=== PATIENT | female | born 1950 | race Caucasian/White ===

== ENCOUNTER → 2016-11-11 | Outpatient (CLI) | payer MEDICARE, BC ==
--- NOTE | 2016-11-12 00:56 | US ---
EXAMINATION TYPE: US kidneys/renal and bladder DATE OF EXAM: 11/11/2016 3:47 PM COMPARISON: Correlation CT 04/25/2016 CLINICAL HISTORY: 66-year-old female with Renal Cyst N28.1. TECHNIQUE: Multiple sonographic images of the kidneys and bladder were obtained. FINDINGS: Right Kidney: 11.1 x 3.9 x 5.4 cm without hydronephrosis. Left Kidney: 9.8 x 3.9 x 4.5 cm without hydronephrosis. There is a tiny 7 mm cortical cyst at the low er pole. Partial distention of the bladder limits its evaluation. IMPRESSION: 1. No hydronephrosis. 2. Tiny 7 mm left lower pole cortical cyst. This correlates well with the 6 mm lesion within the left kidney seen on CT.
== END | disposition home or self-care (01) ==
LOC: RADUSWWP 15:22
PROVIDERS: ATTEND Family Medicine
DX: N28.1 Cyst of kidney, acquired (principal)
CPT/HCPCS: 76770

== ENCOUNTER → 2016-12-18 | Outpatient (CLI) | payer MEDICARE, BC ==
--- NOTE | 2016-12-19 09:32 | MM ---
Reason for exam: screening (asymptomatic). Last mammogram was performed 1 year and 1 month ago. History: Patient is postmenopausal. Benign stereotactic core biopsy of the left breast, August 16, 2002. Taking estrogen for 21 years 8 months beginning at age 34. Physical Findings: A clinical breast exam by your physician is recommended on an annual basis and results should be correlated with mammographic findings. MG 3D Screening Mammo W/Cad Bilateral CC and MLO view(s) were taken. Prior study comparison: November 16, 2015, bilateral MG 3d screening mammo w/cad. November 09, 2014, bilateral MG screening mammo w CAD. The breast tissue is almost entirely fat. Previous mammotome biopsy in the left breast. No significant changes when compared with prior studies. ASSESSMENT: Benign, BI-RAD 2 RECOMMENDATION: Routine screening mammogram of both breasts in 1 year.
== END | disposition home or self-care (01) ==
LOC: RADMAMWWP 09:55
PROVIDERS: ATTEND Obstetrics & Gynecology
DX: Z12.31 Encounter for screening mammogram for malignant neoplasm of breast (principal)
CPT/HCPCS: 77063; G0202

== ENCOUNTER → 2018-08-20 | Outpatient (CLI) | payer MEDICARE, BC ==
--- NOTE | 2018-08-24 08:54 | MM ---
Reason for exam: screening (asymptomatic). Last mammogram was performed 1 year and 8 months ago. History: Patient is postmenopausal. Benign stereotactic core biopsy of the left breast, August 16, 2002. Taking estrogen for 21 years 8 months beginning at age 34. Physical Findings: A clinical breast exam by your physician is recommended on an annual basis and results should be correlated with mammographic findings. MG 3D Screening Mammo W/Cad Bilateral CC and MLO view(s) were taken. Prior study comparison: December 18, 2016, bilateral MG 3d screening mammo w/cad. November 16, 2015, bilateral MG 3d screening mammo w/cad. There are scattered fibroglandular densities. Previous mammotome biopsy in the left breast. No significant changes when compared with prior studies. ASSESSMENT: Benign, BI-RAD 2 RECOMMENDATION: Routine screening mammogram of both breasts in 1 year.
== END | disposition home or self-care (01) ==
LOC: RADMAMWWP 12:45
PROVIDERS: ATTEND Family Medicine
DX: Z12.31 Encounter for screening mammogram for malignant neoplasm of breast (principal)
CPT/HCPCS: 77063; 77067

== ENCOUNTER → 2018-10-28 | Outpatient (CLI) | payer MEDICARE, BC ==
--- NOTE | 2018-10-28 15:26 | CTL ---
EXAMINATION TYPE: CT Low Dose Lung DATE OF EXAM ORDERED: 10/28/2018 HISTORY: Long-term tobacco use. Lung cancer screening CT DLP: 49.[address] CTDI: 1.4 mGy Automated exposure control for dose reduction was used. SCREENING VISIT: Initial study COMPARISON: None TECHNIQUE: Low dose computed tomography scan was performed through the chest at 1 mm thick sections a nd reconstructed images in the coronal plane at [address] DIAGNOSTIC QUALITY: Satisfactory FINDINGS: LUNG NODULES: Present, detailed below: A few scattered micronodules or nodules under 4 mm in size thr oughout the right lung for reference right lower lobe 3 x 2 mm nodule axial image 185. LUNGS: COPD: Severity: Moderate to severe Fibrosis: Severity: None Lymph nodes: None Other findings: Enlarged bilateral pulmonary arteries consistent with underlying pulmonary hypertensi on. Mild/moderate calcified plaque of the aorta. BILATERAL PLEURAL SPACE: Effusion: None Calcification: None Thickening: None Pneumothorax: None HEART: Heart Size: Normal Coronary calcification: Severe three-vessel Pericardial effusion: None OTHER FINDINGS: Upper abdomen: None Bony thorax: Levoconvex scoliosis centered in the upper lumbar spine. Straightening of spine on sagit varinder images. Moderate multilevel spurring and disc space narrowing. Most prominent disc space narrowin g is at the T9-T10 level. Supraclavicular region: None Other: None IMPRESSION: Scattered small nodules. No significant nodules greater than 4 mm. Background moderate to advanced emphysematous change. FOLLOW UP CT CHEST RECOMMENDATION: Annual low-dose lung screening CT CT LUNG RAD: Lung-Rad 2 S -- Benign Appearance or Behavior Recommendation: Severe three-vessel coronary artery calcification. Correlate with additional cardiac risk factors advised.
== END | disposition home or self-care (01) ==
LOC: RADCTMAIN 14:35
PROVIDERS: ATTEND Family Medicine
DX: Z12.2 Encounter for screening for malignant neoplasm of respiratory organs (principal); J43.9 Emphysema, unspecified; R91.8 Other nonspecific abnormal finding of lung field; Z87.891 Personal history of nicotine dependence

== ENCOUNTER → 2020-01-07 | Outpatient (CLI) | payer MEDICARE, BC ==
--- NOTE | 2020-01-07 14:26 | CT ---
EXAMINATION TYPE: CT abdomen wo con DATE OF EXAM: 01/07/2020 COMPARISON: 04/25/2016 HISTORY: Follow up abdominal aneurysm CT DLP: 215 mGycm Automated exposure control for dose reduction was used. TECHNIQUE: Helical acquisition of images was performed from the lung bases through the top of iliac crest to include entire abdomen. CONTRAST: Performed without Oral Contrast and without IV contrast. FINDINGS: LUNG BASES: Suggestive coronary artery calcification with partially included. Lung bases demonstrate subsegmental change involving the right lung base likely in the basis of interlobular septal thickeni ng and paraseptal emphysematous changes. Additional diffuse changes are noted. LIVER/GB: No significant abnormality is appreciated. PANCREAS: No significant abnormality is seen. SPLEEN: No significant abnormality is seen. ADRENALS: No significant abnormality is seen. KIDNEYS: No hydronephrosis or nephrolithiasis. Small hypodense lesion left kidney is difficult to see by noncontrast technique as reported by prior exam. Inadequate assessment.. BOWEL: Bowel gas pattern nonspecific. LYMPH NODES: No significant abnormality is appreciated. OSSEOUS STRUCTURES: Is a scoliosis with multilevel severe degenerative disc disease. Multilevel face t arthropathy, lateral recess stenosis, canal stenosis, and foraminal encroachment suspected. OTHER: Aorta appears to be of normal caliber. There is no diagnostic evidence of aneurysm. There is d iffuse atherosclerotic changes. The maximal transverse dimension is 2.1 cm. Scoliotic curvature resul ts in ectasia and displacement of the aorta. An accurate measurement however demonstrates the length of the aorta to measure under 3 cm. However, there is diffuse atherosclerotic disease including the s karen branches of the aorta. Marked atherosclerotic disease at the level the aortic bifurcation. Short segmental occlusions or critical stenosis involving the origins of both common iliac arteries. Relate d to claudication or Leriche syndrome. The bladder is markedly distended but only partially included. Miles diffuse subcutaneous edema. Spencer elate for cardiac status. IMPRESSION: 1. No evidence of aortic aneurysm. Ectasia of the aorta noted. Accurate measurement of the aorta demo nstrates a maximal dimension of approximately 2.1 cm. However, severe atherosclerotic change of the a ortic bifurcation with short segmental occlusions or critical stenosis involving the bilateral common iliac artery. Correlate for claudication and/or Leriche syndrome.
== END | disposition home or self-care (01) ==
LOC: RADCTMAIN 13:49
PROVIDERS: ATTEND Internal Medicine Interventional Cardiology
DX: I77.811 Abdominal aortic ectasia (principal); I70.0 Atherosclerosis of aorta; Z91.048 Other nonmedicinal substance allergy status
CPT/HCPCS: 74150

== ENCOUNTER 2020-06-18 13:27 | Inpatient (IN) | payer MEDICARE, BC ==
[2020-06-18 14:22] LABS: Basophils % (A) 1 %; Eosinophils # (A) 0.1 k/uL (0-0.7); Eosinophils % (A) 1 %; HCT 47.6 % (34.0-46.0); HGB 15.5 gm/dL (11.4-16.0); Lymphocytes # (A) 0.7 k/uL (1.0-4.8); Lymphocytes % (A) 11 %; MCH 31.2 pg (25.0-35.0); MCHC 32.5 g/dL (31.0-37.0); MCV 95.9 fL (80.0-100.0); Mean Platelet Volume 10.6; Monocytes # (A) 0.2 k/uL (0-1.0); Monocytes % (A) 3 %; Neutrophils # (A) 5.7 k/uL (1.3-7.7); Neutrophils % (A) 84 %; Platelet Count 129 k/uL (150-450); RBC 4.96 m/uL (3.80-5.40); RDW 14.7 % (11.5-15.5); WBC 6.8 k/uL (3.8-10.6)
--- NOTE | 2020-06-18 14:26 | ED ---
General Adult HPI - General Stated complaint: Fall/Weakness Time Seen by Provider: 06/18/20 13:28 Source: patient, family, EMS, RN notes reviewed Mode of arrival: EMS Limitations: no limitations - History of Present Illness Initial comments: Patient is a pleasant 70-year-old female presenting to the emergency Department with general weakness. Patient got up around 6 is morning and tried use a bedside commode however fell down. Patient states she was too weak to stand. Weakness is bilateral legs. Patient does have chronic back problems however this is unchanged. No increase in back pain. Patient feels weak all over. No confusion. No street drugs. Patient has had increased leg edema recently. Patient has felt like she is having problems emptying her bladder. - Related Data Home Medications Medication Instructions Recorded Confirmed Atenolol/Chlorthalidone 1 tab PO DAILY 06/18/20 06/18/20 [Atenolol-Chlorthalidone 50-25] Atorvastatin Calcium [Lipitor] 40 mg PO DAILY 06/18/20 06/18/20 Biotin 10,000 mcg PO DAILY 06/18/20 06/18/20 Cetirizine HCl [Zyrtec] 10 mg PO DAILY 06/18/20 06/18/20 Cholecalciferol [Vitamin D3 (25 2,000 unit PO DAILY 06/18/20 06/18/20 Mcg = 1000 Iu)] Enalapril Maleate [Vasotec] 10 mg PO DAILY 06/18/20 06/18/20 Fenofibrate Nanocrystallized 145 mg PO DAILY 06/18/20 06/18/20 [Tricor] Furosemide [Lasix] 40 mg PO DAILY PRN 06/18/20 06/18/20 Hydrocodone/Acetaminophen [[place] 1 tab PO TID PRN 06/18/20 06/18/20 10-325] Pregabalin [Lyrica] 100 mg PO BID 06/18/20 06/18/20 Sertraline HCl [Zoloft] 100 mg PO DAILY 06/18/20 06/18/20 amLODIPine [Norvasc] 2.5 mg PO DAILY 06/18/20 06/18/20 Allergies Allergy/AdvReac Type Severity Reaction Status Date / Time almond Allergy Verified 06/18/20 14:11 Iodinated Contrast Media Allergy Verified 06/18/20 14:11 latex Allergy Itching Verified 06/18/20 14:11 peanut Allergy Verified 06/18/20 14:11 tape Allergy Itching Uncoded 06/18/20 14:11 Review of Systems ROS Statement: Those systems with pertinent positive or pertinent negative responses have been documented in the HPI. ROS Other: All systems not noted in ROS Statement are negative. Constitutional: Denies: fever Eyes: Denies: eye pain ENT: Denies: ear pain Respiratory: Reports: cough (Chronic), dyspnea (Chronic) Cardiovascular: Denies: chest pain Endocrine: Reports: fatigue Gastrointestinal: Denies: abdominal pain Genitourinary: Reports: as per HPI Musculoskeletal: Reports: as per HPI Skin: Denies: rash Neurological: Reports: as per HPI. Denies: headache Past Medical History Past Medical History: COPD History of Any Multi-Drug Resistant Organisms: None Reported Smoking Status: Current every day smoker Past Alcohol Use History: None Reported Past Drug Use History: None Reported General Exam Limitations: no limitations General appearance: alert, in no apparent distress Head exam: Present: normocephalic Eye exam: Present: normal appearance, PERRL, EOMI ENT exam: Present: normal oropharynx Neck exam: Present: normal inspection Respiratory exam: Present: wheezes Cardiovascular Exam: Present: regular rate, normal rhythm GI/Abdominal exam: Present: soft. Absent: tenderness Extremities exam: Present: pedal edema (+2 bilaterally). Absent: calf tenderness Neurological exam: Present: alert, oriented X3, CN II-XII intact Expanded Neurological exam: Present: protecting the airway Patient oriented to: Present: person, place, time Speech: Present: fluid speech Cranial nerves: EOM's Intact: Normal Sensory exam: Upper Extremity Light Touch: Normal, Lower Extremity Light Touch: Normal Motor strength exam: RUE: 5, LUE: 5, RLE: 3, LLE: 3 Eye Response: (4) open spontaneously Motor Response: (6) obeys commands Verbal Response: (5) oriented Psychiatric exam: Present: normal affect, normal mood Skin exam: Present: normal color Course Vital Signs 06/18/20 14:11 Temperature 97.4 F L Pulse Rate 79 Respiratory 18 Rate Blood Pressure 112/84 O2 Sat by Pulse 91 L Oximetry - Reevaluation(s) Reevaluation #1: 06/18/20 14:51 Patient reevaluated. Nursing staff did clamp Patterson catheter secondary to large amount of urine output. Patient does feel better. Patient states she may feel a little bit stronger. Patient is able to lift each leg off the bed however only able to hold up for a couple of seconds. Patient does states she does have chronic leg weakness, left greater than right. Patient does use a walker chronically secondary to her back problems. Patient has been told by 2 separate back surgeons that she is not a candidate secondary to her chronic lung problems that she would likely not survive the surgery. 06/18/20 14:59 Patient and family are updated on results and plan. Case was discussed with Dr. Lopez, with [facility] emergency department physician group, who will admit covering for Dr. Hurtado. She is agreeable with consults with neurology and Dr. Smith. She will decide on steroids when she evaluate patient. EKG Findings - EKG Comments: EKG Findings:: Normal sinus rhythm at 70. WV 170. QRS 96. QT 402. QTC 434. Right axis. Normal QRS. Inferior T wave inversion. Lateral T wave inversion. Medical Decision Making - Lab Data Result diagrams: 06/18/20 14:04 06/18/20 14:04 Lab Results 06/18/20 06/18/20 06/18/20 Range/Units 14:04 14:04 14:04 WBC 6.8 (3.8-10.6) k/uL RBC 4.96 (3.80-5.40) m/uL Hgb 15.5 (11.4-16.0) gm/dL Hct 47.6 H (34.0-46.0) % MCV 95.9 (80.0-100.0) fL MCH 31.2 (25.0-35.0) pg MCHC 32.5 (31.0-37.0) g/dL RDW 14.7 (11.5-15.5) % Plt Count 129 L (150-450) k/uL MPV 10.6 Neutrophils % 84 % Lymphocytes % 11 % Monocytes % 3 % Eosinophils % 1 % Basophils % 1 % Neutrophils # 5.7 (1.3-7.7) k/uL Lymphocytes # 0.7 L (1.0-4.8) k/uL Monocytes # 0.2 (0-1.0) k/uL Eosinophils # 0.1 (0-0.7) k/uL Basophils # 0.0 (0-0.2) k/uL PT (9.0-12.0) sec INR (<1.2) APTT (22.0-30.0) sec Sodium (137-145) mmol/L Potassium (3.5-5.1) mmol/L Chloride (98-107) mmol/L Carbon Dioxide (22-30) mmol/L Anion Gap mmol/L BUN (7-17) mg/dL Creatinine (0.52-1.04) mg/dL Est GFR (CKD-EPI)AfAm (>60 ml/min/1.73 sqM) Est GFR (CKD-EPI)NonAf (>60 ml/min/1.73 sqM) Glucose (74-99) mg/dL Plasma Lactic Acid Shai (0.7-2.0) mmol/L Calcium (8.4-10.2) mg/dL Phosphorus (2.5-4.5) mg/dL Magnesium (1.6-2.3) mg/dL Total Bilirubin (0.2-1.3) mg/dL AST (14-36) U/L ALT (4-34) U/L Alkaline Phosphatase (38-126) U/L Creatine Kinase (30-135) U/L Troponin I (0.000-0.034) ng/mL NT-Pro-B Natriuret Pep 3230 pg/mL Total Protein (6.3-8.2) g/dL Albumin (3.5-5.0) g/dL Free T4 (0.78-2.19) ng/dL Free T3 pg/mL (2.8-5.3) pg/ml Urine Color Urine Appearance (Clear) Urine pH (5.0-8.0) Ur Specific [place] (1.001-1.035) Urine Protein (Negative) Urine Glucose (UA) (Negative) Urine Ketones (Negative) Urine Blood (Negative) Urine Nitrite (Negative) Urine Bilirubin (Negative) Urine Urobilinogen (<2.0) mg/dL Ur Leukocyte Esterase (Negative) Coronavirus (PCR) Not Detected (Not Detectd) 06/18/20 06/18/20 06/18/20 Range/Units 14:04 14:04 14:04 WBC (3.8-10.6) k/uL RBC (3.80-5.40) m/uL Hgb (11.4-16.0) gm/dL Hct (34.0-46.0) % MCV (80.0-100.0) fL MCH (25.0-35.0) pg MCHC (31.0-37.0) g/dL RDW (11.5-15.5) % Plt Count (150-450) k/uL MPV Neutrophils % % Lymphocytes % % Monocytes % % Eosinophils % % Basophils % % Neutrophils # (1.3-7.7) k/uL Lymphocytes # (1.0-4.8) k/uL Monocytes # (0-1.0) k/uL Eosinophils # (0-0.7) k/uL Basophils # (0-0.2) k/uL PT 11.9 (9.0-12.0) sec INR 1.2 H (<1.2) APTT 22.0 (22.0-30.0) sec Sodium 129 L (137-145) mmol/L Potassium 4.5 (3.5-5.1) mmol/L Chloride 91 L (98-107) mmol/L Carbon Dioxide 29 (22-30) mmol/L Anion Gap 9 mmol/L BUN 71 H (7-17) mg/dL Creatinine 1.20 H (0.52-1.04) mg/dL Est GFR (CKD-EPI)AfAm 53 (>60 ml/min/1.73 sqM) Est GFR (CKD-EPI)NonAf 46 (>60 ml/min/1.73 sqM) Glucose 112 H (74-99) mg/dL Plasma Lactic Acid Shai (0.7-2.0) mmol/L Calcium 9.3 (8.4-10.2) mg/dL Phosphorus 4.6 H (2.5-4.5) mg/dL Magnesium 1.2 L (1.6-2.3) mg/dL Total Bilirubin 1.0 (0.2-1.3) mg/dL AST 67 H (14-36) U/L ALT 30 (4-34) U/L Alkaline Phosphatase 87 (38-126) U/L Creatine Kinase 579 H (30-135) U/L Troponin I (0.000-0.034) ng/mL NT-Pro-B Natriuret Pep pg/mL Total Protein 6.8 (6.3-8.2) g/dL Albumin 4.0 (3.5-5.0) g/dL Free T4 1.71 (0.78-2.19) ng/dL Free T3 pg/mL 5.2 (2.8-5.3) pg/ml Urine Color Yellow Urine Appearance Clear (Clear) Urine pH 5.5 (5.0-8.0) Ur Specific [place] 1.014 (1.001-1.035) Urine Protein Negative (Negative) Urine Glucose (UA) Negative (Negative) Urine Ketones Negative (Negative) Urine Blood Negative (Negative) Urine Nitrite Negative (Negative) Urine Bilirubin Negative (Negative) Urine Urobilinogen <2.0 (<2.0) mg/dL Ur Leukocyte Esterase Negative (Negative) Coronavirus (PCR) (Not Detectd) 06/18/20 06/18/20 Range/Units 14:04 14:04 WBC (3.8-10.6) k/uL RBC (3.80-5.40) m/uL Hgb (11.4-16.0) gm/dL Hct (34.0-46.0) % MCV (80.0-100.0) fL MCH (25.0-35.0) pg MCHC (31.0-37.0) g/dL RDW (11.5-15.5) % Plt Count (150-450) k/uL MPV Neutrophils % % Lymphocytes % % Monocytes % % Eosinophils % % Basophils % % Neutrophils # (1.3-7.7) k/uL Lymphocytes # (1.0-4.8) k/uL Monocytes # (0-1.0) k/uL Eosinophils # (0-0.7) k/uL Basophils # (0-0.2) k/uL PT (9.0-12.0) sec INR (<1.2) APTT (22.0-30.0) sec Sodium (137-145) mmol/L Potassium (3.5-5.1) mmol/L Chloride (98-107) mmol/L Carbon Dioxide (22-30) mmol/L Anion Gap mmol/L BUN (7-17) mg/dL Creatinine (0.52-1.04) mg/dL Est GFR (CKD-EPI)AfAm (>60 ml/min/1.73 sqM) Est GFR (CKD-EPI)NonAf (>60 ml/min/1.73 sqM) Glucose (74-99) mg/dL Plasma Lactic Acid Shai 1.9 (0.7-2.0) mmol/L Calcium (8.4-10.2) mg/dL Phosphorus (2.5-4.5) mg/dL Magnesium (1.6-2.3) mg/dL Total Bilirubin (0.2-1.3) mg/dL AST (14-36) U/L ALT (4-34) U/L Alkaline Phosphatase (38-126) U/L Creatine Kinase (30-135) U/L Troponin I <0.012 (0.000-0.034) ng/mL NT-Pro-B Natriuret Pep pg/mL Total Protein (6.3-8.2) g/dL Albumin (3.5-5.0) g/dL Free T4 (0.78-2.19) ng/dL Free T3 pg/mL (2.8-5.3) pg/ml Urine Color Urine Appearance (Clear) Urine pH (5.0-8.0) Ur Specific [place] (1.001-1.035) Urine Protein (Negative) Urine Glucose (UA) (Negative) Urine Ketones (Negative) Urine Blood (Negative) Urine Nitrite (Negative) Urine Bilirubin (Negative) Urine Urobilinogen (<2.0) mg/dL Ur Leukocyte Esterase (Negative) Coronavirus (PCR) (Not Detectd) Disposition Clinical Impression: Acute renal failure, Urinary retention, Weakness Disposition: ADMITTED IP TO THIS HOSP Is patient prescribed a controlled substance at d/c from ED?: No Referrals: Hilda Ocapmo NPC [Primary Care Provider] - 1-2 days Decision Time: 15:00
[2020-06-18 14:37] LABS: Calcium 9.3 mg/dL (8.4-10.2); Magnesium 1.2 mg/dL (1.6-2.3); Phosphorus 4.6 mg/dL (2.5-4.5); Potassium 4.5 mmol/L (3.5-5.1); Total Protein 6.8 g/dL (6.3-8.2)
[2020-06-18] MEDS ORDERED: MAGNESIUM OXIDE 400 MG TAB PO STA (14:39)
[2020-06-18] MEDS ORDERED: MAGNESIUM SULFATE-D5W PMX 1 GM in DEXTROSE/WATER 1 100ML.BAG IVPB ONE (14:39)
[2020-06-18 14:41] LABS: Appearance,Urine Clear (Clear); Bilirubin,Urine Negative (Negative); Blood,Urine Negative (Negative); Color,Urine Yellow; Glucose,Urine (UA) Negative (Negative); Ketones,Urine Negative (Negative); Leukocyte Esterase,Urine Negative (Negative); Nitrite,Urine Negative (Negative); PH, Urine 5.5 (5.0-8.0); Protein,Urine Negative (Negative); Specific Gravity,Urine 1.014 (1.001-1.035); Urobilinogen,Urine <2.0 mg/dL (<2.0)
[2020-06-18 14:43] LABS: INR 1.2 (<1.2); Prothrombin Time 11.9 sec (9.0-12.0)
[2020-06-18 14:52] LABS: T4, Free (Free Thyroxine) 1.71 ng/dL (0.78-2.19)
[2020-06-18] MEDS ORDERED: NALOXONE 0.4 MG/ML 1 ML VIAL IV PRN (15:01)
--- NOTE | 2020-06-18 15:08 | CT ---
EXAMINATION TYPE: CT brain wo con DATE OF EXAM: 06/18/2020 COMPARISON: None HISTORY: weakness, fall CT DLP: 1064.4 mGycm Automated exposure control for dose reduction was used. Ventricles have normal size. There is no mass effect nor midline shift. There is no sign of intracran ial hemorrhage. There is mild cerebral atrophy. Calvarium is intact. IMPRESSION: Mild atrophy appropriate for age. No acute abnormality.
--- NOTE | 2020-06-18 15:34 | XR ---
EXAMINATION TYPE: XR chest 2V DATE OF EXAM: 06/18/2020 COMPARISON: NONE HISTORY: Pain TECHNIQUE: 2 views FINDINGS: There is no heart failure nor confluent pneumonic infiltrate. Costophrenic angles are clear . Heart is borderline enlarged. There are chest leads. IMPRESSION: No active cardiopulmonary disease.
[2020-06-18] MEDS: SODIUM CHLORIDE 0.9% 1,000 ML IV SCH (16:09)
--- NOTE | 2020-06-18 16:49 | P.HPIM ---
History of Present Illness H&P Date: 06/18/20 Chief Complaint: Weakness This is a pleasant 61-year-old female who presents to [facility] ER with generalized weakness. Patient is accompanied by by her sister who is also a nurse. Patient awakened around 6 AM this morning to use the commode. Unfortunately, patient's legs gave out and she fell to the floor. Patient was too weak to stand on her own. Patient has a known history of left lower extremity weakness secondary to chronic degeneration of the lumbar spine. Patient states that her back pain is the same and has not changed in intensity. Patient uses a walker at home. Patient lives alone and is independent with her ADLs. Patient gets injections for her back pain by pain management. Patient admits that she does not eat a well-balanced meal every day. Patient further admits that she sleeps most of the day. Patient does not have an exercise regimen and smokes cigarettes. Patient has noticed increased lower extremity edema on and off over the past few months. Patient does see Dr. Sotomayor [employer] installer and a recent echocardiogram was completed. Per sister and the patient there is no evidence of heart failure. Patient denies chest pain. Patient admits to chronic shortness of breath secondary to COPD. Patient denies fever, chills, nausea, vomiting, diarrhea, or constipation. Patient does admit to urinary retention that has developed recently. Patterson was placed in the emergency department. Review of Systems A 14 point review systems was assessed patient was only positive for those pertinent HPI Past Medical History Past Medical History: COPD Additional Past Medical History / Comment(s): spinal stenosis, depression History of Any Multi-Drug Resistant Organisms: None Reported Past Surgical History: Hysterectomy Additional Past Surgical History / Comment(s): foot bunion Smoking Status: Current every day smoker Past Alcohol Use History: None Reported Past Drug Use History: None Reported Medications and Allergies Home Medications Medication Instructions Recorded Confirmed Type Atenolol/Chlorthalidone 1 tab PO DAILY 06/18/20 06/18/20 History [Atenolol-Chlorthalidone 50-25] Atorvastatin Calcium [Lipitor] 40 mg PO DAILY 06/18/20 06/18/20 History Biotin 10,000 mcg PO DAILY 06/18/20 06/18/20 History Cetirizine HCl [Zyrtec] 10 mg PO DAILY 06/18/20 06/18/20 History Cholecalciferol [Vitamin D3 (25 2,000 unit PO DAILY 06/18/20 06/18/20 History Mcg = 1000 Iu)] Enalapril Maleate [Vasotec] 10 mg PO DAILY 06/18/20 06/18/20 History Fenofibrate Nanocrystallized 145 mg PO DAILY 06/18/20 06/18/20 History [Tricor] Furosemide [Lasix] 40 mg PO DAILY PRN 06/18/20 06/18/20 History Hydrocodone/Acetaminophen [[place] 1 tab PO TID PRN 06/18/20 06/18/20 History 10-325] Pregabalin [Lyrica] 100 mg PO BID 06/18/20 06/18/20 History Sertraline HCl [Zoloft] 100 mg PO DAILY 06/18/20 06/18/20 History amLODIPine [Norvasc] 2.5 mg PO DAILY 06/18/20 06/18/20 History Allergies Allergy/AdvReac Type Severity Reaction Status Date / Time almond Allergy Verified 06/18/20 14:11 Iodinated Contrast Media Allergy Verified 06/18/20 14:11 latex Allergy Itching Verified 06/18/20 14:11 peanut Allergy Verified 06/18/20 14:11 tape Allergy Itching Uncoded 06/18/20 14:11 Physical Exam Osteopathic Statement: *. No significant issues noted on an osteopathic structural exam other than those noted in the History and Physical/Consult. Vitals: Vital Signs Temp Pulse Resp BP Pulse Ox 06/18/20 14:11 97.4 F L 79 18 112/84 91 L Intake and Output 06/18/20 06/18/20 06/18/20 06:59 14:59 22:59 Output Total 2300 Balance -2300 Output: Urine 2300 Other: Weight 53.977 kg General: [non toxic], [no distress], [appears older than stated age] Derm: [warm], [dry] Head: [atraumatic], [normocephalic], [symmetric] Eyes: [EOMI], [no lid lag], [anicteric sclera] Mouth: [no lip lesion], [mucus membranes moist] Cardiovascular: [S1S2 reg], [no murmur], [positive posterior tibial pulse bilateral], Lungs: [CTA bilateral], [no rhonchi, no rales] , [no accessory muscle use] Abdominal: [soft], [ nontender to palpation], [no guarding], [no appreciable organomegaly] Ext: [no gross muscle atrophy], [+2 pitting edema], [no contractures] Neuro: [ CN II-XI grossly intact], [no focal neuro deficits] Generalized muscle weakness Psych: [Alert], [oriented], [appropriate affect] Results CBC & Chem 7: 06/18/20 14:04 06/18/20 14:04 Labs: Abnormal Lab Results - Last 24 Hours (Table) 06/18/20 06/18/20 06/18/20 Range/Units 14:04 14:04 14:04 Hct 47.6 H (34.0-46.0) % Plt Count 129 L (150-450) k/uL Lymphocytes # 0.7 L (1.0-4.8) k/uL INR 1.2 H (<1.2) Sodium 129 L (137-145) mmol/L Chloride 91 L (98-107) mmol/L BUN 71 H (7-17) mg/dL Creatinine 1.20 H (0.52-1.04) mg/dL Glucose 112 H (74-99) mg/dL Phosphorus 4.6 H (2.5-4.5) mg/dL Magnesium 1.2 L (1.6-2.3) mg/dL AST 67 H (14-36) U/L Creatine Kinase 579 H (30-135) U/L TSH 0.031 L (0.465-4.680) mIU/L Thrombosis Risk Factor Assmnt - DVT/VTE Prophylaxis DVT/VTE Prophylaxis: Mechanical Prophylaxis ordered Assessment and Plan Assessment: 1. Bilateral lower extremity weakness with history of lumbar stenosis and degenerative disc disease with recent history of urinary retention Check MRI of the lumbar spine without contrast Patterson in place Consult neurology Consult orthopedic spine IV steroids initiated 2. Generalized weakness secondary to failure to thrive Slow IV hydration Ensure 3 times a day with meals PT/OT 3. Hyponatremia likely secondary to diuretics Hold diuretics Slow IV hydration Monitor sodium 4. Acute renal failure secondary to diuretics and decreased by mouth intake Hold all nephrotoxic agents slow IV hydration 5. Bilateral lower extremity edema likely secondary to third spacing verses side effect of calcium channel vanda Hold Norvasc Check pre-albumin Compression stockings ordered Check ultrasound for venous insufficiency 6. Hx of hypertension medications adjusted since nephrotoxic agents were held Hold atenolol/chlorthalidone Hold Lasix Hold JANNIE inhibitor Start metoprolol 50 mg by mouth twice a day Monitor vitals every 4 hours 7. Thrombocytopenia We will continue to monitor platelets 8. Hypomagnesemia Replaced in ER Recheck in a.m. 9. Subclinical hyperthyroid recheck as outpatient 10. History of hyperlipidemia Restart statin Start baby aspirin 11. Tobacco dependence cessation advised 12. GI/DVT prophylaxis 13. A.m. labs Patient is full code PCP is Dr. Hilda Moon Greater than 45 minutes spent with greater than 50% of time coordinating care and counselling
[2020-06-18] MEDS ORDERED: SODIUM CHLORIDE 0.9% 1,000 ML IV ONE (17:10)
--- NOTE | 2020-06-18 17:25 | P.PN ---
Progress Note - Text Progress Note Date: 06/18/20 Patient developed difficulty in breathing and became hypoxic saturating 88% on a non-rebreather. Patient was also hypotensive. 1L NS bolus provided. Duonebs ordered. STAT d-dimer ordered. Lovenox initiated until d-dimer result obtained. Patient is allergic to IV contrast. STAT CTA unable to be completed secondary to allergy and ARF. Transfer to tele floor. HOLD ALL BP medications. Check blood culture.
--- NOTE | 2020-06-18 17:51 | P.PN ---
Progress Note - Text Progress Note Date: 06/18/20 D-dimer came back a little over 19. Lovenox dose changed to 80mg sub q daily. Patient likely has a PE. US of LE ordered. VQ scan will be ordered.
[2020-06-18] MEDS: FAMOTIDINE 20 MG TAB PO SCH (17:55)
[2020-06-18] MEDS: methylPREDNISolone SOD SUCCI 125 MG/2 ML VIAL IV SCH ×2 (18:17→21:47)
[2020-06-18] MEDS: ENOXAPARIN 80 MG/0.8 ML SYRINGE SQ SCH (18:26)
--- NOTE | 2020-06-18 18:50 | US ---
LOWER EXTREMITY VENOUS INSUFFICIENCY CLINICAL HISTORY: venous insufficiency . edema bilateral legs SIDE PERFORMED: bilateral 1) Color flow is present and patency is documented in the following vessels. No DVT or SVT is noted . Common Femoral Vein Deep Femoral Vein Femoral Vein Popliteal Vein Proximal Calf Veins Greater Saph Vein 2) There is venous reflux noted at the following venous levels: right CFV, right GSV, right deep fe moral vein, right femoral vein, right popliteal vein, left CFV IMPRESSION: There is right-sided venous reflux demonstrated. No evidence of deep vein thrombosis.
[2020-06-18] MEDS ORDERED: ENOXAPARIN 40 MG/0.4 ML SYRINGE SQ SCH (21:00)
[2020-06-18] MEDS: MAGNESIUM OXIDE 400 MG TAB PO SCH (21:47)
[2020-06-18] MEDS: PREGABALIN 100 MG CAP PO SCH (21:47)
[2020-06-19] MEDS: HYDROcodone/APAP 10-325MG 1 EACH TAB PO PRN ×2 (06:01→22:30)
[2020-06-19] MEDS: methylPREDNISolone SOD SUCCI 125 MG/2 ML VIAL IV SCH ×4 (06:35→22:28)
[2020-06-19] MEDS: SODIUM CHLORIDE 0.9% 1,000 ML IV SCH (06:35)
[2020-06-19] MEDS ORDERED: INSULIN ASPART (NovoLOG) 100 UNIT/ML VIAL SQ SCH (07:30)
[2020-06-19] MEDS ORDERED: METOPROLOL TARTRATE 50 MG TAB PO SCH (08:00)
[2020-06-19 08:54] LABS: Glucose,Whole Blood 175 mg/dL (75-99)
[2020-06-19] MEDS ORDERED: ASPIRIN 81 MG PO SCH (09:00)
[2020-06-19] MEDS ORDERED: PANTOPRAZOLE 40 MG/10 ML VIAL IV SCH (09:00)
[2020-06-19] MEDS ORDERED: NON FORMULARY DRUG (Biotin [Biotin] 10,000 MCG Capsule) PO SCH (09:00)
[2020-06-19] MEDS: LORATADINE 10 MG TAB PO SCH (09:26)
[2020-06-19] MEDS: ATORVASTATIN 40 MG TAB PO SCH (09:26)
[2020-06-19] MEDS: FAMOTIDINE 20 MG TAB PO SCH (09:26)
[2020-06-19] MEDS: MAGNESIUM OXIDE 400 MG TAB PO SCH ×2 (09:26→22:28)
[2020-06-19] MEDS: SERTRALINE 100 MG TAB PO SCH (09:26)
[2020-06-19] MEDS: CHOLECALCIFEROL 1,000 UNIT TAB PO SCH (09:26)
[2020-06-19] MEDS: PREGABALIN 100 MG CAP PO SCH ×2 (09:26→22:28)
[2020-06-19] MEDS: FENOFIBRATE 160 MG TAB PO SCH (09:26)
[2020-06-19] MEDS: INSULIN ASPART (NovoLOG) 100 UNIT/ML VIAL SQ SCH ×3 (09:27→18:28)
--- NOTE | 2020-06-19 09:44 | NM ---
EXAMINATION TYPE: NM pul vent and perfuse DATE OF EXAM: 06/19/2020 COMPARISON: NONE HISTORY: Shortness of breath rule out pulmonary embolism TECHNIQUE: Utilizing inhalation of 34.5 mCi Tc 99m DTPA aerosol and intravenous injection of 4.9 mCi of Tc 99m MAA, ventilation and perfusion images are acquired post injection in multiple projections. FINDINGS: There is moderate central accumulation of radiotracer noted on the ventilation portion of the study c ompatible with COPD. There is no evidence for perfusion ventilation mismatch. IMPRESSION: Intermediate probability of pulmonary embolism.
[2020-06-19 10:17] LABS: Basophils % (A) 0 %; Eosinophils # (A) 0.1 k/uL (0-0.7); Eosinophils % (A) 2 %; HCT 43.4 % (34.0-46.0); Lymphocytes # (A) 0.6 k/uL (1.0-4.8); Lymphocytes % (A) 9 %; MCH 30.9 pg (25.0-35.0); MCHC 32.3 g/dL (31.0-37.0); MCV 95.8 fL (80.0-100.0); Mean Platelet Volume 10.3; Monocytes # (A) 0.1 k/uL (0-1.0); Monocytes % (A) 2 %; Neutrophils # (A) 5.2 k/uL (1.3-7.7); Neutrophils % (A) 86 %; Platelet Count 131 k/uL (150-450); RBC 4.53 m/uL (3.80-5.40)
[2020-06-19 10:19] LABS: Calcium 8.3 mg/dL (8.4-10.2); Magnesium 1.4 mg/dL (1.6-2.3); Phosphorus 4.5 mg/dL (2.5-4.5); Potassium 3.8 mmol/L (3.5-5.1); Total Protein 5.4 g/dL (6.3-8.2)
[2020-06-19] MEDS: CYANOCOBALAMIN 500 MCG TAB PO SCH (10:51)
--- NOTE | 2020-06-19 10:56 | P.CNNES ---
History of Present Illness Consult date: 06/19/20 Requesting physician: Elier Robertson Reason for Consult: leg weakness History of Present Illness: This is a 70-year-old woman with medical history of COPD, tobacco use and chronic lower back pain and leg weakness (left > right) that presented emergency department on 06/18/2020 because of the falls and weakness. She stated that around 6:00 in the morning on 06/18/2020 she tried to use at bedside commode but fell down since her legs gave out. She denies head trauma. Continue patient that she's been having got chronic lower back pain since the year 1999 as well as bilateral lower extremity weakness left more than the right since the 10-15 years at least according to patient. She said that chronic lower back pain is in the middle of her back radiates to the left posterior leg up to the knee. It's intermittent pain. She also has bilateral lower extremity weakness as stated earlier the left more than the right. She also feels her right lower extremity from the hip down to the knee is numb and been going on him, for weeks to months. She denies any urinary or bowel frequency or urgency stated when she drinks more liquids she'll have more urinary frequency but she limited the it it is resolved. She denies any urinary or bowel incontinence. She uses a walker at home and been going on according to her for years. Prior to that she is she's been using a cane. She lives home alone. She said that for her lower back pain that she was seeing Dr. Abreu (part of Orthopedic associated) and has been seeing Dr. Smith (Orthopedic). She was told that she is a candidate for surgery because of her chronic lung problems. She has been getting the lower back injections every 3 months and is seems the according to the patient there is steroids last MRI she got one was in March 2020. She does have falls she said for at least 1-year-old to be longer but she feels like it's the becoming more frequent she cannot tell me how often. She denies any chest pain prior to the episodes or loss of consciousness. She just said that that her legs, give out Patient home medication is Lipitor 40 mg, biotin 10,000 g daily atenolol and the lateral portal as well as vitamin D. Patient is also on the amlodipine, Osbaldo 100 mg 1 tablet twice a day, Lasix 40 mg daily as needed, [place] 1 tablet 3 times a day when necessary Workup in the hospital consisted of: CT of the head is reported as mild atrophy appropriate for age. No acute abnormality. Patient's platelet is 129 which is low. Sodium is 129 which is also concerned low. Her serum glucoses 112 In the ED the patient had increased urine output. Review of Systems Review of system: The 12 point system was reviewed and apparent positive and negative per HPI. Past Medical History Past Medical History: COPD Additional Past Medical History / Comment(s): spinal stenosis, depression History of Any Multi-Drug Resistant Organisms: None Reported Past Surgical History: Hysterectomy Additional Past Surgical History / Comment(s): foot bunion Past Anesthesia/Blood Transfusion Reactions: No Reported Reaction Past Psychological History: Depression Smoking Status: Current every day smoker Past Alcohol Use History: None Reported Past Drug Use History: None Reported - Past Family History Father Family Medical History: Memory Impairment Mother History Unknown: Yes Medications and Allergies Home Medications Medication Instructions Recorded Confirmed Type Atenolol/Chlorthalidone 1 tab PO DAILY 06/18/20 06/18/20 History [Atenolol-Chlorthalidone 50-25] Atorvastatin Calcium [Lipitor] 40 mg PO DAILY 06/18/20 06/18/20 History Biotin 10,000 mcg PO DAILY 06/18/20 06/18/20 History Cetirizine HCl [Zyrtec] 10 mg PO DAILY 06/18/20 06/18/20 History Cholecalciferol [Vitamin D3 (25 2,000 unit PO DAILY 06/18/20 06/18/20 History Mcg = 1000 Iu)] Enalapril Maleate [Vasotec] 10 mg PO DAILY 06/18/20 06/18/20 History Fenofibrate Nanocrystallized 145 mg PO DAILY 06/18/20 06/18/20 History [Tricor] Furosemide [Lasix] 40 mg PO DAILY PRN 06/18/20 06/18/20 History Hydrocodone/Acetaminophen [[place] 1 tab PO TID PRN 06/18/20 06/18/20 History 10-325] Pregabalin [Lyrica] 100 mg PO BID 06/18/20 06/18/20 History Sertraline HCl [Zoloft] 100 mg PO DAILY 06/18/20 06/18/20 History amLODIPine [Norvasc] 2.5 mg PO DAILY 06/18/20 06/18/20 History Allergies Allergy/AdvReac Type Severity Reaction Status Date / Time almond Allergy Verified 06/18/20 14:11 Iodinated Contrast Media Allergy Verified 06/18/20 14:11 latex Allergy Itching Verified 06/18/20 14:11 peanut Allergy Verified 06/18/20 14:11 tape Allergy Itching Uncoded 06/18/20 14:11 Physical Examination - Vital Signs Vital Signs: Vital Signs Temp Pulse Pulse Resp BP BP Pulse Ox 06/19/20 06:41 96 06/19/20 05:00 98.3 F 75 18 128/78 97 06/19/20 01:00 97.4 F L 60 20 106/61 99 06/18/20 21:00 97.4 F L 62 22 112/58 97 06/18/20 20:00 62 22 06/18/20 17:50 97.5 F L 67 22 116/58 95 06/18/20 16:51 70 16 85/58 96 06/18/20 16:40 69 16 80/48 88 L 06/18/20 16:32 69 17 80/48 90 L 06/18/20 16:20 72 16 89/55 89 L 06/18/20 16:10 70 16 88/59 93 L 06/18/20 16:00 67 17 85/61 90 L 06/18/20 15:50 69 74/47 82 L 06/18/20 15:40 71 80/51 79 L 06/18/20 15:30 70 88/64 06/18/20 15:00 70 93/69 06/18/20 14:30 70 103/70 06/18/20 14:11 97.4 F L 79 18 112/84 91 L Intake and Output 06/18/20 06/19/20 06/19/20 22:59 06:59 14:59 Intake Total 1000 240 Output Total 620 300 Balance 380 -300 240 Intake: Oral 1000 240 Output: Urine 620 300 Other: Voiding Method Indwelling Catheter Weight 53.977 kg GENERAL: The patient is lying in bed and is not in acute distress. CHEST: The heart rate is regular rate rhythm. No murmurs to auscultation. LUNG: Clear to auscultation bilaterally no wheezing noted throughout. Not labored breathing. ABDOMEN/GI: Bowel sounds present in all 4 quadrants. No tenderness to palpation throughout. NEUROLOGICAL: Higher mental function: The patient is awake, alert, oriented to self, place and time. Patient is following commands. No aphasia and no neglect. Cranial nerves: The pupils are round, equal and reactive to light and accommodation. Visual boyle are full to confrontation throughout. Extraocular movement is intact no nystagmus is noted. Facial sensation is normal to touch throughout. The facial strength is normal throughout. Hearing is normal bilaterally to hand rub. Tongue is midline and moved [id number] without any difficulty. No dysarthria is noted. Shoulder shrug is normal bilaterally. Motor: Gait is deferred. The strength is hip flexion 3-4/5 bilaterall, hip extension 4/5 bilaterally, knee extension 4+ bilaterally, ankle dorsiflexion/extension 4+ to 5-/5 bilaterally but I felt patient was in some pain since she kept on grimaces face with movement. Otherwsie 5 over 5 over bilateral upper extremities. Normal tone and bulk. Cerebellum: Normal finger to nose bilaterally. Sensation: Sensation is normal to touch throughout. Reflexes (right/left): 3+ throughout except ankles 1+ bilaterally. Plantars are downgoing bilaterally. Results AST of 67 and ALC of 30. TSH is a 0.031 and the free T4 is 1.71. CK level is 579 which is elevated (normal is 30-135). Ration study: PT of 11.9, INR is 1.2, and PTT of 22.0. Coronavirus is not detected. - Laboratory Findings CBC and BMP: 06/19/20 09:08 06/19/20 09:08 Abnormal Lab Findings: Abnormal Labs 06/18/20 06/18/20 06/18/20 14:04 14:04 14:04 Hct 47.6 H Plt Count 129 L Lymphocytes # 0.7 L INR 1.2 H D-Dimer Sodium 129 L Chloride 91 L BUN 71 H Creatinine 1.20 H Glucose 112 H Phosphorus 4.6 H Magnesium 1.2 L AST 67 H Creatine Kinase 579 H TSH 0.031 L 06/18/20 17:06 Hct Plt Count Lymphocytes # INR D-Dimer 19.18 H Sodium Chloride BUN Creatinine Glucose Phosphorus Magnesium AST Creatine Kinase TSH Assessment and Plan Assessment: This is a 70-year-old woman the presented to the emergency department on 06/18/2020 bilateral lower extremity weakness left more than the right which is chronic and chronic back pain that feels she is having more frequent falls as a result of her leg weakness. She was notified by 2 different orthopedic surgeon she's not a candidate for surgery according to the patient the because of her lung problems. She is getting steroid injections in her lower back every 3 months and the last injection was in March 2020. Chronic leg weakness left more than the right with chronic lower back pain. Localizes the lumbosacral region. She was told by 2 different Orthopedic surgeon that she's not a candidate for back surgery because of her chronic long the problems. Chronic lower back pain Hyponatremia (unsure if this seems subacute but not sure if chronic. Last sodium is 05/02/2020 and is 133 and nothing prior to that in our records)--likely due to medication use Lasix Bilateral lower extremity edema Hypomagnesemia Urinary retention Acute kidney injury COPD Tobacco use Plan: MRI of the lumbar is ordered by the primary team is pending. Solu-Medrol off 560 mg IV every 6 hours as ordered by the primary team. Orthopedic surgery is consulted. PT and OT are consulted. CK level is 579 which is elevated (normal is 30-135. Vitamin B12 is 370 on 05/02/2020 which is within the low normal limits. I'll start the patient on the vitamin B12 at thousand micrograms daily. Ordered folate level. I recommend MRI of the cervical spine which could be done as an outpatient rahul ecially the patient had brisk reflexes of the upper extremities. I recommended the patient follows up by not only with a neurologist as an outpatient but the consider neurosurgeon as an outpatient as well. Recommend EMG with nerve conduction study as an outpatient. Upon discharge the patient needs to follow-up with an outpatient neurologist within 1-2 weeks. The patient is having frequent falls and recommended the patient not to be discharged home. Possibly consider her moving to live with family member or being in a nursing facility to avoid any fall leading to a head trauma that would bleed into intraparenchymal bleed or any severe injury. Regarding the hyponatremia recommend that corrected at and we'll defer the management to the primary team. Regarding the hypomagnesemia, acute kidney insufficiency and the rest of the medical management will defer to the primary team. The plan was discussed with the patient and her nurse. Thank you for the consultation. Yevgeniy Silva M.D. Neuro-hospitalist Time with Patient: Greater than 30
[2020-06-19] MEDS ORDERED: SODIUM CHLORIDE 0.9% 1,000 ML IV ONE (11:31)
[2020-06-19 13:04] LABS: Glucose,Whole Blood 152 mg/dL (75-99)
--- NOTE | 2020-06-19 13:25 | P.PN ---
Subjective Progress Note Date: 06/19/20 Principal diagnosis: Debility with acute hypoxic respiratory failure Patient seen and examined at bedside. Patient is now on IV steroids and oxygen. Dimer came back above 19. VQ scan was intermediate. Secondary to patient's immobility, smoking history, acute hypoxic respiratory failure, and hypotension patient likely has a PE. All blood pressure medications were discontinued. Patient received another bolus of IV fluids this morning and fluid rate has been increased. No signs of sepsis. COV ID was negative. Patient states her breathing has improved and is feeling better. Objective - Vital Signs Vital signs: Vital Signs Temp 98.1 F 06/19/20 11:55 Pulse 87 06/19/20 11:55 Resp 18 06/19/20 11:55 BP 90/52 06/19/20 12:08 Pulse Ox 92 L 06/19/20 11:55 Intake & Output 06/18/20 06/19/20 06/19/20 18:59 06:59 18:59 Intake Total 1000 240 Output Total 2300 920 Balance -1300 -920 240 Weight 53.977 kg Intake: Oral 1000 240 Output: Urine 2300 920 Other: Voiding Method Indwelling Catheter Indwelling Catheter - Exam General: [non toxic], [no distress], [appears at stated age] Derm: [warm], [dry] Head: [atraumatic], [normocephalic], [symmetric] Eyes: [EOMI], [no lid lag], [anicteric sclera] Mouth: [no lip lesion], [mucus membranes moist] Cardiovascular: [S1S2 reg], [no murmur], [positive posterior tibial pulse bilateral], Lungs: [CTA bilateral], [no rhonchi, no rales] , [no accessory muscle use] Abdominal: [soft], [ nontender to palpation], [no guarding], [no appreciable organomegaly] Ext: [no gross muscle atrophy], [no edema], [no contractures] Neuro: [ CN II-XI grossly intact], [no focal neuro deficits] Psych: [Alert], [oriented], [appropriate affect] - Labs CBC & Chem 7: 06/19/20 09:08 06/19/20 09:08 Labs: Abnormal Lab Results - Last 24 Hours (Table) 06/18/20 06/18/20 06/18/20 Range/Units 14:04 14:04 14:04 Hct 47.6 H (34.0-46.0) % Plt Count 129 L (150-450) k/uL Lymphocytes # 0.7 L (1.0-4.8) k/uL INR 1.2 H (<1.2) D-Dimer (<0.60) mg/L FEU Sodium 129 L (137-145) mmol/L Chloride 91 L (98-107) mmol/L BUN 71 H (7-17) mg/dL Creatinine 1.20 H (0.52-1.04) mg/dL Glucose 112 H (74-99) mg/dL POC Glucose (mg/dL) (75-99) mg/dL Calcium (8.4-10.2) mg/dL Phosphorus 4.6 H (2.5-4.5) mg/dL Magnesium 1.2 L (1.6-2.3) mg/dL AST 67 H (14-36) U/L Creatine Kinase 579 H (30-135) U/L Total Protein (6.3-8.2) g/dL Albumin (3.5-5.0) g/dL TSH 0.031 L (0.465-4.680) mIU/L 06/18/20 06/19/20 06/19/20 Range/Units 17:06 08:53 09:08 Hct (34.0-46.0) % Plt Count 131 L (150-450) k/uL Lymphocytes # 0.6 L (1.0-4.8) k/uL INR (<1.2) D-Dimer 19.18 H (<0.60) mg/L FEU Sodium (137-145) mmol/L Chloride (98-107) mmol/L BUN (7-17) mg/dL Creatinine (0.52-1.04) mg/dL Glucose (74-99) mg/dL POC Glucose (mg/dL) 175 H (75-99) mg/dL Calcium (8.4-10.2) mg/dL Phosphorus (2.5-4.5) mg/dL Magnesium (1.6-2.3) mg/dL AST (14-36) U/L Creatine Kinase (30-135) U/L Total Protein (6.3-8.2) g/dL Albumin (3.5-5.0) g/dL TSH (0.465-4.680) mIU/L 06/19/20 Range/Units 09:08 Hct (34.0-46.0) % Plt Count (150-450) k/uL Lymphocytes # (1.0-4.8) k/uL INR (<1.2) D-Dimer (<0.60) mg/L FEU Sodium 133 L (137-145) mmol/L Chloride (98-107) mmol/L BUN 58 H (7-17) mg/dL Creatinine (0.52-1.04) mg/dL Glucose 156 H (74-99) mg/dL POC Glucose (mg/dL) (75-99) mg/dL Calcium 8.3 L (8.4-10.2) mg/dL Phosphorus (2.5-4.5) mg/dL Magnesium 1.4 L (1.6-2.3) mg/dL AST 52 H (14-36) U/L Creatine Kinase (30-135) U/L Total Protein 5.4 L (6.3-8.2) g/dL Albumin 3.0 L (3.5-5.0) g/dL TSH (0.465-4.680) mIU/L Assessment and Plan Assessment: 1. Acute hypoxic respiratory failure with hypotension concern for PE Positive D-dimer 19.18, patient sleeps all day and is a smoker CTA was not done yesterday because patient is ALLERGIC to IV contrast and was in acute renal failure Kidney function has improved today VQ scan was intermediate per radiology If hypotension does not improve would recommend CTA with prep Lovenox 80 mg subcu daily Continue IV steroids All blood pressure medications were held No sign of sepsis Blood cultures were ordered and are pending Pulmonary recommendations appreciated Check pro-calcitonin and a.m. cortisol level 2. Acute renal failure secondary to diuretics and decreased po intake- RESOLVED Continue IV hydration 3. Hyponatremia likely secondary to diuretics IMPROVING Hold diuretics Slow IV hydration Monitor sodium 4. Bilateral lower extremity edema likely secondary to third spacing with venous insufficiency ultrasound positive for venous insufficiency Ultrasound negative for DVT 5. Bilateral lower extremity weakness with history of lumbar stenosis and degenerative disc disease with recent history of urinary retention Check MRI of the lumbar spine without contrast Patterson in place neurology recs appreciated orthopedic spine recs appreciated PT/OT 6. Generalized weakness secondary to failure to thrive Slow IV hydration Ensure 3 times a day with meals PT/OT AM labs 6. Hx of hypertension medications adjusted since nephrotoxic agents were held Hold atenolol/chlorthalidone Hold Lasix Hold JANNIE inhibitor Start metoprolol 50 mg by mouth twice a day Monitor vitals every 4 hours 7. Thrombocytopenia We will continue to monitor platelets 8. Hypomagnesemia Replaced in ER Recheck in a.m. 9. Subclinical hyperthyroid recheck as outpatient 10. History of hyperlipidemia Restart statin Start baby aspirin 11. Tobacco dependence cessation advised 12. GI/DVT prophylaxis 13. A.m. labs Patient is full code PCP is Dr. Hilda Moon Greater than 45 minutes spent with greater than 50% of time coordinating care and counselling Time with Patient: Greater than 30
[2020-06-19 14:23] VITALS: BMI 21.0
[2020-06-19 16:49] LABS: Hemoglobin A1C 5.6 % (4.0-6.0)
--- NOTE | 2020-06-19 17:58 | P.CNOR ---
History of Present Illness - [facility] Consult date: 06/19/20 Requesting physician: Elier Robertson Consult reason: low back pain, other (lower extremity weakness) History of present illness: Patient is a pleasant 70-year-old female who was seen examined at bedside for further evaluation for her lumbar spine. She states she is known to have c hronic low back pain with some leg pain. She has followed with Dr. Abreu in pain management and has undergone injections. She ambulates with the assistance of a walker. She states the other day she started to have some weakness in her legs and fell to the ground. She was unable to get up at that time. She admits to significant and weakness in the bilateral lower extremities. She presented to the emergency department for further evaluation. She also admits to recent urinary retention. A Patterson catheter was placed in the emergency department. Nursing states patient has been having significant urine since the placement of the catheter. Patient does admit to smoking and has COPD. During her admission patient began to have difficulty with breathing and became hypoxic. She had elevated d-dimer. She was started on Lovenox. She also has acute renal failure, has an allergy to contrast and was unable have CT of the chest with contrast. She has undergone a venous Doppler study as well as pulmonary perfusion imaging. At the bedside patient does have weakness with lifting her legs off the bed independently. She does admit to some back pain with pain radiating down the legs. She is on oxygen at the bedside. Medicine states patient's acute renal failure has resolved. Hyponatremia is improving as well. She has not had any imaging of her lumbar spine at this admission. An MRI of the lumbar spine has been ordered but not performed at this time. Patient is also being treated for a sore near the sacrum. Patient has been seen by Neurology as well. Past Medical History Past Medical History: COPD Additional Past Medical History / Comment(s): spinal stenosis, depression History of Any Multi-Drug Resistant Organisms: None Reported Past Surgical History: Hysterectomy Additional Past Surgical History / Comment(s): foot bunion Past Anesthesia/Blood Transfusion Reactions: No Reported Reaction Past Psychological History: Depression Smoking Status: Current every day smoker Past Alcohol Use History: None Reported Past Drug Use History: None Reported - Past Family History Father Family Medical History: Memory Impairment Mother History Unknown: Yes Medications and Allergies Home Medications Medication Instructions Recorded Confirmed Type Atenolol/Chlorthalidone 1 tab PO DAILY 06/18/20 06/18/20 History [Atenolol-Chlorthalidone 50-25] Atorvastatin Calcium [Lipitor] 40 mg PO DAILY 06/18/20 06/18/20 History Biotin 10,000 mcg PO DAILY 06/18/20 06/18/20 History Cetirizine HCl [Zyrtec] 10 mg PO DAILY 06/18/20 06/18/20 History Cholecalciferol [Vitamin D3 (25 2,000 unit PO DAILY 06/18/20 06/18/20 History Mcg = 1000 Iu)] Enalapril Maleate [Vasotec] 10 mg PO DAILY 06/18/20 06/18/20 History Fenofibrate Nanocrystallized 145 mg PO DAILY 06/18/20 06/18/20 History [Tricor] Furosemide [Lasix] 40 mg PO DAILY PRN 06/18/20 06/18/20 History Hydrocodone/Acetaminophen [Wray 1 tab PO TID PRN 06/18/20 06/18/20 History 10-325] Pregabalin [Lyrica] 100 mg PO BID 06/18/20 06/18/20 History Sertraline HCl [Zoloft] 100 mg PO DAILY 06/18/20 06/18/20 History amLODIPine [Norvasc] 2.5 mg PO DAILY 06/18/20 06/18/20 History Allergies Allergy/AdvReac Type Severity Reaction Status Date / Time almond Allergy Verified 06/18/20 14:11 Iodinated Contrast Media Allergy Verified 06/18/20 14:11 latex Allergy Itching Verified 06/18/20 14:11 peanut Allergy Verified 06/18/20 14:11 tape Allergy Itching Uncoded 06/18/20 14:11 Physical Examination Physical exam: Patient is awake, alert, oriented 3 Adequate chest excursion with inspiration and expiration currently on O2 nasal cannula Patient has significant difficulty with active range of motion of the bilateral lower extremities with hip flexion and knee extension bilaterally Dorsiflexion, plantar flexion, extensor hallucis longus positive sustained bilateral lower extremities Neurovascularly intact bilateral lower extremities No pain with internal and external rotation of the hips bilaterally Calves are soft nontender; no obvious sign of DVT Patient is unable to roll over in bed independently Significant pain with palpation along her whole lumbar spine Palpable scoliotic curvature Results Pertinent studies: Pulmonary perfusion imaging taken on 06/19/2020: Intermediate probability for pulmonary embolism Bilateral lower extremity venous ultrasound Doppler taken on 06/18/2020: No evidence of DVT; right sided venous reflux demonstrated X-rays of the lumbosacral spine taken at [facility] on 02/23/2019: Significant scoliosis with bipolar lumbar curvature measuring approximately 43 and lower lumbar curvature measuring approximately 26 cervical significant degenerative disc disease throughout the lumbar spine; L2-3 retrolisthesis; significant anterior ossific spurring throughout the lumbar spine - Labs Labs: Abnormal Lab Results - Last 24 Hours (Table) 06/19/20 06/19/20 06/19/20 Range/Units 08:53 09:08 09:08 Plt Count 131 L (150-450) k/uL Lymphocytes # 0.6 L (1.0-4.8) k/uL Sodium 133 L (137-145) mmol/L BUN 58 H (7-17) mg/dL Glucose 156 H (74-99) mg/dL POC Glucose (mg/dL) 175 H (75-99) mg/dL Calcium 8.3 L (8.4-10.2) mg/dL Magnesium 1.4 L (1.6-2.3) mg/dL AST 52 H (14-36) U/L Total Protein 5.4 L (6.3-8.2) g/dL Albumin 3.0 L (3.5-5.0) g/dL 06/19/20 Range/Units 13:03 Plt Count (150-450) k/uL Lymphocytes # (1.0-4.8) k/uL Sodium (137-145) mmol/L BUN (7-17) mg/dL Glucose (74-99) mg/dL POC Glucose (mg/dL) 152 H (75-99) mg/dL Calcium (8.4-10.2) mg/dL Magnesium (1.6-2.3) mg/dL AST (14-36) U/L Total Protein (6.3-8.2) g/dL Albumin (3.5-5.0) g/dL H & H 06/18/20 06/19/20 Range/Units 14:04 09:08 Hgb 15.5 14.0 (11.4-16.0) gm/dL Hct 47.6 H 43.4 (34.0-46.0) % Coagulation 06/18/20 Range/Units 14:04 INR 1.2 H (<1.2) Result Diagrams: 06/19/20 09:08 06/19/20 09:08 Assessment and Plan Assessment: Assessment: Chronic low back pain Lower extremity weakness Generalized weakness Lumbar scoliosis Lumbar degenerative disc disease Lumbar osteophytic spurring L2-3 retrolisthesis Difficulty with ambulation requiring a walker in the outpatient setting Acute hypoxic respiratory failure and concern for pulmonary embolism Urinary Retention w/Patterson Catheter intact COPD Hyponatremia, improving Acute renal failure, improved Wound at the lower sacrum (1) Chronic low back pain Current Visit: Yes Status: Acute Code(s): M54.5 - LOW BACK PAIN; G89.29 - OTHER CHRONIC PAIN SNOMED Code(s): 692443529 (2) Low back pain radiating to lower extremity Current Visit: Yes Status: Acute Code(s): M54.5 - LOW BACK PAIN SNOMED Code(s): 687484022 (3) Scoliosis Current Visit: Yes Status: Acute Code(s): M41.9 - SCOLIOSIS, UNSPECIFIED SNOMED Code(s): 299818512 (4) Lumbar degenerative disc disease Current Visit: Yes Status: Acute Code(s): M51.36 - OTHER INTERVERTEBRAL DISC DEGENERATION, LUMBAR REGION SNOMED Code(s): 67862127 (5) Spondylolisthesis, lumbar region Current Visit: Yes Status: Acute Code(s): M43.16 - SPONDYLOLISTHESIS, LUMBAR REGION SNOMED Code(s): 278127528846266 (6) Acute respiratory failure Current Visit: Yes Status: Acute Code(s): J96.00 - ACUTE RESPIRATORY FAILURE, UNSP W HYPOXIA OR HYPERCAPNIA SNOMED Code(s): 89499335 (7) Status post fall Current Visit: Yes Status: Acute Code(s): Z91.81 - HISTORY OF FALLING SNOMED Code(s): 083849113 (8) Acute renal failure Current Visit: Yes Status: Acute Code(s): N17.9 - ACUTE KIDNEY FAILURE, UNSPECIFIED SNOMED Code(s): 33756547 (9) Hyponatremia Current Visit: Yes Status: Acute Code(s): E87.1 - HYPO-OSMOLALITY AND HYPONATREMIA SNOMED Code(s): 78590657 (10) Urinary retention Current Visit: Yes Status: Acute Code(s): R33.9 - RETENTION OF URINE, UNSPECIFIED SNOMED Code(s): 653427749 (11) Weakness Current Visit: Yes Status: Acute Code(s): R53.1 - WEAKNESS SNOMED Code(s): 29999835 Plan: Plan: 1. After physical examination of the patient, reviewing of imaging from 2019, and further discussion with the patient, we agree the patient should have an MRI of the lumbar spine. She will proceed forward with the imaging as ordered. We'll also plan to obtain updated x-rays of her lumbar spine for further evaluation. Following the completion of this imaging, we will review this imaging and will follow up to discuss these results and to discuss the plan of care proceeding forward. Patient feels this is a good plan of care. 2. Patient will continue to be seen examined by multiple other medical providers including medicine and neurology. Time with Patient: Greater than 30 (Including dictation, physical examination the patient, history with the patient, and reviewing of chart)
[2020-06-19 18:25] LABS: Glucose,Whole Blood 180 mg/dL (75-99)
[2020-06-19] MEDS: ENOXAPARIN 80 MG/0.8 ML SYRINGE SQ SCH (18:29)
--- NOTE | 2020-06-19 18:46 | XR ---
EXAMINATION TYPE: XR lumbar spine 2 or 3V DATE OF EXAM: 06/19/2020 COMPARISON: NONE HISTORY: Pain TECHNIQUE: 3 views FINDINGS: There is a lumbar levoscoliotic deformity. I see no significant compression deformity. Ther e is osteopenia. Abdominal aorta is atheromatous. Sacroiliac joints are intact. IMPRESSION: Scoliotic deformity. Multilevel spondylotic changes. No acute fracture seen.
--- NOTE | 2020-06-19 19:05 | MR ---
EXAMINATION TYPE: MR lumbar spine wo con DATE OF EXAM: 06/19/2020 COMPARISON: None HISTORY: Lower extremity weakness with urninary retension Multiplanar multiecho imaging of the lumbar spine was performed without contrast. There is lumbar lev orotoscoliosis deformity. I see no significant compression deformity. There is degenerative disc spac e narrowing throughout the lumbar spine. There is hypertrophic facet arthropathy with severe spinal s tenosis at L3-4. Spinal canal is almost obliterated. There is mild spinal stenosis at L4-5. At L1-2 a nd L2-3 there are small posterior disc herniations. I see no focal bone destruction. There is multile conner hypertrophic facet arthropathy. There is no sign of the lumbar paraspinal mass. The visualized sa croiliac joints appear intact. IMPRESSION: Levoscoliosis deformity. There is very severe spinal stenosis at L3-4. No acute bony abnormality. Mil d relative spinal stenosis at L4-5.
[2020-06-19] MEDS: IPRATROPIUM-ALBUTEROL 3 ML NEB INHALATION PRN (21:10)
[2020-06-20] MEDS: methylPREDNISolone SOD SUCCI 125 MG/2 ML VIAL IV SCH ×4 (06:34→22:57)
[2020-06-20] MEDS: HYDROcodone/APAP 10-325MG 1 EACH TAB PO PRN ×3 (08:07→23:59)
[2020-06-20] MEDS: ATORVASTATIN 40 MG TAB PO SCH (08:08)
[2020-06-20] MEDS: MAGNESIUM OXIDE 400 MG TAB PO SCH ×2 (08:08→20:29)
[2020-06-20] MEDS: FAMOTIDINE 20 MG TAB PO SCH (08:08)
[2020-06-20] MEDS: PREGABALIN 100 MG CAP PO SCH ×2 (08:08→20:29)
[2020-06-20] MEDS: LORATADINE 10 MG TAB PO SCH (08:08)
[2020-06-20] MEDS: FENOFIBRATE 160 MG TAB PO SCH (08:08)
[2020-06-20] MEDS: SERTRALINE 100 MG TAB PO SCH (08:09)
[2020-06-20] MEDS: CYANOCOBALAMIN 500 MCG TAB PO SCH (08:09)
[2020-06-20] MEDS: CHOLECALCIFEROL 1,000 UNIT TAB PO SCH (08:09)
[2020-06-20 08:10] LABS: Glucose,Whole Blood 183 mg/dL (75-99)
[2020-06-20] MEDS: SODIUM CHLORIDE 0.9% 1,000 ML IV SCH ×4 (08:12→17:00)
[2020-06-20] MEDS: INSULIN ASPART (NovoLOG) 100 UNIT/ML VIAL SQ SCH ×3 (08:17→19:06)
[2020-06-20 09:58] LABS: Basophils % (A) 0 %; Eosinophils % (A) 0 %; HCT 43.9 % (34.0-46.0); HGB 13.9 gm/dL (11.4-16.0); Lymphocytes # (A) 0.3 k/uL (1.0-4.8); Lymphocytes % (A) 6 %; MCH 30.9 pg (25.0-35.0); MCHC 31.6 g/dL (31.0-37.0); MCV 97.6 fL (80.0-100.0); Mean Platelet Volume 10.3; Monocytes # (A) 0.1 k/uL (0-1.0); Monocytes % (A) 2 %; Neutrophils # (A) 4.9 k/uL (1.3-7.7); Neutrophils % (A) 92 %; Platelet Count 132 k/uL (150-450); RDW 14.9 % (11.5-15.5); WBC 5.4 k/uL (3.8-10.6)
[2020-06-20 10:09] LABS: Albumin 2.9 g/dL (3.5-5.0); Calcium 8.6 mg/dL (8.4-10.2); Potassium 4.4 mmol/L (3.5-5.1); Total Bilirubin 0.7 mg/dL (0.2-1.3); Total Protein 5.2 g/dL (6.3-8.2)
[2020-06-20] MEDS: IPRATROPIUM-ALBUTEROL 3 ML NEB INHALATION PRN ×3 (11:27→20:39)
--- NOTE | 2020-06-20 12:39 | P.PN ---
Subjective Progress Note Date: 06/20/20 The patient was seen at bedside and she stated that she feels about the same today compared to yesterday. She continues to have lower extremity weakness and she continues to have urinary retention and which she has a Patterson catheter in. Again she said that she's been having the symptoms for 1-1-1/2 years now of lower back pain with weakness but progressively getting worse. She said that she lives at home alone and she has nobody to help her out. Objective - Vital Signs Vital signs: Vital Signs Temp 97.5 F L 06/20/20 08:00 Pulse 92 06/20/20 11:40 Resp 18 06/20/20 08:00 BP 104/63 06/20/20 08:00 Pulse Ox 98 06/20/20 08:00 Intake & Output 06/19/20 06/20/20 06/20/20 18:59 06:59 18:59 Intake Total 720 120 Output Total 950 1670 450 Balance -230 -1670 -330 Weight 53.977 kg 59.4 kg Intake: Oral 720 120 Output: Urine 950 1670 450 Other: Voiding Method Indwelling Catheter Indwelling Catheter Indwelling Catheter - Exam GENERAL: The patient is lying in bed and is not in acute distress. CHEST: The heart rate is regular rate rhythm. No murmurs to auscultation. NEUROLOGICAL: Higher mental function: The patient is awake, alert, oriented to self, place and time. Patient is following commands. No aphasia and no neglect. Cranial nerves: The pupils are round, equal and reactive to light and accommodation. Visual boyle are full to confrontation throughout. Extraocular movement is intact no nystagmus is noted. Facial sensation is normal to touch throughout. The facial strength is normal throughout. Hearing is normal bilaterally to hand rub. Tongue is midline and moved [id number] without any difficulty. No dysarthria is noted. Shoulder shrug is normal bilaterally. Motor: I attempted the to evaluate her gait and the I had to do a lot of assistance to get her feet on the floor but she was too unstable so the gait assessment had to be aborted as a result. The strength is hip flexion 3-4/5 bilaterall, hip extension 4/5 bilaterally, knee extension 4+ bilaterally, ankle dorsiflexion/extension 4+ to 5-/5 bilaterally but I felt patient was in some pain since she kept on grimaces face with movement. Otherwsie 5 over 5 over bilateral upper extremities. Normal tone and bulk. Cerebellum: Normal finger to nose bilaterally. Sensation: Sensation is normal to touch throughout. Reflexes (right/left): 3+ throughout except ankles 1+ bilaterally. Plantars are upgoing bilaterally. - Labs CBC & Chem 7: 06/20/20 09:21 06/20/20 09:21 Labs: Abnormal Lab Results - Last 24 Hours (Table) 06/19/20 06/19/20 06/19/20 Range/Units 09:08 09:08 13:03 Plt Count (150-450) k/uL Lymphocytes # (1.0-4.8) k/uL Sodium (137-145) mmol/L BUN (7-17) mg/dL Glucose (74-99) mg/dL POC Glucose (mg/dL) 152 H (75-99) mg/dL AST (14-36) U/L Total Protein (6.3-8.2) g/dL Albumin (3.5-5.0) g/dL Prealbumin 14.0 L (18.0-42.0) mg/dL Procalcitonin 0.12 H (0.02-0.09) ng/mL 06/19/20 06/20/20 06/20/20 Range/Units 18:23 08:09 09:21 Plt Count (150-450) k/uL Lymphocytes # (1.0-4.8) k/uL Sodium 134 L (137-145) mmol/L BUN 52 H (7-17) mg/dL Glucose 189 H (74-99) mg/dL POC Glucose (mg/dL) 180 H 183 H (75-99) mg/dL AST 37 H (14-36) U/L Total Protein 5.2 L (6.3-8.2) g/dL Albumin 2.9 L (3.5-5.0) g/dL Prealbumin (18.0-42.0) mg/dL Procalcitonin (0.02-0.09) ng/mL 06/20/20 Range/Units 09:21 Plt Count 132 L (150-450) k/uL Lymphocytes # 0.3 L (1.0-4.8) k/uL Sodium (137-145) mmol/L BUN (7-17) mg/dL Glucose (74-99) mg/dL POC Glucose (mg/dL) (75-99) mg/dL AST (14-36) U/L Total Protein (6.3-8.2) g/dL Albumin (3.5-5.0) g/dL Prealbumin (18.0-42.0) mg/dL Procalcitonin (0.02-0.09) ng/mL Microbiology - Last 24 Hours (Table) 06/18/20 14:10 Blood Culture - Preliminary Blood No Growth after 24 hours Assessment and Plan Assessment: This is a 70-year-old woman the presented to the emergency department on 06/18/2020 bilateral lower extremity weakness left more than the right which is chronic and chronic back pain that feels she is having more frequent falls as a result of her leg weakness. She was notified by 2 different orthopedic surgeon she's not a candidate for surgery according to the patient the because of her lung problems. She is getting steroid injections in her lower back every 3 months and the last injection was in March 2020. Very severe spinal stenosis at L3-L4 (Presents with Chronic leg weakness left more than the right with chronic lower back pain and urinary retention). Chronic lower back pain Frequent falls due above Acute Urinary retention due to above Hyponatremia (unsure if this seems subacute but not sure if chronic. Last sodium is 05/02/2020 and is 133 and nothing prior to that in our records)--likely due to medication use Lasix Bilateral lower extremity edema Hypomagnesemia Urinary retention Acute kidney injury COPD Tobacco use Plan: * MRI of the lumbar: Reported as levoscoliosis deformity. There is a very severe spinal stenosis at L3-L4. No acute bony abnormality. Mild relative spinal stenosis at L4-L5. * Because of the MRI of the lumbar findings as well as her urinary retention and her stating that her symptoms are worsening, I recommend a neurosurgical evaluation STAT. I notified the patient of my recommendations and she said that she'll think about it and will give me an answer by tomorrow. * Notified my recommendation to the nurse and that she stated that the orthopedic evaluated the patient today and that they felt that her most MRI seems stable compared to previous. * Per orthopedic surgery team that they stated that the her MRI lumbar as well as lumbar x-ray images show stable significant degenerative changes as compared to the previous lumbar imaging from 2018 and the lumbar x-ray from 2019 that. Team feels on the examination the patient's had been having improvement of her symptoms overall. He feel like she is able to ambulate to the restroom with assistance of a walker. No surgical intervention is recommended * She is on Solu-Medrol off 60 mg IV every 6 hours as ordered by the primary team. * PT and OT are consulted. * CK level is 579 which is elevated (normal is 30-135). * Vitamin B12 is 370 on 05/02/2020 which is within the low normal limits. I'll start the patient on the vitamin B12 at thousand micrograms daily. * Folate level: 590. * I recommend MRI of the cervical spine as the patient has hyperreflexic of upper and lower extremities, which seem less critical and possibly can be done as outpatient. * Recommend EMG with nerve conduction study as an outpatient. * Upon discharge the patient needs to follow-up with an outpatient neurologist and neurosurgeon within 1-2 weeks. * The patient is having frequent falls and recommended the patient not to be discharged home. Possibly consider her moving to live with family member or being in a nursing facility to avoid any fall leading to a head trauma that would bleed into intraparenchymal bleed or any severe injury. * Regarding the hyponatremia recommend that corrected at and we'll defer the m anagement to the primary team. * Regarding the hypomagnesemia, acute kidney insufficiency and the rest of the medical management will defer to the primary team. The plan was discussed with the patient and her nurse. Also discussed the case with the skilled nursing case manager. Yevgeniy Silva M.D. Neuro-hospitalist Time with Patient: Greater than 30
--- NOTE | 2020-06-20 13:01 | P.PN ---
Subjective Progress Note Date: 06/20/20 Pt working well with PT/OT, required 1p assist to stand and maintain balance. Lumbar MRI demonstrates severe multi-level spinal stenosis, likely contributing to urinary retention and LE muscle weakness. Objective - Vital Signs Vital signs: Vital Signs Temp 97.5 F L 06/20/20 08:00 Pulse 92 06/20/20 11:40 Resp 18 06/20/20 08:00 BP 104/63 06/20/20 08:00 Pulse Ox 98 06/20/20 08:00 Intake & Output 06/19/20 06/20/20 06/20/20 18:59 06:59 18:59 Intake Total 720 120 Output Total 950 1670 450 Balance -230 -1670 -330 Weight 53.977 kg 59.4 kg Intake: Oral 720 120 Output: Urine 950 1670 450 Other: Voiding Method Indwelling Catheter Indwelling Catheter Indwelling Catheter - Exam Gen: awake, alert HEENT: normocephalic, atraumatic, good hearing acuity, moist mucous membranes Resp: good air exchange, breathing comfortably with no accessory muscle use CVS: good distal perfusion x 4, GI: soft, NTTP, ND : no SPT, no CVAT, mota catheter is present MSK: no pitting edema, no clubbing Neuro: non-focal, moving all extremities, lower extremity weakness bilaterally Psych: cooperative, euthymic mood - Labs CBC & Chem 7: 06/20/20 09:21 06/20/20 09:21 Labs: Abnormal Lab Results - Last 24 Hours (Table) 06/19/20 06/19/20 06/19/20 Range/Units 09:08 09:08 13:03 Plt Count (150-450) k/uL Lymphocytes # (1.0-4.8) k/uL Sodium (137-145) mmol/L BUN (7-17) mg/dL Glucose (74-99) mg/dL POC Glucose (mg/dL) 152 H (75-99) mg/dL AST (14-36) U/L Total Protein (6.3-8.2) g/dL Albumin (3.5-5.0) g/dL Prealbumin 14.0 L (18.0-42.0) mg/dL Procalcitonin 0.12 H (0.02-0.09) ng/mL 06/19/20 06/20/20 06/20/20 Range/Units 18:23 08:09 09:21 Plt Count (150-450) k/uL Lymphocytes # (1.0-4.8) k/uL Sodium 134 L (137-145) mmol/L BUN 52 H (7-17) mg/dL Glucose 189 H (74-99) mg/dL POC Glucose (mg/dL) 180 H 183 H (75-99) mg/dL AST 37 H (14-36) U/L Total Protein 5.2 L (6.3-8.2) g/dL Albumin 2.9 L (3.5-5.0) g/dL Prealbumin (18.0-42.0) mg/dL Procalcitonin (0.02-0.09) ng/mL 06/20/20 Range/Units 09:21 Plt Count 132 L (150-450) k/uL Lymphocytes # 0.3 L (1.0-4.8) k/uL Sodium (137-145) mmol/L BUN (7-17) mg/dL Glucose (74-99) mg/dL POC Glucose (mg/dL) (75-99) mg/dL AST (14-36) U/L Total Protein (6.3-8.2) g/dL Albumin (3.5-5.0) g/dL Prealbumin (18.0-42.0) mg/dL Procalcitonin (0.02-0.09) ng/mL Microbiology - Last 24 Hours (Table) 06/18/20 14:10 Blood Culture - Preliminary Blood No Growth after 24 hours Assessment and Plan Assessment: 1. Acute Hypoxemic Respiratory Failure 2. Hypotension 3. Pulmonary Embolism, highly suspected 4. Acute Renal Failure, resolved 5. Hyponatremia, improving 6. Severe Spinal Stenosis 7. Generalized Weakness 8. DM, Type II 9. HTN 10. HLD 11. Chronic Pain 70 year old woman with history of DM/HTN/HLD, Mood Disorder, Chronic Pain presented with generalized and LE weakness, as well as with GARRETT secondary to urinary retention; then during hospitalization, became hypotensive, tachycardic, and had high D-Dimer. Patient is being treated for severe spinal stenosis in lumbar spine, as well as therapeutic AC for highly suspected PE. 1. Acute hypoxic respiratory failure with hypotension concern for PE Positive D-dimer 19.18, patient sleeps all day and is a smoker CTA was not done because patient is ALLERGIC to IV contrast and was in acute renal failure Kidney function has improved today VQ scan was intermediate per radiology If hypotension does not improve would recommend CTA with prep Lovenox 80 mg subcu daily, switched to 60mg BID All blood pressure medications were held Blood cultures were ordered and are NGTD Pulmonary recommendations appreciated Check pro-calcitonin = 0.12 Check a.m. cortisol level = 23 2. Acute renal failure secondary to diuretics and decreased po intake- RESOLVED Continue IV hydration 3. Hyponatremia likely secondary to diuretics IMPROVING Hold diuretics Slow IV hydration Monitor sodium 4. Bilateral lower extremity edema likely secondary to third spacing with venous insufficiency ultrasound positive for venous insufficiency Ultrasound negative for DVT 5. Bilateral lower extremity weakness with history of lumbar stenosis and degenerative disc disease with recent history of urinary retention Check MRI of the lumbar spine without contrast Mota in place neurology recs appreciated orthopedic spine recs appreciated Continue IV steroids PT/OT 6. Generalized weakness secondary to failure to thrive Slow IV hydration Ensure 3 times a day with meals PT/OT AM labs
[2020-06-20 13:24] LABS: Glucose,Whole Blood 193 mg/dL (75-99)
--- NOTE | 2020-06-20 15:04 | P.CONS ---
History of Present Illness - Chief Complaint Walking difficulty - History of Present Illness I had the opportunity to see patient for inpatient consultation with regard to walking difficulty. She was admitted to [facility] June 18 history of fall from bedside commode back into bed and right hip discomfort. Seen by Dr. Yevgeniy Silva who notes long-standing lumbar disc disease in fact seen Dr. Abreu. S joya by orthopedics as well. Brain CT demonstrates mild atrophy. Chest x-ray negative. Venous Doppler right leg negative for DVT. Perfusion scan intermediate probability PE. Lumbar x-ray with scoliosis and spondylitic change. Lumbar MRI with levoscoliosis and stenosis L3 more than L4. PT and OT prescribed but they were unable to see patient due to low blood pressure. Previous functional history as elicited from patient: 70-year-old right-handed white female who is lives in one floor home alone. Was on disability now in residential. Describes independent with own cooking, laundry, many bath or sponge bath and gait with 4 [address] PMD Mukesh Hurtado. Patient has history of smoking and does not drink. Family history both parents with heart disease. Review of Systems Review of systems: ENT: Denies sneezes or discharge. Eyes: Denies discharge or photophobia. Cardiac: Denies chest pain or palpitation. Pulmonary: Denies cough or shortness of breath. Breast: Denies discharge or lumps. Gastrointestinal: Denies nausea, emesis, constipation, diarrhea. Genitourinary: Denies discharge or frequency. Musculoskeletal: Right hip soreness and bilateral lower extremity edema. Neurologic: Denies motor or sensory change. Endocrine: Denies shakes or sweats. Oncology: Denies cancers. Dermatologic: Denies rash, itching, pruritus. ALLERGY/immunology: Denies sneezes, rashes. Past Medical History Past Medical History: COPD Additional Past Medical History / Comment(s): spinal stenosis, depression History of Any Multi-Drug Resistant Organisms: None Reported Past Surgical History: Hysterectomy Additional Past Surgical History / Comment(s): foot bunion Past Anesthesia/Blood Transfusion Reactions: No Reported Reaction Past Psychological History: Depression Smoking Status: Current every day smoker Past Alcohol Use History: None Reported Past Drug Use History: None Reported - Past Family History Father Family Medical History: Memory Impairment Mother History Unknown: Yes Medications and Allergies Home Medications Medication Instructions Recorded Confirmed Type Atenolol/Chlorthalidone 1 tab PO DAILY 06/18/20 06/18/20 History [Atenolol-Chlorthalidone 50-25] Atorvastatin Calcium [Lipitor] 40 mg PO DAILY 06/18/20 06/18/20 History Biotin 10,000 mcg PO DAILY 06/18/20 06/18/20 History Cetirizine HCl [Zyrtec] 10 mg PO DAILY 06/18/20 06/18/20 History Cholecalciferol [Vitamin D3 (25 2,000 unit PO DAILY 06/18/20 06/18/20 History Mcg = 1000 Iu)] Enalapril Maleate [Vasotec] 10 mg PO DAILY 06/18/20 06/18/20 History Fenofibrate Nanocrystallized 145 mg PO DAILY 06/18/20 06/18/20 History [Tricor] Furosemide [Lasix] 40 mg PO DAILY PRN 06/18/20 06/18/20 History Hydrocodone/Acetaminophen [Ava 1 tab PO TID PRN 06/18/20 06/18/20 History 10-325] Pregabalin [Lyrica] 100 mg PO BID 06/18/20 06/18/20 History Sertraline HCl [Zoloft] 100 mg PO DAILY 06/18/20 06/18/20 History amLODIPine [Norvasc] 2.5 mg PO DAILY 06/18/20 06/18/20 History Allergies Allergy/AdvReac Type Severity Reaction Status Date / Time almond Allergy Verified 06/18/20 14:11 Iodinated Contrast Media Allergy Verified 06/18/20 14:11 latex Allergy Itching Verified 06/18/20 14:11 peanut Allergy Verified 06/18/20 14:11 tape Allergy Itching Uncoded 06/18/20 14:11 Physical Exam Vitals: Vital Signs Temp Pulse Pulse Resp BP Pulse Ox 06/20/20 12:00 94 19 88/49 97 06/20/20 11:40 92 06/20/20 11:27 92 06/20/20 08:00 97.5 F L 94 18 104/63 98 06/20/20 04:00 97.8 F 73 18 108/68 98 06/20/20 02:00 90 18 06/20/20 00:00 98.0 F 90 18 119/64 98 06/19/20 21:25 91 06/19/20 21:10 91 96 06/19/20 20:00 97.3 F L 94 18 108/65 94 L 06/19/20 15:47 97.8 F 95 18 90/51 100 Intake and Output 06/19/20 06/20/20 06/20/20 22:59 06:59 14:59 Intake Total 245 Output Total 1900 720 450 Balance -[id number] Intake: Intake, IV Titration 125 Amount Sodium Chloride 0.9% 1, 125 000 ml @ 125 mls/hr IV . Q8H [facility] Rx#:[id number] Oral 120 Output: Urine 1900 720 450 Other: Voiding Method Indwelling Catheter Indwelling Catheter Indwelling Catheter Weight 59.4 kg Skin: Atrophic, intact. Seated. General: Thin build and comfortable appearance. Head: Normocephalic, atraumatic. Eyes: Symmetric. Pupils equal round. Ears: Symmetric. Hearing within normal limits. Mouth: Clear. Neck: Supple. Carotid without bruit. Cardiac: Regular rate and rhythm. Lungs: Clear anteriorly and posteriorly. Abdomen: Soft active nontender. Extremities: Normal tone. Neurological: Mental status: Alert, cooperative, pleasant. Cranial nerves: Symmetric facial tone and trapezius. Motor: Active movement all 4 limbs but legs appear to be at best antigravity. Sensation: Intact throughout. DTRs: Symmetric and equal throughout. Mobility: Requires physical assist for transfer from bed to bedside Meghana chair and back. Results CBC & Chem 7: 06/20/20 09:21 06/20/20 09:21 Labs: Abnormal Lab Results - Last 24 Hours (Table) 06/19/20 06/19/20 06/19/20 Range/Units 09:08 09:08 18:23 Plt Count (150-450) k/uL Lymphocytes # (1.0-4.8) k/uL Sodium (137-145) mmol/L BUN (7-17) mg/dL Glucose (74-99) mg/dL POC Glucose (mg/dL) 180 H (75-99) mg/dL AST (14-36) U/L Total Protein (6.3-8.2) g/dL Albumin (3.5-5.0) g/dL Prealbumin 14.0 L (18.0-42.0) mg/dL Procalcitonin 0.12 H (0.02-0.09) ng/mL 06/20/20 06/20/20 06/20/20 Range/Units 08:09 09:21 09:21 Plt Count 132 L (150-450) k/uL Lymphocytes # 0.3 L (1.0-4.8) k/uL Sodium 134 L (137-145) mmol/L BUN 52 H (7-17) mg/dL Glucose 189 H (74-99) mg/dL POC Glucose (mg/dL) 183 H (75-99) mg/dL AST 37 H (14-36) U/L Total Protein 5.2 L (6.3-8.2) g/dL Albumin 2.9 L (3.5-5.0) g/dL Prealbumin (18.0-42.0) mg/dL Procalcitonin (0.02-0.09) ng/mL 06/20/20 Range/Units 13:23 Plt Count (150-450) k/uL Lymphocytes # (1.0-4.8) k/uL Sodium (137-145) mmol/L BUN (7-17) mg/dL Glucose (74-99) mg/dL POC Glucose (mg/dL) 193 H (75-99) mg/dL AST (14-36) U/L Total Protein (6.3-8.2) g/dL Albumin (3.5-5.0) g/dL Prealbumin (18.0-42.0) mg/dL Procalcitonin (0.02-0.09) ng/mL Microbiology - Last 24 Hours (Table) 06/18/20 14:10 Blood Culture - Preliminary Blood No Growth after 24 hours Assessment and Plan (1) Acute renal failure Current Visit: Yes Status: Acute Code(s): N17.9 - ACUTE KIDNEY FAILURE, UNSPECIFIED SNOMED Code(s): 74698465 (2) Acute respiratory failure Current Visit: Yes Status: Acute Code(s): J96.00 - ACUTE RESPIRATORY FAILURE, UNSP W HYPOXIA OR HYPERCAPNIA SNOMED Code(s): 95737675 (3) Lumbar degenerative disc disease Current Visit: Yes Status: Acute Code(s): M51.36 - OTHER INTERVERTEBRAL DISC DEGENERATION, LUMBAR REGION SNOMED Code(s): 79258809 Plan: Impression: 1. Walking difficulty. 2. Lumbar disc disease with acute on chronic low back pain and lumbar radiculopathies. 3. Acute on chronic kidney disease. 4. Acute on chronic pulmonary disease, COPD. Comments and plan: At this time PT and OT are prescribed. We'll follow therapies with yourself. Have discussed possible inpatient rehab with patient as he seems agreeable and hopeful for this.
--- NOTE | 2020-06-20 16:57 | P.PN ---
Progress Note - Text Progress Note Date: 06/20/20 Orthopedic spine: History of present illness: Patient is a pleasant 70-year-old female who was seen examined at bedside for follow-up evaluation for her lumbar spine. Since being seen and examined yesterday she has had lumbar MRI imaging and lumbar x-ray imaging performed. She feels her pain has significantly improved. She feels her lower extremity strength has improved. She has been able to ambulate to the restroom with assistance of a walker. She was able to have a bowel movement today. Her Patterson catheter remains intact. She states she is known to have chronic low back pain with some leg pain. She has followed with Dr. Abreu in pain management and has undergone injections. She ambulates with the assistance of a walker. She has been experiencing lower extremity weakness after falling to the ground couple days ago. She does feel this is improving. Patient has been discussed with nursing who is unsure when they are going to try to discontinue her Patterson catheter. She denies any pain with urination. Patient does admit to smoking and has COPD. During her admission patient began to have difficulty with breathing and became hypoxic. She had elevated d-dimer. She was started on Lovenox. She also has acute renal failure, has an allergy to contrast and was unable have CT of the chest with contrast. She has undergone a venous Doppler study as well as pulmonary perfusion imaging. She is on oxygen at the bedside. Medicine states patient's acute renal failure has resolved. Hyponatremia is improving as well. She has not had any imaging of her lumbar spine at this admission. Patient is also being treated for a sore n ear the sacrum. Patient has been seen by Neurology as well. Physical exam: Patient is awake, alert, oriented 3 Adequate chest excursion with inspiration and expiration currently on O2 nasal cannula Patient is sitting at the bedside and is able to perform better active range of motion bilateral lower extremities Bilateral lower extremity strength is positive sustained bilaterally with hip flexion and knee extension Dorsiflexion, plantar flexion, extensor hallucis longus positive sustained bilateral lower extremities Neurovascularly intact bilateral lower extremities No pain with internal and external rotation of the hips bilaterally Calves are soft nontender; no obvious sign of DVT No significant pain with palpation along her whole lumbar spine Palpable scoliotic curvature Patterson catheter intact Pertinent studies: MRI of the lumbar spine taken on 06/19/2020: Levoscoliosis; L3-4 facet hypertrophy and herniated nucleus pulposus resulting in severe spinal canal stenosis; L4-5 mild spinal canal stenosis; no acute bony abnormality; no focal bone destruction; multilevel facet hypertrophy; imaging remains stable without significant change as compared to previous MRI taken on 04/07/2008 X-rays of the lumbosacral spine taken on 04/19/2020: Significant scoliosis; significant degenerative disc disease throughout the lumbar spine; no obvious compression fracture deformity; L2-3 retrolisthesis; significant anterior ossific spurring throughout the lumbar spine; imaging remain stable as compared to previous imaging taken on 02/23/2019 Pulmonary perfusion imaging taken on 06/19/2020: Intermediate probability for pulmonary embolism Bilateral lower extremity venous ultrasound Doppler taken on 06/18/2020: No evidence of DVT; right sided venous reflux demonstrated X-rays of the lumbosacral spine taken at [facility] on 02/23/2019: Significant scoliosis with bipolar lumbar curvature measuring approximately 43 at the lower lumbar curvature and measuring approximately 26 at the upper lumbar curvature; significant degenerative disc disease throughout the lumbar spine; L2-3 retrolisthesis; significant anterior ossific spurring throughout the lumbar spine Assessment: Chronic low back pain Lower extremity weakness Generalized weakness L3-4 severe spinal canal stenosis Lumbar scoliosis Lumbar degenerative disc disease Lumbar osteophytic spurring L2-3 retrolisthesis Difficulty with ambulation requiring a walker in the outpatient setting Acute hypoxic respiratory failure and concern for pulmonary embolism Urinary Retention w/Patterson Catheter intact COPD Hyponatremia, improving Acute renal failure, improved Wound at the lower sacrum Plan: 1. Patient will currently planned to continue with conservative treatment at th is time. Reviewing of lumbar MRI and lumbosacral x-ray imaging shows stable significant degenerative changes as compared to previous lumbar MRI imaging from 2018 and lumbosacral x-rays from 2019. Since being seen examined yesterday the patient has had significant improvement of her symptoms overall. She feels her lower extremities are stronger. She is able to ambulate to the restroom with assistance of a walker. She had a bowel movement without difficulty. She is not currently experiencing significant low back pain or lower extremity radiculopathy. We discussed we are currently planning to avoid surgical intervention and the patient states she would like to try to avoid surgical intervention as surgical intervention would be extensive. She does continue to have her Patterson catheter intact. It was discussed with nursing who is going to see when medicine will plan to discontinue her Patterson catheter to see if the patient is able to urinate on her own. We did discuss given her improvement and given the fact we are not currently playing for surgical intervention at her lumbar spine, patient would be cleared for discharge from an orthopedic spine standpoint. We discussed patient may follow-up with Dr. Abreu in pain management for further treatment and evaluation in the outpatient setting. Patient feels this is a good plan of care. 2. Patient will continue to be seen examined by multiple other medical providers including medicine and neurology.
[2020-06-20] MEDS ORDERED: diphenhydrAMINE 50 MG/ML 1 ML VIAL IVP ONE (17:00)
[2020-06-20] MEDS ORDERED: FAMOTIDINE 20 MG/2 ML VIAL IV ONE (17:00)
[2020-06-20 18:54] LABS: Glucose,Whole Blood 127 mg/dL (75-99)
--- NOTE | 2020-06-20 19:20 | CT ---
EXAMINATION TYPE: CT angio chest DATE OF EXAM: 06/20/2020 COMPARISON: None HISTORY: Shortness of breath upon exertion. CT DLP: 225.8 mGycm Automated exposure control for dose reduction was used. CONTRAST: Performed with IV Contrast, patient injected with 66ml mL of Isovue 370. There are 3-D post processed images. There is diffuse pulmonary emphysema. There are bilateral pleural effusions and larger on the right s karen. There is no mediastinal adenopathy. There are no hilar masses. Thoracic aorta is intact. There i s no aneurysm or dissection. There is bilateral basilar pulmonary infiltrate and atelectasis that is more on the right side. There is normal contrast opacification of the pulmonary arteries. There is a large left lower lobe pu lmonary artery. There are some spondylotic changes in the thoracic spine. There is no compression fra cture. Sternum is intact. There is subcutaneous edema around the abdomen. IMPRESSION: Bilateral pleural effusions with basilar pulmonary consolidation and atelectasis. Subcutaneous edema. This could relate to chronic congestive heart failure. No evidence of pulmonary embolism. Large pulmonary arteries could relate to some degree of chronic pu lmonary hypertension. Emphysema.
--- NOTE | 2020-06-20 19:46 | CONS ---
CONSULTATION PULMONARY/CRITICAL CARE CONSULTATION: DATE OF SERVICE: 06/20/2020 This is a patient who was apparently admitted back on June 18. She apparently came into the emergency room complaining of weakness. She apparently got up at 6 in the morning and tried to get out of bed to use the bedside commode and apparently fell down because she was so profoundly weak. She had weakness in her legs. She did have some lower extremity edema. She does suffer from some chronic back pain and back issues. Anyway, the patient also was apparently having some difficulty breathing a couple days prior to admission. Her sister, who is a nurse, was giving her prednisone 20 mg a day. So her major issues were shortness of breath, lower extremity edema and weakness. In addition, she complained about urinary retention and difficulty emptying her bladder. She was evaluated in the emergency room by Dr. Williams Robertson. She normally sees Hilda Ocampo, a nurse practitioner who worked with the now-retired Dr. Daniel Weaver. HOME MEDICATIONS: Home medications include atenolol/chlorthalidone combination, Lipitor, biotin, Zyrtec, vitamin D3, Vasotec, Tricor, Lasix, Chalfont, Lyrica, Zoloft and Norvasc. ALLERGIES: ALLERGIES include ALMOND, IVP DYE, LATEX, PEANUT and TAPE. MEDICAL HISTORY: Medical history is apparently positive for COPD from chronic tobacco use, depression, spinal stenosis, hypertension, hyperlipidemia and chronic back pain. SURGICAL HISTORY: Surgical history includes previous hysterectomy. She also had bunion surgery. SOCIAL HISTORY: Positive for chronic and ongoing tobacco use. No alcohol or illicit drug use. FAMILY HISTORY: Noncontributory. REVIEW OF SYSTEMS: CONSTITUTIONAL: Weakness. NEUROLOGIC: Negative. HEENT: Negative. CARDIOVASCULAR/PULMONARY: Shortness of breath, presumably secondary to COPD exacerbation. GI: Negative. : Urinary retention. RHEUMATOLOGIC: Negative. IMMUNOLOGIC: Negative. ENDOCRINOLOGIC: Negative. DERMATOLOGIC: Negative except for lower extremity edema. PHYSICAL EXAMINATION: VITAL SIGNS: Current vital signs are reviewed. Temperature 97.5, heart rate 94, respiratory rate 19, blood pressure 104/63, mean 76, 4-liter saturation 97% to 98%. GENERAL APPEARANCE: Appears in no acute distress. No respiratory distress. No audible wheezing. No use of accessory muscles. HEENT: Examination is grossly unremarkable. Nasal oxygen in place. NECK: Supple. Full range of motion. No adenopathy or thyromegaly. CARDIOVASCULAR: Examination reveals regular rhythm and rate. S1, S2 normal. LUNGS: Lungs reveal diffuse rhonchi. No crackles. ABDOMEN: Soft. EXTREMITIES: Extremities reveal some mild edema. It is 2+. SKIN: Without rash. NEUROLOGIC: Neurologic examination is brief but nonfocal. LABS/IMAGING: Reviewed. White count 5.4, hemoglobin 13.9, hematocrit 43.9, platelet count 132,000. PT 11.9, INR 1.2, PTT is 22. D-dimer 19.18. Sodium 134, potassium 4.4, chloride 101, CO2 28. Anion gap is 5. BUN and creatinine were 52 and 0.93. Magnesium was 1.4. AST 37, ALT 21. N-terminal proBNP 3230. TSH 0.031, T4 normal. Cortisol 23. Urine was negative. COVID testing was negative. Microbiology is currently negative. A ventilation-perfusion lung scan was intermediate probability for pulmonary embolism. Dopplers of the lower extremities were negative. Chest x-ray shows no active cardiopulmonary disease. MEDICATIONS: Medications are reviewed. The patient is currently on Lipitor, vitamin D3, vitamin B12, Lovenox, famotidine, Lofibra, Chalfont, NovoLog insulin, DuoNeb, loratadine, Mag-Ox, Solu-Medrol, Narcan, Lyrica, Zoloft and saline IV. ASSESSMENT: 1. Shortness of breath, likely secondary to chronic obstructive pulmonary disease exacerbation. 2. Chronic and ongoing tobacco use. 3. Lower extremity edema. 4. Rule out pulmonary embolism. 5. History of hypertension. 6. History of hyperlipidemia. 7. History of chronic back pain. PLAN: I will go ahead and add Pulmicort and formoterol, 1 mg and 20 mcg twice a day, respectively. She is already on Solu-Medrol and DuoNeb. No additional recommendations are made. Chest x-ray was normal. Once her BUN and creatinine return to normal, we will plan on doing a CT angiogram to rule out PE. Will continue to follow. NGA / TERRENCE: [id number] /
[2020-06-20] MEDS: BUDESONIDE 1 MG/2 ML NEBU INHALATION SCH (20:39)
[2020-06-20] MEDS: FORMOTEROL FUMARATE 20 MCG/2 ML NEBU INHALATION SCH (20:39)
[2020-06-21] MEDS: SODIUM CHLORIDE 0.9% 1,000 ML IV SCH ×2 (02:30→12:59)
[2020-06-21] MEDS: methylPREDNISolone SOD SUCCI 125 MG/2 ML VIAL IV SCH ×2 (06:35→13:19)
[2020-06-21 07:06] LABS: Glucose,Whole Blood 137 mg/dL (75-99)
[2020-06-21] MEDS: FAMOTIDINE 20 MG TAB PO SCH (08:40)
[2020-06-21] MEDS: CHOLECALCIFEROL 1,000 UNIT TAB PO SCH (08:40)
[2020-06-21] MEDS: PREGABALIN 100 MG CAP PO SCH (08:40)
[2020-06-21] MEDS: ATORVASTATIN 40 MG TAB PO SCH (08:40)
[2020-06-21] MEDS: CYANOCOBALAMIN 500 MCG TAB PO SCH (08:40)
[2020-06-21] MEDS: FENOFIBRATE 160 MG TAB PO SCH (08:40)
[2020-06-21] MEDS: SERTRALINE 100 MG TAB PO SCH (08:41)
[2020-06-21] MEDS: MAGNESIUM OXIDE 400 MG TAB PO SCH (08:41)
[2020-06-21] MEDS: LORATADINE 10 MG TAB PO SCH (08:41)
[2020-06-21] MEDS: INSULIN ASPART (NovoLOG) 100 UNIT/ML VIAL SQ SCH ×2 (08:43→13:19)
[2020-06-21] MEDS: FORMOTEROL FUMARATE 20 MCG/2 ML NEBU INHALATION SCH (08:52)
[2020-06-21] MEDS: BUDESONIDE 1 MG/2 ML NEBU INHALATION SCH (08:52)
[2020-06-21] MEDS: IPRATROPIUM-ALBUTEROL 3 ML NEB INHALATION PRN ×2 (08:52→14:57)
[2020-06-21] MEDS ORDERED: ENOXAPARIN 60 MG/0.6 ML SYRINGE SQ SCH (09:00)
[2020-06-21] MEDS ORDERED: ENOXAPARIN 40 MG/0.4 ML SYRINGE SQ SCH (09:00)
--- NOTE | 2020-06-21 11:27 | P.PN ---
Subjective Progress Note Date: 06/21/20 The patient was seen at bedside and she said that that she's doing better today compared to yesterday and she feels her legs are stronger. She said that she continues to use a walker in the hospital and she needs assistance. She was to be discharged home and not go to a facility. Upon asking if she has anybody at home that can take care of her she said that she lives alone but her sister that were skin the they are planning to see if she can help out as well as the some other family members. She did acknowledge that she does have the following episodes at home. She continues to have Patterson catheter in. Objective - Vital Signs Vital signs: Vital Signs Temp 98.8 F 06/21/20 07:44 Pulse 98 06/21/20 09:12 Resp 16 06/21/20 07:44 BP 126/83 06/21/20 07:44 Pulse Ox 98 06/21/20 08:52 Intake & Output 06/20/20 06/21/20 06/21/20 18:59 06:59 18:59 Intake Total 485 237 Output Total 900 925 Balance -415 -688 Weight 62.8 kg Intake: Intake, IV Titration 125 Amount Sodium Chloride 0.9% 1, 125 000 ml @ 125 mls/hr IV . Q8H [facility] Rx#:[id number] Oral 360 237 Output: Urine 900 925 Other: Voiding Method Indwelling Catheter Indwelling Catheter - Exam GENERAL: The patient is lying in bed and is not in acute distress. NEUROLOGICAL: Higher mental function: The patient is awake, alert, oriented to self, place and time. Patient is following commands. No aphasia and no neglect. Cranial nerves: The pupils are round, equal and reactive to light and accommodation. Visual boyle are full to confrontation throughout. Extraocular movement is intact no nystagmus is noted. Facial sensation is normal to touch throughout. The facial strength is normal throughout. Hearing is normal bilaterally to hand rub. Tongue is midline and moved [id number] without any difficulty. No dysarthria is noted. Shoulder shrug is normal bilaterally. Motor: Gait is deferred. The strength is hip flexion 3-4/5 bilaterall, hip extension 4/5 bilaterally, knee extension 4+ bilaterally, ankle dorsiflexion/extension 4+ to 5-/5 bilaterally but I felt patient was in some pain since she kept on grimaces face with movement. Otherwsie 5 over 5 over bilateral upper extremities. Normal tone and bulk. Cerebellum: Normal finger to nose bilaterally. Sensation: Sensation is normal to touch throughout. Reflexes (right/left): 3+ throughout except ankles 1+ bilaterally. Plantars are upgoing bilaterally. - Labs CBC & Chem 7: 06/20/20 09:21 06/20/20 09:21 Labs: Abnormal Lab Results - Last 24 Hours (Table) 06/20/20 06/20/20 06/21/20 Range/Units 13:23 18:39 07:04 POC Glucose (mg/dL) 193 H 127 H 137 H (75-99) mg/dL Microbiology - Last 24 Hours (Table) 06/18/20 14:10 Blood Culture - Preliminary Blood No Growth after 48 hours Assessment and Plan Assessment: This is a 70-year-old woman the presented to the emergency department on 06/18/2020 bilateral lower extremity weakness left more than the right which is chronic and chronic back pain that feels she is having more frequent falls as a result of her leg weakness. She was notified by 2 different orthopedic surgeon she's not a candidate for surgery according to the patient the because of her lung problems. She is getting steroid injections in her lower back every 3 months and the last injection was in March 2020. Very severe spinal stenosis at L3-L4 (Presents with Chronic leg weakness left more than the right with chronic lower back pain and urinary retention) Per MRI Lumbar I felt there was severe bone deformity with scar tissue over L3/L4. Myelopathy of lumbar region due to above. Ongoing Chronic lower back pain due to above Ongoing Frequent falls due above Acute Urinary retention due to above Cervical myelopathy and significant stenosis. Hyponatremia (unsure if this seems subacute but not sure if chronic. Last sodium is 05/02/2020 and is 133 and nothing prior to that in our records)--likely due to medication use Lasix Bilateral lower extremity edema Hypomagnesemia---improving Acute kidney injury---improving COPD Tobacco use Plan: * MRI of the lumbar: Reported as levoscoliosis deformity. There is a very severe spinal stenosis at L3-L4. No acute bony abnormality. Mild relative spinal stenosis at L4-L5. * Because of the MRI of the lumbar findings as well as her urinary retention and her stating that her symptoms are worsening, I recommend a neurosurgical evaluation STAT. Patient does not want to be transferred over. Orthopedic team feels her imaging are stable compared to prior. And the plan between Orthopedic and patient was no surgical intervention. Orthopedic feels she is clar for discharge. * She is on Solu-Medrol off 60 mg IV every 6 hours as ordered by the primary team. * PT and OT are consulted. * CK level is 579 which is elevated (normal is 30-135). * Vitamin B12 is 370 on 05/02/2020 which is within the low normal limits. I'll start the patient on the vitamin B12 at thousand micrograms daily. * Folate level: 590. * I recommend MRI of the cervical spine as the patient has hyperreflexic of upper and lower extremities, will try to get it as inpatient since patient will have a hard time getting it as outpatient: Was reported as multilevel deg enerative disc disease with multilevel central stenosis and foraminal encroachment. I personally reviewed that a cervical spine I felt a shunt had the significant spondylosis over C2 to see at 6 and I felt there was myelopathy over C2-C3 possibly C3-C4 region. * Recommend EMG with nerve conduction study as an outpatient. * Upon discharge the patient needs to follow-up with an outpatient neurologist and neurosurgeon within 1-2 weeks. * The patient is having frequent falls and recommended the patient not to be discharged home. Possibly consider her moving to live with family member or being in a nursing facility to avoid any fall leading to a head trauma that would bleed into intraparenchymal bleed or any severe injury. * I recommended to patient multiple times that she be transferred over to tertiary Center for neurosurgical evaluation but she refused multiple times. I had a lengthy discussion with the primary team regarding her condition and he spoke with her and she declined. * Will defer the rest of medical management to primary team. * As a result the patient is discharged to inpatient rehab The plan was discussed with the patient, primary team and her nurse. Yevgeniy Silva M.D. Neuro-hospitalist Time with Patient: Greater than 30
--- NOTE | 2020-06-21 11:53 | P.PN ---
Subjective Progress Note Date: 06/21/20 No new complaints. Pt is still considering whether she would be amenable to IPR. Also has C-spine MRI pending today. Objective - Vital Signs Vital signs: Vital Signs Temp 98.8 F 06/21/20 07:44 Pulse 98 06/21/20 09:12 Resp 16 06/21/20 07:44 BP 126/83 06/21/20 07:44 Pulse Ox 98 06/21/20 08:52 Intake & Output 06/20/20 06/21/20 06/21/20 18:59 06:59 18:59 Intake Total 485 237 Output Total 900 925 Balance -415 -688 Weight 62.8 kg Intake: Intake, IV Titration 125 Amount Sodium Chloride 0.9% 1, 125 000 ml @ 125 mls/hr IV . Q8H [facility] Rx#:[id number] Oral 360 237 Output: Urine 900 925 Other: Voiding Method Indwelling Catheter Indwelling Catheter - Exam Gen: awake, alert HEENT: normocephalic, atraumatic, good hearing acuity, moist mucous membranes Resp: good air exchange, breathing comfortably with no accessory muscle use CVS: good distal perfusion x 4, GI: soft, NTTP, ND : no SPT, no CVAT, mota catheter is present MSK: no pitting edema, no clubbing Neuro: non-focal, moving all extremities, lower extremity weakness bilaterally Psych: cooperative, euthymic mood - Labs CBC & Chem 7: 06/20/20 09:21 06/20/20 09:21 Labs: Abnormal Lab Results - Last 24 Hours (Table) 06/20/20 06/20/20 06/21/20 Range/Units 13:23 18:39 07:04 POC Glucose (mg/dL) 193 H 127 H 137 H (75-99) mg/dL Microbiology - Last 24 Hours (Table) 06/18/20 14:10 Blood Culture - Preliminary Blood No Growth after 48 hours Assessment and Plan Assessment: 1. Acute Hypoxemic Respiratory Failure 2. Hypotension 3. Pulmonary Embolism, highly suspected 4. Acute Renal Failure, resolved 5. Hyponatremia, improving 6. Severe Spinal Stenosis 7. Generalized Weakness 8. DM, Type II 9. HTN 10. HLD 11. Chronic Pain 70 year old woman with history of DM/HTN/HLD, Mood Disorder, Chronic Pain presented with generalized and LE weakness, as well as with GARRETT secondary to urinary retention; then during hospitalization, became hypotensive, tachycardic, and had high D-Dimer. Patient is being treated for severe spinal stenosis in lumbar spine, as well as therapeutic AC for highly suspected PE. 1. Acute hypoxic respiratory failure with hypotension concern for PE Positive D-dimer 19.18, patient sleeps all day and is a smoker CTA was not done because patient is ALLERGIC to IV contrast and was in acute renal failure Kidney function has improved today VQ scan was intermediate per radiology If hypotension does not improve would recommend CTA with prep Lovenox 80 mg subcu daily, switched to 60mg BID All blood pressure medications were held Blood cultures were ordered and are NGTD Pulmonary recommendations appreciated Check pro-calcitonin = 0.12 Check a.m. cortisol level = 23 2. Acute renal failure secondary to diuretics and decreased po intake- RESOLVED Continue IV hydration 3. Hyponatremia likely secondary to diuretics IMPROVING Hold diuretics Slow IV hydration Monitor sodium 4. Bilateral lower extremity edema likely secondary to third spacing with venous insufficiency ultrasound positive for venous insufficiency Ultrasound negative for DVT 5. Bilateral lower extremity weakness with history of lumbar stenosis and degenerative disc disease with recent history of urinary retention Check MRI of the lumbar spine without contrast Mota in place neurology recs appreciated orthopedic spine recs appreciated Continue IV steroids PT/OT 6. Generalized weakness secondary to failure to thrive Slow IV hydration Ensure 3 times a day with meals PT/OT AM labs
[2020-06-21 12:14] LABS: Glucose,Whole Blood 107 mg/dL (75-99)
--- NOTE | 2020-06-21 12:52 | MR ---
EXAMINATION TYPE: MR cervical spine wo con DATE OF EXAM: 06/21/2020 11:59 AM COMPARISON: Findings HISTORY: Spinal stenosis Multiplanar MultiSpin echo imaging of the cervical spine was performed. Comparison: none C2-C3: Moderate disc desiccation with posterior disc bulge. Effacement of the ventral thecal sac with hypertrophic changes noted resulting in mild central stenosis. Bilateral foraminal encroachment seen . C3-C4: Moderate disc desiccation. Grade 1 anterolisthesis of C3 3 on C4 measuring 3 mm. Degenerative disc bulging noted with hypertrophic changes seen resulting in [id number] central stenosis. Ear ly compressive myelopathy is difficult to exclude.Bilateral foraminal encroachment identified. C4-C5: Moderate disc desiccation with posterior disc bulge. Effacement of the ventral thecal sac with hypertrophic changes noted resulting in mild central stenosis. Bilateral foraminal encroachment seen . C5-C6: Moderate disc desiccation with posterior disc bulge. Effacement of the ventral thecal sac with hypertrophic changes noted resulting in mild central stenosis. Bilateral foraminal encroachment seen . C6-C7: Moderate disc desiccation with posterior disc bulge. No definite evidence for central stenosis . Foramina are patent. C7-T1: No evidence for degenerative disc disease. No disc bulge/herniation or protrusion. No Canal stenosis. Foramina are patent bilaterally. Cervical segments are intact. Craniovertebral junction relationships are within normal limits. IMPRESSION: 1. Multilevel degenerative disc disease with multilevel central stenosis and foraminal encroachment.
[2020-06-21] MEDS: HYDROcodone/APAP 10-325MG 1 EACH TAB PO PRN (13:18)
--- NOTE | 2020-06-21 14:10 | P.PN ---
Subjective Progress Note Date: 06/21/20 Principal diagnosis: acute hypoxic resp failure This 70-year-old white female patient that follows with [facility] for primary care services that was admitted to the hospital on 06/18/2020 when she presented to the emergency department for evaluation of weakness, shortness of breath, and patient has been falling at home because of profound weakness. In addition patient had increased lower extremity edema, cough, congestion. She denied any fever or chills. She also reported some urinary retention difficulty emptying her bladder. Patient is a current smoker, trying to cut back, down to 6 cigarettes a day however she has so for quite a few years. She is normally does not wear oxygen. For 3 days prior to presentation she was taking her sister's prednisone at 20 mg daily. Her admission chest x-ray showed no active cardiopulmonary disease. Brain CT was negative for any acute abnormality. D- dimer was significantly increased on admission at 19.18, patient was hyponatremic with a serum sodium of 129, she had evidence of acute kidney injury, with BUN of 71 and creatinine of 1.2, CK was elevated at 579, troponin was negative at less than 0.012, proBNP was elevated at 3230. Urinalysis with any evidence of infection, COVID19 PCR was negative, VQ scan showed intermediate probability for pulmonary embolism, in view of impaired renal function patient initially could not have CTA chest to rule out possibility of pulmonary embolism, patient was hydrated, her renal function has improved, she does have ALLERGY to shellfish, she was premedicated with IV steroids, Benadryl and Pepcid, and CTA chest was completed last night, and he was negative for any evidence of pulmonary embolism, bilateral pleural effusions with basilar pulmonary consolidation and atelectasis, subcutaneous edema with the possibility of chronic congestive heart failure. His background of emphysema, enlarged pulmonary arteries that could relate to some degree of chronic pulmonary hy pertension. She is also being treated for severe spinal stenosis. Orthopedic surgery service is following, cervical spine MRI was completed today, showing multilevel degenerative disc disease with multilevel central stenosis and foraminal encroachment. Patient is currently on 3 L of oxygen a pulse ox of 94%, hemodynamically she stable, she is not complaining of any fever or chills, lung sounds reveal some scattered rhonchi, but overall patient sounds less congested, she still has a weak congested cough, not bringing up much sputum, she remains on nebulized bronchodilators, continues on IV steroids at 60 mg every 6 hours Objective - Vital Signs Vital signs: Vital Signs Temp 98.8 F 06/21/20 07:44 Pulse 98 06/21/20 09:12 Resp 16 06/21/20 07:44 BP 126/83 06/21/20 07:44 Pulse Ox 98 06/21/20 08:52 Intake & Output 06/20/20 06/21/20 06/21/20 18:59 06:59 18:59 Intake Total 485 237 Output Total 900 925 Balance -415 -688 Weight 62.8 kg Intake: Intake, IV Titration 125 Amount Sodium Chloride 0.9% 1, 125 000 ml @ 125 mls/hr IV . Q8H [facility] Rx#:[id number] Oral 360 237 Output: Urine 900 925 Other: Voiding Method Indwelling Catheter Indwelling Catheter - Exam GENERAL EXAM: Alert, very pleasant, 70-year-old white female, on 3 L pulse ox of 94 comfortable in no apparent distress. HEAD: Normocephalic/atraumatic. EYES: Normal reaction of pupils, equal size. Conjunctiva pink, sclera white. NOSE: Clear with pink turbinates. THROAT: No erythema or exudates. NECK: No masses, no JVD, no thyroid enlargement, no adenopathy. CHEST: No chest wall deformity. Symmetrical expansion. LUNGS: Equal air entry with diminished breath sounds, diffuse rhonchi, and now with congestive cough CVS: Regular rate and rhythm, normal S1 and S2, no gallops, no murmurs, no rubs ABDOMEN: Soft, nontender. No hepatosplenomegaly, normal bowel sounds, no guarding or rigidity. EXTREMITIES: No clubbing, 1+ edema in lower extremities no cyanosis, 2+ pulses and upper and lower extremities. MUSCULOSKELETAL: Muscle strength and tone normal. SPINE: No scoliosis or deformity SKIN: No rashes CENTRAL NERVOUS SYSTEM: Alert and oriented -3. No focal deficits, tone is normal in all 4 extremities. PSYCHIATRIC: Alert and oriented -3. Appropriate affect. Intact judgment and insight. - Labs CBC & Chem 7: 06/20/20 09:21 06/20/20 09:21 Labs: Abnormal Lab Results - Last 24 Hours (Table) 06/20/20 06/21/20 06/21/20 Range/Units 18:39 07:04 12:13 POC Glucose (mg/dL) 127 H 137 H 107 H (75-99) mg/dL Microbiology - Last 24 Hours (Table) 06/18/20 14:10 Blood Culture - Preliminary Blood No Growth after 48 hours Assessment and Plan Plan: Assessment: #1. Acute hypoxic respiratory failure related to possibility of right lung pneumonia, possibly community-acquired, with a small parapneumonic effusion. Possibility of fluid overload and acute exacerbation of CHF is not excluded, we'll obtain an echocardiogram. Patient present with evidence of fluid overload, increased lower extremity edema, difficulty breathing, with elevated proBNP of 3230 on admission #2. Acute kidney injury improved with IV hydration #3. Weakness and falls at home with symptoms of urinary retention related to severe spinal stenosis #4. Hyponatremia present on admission likely hypovolemic, currently with IV hydration #5. Diabetes mellitus type 2 #6. Hypertension #7. Acute exacerbation of COPD #8. Lipidemia #10. Chronic pain syndrome #11. Chronic smoker #12. D-dimer of 19.18, lower extremity Dopplers negative for DVT, VQ scan showed intermediate probability for PE however CTA chest was completed on 06/20/2020 showing no evidence of pulmonary emboli Plan: Continue current medical treatment, will add Rocephin and azithromycin, CTA chest reviewed showing no evidence of pulmonary embolism, but did show right- sided small pleural effusion, atelectasis, and possibility of pneumonia. Given the low procalcitonin doubt possibility of pneumonia however cannot totally exclude it, will cover the patient with antibiotics, will obtain echocardiogram, we'll cut back the IV fluids to 50 ML per hour. Continue with steroids, continue with nebulized bronchodilators, we'll continue to follow repeat chest x-ray in the morning I performed a history & physical examination of the patient and discussed their management with my nurse practitioner, Xena Cooper. I reviewed the nurse practitioner's note and agree with the documented findings and plan of care. Lung sounds are positive for diffuse wheezes and rhonchi throughout the lung boyle. The findings and the impression was discussed with the patient. I attest to the documentation by the nurse practitioner. Time with Patient: Less than 30
[2020-06-21] MEDS ORDERED: AZITHROMYCIN 500 MG TAB PO SCH (14:15)
[2020-06-21 14:16] VITALS: BP 125/79; RESP 18; TEMP 97.8
[2020-06-21 15:11] VITALS: PULSE 93
--- NOTE | 2020-06-21 15:23 | P.DS ---
Providers Date of admission: 06/18/20 15:01 Expected date of discharge: 06/21/20 Attending physician: Lena Pacheco DO Consults: 06/18/20 15:03 Consult Physician Urgent Consulting Provider: Sanjuana Coleman Consult Reason/Comments: leg weakness Do you want consulting provider notified?: Yes Consult Physician Urgent Consulting Provider: Yisel Smith Consult Reason/Comments: Weakness, back problem Do you want consulting provider notified?: Yes 06/19/20 13:14 Consult Physician Routine Consulting Provider: Farideh Marrero Consult Reason/Comments: Acute Hypoxic respiratory failure Do you want consulting provider notified?: Yes 06/20/20 13:19 Consult Physician Routine Consulting Provider: Denton Walker Consult Reason/Comments: eval for inpatient rehab Do you want consulting provider notified?: Yes Primary care physician: [facility] Course: 1. Acute Hypoxemic Respiratory Failure 2. Hypotension 3. COPD exacerbation 4. Acute Renal Failure, resolved 5. Hyponatremia, improving 6. Severe Spinal Stenosis 7. Generalized Weakness 8. DM, Type II 9. HTN 10. HLD 11. Chronic Pain 70 year old woman with history of DM/HTN/HLD, Mood Disorder, Chronic Pain presented with generalized and LE weakness, as well as with GARRETT secondary to urinary retention; then during hospitalization, became hypotensive, tachycardic, and had high D-Dimer. Patient was being treated for severe spinal stenosis in lumbar spine and cervical, as well as therapeutic AC for highly suspected PE. However, patient later had CTA done which ruled out PE and therefore AC was de- escalated to VTE ppx dose. In terms of her new urinary retention, GARRETT, and LE weakness with upper motor neuron signs, she was seen by neurology and spine surgery. Neurology recommended consideration of tertiary care referral for concern of spinal myelopathy at cervical level given myelopathic physical exam. This was discussed with patient and her advocate (sister) in detail between [facility] and neurology service, however, patient was not amenable to surgery at this time, stating that she did not think it would help her as it did not help her father. Spine service felt patient would benefit from IPR and our PMR service evaluated patient at bedside. Patient was accepted to IPR, and preferred this as an alternative to tertiary care transfer. The risks of IPR versus tertiary care transfer were again discussed in detail with patient and her advocate, who deferred neurosurgery evaluation in favor of IPR with plans to follow up with neurosurgery as early as feasible in the clinic. They indicated that they will seek their own referral. Regarding her standing steroids for spinal myelopathy, C/L spine MRI did not demonstrate any evidence of edema, therefore, patient was discharged with 6 more days of decadron, then will stop. Incidentally, pulmonary was also consulted regarding respiratory failure, and recommended treating for CAP in the RLL as well as re-initiating diuretics. An echo was recommended but not done due to pending IPR transfer, and rather, I recommend she be referred for echo as an outpatient by her PCP, once she is more stable. We will restart her home diuretic in the interrim. She will also be discharged with 6 days of levofloxacin, for total 7 days course of abx. I spent 45 minutes preparing this discharge. Assessment: Gen: awake, alert HEENT: normocephalic, atraumatic, good hearing acuity, moist mucous membranes Resp: good air exchange, breathing comfortably with no accessory muscle use CVS: good distal perfusion x 4, GI: soft, NTTP, ND : no SPT, no CVAT, mota catheter is present MSK: no pitting edema, no clubbing Neuro: moving all extremities, lower extremity weakness bilaterally Psych: cooperative, euthymic mood Patient Condition at Discharge: Good Plan - Discharge Summary Discharge Rx Participant: No New Discharge Prescriptions: New Dexamethasone [Decadron] 4 mg PO DAILY #7 tablet Ipratropium-Albuterol Nebulize [Duoneb 0.5 mg-3 mg/3 ml Soln] 3 ml INHALATION RT-Q4H PRN ml PRN Reason: Shortness Of Breath Or Wheezing Levofloxacin [Levaquin] 750 mg PO DAILY 6 Days #6 tab INSULIN ASPART (NovoLOG) [NovoLOG (formulary)] 0 unit SQ AC-TID vial Formoterol Fumarate [Perforomist] 20 mcg INHALATION RT-BID nebu Budesonide [Pulmicort] 1 mg INHALATION RT-BID ml Cyanocobalamin [Vitamin B-12] 1,000 mcg PO DAILY tab Continue Sertraline HCl [Zoloft] 100 mg PO DAILY Cetirizine HCl [Zyrtec] 10 mg PO DAILY Cholecalciferol [Vitamin D3 (25 Mcg = 1000 Iu)] 2,000 unit PO DAILY Biotin 10,000 mcg PO DAILY Hydrocodone/Acetaminophen [[place] 10-325] 1 tab PO TID PRN PRN Reason: Pain Pregabalin [Lyrica] 100 mg PO BID Fenofibrate Nanocrystallized [Tricor] 145 mg PO DAILY Atorvastatin Calcium [Lipitor] 40 mg PO DAILY Furosemide [Lasix] 40 mg PO DAILY PRN PRN Reason: Edema Discontinued amLODIPine [Norvasc] 2.5 mg PO DAILY Enalapril Maleate [Vasotec] 10 mg PO DAILY Atenolol/Chlorthalidone [Atenolol-Chlorthalidone 50-25] 1 tab PO DAILY Discharge Medication List Atorvastatin Calcium [Lipitor] 40 mg PO DAILY 06/18/20 [History] Biotin 10,000 mcg PO DAILY 06/18/20 [History] Cetirizine HCl [Zyrtec] 10 mg PO DAILY 06/18/20 [History] Cholecalciferol [Vitamin D3 (25 Mcg = 1000 Iu)] 2,000 unit PO DAILY 06/18/20 [History] Fenofibrate Nanocrystallized [Tricor] 145 mg PO DAILY 06/18/20 [History] Furosemide [Lasix] 40 mg PO DAILY PRN 06/18/20 [History] Hydrocodone/Acetaminophen [[place] 10-325] 1 tab PO TID PRN 06/18/20 [History] Pregabalin [Lyrica] 100 mg PO BID 06/18/20 [History] Sertraline HCl [Zoloft] 100 mg PO DAILY 06/18/20 [History] Budesonide [Pulmicort] 1 mg INHALATION RT-BID ml 06/21/20 [Rx] Cyanocobalamin [Vitamin B-12] 1,000 mcg PO DAILY tab 06/21/20 [Rx] Dexamethasone [Decadron] 4 mg PO DAILY #7 tablet 06/21/20 [Rx] Formoterol Fumarate [Perforomist] 20 mcg INHALATION RT-BID nebu 06/21/20 [Rx] INSULIN ASPART (NovoLOG) [NovoLOG (formulary)] 0 unit SQ AC-TID vial 06/21/20 [Rx] Ipratropium-Albuterol Nebulize [Duoneb 0.5 mg-3 mg/3 ml Soln] 3 ml INHALATION RT-Q4H PRN ml 06/21/20 [Rx] Levofloxacin [Levaquin] 750 mg PO DAILY 6 Days #6 tab 06/21/20 [Rx] Follow up Appointment(s)/Referral(s): Hilda Ocampo NPC [Primary Care Provider] - 1-2 days Vimal Abreu MD [STAFF PHYSICIAN] - 3 Weeks () Discharge Disposition: TRANSFER TO SNF/ECF
== END 2020-06-21 16:13 | DRG 551 ==
LOC: EC 13:27 → 5NMEDONC 15:01 → 3SCARD 17:13 → 4SSUR 06-21 06:04
PROVIDERS: ADMIT Internal Medicine; ATTEND Internal Medicine
DX: M48.061 Spinal stenosis, lumbar region without neurogenic claudication (principal); J96.01 Acute respiratory failure with hypoxia; M51.06 Intervertebral disc disorders with myelopathy, lumbar region; E87.1 Hypo-osmolality and hyponatremia; J44.1 Chronic obstructive pulmonary disease with (acute) exacerbation; N17.9 Acute kidney failure, unspecified; D69.6 Thrombocytopenia, unspecified; I27.20 Pulmonary hypertension, unspecified; R62.7 Adult failure to thrive; E11.22 Type 2 diabetes mellitus with diabetic chronic kidney disease; I11.0 Hypertensive heart disease with heart failure; I50.9 Heart failure, unspecified; I95.9 Hypotension, unspecified; E05.90 Thyrotoxicosis, unspecified without thyrotoxic crisis or storm; E78.5 Hyperlipidemia, unspecified; E83.42 Hypomagnesemia; E87.70 Fluid overload, unspecified; F17.210 Nicotine dependence, cigarettes, uncomplicated; G89.4 Chronic pain syndrome; I87.2 Venous insufficiency (chronic) (peripheral); M41.9 Scoliosis, unspecified; M43.16 Spondylolisthesis, lumbar region; M48.02 Spinal stenosis, cervical region; N18.9 Chronic kidney disease, unspecified; R29.6 Repeated falls; R33.8 Other retention of urine; T50.2X5A Adverse effect of carbonic-anhydrase inhibitors, benzothiadiazides and other diuretics, initial encounter; F32.9 Major depressive disorder, single episode, unspecified; R60.0 Localized edema; R79.89 Other specified abnormal findings of blood chemistry; Z20.828 Contact with and (suspected) exposure to other viral communicable diseases
CPT/HCPCS: 36415; 70450; 71046; 71275; 72100; 72141; 72148; 78582; 80053; 81003; 82533; 82550; 82747; 83036; 83605; 83735; 83880; 84100; 84134; 84145; 84439; 84443; 84481; 84484; 85025; 85379; 85610; 85730; 87040; 87635; 93005; 93970; 94640; 94760; 96361; 96365; 99285

== ENCOUNTER 2020-09-25 08:50 | Inpatient (IN) | payer MEDICARE, BC ==
[2020-09-25] MEDS ORDERED: methylPREDNISolone SOD SUCCI 125 MG/2 ML VIAL IV STA (09:10)
[2020-09-25] MEDS ORDERED: ALBUTEROL NEBULIZED 2.5 MG/3 ML INHALATION STA (09:10)
[2020-09-25] MEDS ORDERED: IPRATROPIUM 0.5 MG/2.5 ML NEBU INHALATION STA (09:10)
--- NOTE | 2020-09-25 09:12 | ED ---
General Adult HPI - General Chief complaint: Shortness of Breath Stated complaint: COPD Time Seen by Provider: 09/25/20 08:54 Source: patient, EMS, RN notes reviewed, old records reviewed, Caregiver Mode of arrival: EMS Limitations: no limitations - History of Present Illness Initial comments: 70-year-old female history of COPD presenting with 1 week of worsening dyspnea. Patient has had increased use of supplemental oxygen, typically using 2 L has b een using 4 L. Patient was transported by EMS, they did report an initial pulse ox in the 80s, 82. Patient denies fever. She has had 1 coronavirus vaccine. No known contact with coronavirus. She denies chest pain or abdominal pain. Denies vomiting. - Related Data Home Medications Medication Instructions Recorded Confirmed Atorvastatin Calcium [Lipitor] 40 mg PO DAILY 06/18/20 06/18/20 Biotin 10,000 mcg PO DAILY 06/18/20 06/18/20 Cetirizine HCl [Zyrtec] 10 mg PO DAILY 06/18/20 06/18/20 Cholecalciferol [Vitamin D3 (25 2,000 unit PO DAILY 06/18/20 06/18/20 Mcg = 1000 Iu)] Fenofibrate Nanocrystallized 145 mg PO DAILY 06/18/20 06/18/20 [Tricor] Furosemide [Lasix] 40 mg PO DAILY PRN 06/18/20 06/18/20 Hydrocodone/Acetaminophen [[place] 1 tab PO TID PRN 06/18/20 06/18/20 10-325] Pregabalin [Lyrica] 100 mg PO BID 06/18/20 06/18/20 Sertraline HCl [Zoloft] 100 mg PO DAILY 06/18/20 06/18/20 Previous Rx's Medication Instructions Recorded Budesonide [Pulmicort] 1 mg INHALATION RT-BID ml 06/21/20 Cyanocobalamin [Vitamin B-12] 1,000 mcg PO DAILY tab 06/21/20 Dexamethasone [Decadron] 4 mg PO DAILY #7 tablet 06/21/20 Formoterol Fumarate [Perforomist] 20 mcg INHALATION RT-BID nebu 06/21/20 INSULIN ASPART (NovoLOG) [NovoLOG 0 unit SQ AC-TID vial 06/21/20 (formulary)] Ipratropium-Albuterol Nebulize 3 ml INHALATION RT-Q4H PRN ml 06/21/20 [Duoneb 0.5 mg-3 mg/3 ml Soln] Levofloxacin [Levaquin] 750 mg PO DAILY 6 Days #6 tab 06/21/20 Allergies Allergy/AdvReac Type Severity Reaction Status Date / Time almond Allergy Unknown Verified 09/25/20 09:05 Iodinated Contrast Media Allergy Unknown Verified 09/25/20 09:05 latex Allergy Itching Verified 09/25/20 09:05 peanut Allergy Unknown Verified 09/25/20 09:05 tape Allergy Itching Uncoded 09/25/20 09:05 Review of Systems ROS Statement: Those systems with pertinent positive or pertinent negative responses have been documented in the HPI. ROS Other: All systems not noted in ROS Statement are negative. Past Medical History Past Medical History: COPD Additional Past Medical History / Comment(s): spinal stenosis, depression History of Any Multi-Drug Resistant Organisms: None Reported Past Surgical History: Hysterectomy Additional Past Surgical History / Comment(s): foot bunion Past Anesthesia/Blood Transfusion Reactions: No Reported Reaction Past Psychological History: Depression Smoking Status: Former smoker Past Alcohol Use History: None Reported Past Drug Use History: None Reported - Past Family History Father Family Medical History: Memory Impairment Mother History Unknown: Yes General Exam Limitations: no limitations General appearance: alert, in distress Head exam: Present: atraumatic, normocephalic Eye exam: Present: normal appearance, PERRL ENT exam: Present: normal exam Neck exam: Present: normal inspection. Absent: tenderness, meningismus Respiratory exam: Present: respiratory distress, rhonchi, decreased breath sounds Cardiovascular Exam: Present: regular rate, normal rhythm GI/Abdominal exam: Present: soft. Absent: distended, tenderness, guarding Extremities exam: Present: normal inspection, normal capillary refill. Absent: pedal edema, calf tenderness Neurological exam: Present: alert, oriented X3, CN II-XII intact. Absent: motor sensory deficit Psychiatric exam: Present: normal affect, normal mood Skin exam: Present: warm, dry, intact. Absent: cyanosis, diaphoretic Course Vital Signs 09/25/20 09/25/20 09/25/20 08:53 10:19 10:46 Temperature 98.7 F Pulse Rate 97 89 91 Respiratory 18 Rate Blood Pressure 124/84 O2 Sat by Pulse 95 Oximetry Medical Decision Making - Medical Decision Making 70-year-old female presenting with worsening cough and dyspnea. History of COPD on home oxygen. X-ray showing interstitial edema and bilateral effusion. Laboratory testing reveals an elevated CO2 consistent with chronic CO2 retention, elevated BNP at 19,000 and a minimally elevated troponin 0.038. I suggest this is predominantly from CHF. Patient is started on albuterol, Atrovent, steroids, and Lasix. She will be admitted for a combination of COPD and CHF exacerbation. Case discussed with the admitting physician as well as consultation placed to both cardiology and pulmonology. - Lab Data Result diagrams: 09/25/20 09:21 09/25/20 09:21 Lab Results 09/25/20 09/25/20 09/25/20 Range/Units 09: 09: 09:21 WBC 5.8 (3.8-10.6) k/uL RBC 4.08 (3.80-5.40) m/uL Hgb 12.5 (11.4-16.0) gm/dL Hct 37.8 (34.0-46.0) % MCV 92.6 (80.0-100.0) fL MCH 30.5 (25.0-35.0) pg MCHC 33.0 (31.0-37.0) g/dL RDW 13.9 (11.5-15.5) % Plt Count 215 (150-450) k/uL MPV 8.6 Neutrophils % 73 % Lymphocytes % 17 % Monocytes % 3 % Eosinophils % 5 % Basophils % 1 % Neutrophils # 4.3 (1.3-7.7) k/uL Lymphocytes # 1.0 (1.0-4.8) k/uL Monocytes # 0.2 (0-1.0) k/uL Eosinophils # 0.3 (0-0.7) k/uL Basophils # 0.0 (0-0.2) k/uL Hypochromasia Slight PT 12.0 (9.0-12.0) sec INR 1.1 (<1.2) APTT 23.5 (22.0-30.0) sec Sodium 140 (137-145) mmol/L Potassium 3.8 (3.5-5.1) mmol/L Chloride 85 L (98-107) mmol/L Carbon Dioxide 50 H* (22-30) mmol/L BUN 41 H (7-17) mg/dL Creatinine 0.84 (0.52-1.04) mg/dL Est GFR (CKD-EPI)AfAm 82 (>60 ml/min/1.73 sqM) Est GFR (CKD-EPI)NonAf 71 (>60 ml/min/1.73 sqM) Glucose 116 H (74-99) mg/dL Plasma Lactic Acid Shai (0.7-2.0) mmol/L Calcium 10.1 (8.4-10.2) mg/dL Total Bilirubin 0.9 (0.2-1.3) mg/dL AST 46 H (14-36) U/L ALT 19 (4-34) U/L Alkaline Phosphatase 72 (38-126) U/L Troponin I (0.000-0.034) ng/mL NT-Pro-B Natriuret Pep pg/mL Total Protein 6.7 (6.3-8.2) g/dL Albumin 3.8 (3.5-5.0) g/dL 09/25/20 09/25/20 09/25/20 Range/Units 09:21 09:21 09:21 WBC (3.8-10.6) k/uL RBC (3.80-5.40) m/uL Hgb (11.4-16.0) gm/dL Hct (34.0-46.0) % MCV (80.0-100.0) fL MCH (25.0-35.0) pg MCHC (31.0-37.0) g/dL RDW (11.5-15.5) % Plt Count (150-450) k/uL MPV Neutrophils % % Lymphocytes % % Monocytes % % Eosinophils % % Basophils % % Neutrophils # (1.3-7.7) k/uL Lymphocytes # (1.0-4.8) k/uL Monocytes # (0-1.0) k/uL Eosinophils # (0-0.7) k/uL Basophils # (0-0.2) k/uL Hypochromasia PT (9.0-12.0) sec INR (<1.2) APTT (22.0-30.0) sec Sodium (137-145) mmol/L Potassium (3.5-5.1) mmol/L Chloride (98-107) mmol/L Carbon Dioxide (22-30) mmol/L BUN (7-17) mg/dL Creatinine (0.52-1.04) mg/dL Est GFR (CKD-EPI)AfAm (>60 ml/min/1.73 sqM) Est GFR (CKD-EPI)NonAf (>60 ml/min/1.73 sqM) Glucose (74-99) mg/dL Plasma Lactic Acid Shai 1.2 (0.7-2.0) mmol/L Calcium (8.4-10.2) mg/dL Total Bilirubin (0.2-1.3) mg/dL AST (14-36) U/L ALT (4-34) U/L Alkaline Phosphatase (38-126) U/L Troponin I 0.038 H* (0.000-0.034) ng/mL NT-Pro-B Natriuret Pep 33549 pg/mL Total Protein (6.3-8.2) g/dL Albumin (3.5-5.0) g/dL Disposition Clinical Impression: Acute exacerbation of chronic obstructive pulmonary disease, Congestive heart failure Disposition: ADMITTED IP TO THIS [facility] Condition: Stable Is patient prescribed a controlled substance at d/c from ED?: No Referrals: Hilda Ocampo NPC [Primary Care Provider] - 1-2 days Decision to Admit Reason: Admit from EC Decision Date: 09/25/20 Decision Time: 11:27
[2020-09-25 10:05] LABS: Basophils % (A) 1 %; Eosinophils # (A) 0.3 k/uL (0-0.7); Eosinophils % (A) 5 %; HCT 37.8 % (34.0-46.0); HGB 12.5 gm/dL (11.4-16.0); Hypochromasia Slight; Lymphocytes % (A) 17 %; MCH 30.5 pg (25.0-35.0); MCV 92.6 fL (80.0-100.0); Mean Platelet Volume 8.6; Monocytes # (A) 0.2 k/uL (0-1.0); Monocytes % (A) 3 %; Neutrophils # (A) 4.3 k/uL (1.3-7.7); Neutrophils % (A) 73 %; Platelet Count 215 k/uL (150-450); RBC 4.08 m/uL (3.80-5.40); RDW 13.9 % (11.5-15.5); WBC 5.8 k/uL (3.8-10.6)
[2020-09-25 10:18] LABS: Albumin 3.8 g/dL (3.5-5.0); Calcium 10.1 mg/dL (8.4-10.2); Potassium 3.8 mmol/L (3.5-5.1); Total Bilirubin 0.9 mg/dL (0.2-1.3); Total Protein 6.7 g/dL (6.3-8.2)
[2020-09-25 10:27] LABS: INR 1.1 (<1.2); Partial Thromboplastin Time 23.5 sec (22.0-30.0)
[2020-09-25] MEDS ORDERED: FUROSEMIDE 10 MG/ML 4 ML VIAL IV STA (11:06)
--- NOTE | 2020-09-25 11:09 | XR ---
EXAMINATION TYPE: XR chest 2V DATE OF EXAM: 09/25/2020 COMPARISON: 06/18/2020 HISTORY: 70 year-old female shortness of breath, difficulty breathing TECHNIQUE: AP and lateral views FINDINGS: Heart is normal in size. Atherosclerotic arch calcifications. Mild interstitial prominence and mild h yperinflation. Left suprahilar soft tissue prominence. Trace pleural effusion on the lateral view. Bi lateral hilar prominence. No codie consolidation. IMPRESSION: COPD. Given hilar prominence, increased interstitial change, and trace effusions, correlate for super imposed mild CHF and possible underlying pulmonary arterial hypertension.
[2020-09-25] MEDS ORDERED: methylPREDNISolone SOD SUCCI 125 MG/2 ML VIAL IV SCH (12:00)
--- NOTE | 2020-09-25 13:10 | P.CRDCN ---
History of Present Illness History of present illness: HISTORY OF PRESENTING ILLNESS This is a pleasant 70-year-old [place] past medical history significant for COPD, hypertension, dyslipidemia, chronic hypoxia on home oxygen, former nicotine dependence quit 05/2020 and pulmonary hypertension. She follows in the office with Dr. Sotomayor. We have been asked to see in consultation for shortness of breath. She is seen and examined sitting up on the stretcher. She was brought to the hospital by her sister for progressively worsening shortness of breath. She usually wears oxygen at home at 2L but has been turning it up to 4 lately. She describes a feeling of drowning and inability to lay flat. She denies chest pain, dizziness or palpitations. DIAGNOSTICS EKG reveals sinus mechanism with T-wave inversions inferiorly and ST depression with Twave inversions in the pre-cordial leads, consistent with previous EKG from 05/2020. Chest xray COPD with increased interstitial changes. Laboratory reviewed, CBC unremarkable, sodium 140, potassium 3.8, CO2 50, creatinine 0.82, troponin 0.038, NT proBNP 19,300. Current cardiac medications include amlodipine 2.5 mg daily, lasix 20 mg daily PRN, fenofibrate 145 mg daily, enalapril 10 mg daily, atorvastatin 40 mg daily and atenolol/chlorthalidone 50mg daily. Most recent echocardiogram obtained in the office 2018 revealed preserved LV systolic function with EF 55-60% with mild-moderate TR and MR and severe pulmonary hypertension with RVSP 60 mmHg. REVIEW OF SYSTEMS At the time of my exam: CONSTITUTIONAL: Denies fever or chills. CARDIOVASCULAR: Complains of shortness of breath. Denies chest pain, orthopnea, PND or palpitations. RESPIRATORY: Denies cough. GASTROINTESTINAL: Denies abdominal pain, diarrhea, constipation, nausea or vomiting. MUSCULOSKELETAL: Denies myalgias. NEUROLOGIC: Denies numbness, tingling, headacbe or weakness. ENDOCRINE: Denies fatigue, weight change, polydipsia or polyurina. GENITOURINARY: Denies burning, hematuria or urgency with micturation. HEMATOLOGIC: Denies history of anemia or bleeding. PHYSICAL EXAMINATION Blood pressure 109/65 heart rate 97 afebrile and maintaining oxygen saturation on nasal cannula. CONSTITUTIONAL: No apparent distress. Frail. HEENT: Head is normocephalic. Pupils are equal, round. Sclerae anicteric. Mucous membranes of the mouth are moist. No JVD. No carotid bruit. CHEST EXAMINATION: Fine bibasilar rales, severely diminished. No wheezes or rhonchi. No chest wall tenderness is noted on palpation or with deep breathing. HEART EXAMINATION: Regular rate and rhythm. S1, S2 heard. Soft systolic ejection murmur at the apex, no gallops or rub. ABDOMEN: Soft, nontender. Positive bowel sounds. EXTREMITIES: 2+ peripheral pulses, no lower extremity edema and no calf tenderness. NEUROLOGIC EXAMINATION: Patient is awake, alert and oriented x3. ASSESSMENT Acute diastolic heart failure Acute exacerbation of COPD Type II HI secondary to oxygen supply and demand mismatch Hypoxia Hypertension Dyslipidemia Pulmonary hypertension PLAN Continue IV diuresis. Document accurate intake and output along with daily weights. Obtain 2D echocardiogram and doppler study to assess cardiac structure and function. Follow renal function and electrolytes in the morning. Initiate daily aspirin 81 mg. Check d-dimer. Further recommendations to follow based on clinical course. Thank you kindly for this consultation. Nurse Practitioner note has been reviewed, I agree with a documented findings and plan of care. Patient was seen and examined. Past Medical History Past Medical History: COPD Additional Past Medical History / Comment(s): spinal stenosis, depression History of Any Multi-Drug Resistant Organisms: None Reported Past Surgical History: Hysterectomy Additional Past Surgical History / Comment(s): foot bunion Past Anesthesia/Blood Transfusion Reactions: No Reported Reaction Past Psychological History: Depression Smoking Status: Former smoker Past Alcohol Use History: None Reported Past Drug Use History: None Reported - Past Family History Father Family Medical History: Memory Impairment Mother History Unknown: Yes Medications and Allergies Home Medications Medication Instructions Recorded Confirmed Type Atorvastatin Calcium [Lipitor] 40 mg PO HS 06/18/20 09/25/20 History Biotin 10,000 mcg PO DAILY 06/18/20 09/25/20 History Cetirizine HCl [Zyrtec] 10 mg PO DAILY 06/18/20 09/25/20 History Fenofibrate Nanocrystallized 145 mg PO HS 06/18/20 09/25/20 History [Tricor] Furosemide [Lasix] 20 mg PO DAILY PRN 06/18/20 09/25/20 History Hydrocodone/Acetaminophen [[place] 1 tab PO TID 06/18/20 09/25/20 History 10-325] Pregabalin [Lyrica] 100 mg PO BID 06/18/20 09/25/20 History Sertraline HCl [Zoloft] 100 mg PO DAILY 06/18/20 09/25/20 History ALPRAZolam [Xanax] 0.5 mg PO DAILY PRN 09/25/20 09/25/20 History Albuterol Inhaler [Ventolin Hfa 2 puff INHALATION RT-QID PRN 09/25/20 09/25/20 History Inhaler] Albuterol Nebulized [Ventolin 2.5 mg INHALATION RT-QID PRN 09/25/20 09/25/20 History Nebulized] Atenolol/Chlorthalidone [Tenoretic 1 tab PO DAILY 09/25/20 09/25/20 History 50 Tablet] Cholecalciferol (Vitamin D3) 250 mcg PO DAILY 09/25/20 09/25/20 History [Vitamin D3 (5000 Iu)] Enalapril [Vasotec] 10 mg PO DAILY 09/25/20 09/25/20 History Ipratropium Nebulized [Atrovent 0.5 mg INHALATION RT-QID PRN 09/25/20 09/25/20 History Nebulized 0.2 MG/ML] amLODIPine [Norvasc] 2.5 mg PO DAILY 09/25/20 09/25/20 History Allergies Allergy/AdvReac Type Severity Reaction Status Date / Time almond Allergy Unknown Verified 09/25/20 11:28 Iodinated Contrast Media Allergy Unknown Verified 09/25/20 11:28 latex Allergy Itching Verified 09/25/20 11:28 peanut Allergy Unknown Verified 09/25/20 11:28 tape Allergy Itching Uncoded 09/25/20 11:28 Physical Exam Vitals: Vital Signs Temp Pulse Resp BP Pulse Ox 09/25/20 11:00 97 18 109/65 99 09/25/20 10:46 91 09/25/20 10:19 89 09/25/20 08:53 98.7 F 97 18 124/84 95 Intake and Output 09/24/20 09/25/20 09/25/20 22:59 06:59 14:59 Other: Weight 50.802 kg Results 09/25/20 09:21 09/25/20 09:21 Cardiac Enzymes 09/25/20 09/25/20 Range/Units 09:21 09:21 AST 46 H (14-36) U/L Troponin I 0.038 H* (0.000-0.034) ng/mL Coagulation 09/25/20 Range/Units 09:21 PT 12.0 (9.0-12.0) sec APTT 23.5 (22.0-30.0) sec CBC 09/25/20 Range/Units 09:21 WBC 5.8 (3.8-10.6) k/uL RBC 4.08 (3.80-5.40) m/uL Hgb 12.5 (11.4-16.0) gm/dL Hct 37.8 (34.0-46.0) % Plt Count 215 (150-450) k/uL Comprehensive Metabolic Panel 09/25/20 Range/Units 09:21 Sodium 140 (137-145) mmol/L Potassium 3.8 (3.5-5.1) mmol/L Chloride 85 L (98-107) mmol/L Carbon Dioxide 50 H* (22-30) mmol/L BUN 41 H (7-17) mg/dL Creatinine 0.84 (0.52-1.04) mg/dL Glucose 116 H (74-99) mg/dL Calcium 10.1 (8.4-10.2) mg/dL AST 46 H (14-36) U/L ALT 19 (4-34) U/L Alkaline Phosphatase 72 (38-126) U/L Total Protein 6.7 (6.3-8.2) g/dL Albumin 3.8 (3.5-5.0) g/dL Current Medications Generic Name Dose Route Start Last Admin Trade Name Freq PRN Reason Stop Dose Admin Acetaminophen 650 mg 09/25/20 11:24 Acetaminophen Tab 325 Mg Tab PO Q6HR PRN Mild Pain or Fever > 100.5 Albuterol/Ipratropium 3 ml 09/25/20 11:24 Ipratropium-Albuterol 3 Ml Neb INHALATION RT-Q4H PRN Shortness Of Breath Or Wheezing Albuterol/Ipratropium 3 ml 09/25/20 12:00 Ipratropium-Albuterol 3 Ml Neb INHALATION RT-QID MERLIN Methylprednisolone Sodium Succinate 60 mg 09/25/20 12:00 Methylprednisolone Sod Succi 125 Mg/2 Ml Vial IV Q6HR MERLIN Intake and Output 09/24/20 09/25/20 09/25/20 22:59 06:59 14:59 Other: Weight 50.802 kg Patient Weight 09/26/20 06:59 Weight 50.802 kg 09/25/20 09:21 09/25/20 09:21
[2020-09-25] MEDS: IPRATROPIUM-ALBUTEROL 3 ML NEB INHALATION SCH ×2 (15:04)
[2020-09-25] MEDS ORDERED: ALPRAZolam 0.5 MG TAB PO PRN (15:14)
[2020-09-25] MEDS: ASPIRIN 81 MG PO SCH (15:54)
[2020-09-25] MEDS: HYDROcodone/APAP 10-325MG 1 EACH TAB PO SCH ×2 (15:54→23:10)
--- NOTE | 2020-09-25 16:24 | P.CNPUL ---
History of Present Illness Consult date: 09/25/20 Requesting physician: Anat Hagen Reason for consult: COPD Chief complaint: Shortness of breath and weakness. History of present illness: This is a 70-year-old female with known history of COPD, chronic hypoxic respiratory failure, maintained on oxygen at home. Patient is normally on 3-4 L via nasal cannula at home. Patient presented to the ER with 1 week history of increased shortness of breath. Occasional cough, cough is productive with brownish phlegm, she had no fever, no chills. Patient also described a feeling of drowning when she lays flat. Since May, patient had been mostly bedbound, she has profound weakness, and inability to ambulate on her own, and she has chronic shortness of breath related to her underlying COPD as well as possible component of congestive heart failure. Chest x-ray showed COPD and interstitial edema. EKG showed T-wave inversion inferiorly and in the precordial leads not much changed from previous EKG in May. Patient received Lasix since admission, and she is now on 2 L nasal cannula with O2 saturation of 99%. Last echocardiogram in 2018 showed good LV function however she had mild to moderate mitral regurgitation and severe pulmonary hypertension with a right-sided pressures in the 60s. Labs on admission showed relatively normal CBC. D-dimer was 1.18. Left lites were normal. However she had elevated bicarb of 50 BUN of 41 and creatinine 0.84. BNP level was over 19,000s and troponin was 0.035. Patient tested negative for coronary virus. She did receive 1 dose of Lasix, diuresed, and felt much better after diuresis. Review of Systems CONSTITUTIONAL: Denies fever or chills. Patient has mostly generalized weakness and fatigue CARDIOVASCULAR: Complains of shortness of breath. Patient has orthopnea, no palpitations. RESPIRATORY: Chronic cough and chronic shortness of breath on exertion. GASTROINTESTINAL: Denies abdominal pain, diarrhea, constipation, nausea or vomiting. MUSCULOSKELETAL: Patient has tremors and weakness, mostly bedbound. NEUROLOGIC: Describes chronic tremors ENDOCRINE: Chronic fatigue, no symptoms of diabetes or hypothyroidism GENITOURINARY: No dysuria frequency urgency or hematuria. HEMATOLOGIC: No history of clotting bleeding or bruising. Psychiatric: No symptoms of active depression. Skin: No rashes Past Medical History Past Medical History: COPD, Hypertension Additional Past Medical History / Comment(s): spinal stenosis, depression History of Any Multi-Drug Resistant Organisms: None Reported Past Surgical History: Hysterectomy Additional Past Surgical History / Comment(s): foot bunion Past Anesthesia/Blood Transfusion Reactions: No Reported Reaction Past Psychological History: Depression Smoking Status: Former smoker Past Alcohol Use History: None Reported Past Drug Use History: None Reported - Past Family History Father Family Medical History: Memory Impairment Additional Family Medical History / Comment(s): SPINAL DISEASE Mother History Unknown: Yes Additional Family Medical History / Comment(s): CKD, RENAL FAILURE Medications and Allergies Home Medications Medication Instructions Recorded Confirmed Type Atorvastatin Calcium [Lipitor] 40 mg PO HS 06/18/20 09/25/20 History Biotin 10,000 mcg PO DAILY 06/18/20 09/25/20 History Cetirizine HCl [Zyrtec] 10 mg PO DAILY 06/18/20 09/25/20 History Fenofibrate Nanocrystallized 145 mg PO HS 06/18/20 09/25/20 History [Tricor] Furosemide [Lasix] 20 mg PO DAILY PRN 06/18/20 09/25/20 History Hydrocodone/Acetaminophen [[place] 1 tab PO TID 06/18/20 09/25/20 History 10-325] Pregabalin [Lyrica] 100 mg PO BID 06/18/20 09/25/20 History Sertraline HCl [Zoloft] 100 mg PO DAILY 06/18/20 09/25/20 History ALPRAZolam [Xanax] 0.5 mg PO DAILY PRN 09/25/20 09/25/20 History Albuterol Inhaler [Ventolin Hfa 2 puff INHALATION RT-QID PRN 09/25/20 09/25/20 History Inhaler] Albuterol Nebulized [Ventolin 2.5 mg INHALATION RT-QID PRN 09/25/20 09/25/20 History Nebulized] Atenolol/Chlorthalidone [Tenoretic 1 tab PO DAILY 09/25/20 09/25/20 History 50 Tablet] Cholecalciferol (Vitamin D3) 250 mcg PO DAILY 09/25/20 09/25/20 History [Vitamin D3 (5000 Iu)] Enalapril [Vasotec] 10 mg PO DAILY 09/25/20 09/25/20 History Ipratropium Nebulized [Atrovent 0.5 mg INHALATION RT-QID PRN 09/25/20 09/25/20 History Nebulized 0.2 MG/ML] amLODIPine [Norvasc] 2.5 mg PO DAILY 09/25/20 09/25/20 History Allergies Allergy/AdvReac Type Severity Reaction Status Date / Time almond Allergy Unknown Verified 09/25/20 11:28 Iodinated Contrast Media Allergy Unknown Verified 09/25/20 11:28 latex Allergy Itching Verified 09/25/20 11:28 peanut Allergy Unknown Verified 09/25/20 11:28 tape Allergy Itching Uncoded 09/25/20 11:28 Physical Exam Vitals: Vital Signs Temp Pulse Resp BP Pulse Ox 09/25/20 15:16 88 09/25/20 15:04 84 09/25/20 14:00 89 18 98/62 98 09/25/20 13:00 82 18 102/63 98 09/25/20 12:00 93 18 92/52 100 09/25/20 11:00 94 18 109/65 99 09/25/20 10:46 91 09/25/20 10:19 89 09/25/20 08:56 65 L 09/25/20 08:53 98.7 F 97 18 124/84 95 Intake and Output 09/25/20 09/25/20 09/25/20 06:59 14:59 22:59 Other: Weight 50.802 kg 50.802 kg GENERAL EXAM: Alert, very pleasant, 70-year-old white female, on 3 L nasal cannula O2 saturation is 95% HEAD: Normocephalic/atraumatic. EYES: Normal reaction of pupils, equal size. Conjunctiva pink, sclera white. NOSE: Clear with pink turbinates. THROAT: No erythema or exudates. NECK: No masses, no JVD, no thyroid enlargement, no adenopathy. CHEST: No chest wall deformity. Symmetrical expansion. LUNGS: Equal air entry with diminished breath sounds, minimal crackles at the bases no wheezes. CVS: Regular rate and rhythm, normal S1 and S2, no gallops, 2/6 systolic murmur thought the precordium. ABDOMEN: Soft, nontender. No hepatosplenomegaly, normal bowel sounds, no guarding or rigidity. EXTREMITIES: No clubbing, a central bipedal edema.. MUSCULOSKELETAL: Muscle strength and tone normal. SKIN: No rashes CENTRAL NERVOUS SYSTEM: Alert and oriented 3 focal deficit PSYCHIATRIC: Normal mood, affect and normal mental status examination. Results - Laboratory Findings CBC and BMP: 09/25/20 09:21 09/25/20 09:21 PT/INR, D-dimer PT 12.0 sec (9.0-12.0) 09/25/20 09:21 INR 1.1 (<1.2) 09/25/20 09:21 D-Dimer 1.18 mg/L FEU (<0.60) H 09/25/20 13:07 Abnormal lab findings: Abnormal Labs 09/25/20 09/25/20 09/25/20 09:21 09:21 12:15 D-Dimer Chloride 85 L Carbon Dioxide 50 H* BUN 41 H Glucose 116 H AST 46 H Troponin I 0.038 H* 0.035 H* 09/25/20 13:07 D-Dimer 1.18 H Chloride Carbon Dioxide BUN Glucose AST Troponin I - Diagnostic Findings Chest x-ray: image reviewed (As noted in HPI.) Assessment and Plan Assessment: Impression: Acute on chronic hypoxic respiratory failure secondary to underlying COPD and suspect some component of acute diastolic congestive heart failure. Acute exacerbation of COPD Benign essential hypertension Valvular heart disease and pulmonary hypertension Acute diastolic congestive heart failure, patient demonstrated significant improvement post-diuresis Chronic medical debility History of spinal stenosis Benign essential tremors History of depression recommendation: Recommendation: Continue present course of bronchodilators. Continue Lasix 40 mg IV push every 12 hours. Continue updrafts. Resume home meds. Echocardiogram is pending to assess LV function however her previous echocardiogram showed good LV function. But it did show evidence of pulmonary hypertension and valvular heart disease Continue Solu-Medrol however the dose today to be cut down significantly. We'll continue to follow. Time with Patient: Greater than 30
--- NOTE | 2020-09-25 17:41 | NM ---
EXAMINATION TYPE: NM pul vent and perfuse DATE OF EXAM: 09/25/2020 COMPARISON: 06/19/2020 HISTORY: TECHNIQUE: Utilizing inhalation of 68.9 mCi Tc 99m DTPA aerosol and intravenous injection of 5.1 mCi of Tc 99m MAA, ventilation and perfusion images are acquired post injection in multiple projections. FINDINGS: There are multiple matching defects in both upper lobes. These are almost segmental size. The lung ba ses show fairly uniform perfusion and ventilation. IMPRESSION: Matching bilateral upper lobe defects consistent with airway disease. There is low to intermediate pr obability of pulmonary embolism. There is improvement in the perfusion compared to old exam.
--- NOTE | 2020-09-25 18:12 | CT ---
EXAMINATION TYPE: CT chest wo con DATE OF EXAM: 09/25/2020 COMPARISON: 06/20/2020 HISTORY: SOB CT DLP: 156.2 mGycm Automated exposure control for dose reduction was used. Images obtained from the thoracic inlet to the diaphragm without contrast. There is some diffuse interstitial pulmonary infiltrate. There is also diffuse mild pulmonary emphyse ma. There is no discrete pulmonary mass. There is coronary artery calcification. Thoracic aorta is atheromatous. There is no aneurysm. The asc ending aorta measures 3 cm. There is no mediastinal adenopathy. There are no hilar masses. There is n o pleural effusion. Upper abdominal soft tissues are intact. Thoracic spine is intact. There is no compression fracture. There is thoracic dextroscoliosis. IMPRESSION: Interstitial diffuse pneumonic infiltrate is increased compared to old exam. There is clearing of the right pleural effusion compared to old exam. No suspicious pulmonary mass. Mild atelectasis at both lung bases improved compared to old exam. Emphysema.
[2020-09-25] MEDS: FENOFIBRATE 160 MG TAB PO SCH (20:21)
[2020-09-25] MEDS: PREGABALIN 100 MG CAP PO SCH (20:21)
[2020-09-25] MEDS: ATORVASTATIN 40 MG TAB PO SCH (20:21)
[2020-09-25] MEDS: HEPARIN SODIUM,PORCINE 5,000 UNIT/ML 1 ML VIAL SQ SCH (20:22)
[2020-09-25] MEDS: FUROSEMIDE 10 MG/ML 4 ML VIAL IV SCH (20:22)
[2020-09-25] MEDS: methylPREDNISolone SOD SUCCI 40 MG/ML 1 ML VIAL IV SCH (23:11)
[2020-09-26] MEDS: IPRATROPIUM-ALBUTEROL 3 ML NEB INHALATION SCH ×5 (02:13→21:11)
[2020-09-26 06:09] LABS: Glucose,Whole Blood 129 mg/dL (75-99)
[2020-09-26] MEDS: INSULIN ASPART (NovoLOG) 100 UNIT/ML VIAL SQ SCH ×4 (06:28→21:28)
[2020-09-26] MEDS: PANTOPRAZOLE 40 MG TABLET PO SCH (06:29)
[2020-09-26 08:22] LABS: Basophils % (A) 0 %; Eosinophils % (A) 1 %; HCT 34.3 % (34.0-46.0); HGB 11.2 gm/dL (11.4-16.0); Hypochromasia Slight; Lymphocytes # (A) 0.7 k/uL (1.0-4.8); Lymphocytes % (A) 15 %; MCHC 32.8 g/dL (31.0-37.0); MCV 91.7 fL (80.0-100.0); Mean Platelet Volume 8.9; Monocytes # (A) 0.2 k/uL (0-1.0); Monocytes % (A) 5 %; Neutrophils # (A) 3.4 k/uL (1.3-7.7); Neutrophils % (A) 78 %; Platelet Count 200 k/uL (150-450); RBC 3.74 m/uL (3.80-5.40); RDW 14.3 % (11.5-15.5); WBC 4.3 k/uL (3.8-10.6)
[2020-09-26] MEDS: atenoloL 50 MG TAB PO SCH (08:31)
[2020-09-26] MEDS: ASPIRIN 81 MG PO SCH (08:31)
[2020-09-26] MEDS: CHOLECALCIFEROL 25 MCG (1000 IU) TABLET PO SCH (08:31)
[2020-09-26] MEDS: FOLIC ACID 1 MG TAB PO SCH (08:32)
[2020-09-26] MEDS: CHLORTHALIDONE 25 MG TAB PO SCH (08:32)
[2020-09-26] MEDS: methylPREDNISolone SOD SUCCI 40 MG/ML 1 ML VIAL IV SCH ×3 (08:32→23:56)
[2020-09-26] MEDS: FUROSEMIDE 10 MG/ML 4 ML VIAL IV SCH ×2 (08:32→21:28)
[2020-09-26] MEDS: HEPARIN SODIUM,PORCINE 5,000 UNIT/ML 1 ML VIAL SQ SCH ×2 (08:34→21:28)
[2020-09-26] MEDS: SERTRALINE 100 MG TAB PO SCH (08:35)
[2020-09-26] MEDS: LORATADINE 10 MG TAB PO SCH (08:35)
[2020-09-26] MEDS: PREGABALIN 100 MG CAP PO SCH ×2 (08:35→21:29)
[2020-09-26] MEDS: HYDROcodone/APAP 10-325MG 1 EACH TAB PO SCH ×3 (08:42→21:29)
[2020-09-26] MEDS ORDERED: ATENOLOL PO SCH (09:00)
[2020-09-26] MEDS ORDERED: CHLORTHALIDONE PO SCH (09:00)
[2020-09-26] MEDS ORDERED: NON FORMULARY DRUG (Biotin [Biotin] 10,000 MCG Capsule) PO SCH (09:00)
[2020-09-26 09:01] LABS: Calcium 9.4 mg/dL (8.4-10.2); Potassium 4.4 mmol/L (3.5-5.1)
--- NOTE | 2020-09-26 10:42 | ECHOF ---
Referral Reason:dyspnea MEASUREMENTS -------- HEIGHT: 160.0 cm WEIGHT: 50.8 kg BP: RVIDd: 4.2 cm (< 3.3) IVSd: 0.8 cm (0.6 - 1.1) LVIDd: 3.6 cm (3.9 - 5.3) LVPWd: 0.9 cm (0.6 - 1.1) IVSs: 1.4 cm LVIDs: 2.3 cm LVPWs: 1.3 cm LA Diam: 3.9 cm (2.7 - 3.8) Ao Diam: 2.6 cm (2.0 - 3.7) AV Cusp: 1.9 cm (1.5 - 2.6) MV EXCURSION: 15.488 mm (> 18.000) MV EF SLOPE: 67 mm/s (70 - 150) EPSS: 0.5 cm MV E Chicho: 0.46 m/s MV DecT: 183 ms MV A Chicho: 0.81 m/s MV E/A Ratio: 0.57 RAP: 5.00 mmHg RVSP: 86.60 mmHg TAPSE: 15.62 mm FINDINGS -------- Undetermined rhythm. This was a technically good study. The left ventricular size is normal. Left ventricular wall thickness is normal. Overall left vent ricular systolic function is low-normal with, an EF between 50 - 55 %. The right ventricle is severely enlarged. The right ventricular septal wall is flattened in diastol e and systole which is consistent with right ventricular volume and pressure overload. The right atrial size is normal. There is mild aortic valve sclerosis. There is no evidence of aortic regurgitation. Mild mitral annular calcification present. Mild mitral regurgitation is present. Moderate to severe tricuspid regurgitation present. There is moderate to severe pulmonary hypertens ion. The right ventricular systolic pressure, as measured by Doppler, is 86.60mmHg. Trace/mild (physiologic) pulmonic regurgitation. The aortic root size is normal. There is no pericardial effusion. CONCLUSIONS -------- 1. The left ventricular size is normal. 2. Left ventricular wall thickness is normal. 3. Overall left ventricular systolic function is low-normal with, an EF between 50 - 55 %. 4. The right ventricle is severely enlarged. 5. The right ventricular septal wall is flattened in diastole and systole which is consistent with r ight ventricular volume and pressure overload. 6. The right atrial size is normal. 7. There is mild aortic valve sclerosis. 8. Mild mitral annular calcification present. 9. Mild mitral regurgitation is present. 10. Moderate to severe tricuspid regurgitation present. 11. There is moderate to severe pulmonary hypertension. 12. The right ventricular systolic pressure, as measured by Doppler, is 86.60mmHg. 13. Trace/mild (physiologic) pulmonic regurgitation. 14. The aortic root size is normal. 15. There is no pericardial effusion. ASSET AVAILABILITY LEADER: Luda Hebert RDCS
[2020-09-26] MEDS: lisinopriL 20 MG TAB PO SCH (10:52)
[2020-09-26] MEDS: amLODIPine 2.5 MG TAB PO SCH (10:52)
--- NOTE | 2020-09-26 11:52 | P.PN ---
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 She follows in the office with Dr. Sotomayor. We have been asked to see in consultation for shortness of breath. She is seen and examined sitting up on the stretcher. She was brought to the hospital by her sister for progressively worsening shortness of breath. She usually wears oxygen at home at 2L but has been turning it up to 4 lately. She describes a feeling of drowning and inability to lay flat. She denies chest pain, dizziness or palpitations. EKG reveals sinus mechanism with T-wave inversions inferiorly and ST depression with Twave inversions in the pre-cordial leads, consistent with previous EKG from 05/2020. Chest xray COPD with increased interstitial changes. Laboratory reviewed, CBC unremarkable, sodium 140, potassium 3.8, CO2 50, creatinine 0.82, troponin 0.038, NT proBNP 19,300. Current cardiac medications include amlodipine 2.5 mg daily, lasix 20 mg daily PRN, fenofibrate 145 mg daily, enalapril 10 mg daily, atorvastatin 40 mg daily and atenolol/chlorthalidone 50mg daily. Most recent echocardiogram obtained in the office 2017 revealed preserved LV systolic function with EF 55-60% with mild-moderate TR and MR and severe pulmonary hypertension with RVSP 60 mmHg. 09/26/2020 Patient examined this morning. She is sitting up in the chair. She reports some shortness of breath this morning while laying in bed but states it has resolved since getting into the chair. She denies chest pain or pressure. Patient underwent V/Q scan yesterday which revealed matching bilateral upper lobe defects consistent with airway disease. Low to intermediate probability of pulmonary embolus. Echocardiogram completed revealed ejection fraction 50-55%, mild mitral regurgitation, moderate to severe tricuspid regurgitation, moderate to severe pulmonary hypertension with RVSP of 86.6. PHYSICAL EXAM: VITAL SIGNS: Reviewed. GENERAL: Well-developed in no acute distress. NECK: Supple. No JVD or thyromegaly LUNGS: Respirations even and unlabored. Lungs diminished bilaterally HEART: Regular rate and rhythm. S1 and S2 heard. EXTREMITIES: Normal range of motion. No clubbing or cyanosis. Peripheral pulses intact. No lower extremity edema ASSESSMENT: Acute diastolic heart failure Acute exacerbation of COPD Type II MA secondary to oxygen supply and demand mismatch Acute on chronic hypoxic respiratory failure, on home O2 Hypertension Hyperlipidemia Severe pulmonary hypertension PLAN: Pulmonary following. Continue IV steroids per pulmonary Continue IV lasix Monitor kidney function Accurate I&O Daily weights Further recommendations pending patient course Nurse practitioner note has been reviewed by physician. Signing provider agrees with the documented findings, assessment, and plan of care. Objective - Vital Signs Vital signs: Vital Signs Temp 98.2 F 09/26/20 08:00 Pulse 64 09/26/20 08:00 Resp 18 09/26/20 08:00 BP 96/63 09/26/20 08:00 Pulse Ox 98 09/26/20 08:00 Intake & Output 09/25/20 09/26/20 09/26/20 18:59 06:59 18:59 Intake Total 360 240 Output Total 325 600 Balance 35 -600 240 Weight 50.802 kg 50 kg 50 kg Intake: Oral 360 240 Output: Urine 325 600 Other: Voiding Method Indwelling Catheter Indwelling Catheter - Labs CBC & Chem 7: 09/26/20 07:07 09/26/20 07:07 Labs: Abnormal Lab Results - Last 24 Hours (Table) 09/25/20 09/25/20 09/25/20 Range/Units 12:15 13:07 15:41 RBC (3.80-5.40) m/uL Hgb (11.4-16.0) gm/dL Lymphocytes # (1.0-4.8) k/uL D-Dimer 1.18 H (<0.60) mg/L FEU Sodium (137-145) mmol/L Chloride (98-107) mmol/L Carbon Dioxide (22-30) mmol/L BUN (7-17) mg/dL Glucose (74-99) mg/dL POC Glucose (mg/dL) (75-99) mg/dL Magnesium (1.6-2.3) mg/dL Troponin I 0.035 H* (0.000-0.034) ng/mL Procalcitonin 0.10 H (0.02-0.09) ng/mL 09/26/20 09/26/20 09/26/20 Range/Units 06:07 07:07 07:07 RBC 3.74 L (3.80-5.40) m/uL Hgb 11.2 L (11.4-16.0) gm/dL Lymphocytes # 0.7 L (1.0-4.8) k/uL D-Dimer (<0.60) mg/L FEU Sodium 135 L (137-145) mmol/L Chloride 83 L (98-107) mmol/L Carbon Dioxide 47 H* (22-30) mmol/L BUN 44 H (7-17) mg/dL Glucose 110 H (74-99) mg/dL POC Glucose (mg/dL) 129 H (75-99) mg/dL Magnesium 1.0 L (1.6-2.3) mg/dL Troponin I (0.000-0.034) ng/mL Procalcitonin (0.02-0.09) ng/mL
[2020-09-26] MEDS ORDERED: Magnesium Replacement Protocol 1 EACH MISC MISCELLANE PRN (12:03)
[2020-09-26 12:12] LABS: Glucose,Whole Blood 165 mg/dL (75-99)
[2020-09-26] MEDS: THIAMINE 100 MG TAB PO SCH (12:42)
[2020-09-26] MEDS: MAGNESIUM SULFATE-D5W PMX 1 GM in DEXTROSE/WATER 1 100ML.BAG IVPB SCH ×3 (12:42→14:50)
[2020-09-26] MEDS: MULTIVITAMINS, THERA 1 EACH TAB PO SCH (12:42)
[2020-09-26 17:27] LABS: Glucose,Whole Blood 154 mg/dL (75-99)
--- NOTE | 2020-09-26 17:58 | P.PN ---
Subjective Progress Note Date: 09/26/20 Principal diagnosis: Acute on chronic hypoxic respiratory failure secondary to COPD and acute diastolic congestive heart failure This is a 70-year-old female with known history of COPD, chronic hypoxic respiratory failure, maintained on oxygen at home. Patient is normally on 3-4 L via nasal cannula at home. Patient presented to the ER with 1 week history of increased shortness of breath. Occasional cough, cough is productive with brownish phlegm, she had no fever, no chills. Patient also described a feeling of drowning when she lays flat. Since May, patient had been mostly bedbound, she has profound weakness, and inability to ambulate on her own, and she has chronic shortness of breath related to her underlying COPD as well as possible component of congestive heart failure. Chest x-ray showed COPD and interstitial edema. EKG showed T-wave inversion inferiorly and in the precordial leads not much changed from previous EKG in May. Patient received Lasix since admission, and she is now on 2 L nasal cannula with O2 saturation of 99%. Last echocardiogram in 2017 showed good LV function however she had mild to moderate mitral regurgitation and severe pulmonary hypertension with a right-sided pressures in the 60s. Labs on admission showed relatively normal CBC. D-dimer was 1.18. Left lites were normal. However she had elevated bicarb of 50 BUN of 41 and creatinine 0.84. BNP level was over 19,000s and troponin was 0.035. Patient tested negative for coronar virus. She did receive 1 dose of Lasix, diuresed, and felt much better after diuresis. Patient was reevaluated today on 09/26/2020, patient is now on 4 L nasal cannula, she is feeling better, her echocardiogram showed mostly severe pulmonary hypertension. Clinically the patient is feeling better after she was given a course of diuretics and she is also on bronchodilators for underlying COPD. Remains on Lasix at 40 mg IV push every 12 hours. She is on multiple cardiac meds and she is also on bronchodilators. Patient is also on methylprednisolone which I have And she is on 40 mg IV push every 8 hours clinically again the patient is feeling better breathing a lot easier. Objective - Vital Signs Vital signs: Vital Signs Temp 98.2 F 09/26/20 08:00 Pulse 88 09/26/20 15:59 Resp 18 09/26/20 14:00 BP 109/67 09/26/20 12:00 Pulse Ox 96 09/26/20 12:00 Intake & Output 09/25/20 09/26/20 09/26/20 18:59 06:59 18:59 Intake Total 360 480 Output Total 325 600 300 Balance 35 -600 180 Weight 50.802 kg 50 kg 50 kg Intake: Oral 360 480 Output: Urine 325 600 300 Other: Voiding Method Indwelling Catheter Indwelling Catheter - Exam GENERAL EXAM: Alert, very pleasant, 70-year-old white female, on 4 L nasal vincent rita O2 saturation is 95% HEAD: Normocephalic/atraumatic. EYES: Normal reaction of pupils, equal size. Conjunctiva pink, sclera white. NOSE: Clear with pink turbinates. THROAT: No erythema or exudates. NECK: No masses, no JVD, no thyroid enlargement, no adenopathy. CHEST: No chest wall deformity. Symmetrical expansion. LUNGS: Equal air entry with diminished breath sounds, minimal crackles at the bases no wheezes. CVS: Regular rate and rhythm, normal S1 and S2, no gallops, 2/6 systolic murmur thought the precordium. ABDOMEN: Soft, nontender. No hepatosplenomegaly, normal bowel sounds, no gua rding or rigidity. EXTREMITIES: No clubbing, a central bipedal edema.. MUSCULOSKELETAL: Muscle strength and tone normal. SKIN: No rashes CENTRAL NERVOUS SYSTEM: Alert and oriented 3 focal deficit PSYCHIATRIC: Normal mood, affect and normal mental status examination. - Labs CBC & Chem 7: 09/26/20 07:07 09/26/20 07:07 Labs: Abnormal Lab Results - Last 24 Hours (Table) 09/25/20 09/26/20 09/26/20 Range/Units 15:41 06:07 07:07 RBC 3.74 L (3.80-5.40) m/uL Hgb 11.2 L (11.4-16.0) gm/dL Lymphocytes # 0.7 L (1.0-4.8) k/uL Sodium (137-145) mmol/L Chloride (98-107) mmol/L Carbon Dioxide (22-30) mmol/L BUN (7-17) mg/dL Glucose (74-99) mg/dL POC Glucose (mg/dL) 129 H (75-99) mg/dL Magnesium (1.6-2.3) mg/dL Procalcitonin 0.10 H (0.02-0.09) ng/mL 09/26/20 09/26/20 09/26/20 Range/Units 07:07 11:32 16:58 RBC (3.80-5.40) m/uL Hgb (11.4-16.0) gm/dL Lymphocytes # (1.0-4.8) k/uL Sodium 135 L (137-145) mmol/L Chloride 83 L (98-107) mmol/L Carbon Dioxide 47 H* (22-30) mmol/L BUN 44 H (7-17) mg/dL Glucose 110 H (74-99) mg/dL POC Glucose (mg/dL) 165 H 154 H (75-99) mg/dL Magnesium 1.0 L (1.6-2.3) mg/dL Procalcitonin (0.02-0.09) ng/mL Microbiology - Last 24 Hours (Table) 09/25/20 09:21 Blood Culture - Preliminary Blood No Growth after 24 hours 09/25/20 09:21 Blood Culture - Preliminary Blood No Growth after 24 hours Assessment and Plan Assessment: Impression: Acute on chronic hypoxic respiratory failure secondary to underlying COPD and suspect some component of acute diastolic congestive heart failure. Acute exacerbation of COPD Benign essential hypertension Valvular heart disease and pulmonary hypertension Acute diastolic congestive heart failure, patient demonstrated significant improvement post-diuresis Chronic medical debility History of spinal stenosis Benign essential tremors History of depression recommendation: Recommendation: Continue present course of bronchodilators. Solu-Medrol remains the same 40 mg IV push every 8 hours. We will transition that to prednisone tomorrow Continue Lasix 40 mg IV push every 12 hours. Continue updrafts. Follow-up chest x-ray in a.m. We'll continue to follow. Time with Patient: Less than 30
[2020-09-26 18:54] LABS: Appearance,Urine Turbid (Clear); Bacteria,Urine Moderate /hpf; Bilirubin,Urine Negative (Negative); Blood,Urine Small (Negative); Budding Yeast,Urine Many /hpf; Color,Urine Yellow; Glucose,Urine (UA) Negative (Negative); Hyaline Casts,Urine 19 /lpf (0-2); Ketones,Urine Negative (Negative); Leukocyte Esterase,Urine Large (Negative); Mucus,Urine Occasional /hpf; Nitrite,Urine Negative (Negative); PH, Urine 6.5 (5.0-8.0); Protein,Urine 1+ (Negative); RBC,Urine 31 /hpf (0-5); Specific Gravity,Urine 1.017 (1.001-1.035); Squamous Epithelial Cell,Urine 2 /hpf (0-4); Urobilinogen,Urine <2.0 mg/dL (<2.0); WBC,Urine >182 /hpf (0-5)
[2020-09-26 20:09] LABS: Glucose,Whole Blood 224 mg/dL (75-99)
--- NOTE | 2020-09-26 21:01 | HP ---
HISTORY AND PHYSICAL CHIEF COMPLAINT: Shortness of breath. HISTORY OF PRESENT ILLNESS: This 70-year-old woman with a past medical history of COPD, hypertension, chest pains, depression, history of hysterectomy, being followed by Dr. Ocampo in the outpatient setting, was complaining of shortness of breath which was progressing over the last several days. The patient came to [facility]. Patient was thought to have CHF, acute exacerbation, as well as some COPD, acute exacerbation, as well. The patient had acute hypoxic respiratory failure. The patient is on Lasix. The troponin was found to be indeterminate. The patient was admitted for further evaluation. Patient is extremely weak also at this time with some malnutrition as well. BMI is 19.5. There is no history of any fever, rigors or chills at this time. PAST MEDICAL HISTORY: History of COPD, hypertension, spinal stenosis, hysterectomy. HOME MEDICATIONS: Reviewed. They include Norvasc, Zoloft, Atrovent, Novinger, Tricor, vitamin D3. Doses are reviewed. ALLERGIES: ALMOND, IODINATED CONTRAST DYE, LATEX, PEANUT, TAPE. FAMILY HISTORY: History of spinal disease, memory impairment. SOCIAL HISTORY: No history of smoking. No history of alcohol. REVIEW OF SYSTEMS: ENT: No diminished hearing. No diminished vision. CARDIOVASCULAR SYSTEM: As mentioned earlier. RESPIRATORY SYSTEM: As mentioned earlier. GI: No nausea, vomiting. : No dysuria or retention. NERVOUS SYSTEM: No numbness, weakness. ALLERGY/IMMUNOLOGY: No asthma, hayfever. MUSCULOSKELETAL: As mentioned earlier. HEMATOLOGY/ONCOLOGY: No history of anemia. ENDOCRINE: No history of diabetes, hypothyroidism. CONSTITUTIONAL: As mentioned earlier. DERMATOLOGY: Negative. RHEUMATOLOGY: Negative. PSYCHIATRY: As mentioned earlier. PHYSICAL EXAMINATION: Patient alert and oriented x3. Pulse 80, blood pressure 96/60, respiration 18, temperature 97.6, pulse ox 98% on 3 L. HEENT: Conjunctivae normal. Oral mucosa moist. NECK: No jugular venous distention. No carotid bruit. No lymph node enlargement. CARDIOVASCULAR SYSTEM: S1, S2 muffled. No S3. No S4. RESPIRATORY SYSTEM: Breath sounds diminished at the bases. A few scattered rhonchi and crackles. ABDOMEN: Soft, non-tender. No mass palpable. LEGS: No edema. No swelling. NERVOUS SYSTEM: Higher functions as mentioned earlier. Moves all 4 limbs. No focal motor or sensory deficit. LYMPHATICS: No lymph node palpable in neck, axillae or groin. SKIN: No ulcer, rash, bleeding. JOINTS: No active deforming arthropathy. LABS: WBC 4.3, hemoglobin 11.2. Sodium 135. Troponin 0.10. ASSESSMENT: 1. Chronic obstructive pulmonary disease, acute exacerbation, with acute purulent tracheobronchitis and acute hypoxic hypercarbic respiratory failure. 2. Congestive heart failure, acute exacerbation, with acute on chronic diastolic dysfunction with ejection fraction 50% to 55%. 3. Gait dysfunction. 4. Moderate protein-calorie malnutrition. 5. Anemia; normocytic anemia of chronic disease. 6. Hyponatremia. 7. Chronic obstructive pulmonary disease. 8. Hypertension. 9. History of spinal stenosis. RECOMMENDATIONS AND DISCUSSION: In this 70-year-old woman who presented with multiple medical issues, we will monitor the patient closely. Will initiate intensive bronchodilator treatment and diuretics. Consult Cardiology and Pulmonology. PT/OT evaluation, possible ECF rehab. Guarded prognosis because of multiple complex medical issues. Further recommendations to follow. Discussed with the family. Discussed with the patient. MMODL / IJN: [id number] /
--- NOTE | 2020-09-26 21:09 | PN ---
PROGRESS NOTE DATE OF SERVICE: 09/26/2020 This 70-year-old woman was admitted with shortness of breath, possibly a combination of COPD and CHF, acute exacerbation. The patient is being closely monitored at this time. The patient also has significant gait dysfunction. Multiple consultants, including Dr. Pringle and Cardiology, are following the patient closely. PT/OT is also evaluating the patient. The patient also had elevated D-dimer of 1.18, but V/Q scan was intermediate probability and the CT scan of the chest showed bilateral interstitial shadows suggestive of CHF, acute exacerbation. The BNP is 19,300. COVID-19 is negative. PHYSICAL EXAMINATION: Alert and oriented x3. Pulse 80, blood pressure 96/60, respiration 18, temperature 97.6, pulse ox 98% on 3 L. HEENT: Conjunctivae normal. NECK: No jugular venous distention. CARDIOVASCULAR SYSTEM: S1, S2 muffled. RESPIRATORY SYSTEM: Breath sounds diminished at the bases. Bilateral scattered rhonchi and crackles. ABDOMEN: Soft, non-tender. No mass palpable. LEGS: No edema. No swelling. NERVOUS SYSTEM: No focal deficit. LABS: WBC 4.3, hemoglobin 11.2. Sodium 132, potassium 4.4. ASSESSMENT: 1. Shortness of breath, possibly multifactorial, with chronic obstructive pulmonary disease, acute exacerbation, with acute hypoxic hypercarbic respiratory failure with acute purulent tracheobronchitis. 2. Congestive heart failure, acute exacerbation, with acute on chronic diastolic dysfunction; ejection fraction 50% to 55%. 3. Elevated D-dimer without any evidence of pulmonary embolism. 4. Elevated serum procalcitonin. 5. Elevated random glucose. 6. Gait dysfunction. 7. Moderate protein-calorie malnutrition with body mass index of 19.5. 8. History of hypertension. 9. History of spinal stenosis. 10.History of depression. 11.History of hysterectomy. 12.Remote history of nicotine dependence. RECOMMENDATIONS AND DISCUSSION: In this 70-year-old woman who presented with multiple complex medical issues, we will monitor the patient closely, continue the current medications, continue with symptomatic treatment. Otherwise at this time I would recommend bronchodilators and also IV steroids, empiric antibiotics. Guarded prognosis because of multiple complex medical issues. I would also recommend Lasix IV twice daily and PT/OT evaluation, possible AFC home discharge as decided by the patient and the family. Further recommendations to follow. MMODL / IJN: [id number] /
[2020-09-26] MEDS: BUDESONIDE 1 MG/2 ML NEBU INHALATION SCH (21:11)
[2020-09-26] MEDS: FENOFIBRATE 160 MG TAB PO SCH (21:29)
[2020-09-26] MEDS: ATORVASTATIN 40 MG TAB PO SCH (21:29)
[2020-09-27] MEDS: ACETAMINOPHEN TAB 325 MG TAB PO PRN ×2 (03:44→20:43)
[2020-09-27 06:02] LABS: Glucose,Whole Blood 129 mg/dL (75-99)
[2020-09-27] MEDS: INSULIN ASPART (NovoLOG) 100 UNIT/ML VIAL SQ SCH ×4 (06:20→20:43)
[2020-09-27] MEDS: PANTOPRAZOLE 40 MG TABLET PO SCH (06:43)
[2020-09-27 07:47] LABS: Basophils % (A) 0 %; Eosinophils % (A) 1 %; HCT 34.8 % (34.0-46.0); HGB 11.5 gm/dL (11.4-16.0); Lymphocytes # (A) 0.6 k/uL (1.0-4.8); Lymphocytes % (A) 9 %; MCH 30.1 pg (25.0-35.0); MCHC 33.1 g/dL (31.0-37.0); Mean Platelet Volume 9.6; Monocytes # (A) 0.2 k/uL (0-1.0); Monocytes % (A) 2 %; Neutrophils # (A) 5.6 k/uL (1.3-7.7); Neutrophils % (A) 88 %; Platelet Count 207 k/uL (150-450); RBC 3.82 m/uL (3.80-5.40); RDW 14.2 % (11.5-15.5); WBC 6.4 k/uL (3.8-10.6)
[2020-09-27] MEDS: BUDESONIDE 1 MG/2 ML NEBU INHALATION SCH ×2 (08:05→19:39)
[2020-09-27] MEDS: IPRATROPIUM-ALBUTEROL 3 ML NEB INHALATION SCH ×4 (08:05→19:39)
[2020-09-27 08:09] LABS: Calcium 9.4 mg/dL (8.4-10.2); Magnesium 1.8 mg/dL (1.6-2.3); Potassium 4.5 mmol/L (3.5-5.1)
--- NOTE | 2020-09-27 08:54 | XR ---
EXAMINATION TYPE: XR chest 1V portable DATE OF EXAM: 09/27/2020 COMPARISON: 09/25/2020 INDICATION: Congestive heart failure TECHNIQUE: Single frontal view of the chest is obtained. FINDINGS: The heart size is normal. The pulmonary vasculature is normal. Very tiny infiltrate at the left costophrenic angle, likely on the basis of atelectasis. IMPRESSION: 1. Tiny subsegmental atelectasis left costophrenic angle
[2020-09-27] MEDS: lisinopriL 20 MG TAB PO SCH (09:04)
[2020-09-27] MEDS: CHLORTHALIDONE 25 MG TAB PO SCH (09:04)
[2020-09-27] MEDS: amLODIPine 2.5 MG TAB PO SCH (09:04)
[2020-09-27] MEDS: atenoloL 50 MG TAB PO SCH (09:04)
[2020-09-27] MEDS: methylPREDNISolone SOD SUCCI 40 MG/ML 1 ML VIAL IV SCH ×2 (09:05→17:52)
[2020-09-27] MEDS: HEPARIN SODIUM,PORCINE 5,000 UNIT/ML 1 ML VIAL SQ SCH ×2 (09:05→20:43)
[2020-09-27] MEDS: SERTRALINE 100 MG TAB PO SCH (09:06)
[2020-09-27] MEDS: HYDROcodone/APAP 10-325MG 1 EACH TAB PO SCH ×3 (09:06→23:24)
[2020-09-27] MEDS: PREGABALIN 100 MG CAP PO SCH ×2 (09:06→20:43)
[2020-09-27] MEDS: ASPIRIN 81 MG PO SCH (09:06)
[2020-09-27] MEDS: LORATADINE 10 MG TAB PO SCH (09:06)
[2020-09-27] MEDS: FUROSEMIDE 40 MG TAB PO SCH (09:06)
[2020-09-27] MEDS: CHOLECALCIFEROL 25 MCG (1000 IU) TABLET PO SCH (09:07)
--- NOTE | 2020-09-27 11:06 | P.PN ---
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 She follows in the office with Dr. Sotomayor. We have been asked to see in consultation for shortness of breath. She is seen and examined sitting up on the stretcher. She was brought to the hospital by her sister for progressively worsening shortness of breath. She usually wears oxygen at home at 2L but has been turning it up to 4 lately. She describes a feeling of drowning and inability to lay flat. She denies chest pain, dizziness or palpitations. EKG reveals sinus mechanism with T-wave inversions inferiorly and ST depression with Twave inversions in the pre-cordial leads, consistent with previous EKG from 05/2020. Chest xray COPD with increased interstitial changes. Laboratory reviewed, CBC unremarkable, sodium 140, potassium 3.8, CO2 50, creatinine 0.82, troponin 0.038, NT proBNP 19,300. Current cardiac medications include amlodipine 2.5 mg daily, lasix 20 mg daily PRN, fenofibrate 145 mg daily, enalapril 10 mg daily, atorvastatin 40 mg daily and atenolol/chlorthalidone 50mg daily. Most recent echocardiogram obtained in the office 2017 revealed preserved LV systolic function with EF 55-60% with mild-moderate TR and MR and severe pulmonary hypertension with RVSP 60 mmHg. 09/26/2020 Patient examined this morning. She is sitting up in the chair. She reports some shortness of breath this morning while laying in bed but states it has resolved since getting into the chair. She denies chest pain or pressure. Patient underwent V/Q scan yesterday which revealed matching bilateral upper lobe defects consistent with airway disease. Low to intermediate probability of pulmonary embolus. Echocardiogram completed revealed ejection fraction 50-55%, mild mitral regurgitation, moderate to severe tricuspid regurgitation, moderate to severe pulmonary hypertension with RVSP of 86.6. 09/27/2020 Patient examined this morning at the bedside. She denies chest pain or pressure. Continues to report shortness of breath. She remains on IV Lasix. BUN 55. Creatinine 1.07. chest x-ray this morning reveals tiny subsegmental atelectasis left costophrenic angle. Blood pressure this morning is low with a systolic in the 80s and 90s. PHYSICAL EXAM: VITAL SIGNS: Reviewed. GENERAL: Well-developed in no acute distress. NECK: Supple. No JVD or thyromegaly LUNGS: Respirations even and unlabored. Lungs diminished bilaterally HEART: Regular rate and rhythm. S1 and S2 heard. EXTREMITIES: Normal range of motion. No clubbing or cyanosis. Peripheral pulses intact. No lower extremity edema ASSESSMENT: Acute diastolic heart failure Acute exacerbation of COPD Type II KS secondary to oxygen supply and demand mismatch Acute on chronic hypoxic respiratory failure, on home O2 Hypertension Hyperlipidemia Severe pulmonary hypertension PLAN: Pulmonary following. Continue IV steroids per pulmonary Discontinue IV Lasix. . Transition to oral Lasix 40 mg daily. Monitor kidney function Accurate I&O Daily weights Monitor blood pressure Decrease lisinopril to 10mg daily due to hypotension. Hold for SBP less than 90. Discontinue Norvasc Discontinue aspirin Further recommendations pending patient course Nurse practitioner note has been reviewed by physician. Signing provider agrees with the documented findings, assessment, and plan of care. Objective - Vital Signs Vital signs: Vital Signs Temp 97.5 F L 09/27/20 08:00 Pulse 92 09/27/20 08:20 Resp 18 09/27/20 08:00 BP 79/50 09/27/20 08:00 Pulse Ox 96 09/27/20 08:00 Intake & Output 09/26/20 09/27/20 09/27/20 18:59 06:59 18:59 Intake Total 720 Output Total 900 1000 Balance -180 -1000 Weight 50 kg 51.2 kg Intake: Oral 720 Output: Urine 900 1000 Other: Voiding Method Indwelling Catheter Indwelling Catheter - Labs CBC & Chem 7: 09/27/20 06:38 09/27/20 06:38 Labs: Abnormal Lab Results - Last 24 Hours (Table) 09/26/20 09/26/20 09/26/20 Range/Units 11:32 11:37 16:58 Lymphocytes # (1.0-4.8) k/uL Sodium (137-145) mmol/L Chloride (98-107) mmol/L Carbon Dioxide (22-30) mmol/L BUN (7-17) mg/dL Creatinine (0.52-1.04) mg/dL Glucose (74-99) mg/dL POC Glucose (mg/dL) 165 H 154 H (75-99) mg/dL Urine Appearance Turbid H (Clear) Urine Protein 1+ H (Negative) Urine Blood Small H (Negative) Ur Leukocyte Esterase Large H (Negative) Urine RBC 31 H (0-5) /hpf Urine WBC >182 H (0-5) /hpf Urine WBC Clumps Many H (None) /hpf Urine Bacteria Moderate H (None) /hpf Hyaline Casts 19 H (0-2) /lpf Urine Mucus Occasional H (None) /hpf Urine Yeast (Budding) Many H (None) /hpf 09/26/20 09/27/20 09/27/20 Range/Units 20:08 06:00 06:38 Lymphocytes # 0.6 L (1.0-4.8) k/uL Sodium (137-145) mmol/L Chloride (98-107) mmol/L Carbon Dioxide (22-30) mmol/L BUN (7-17) mg/dL Creatinine (0.52-1.04) mg/dL Glucose (74-99) mg/dL POC Glucose (mg/dL) 224 H 129 H (75-99) mg/dL Urine Appearance (Clear) Urine Protein (Negative) Urine Blood (Negative) Ur Leukocyte Esterase (Negative) Urine RBC (0-5) /hpf Urine WBC (0-5) /hpf Urine WBC Clumps (None) /hpf Urine Bacteria (None) /hpf Hyaline Casts (0-2) /lpf Urine Mucus (None) /hpf Urine Yeast (Budding) (None) /hpf 09/27/20 Range/Units 06:38 Lymphocytes # (1.0-4.8) k/uL Sodium 133 L (137-145) mmol/L Chloride 78 L (98-107) mmol/L Carbon Dioxide 47 H* (22-30) mmol/L BUN 55 H (7-17) mg/dL Creatinine 1.07 H (0.52-1.04) mg/dL Glucose 126 H (74-99) mg/dL POC Glucose (mg/dL) (75-99) mg/dL Urine Appearance (Clear) Urine Protein (Negative) Urine Blood (Negative) Ur Leukocyte Esterase (Negative) Urine RBC (0-5) /hpf Urine WBC (0-5) /hpf Urine WBC Clumps (None) /hpf Urine Bacteria (None) /hpf Hyaline Casts (0-2) /lpf Urine Mucus (None) /hpf Urine Yeast (Budding) (None) /hpf Microbiology - Last 24 Hours (Table) 09/26/20 11:37 Urine Culture - Preliminary Urine,Clean Catch 09/25/20 09:21 Blood Culture - Preliminary Blood No Growth after 24 hours 09/25/20 09:21 Blood Culture - Preliminary Blood No Growth after 24 hours
[2020-09-27] MEDS ORDERED: SENNOSIDES 8.6 MG TAB PO PRN (11:10)
[2020-09-27 11:46] LABS: Glucose,Whole Blood 184 mg/dL (75-99)
[2020-09-27] MEDS: THIAMINE 100 MG TAB PO SCH (12:20)
[2020-09-27] MEDS: MULTIVITAMINS, THERA 1 EACH TAB PO SCH (12:20)
[2020-09-27] MEDS: DOCUSATE 100 MG CAP PO SCH ×2 (12:20→20:43)
[2020-09-27] MEDS: FOLIC ACID 1 MG TAB PO SCH (12:20)
[2020-09-27 16:44] LABS: Glucose,Whole Blood 150 mg/dL (75-99)
--- NOTE | 2020-09-27 18:48 | P.PN ---
Subjective Progress Note Date: 09/27/20 Principal diagnosis: Acute on chronic hypoxic respiratory failure secondary to COPD and acute diastolic congestive heart failure This is a 70-year-old female with known history of COPD, chronic hypoxic respiratory failure, maintained on oxygen at home. Patient is normally on 3-4 L via nasal cannula at home. Patient presented to the ER with 1 week history of increased shortness of breath. Occasional cough, cough is productive with brownish phlegm, she had no fever, no chills. Patient also described a feeling of drowning when she lays flat. Since May, patient had been mostly bedbound, she has profound weakness, and inability to ambulate on her own, and she has chronic shortness of breath related to her underlying COPD as well as possible component of congestive heart failure. Chest x-ray showed COPD and interstitial edema. EKG showed T-wave inversion inferiorly and in the precordial leads not much changed from previous EKG in May. Patient received Lasix since admission, and she is now on 2 L nasal cannula with O2 saturation of 99%. Last echocardiogram in 2017 showed good LV function however she had mild to moderate mitral regurgitation and severe pulmonary hypertension with a right-sided pressures in the 60s. Labs on admission showed relatively normal CBC. D-dimer was 1.18. Left lites were normal. However she had elevated bicarb of 50 BUN of 41 and creatinine 0.84. BNP level was over 19,000s and troponin was 0.035. Patient tested negative for coronar virus. She did receive 1 dose of Lasix, diuresed, and felt much better after diuresis. Patient was reevaluated today on 09/26/2020, patient is now on 4 L nasal cannula, she is feeling better, her echocardiogram showed mostly severe pulmonary hypertension. Clinically the patient is feeling better after she was given a course of diuretics and she is also on bronchodilators for underlying COPD. Remains on Lasix at 40 mg IV push every 12 hours. She is on multiple cardiac meds and she is also on bronchodilators. Patient is also on methylprednisolone which I have And she is on 40 mg IV push every 8 hours clinically again the patient is feeling better breathing a lot easier. Patient was reevaluated today on 09/27/2020, she is now on 3 L nasal cannula, feeling much better, breathing a lot easier, and her O2 saturation is 98% on 3 L. Follow-up chest x-ray this morning showed evidence of improvement in her interstitial edema, and clinically the patient is feeling better and breathing easier. EBCT today is relatively normal her electrolytes are normal however her bicarb is 47 BUN is 55 creatinine of 1.07, patient seems to have a picture of mild contraction alkalosis. Lasix is now at 40 mg by mouth daily. Remains on bronchodilators for her underlying COPD and she is on methylprednisolone 40 mg IV push every 8 hours, and I will change this to oral prednisone 30 mg daily Objective - Vital Signs Vital signs: Vital Signs Temp 98.4 F 09/27/20 16:00 Pulse 98 09/27/20 16:00 Resp 18 09/27/20 16:00 BP 103/68 09/27/20 16:00 Pulse Ox 95 09/27/20 16:00 Intake & Output 09/26/20 09/27/20 09/27/20 18:59 06:59 18:59 Intake Total 720 240 Output Total 900 1000 Balance -180 -1000 240 Weight 50 kg 51.2 kg Intake: Oral 720 240 Output: Urine 900 1000 Other: Voiding Method Indwelling Catheter Indwelling Catheter Indwelling Catheter - Exam GENERAL EXAM: Alert, very pleasant, 70-year-old white female, on 3 L nasal cannula, O2 saturation is 98%. HEAD: Normocephalic/atraumatic. EYES: Normal reaction of pupils, equal size. Conjunctiva pink, sclera white. NOSE: Clear with pink turbinates. THROAT: No erythema or exudates. NECK: No masses, no JVD, no thyroid enlargement, no adenopathy. CHEST: No chest wall deformity. Symmetrical expansion. LUNGS: Clear and diminished breath sounds at the bases. CVS: Regular rate and rhythm, normal S1 and S2, no gallops, 2/6 systolic murmur thought the precordium. ABDOMEN: Soft, nontender. No hepatosplenomegaly, normal bowel sounds, no guarding or rigidity. EXTREMITIES: No clubbing, a central bipedal edema.. MUSCULOSKELETAL: Muscle strength and tone normal. SKIN: No rashes CENTRAL NERVOUS SYSTEM: Alert and oriented 3 focal deficit PSYCHIATRIC: Normal mood, affect and normal mental status examination. - Labs CBC & Chem 7: 09/27/20 06:38 09/27/20 06:38 Labs: Abnormal Lab Results - Last 24 Hours (Table) 09/26/20 09/26/20 09/27/20 Range/Units 11:37 20:08 06:00 Lymphocytes # (1.0-4.8) k/uL Sodium (137-145) mmol/L Chloride (98-107) mmol/L Carbon Dioxide (22-30) mmol/L BUN (7-17) mg/dL Creatinine (0.52-1.04) mg/dL Glucose (74-99) mg/dL POC Glucose (mg/dL) 224 H 129 H (75-99) mg/dL Urine Appearance Turbid H (Clear) Urine Protein 1+ H (Negative) Urine Blood Small H (Negative) Ur Leukocyte Esterase Large H (Negative) Urine RBC 31 H (0-5) /hpf Urine WBC >182 H (0-5) /hpf Urine WBC Clumps Many H (None) /hpf Urine Bacteria Moderate H (None) /hpf Hyaline Casts 19 H (0-2) /lpf Urine Mucus Occasional H (None) /hpf Urine Yeast (Budding) Many H (None) /hpf 09/27/20 09/27/20 09/27/20 Range/Units 06:38 06:38 11:40 Lymphocytes # 0.6 L (1.0-4.8) k/uL Sodium 133 L (137-145) mmol/L Chloride 78 L (98-107) mmol/L Carbon Dioxide 47 H* (22-30) mmol/L BUN 55 H (7-17) mg/dL Creatinine 1.07 H (0.52-1.04) mg/dL Glucose 126 H (74-99) mg/dL POC Glucose (mg/dL) 184 H (75-99) mg/dL Urine Appearance (Clear) Urine Protein (Negative) Urine Blood (Negative) Ur Leukocyte Esterase (Negative) Urine RBC (0-5) /hpf Urine WBC (0-5) /hpf Urine WBC Clumps (None) /hpf Urine Bacteria (None) /hpf Hyaline Casts (0-2) /lpf Urine Mucus (None) /hpf Urine Yeast (Budding) (None) /hpf 09/27/20 Range/Units 16:39 Lymphocytes # (1.0-4.8) k/uL Sodium (137-145) mmol/L Chloride (98-107) mmol/L Carbon Dioxide (22-30) mmol/L BUN (7-17) mg/dL Creatinine (0.52-1.04) mg/dL Glucose (74-99) mg/dL POC Glucose (mg/dL) 150 H (75-99) mg/dL Urine Appearance (Clear) Urine Protein (Negative) Urine Blood (Negative) Ur Leukocyte Esterase (Negative) Urine RBC (0-5) /hpf Urine WBC (0-5) /hpf Urine WBC Clumps (None) /hpf Urine Bacteria (None) /hpf Hyaline Casts (0-2) /lpf Urine Mucus (None) /hpf Urine Yeast (Budding) (None) /hpf Microbiology - Last 24 Hours (Table) 09/25/20 09:21 Blood Culture - Preliminary Blood No Growth after 48 hours 09/25/20 09:21 Blood Culture - Preliminary Blood No Growth after 48 hours 09/26/20 11:37 Urine Culture - Preliminary Urine,Clean Catch Assessment and Plan Assessment: Impression: Acute on chronic hypoxic respiratory failure secondary to underlying COPD and suspect some component of acute diastolic congestive heart failure. Acute exacerbation of COPD Benign essential hypertension Valvular heart disease and pulmonary hypertension Acute diastolic congestive heart failure, patient demonstrated significant improvement post-diuresis Chronic medical debility History of spinal stenosis Benign essential tremors History of depression recommendation: Recommendation: Continue present course of bronchodilators. Patient was changed from Solu- Medrol to prednisone 30 mg daily Continue Lasix at 40 mg by mouth daily, switched from IV push twice a day. Continue updrafts. Consider discharge planning once cleared by cardiology. We'll continue to follow. Time with Patient: Less than 30
[2020-09-27 20:25] LABS: Glucose,Whole Blood 139 mg/dL (75-99)
--- NOTE | 2020-09-27 20:42 | PN ---
PROGRESS NOTE DATE OF SERVICE: 09/27/2020 This 70-year-old woman was admitted with shortness of breath, possibly multifactorial, COPD acute exacerbation, CHF acute exacerbation being closely monitored at this time. The patient also mildly hypotensive also. No chest pain. No palpitations. No fever. PHYSICAL EXAMINATION: Alert and oriented times three. Pulse 98. Blood pressure 103/60, respiration 18, temperature 98.4, pulse ox 94% on 3 L. HEENT is conjunctivae normal. NECK: Normal. CARDIOVASCULAR: S1, S2 muffled. RESPIRATIONS: Breath sounds diminished in the bases. A few scattered rhonchi. ABDOMEN: Soft, nontender. LEGS are no edema. No swelling. NERVOUS SYSTEM: No focal deficits. LABS: CBC within normal limits. Creatinine is 1.07. Accu-Cheks noted. ASSESSMENT: 1. Shortness of breath possibly multifactorial with chronic obstructive pulmonary disease acute exacerbation with acute hypoxic respiratory failure with acute purulent tracheobronchitis. 2. Congestive heart failure acute exacerbation with acute on chronic diastolic dysfunction, ejection fraction 50-55 percent. 3. Elevated D-dimer without any evidence of pulmonary embolism. 4. Elevated serum procalcitonin. 5. Elevated random glucose. 6. Gait dysfunction. 7. Moderate protein calorie malnutrition with body mass index 19.5. 8. History of hypertension. 9. History of spinal stenosis. 10.History of depression. 11.History of hysterectomy. 12.Remote history of nicotine dependence. RECOMMENDATIONS AND DISCUSSION: I recommend to continue current medications. Continue to monitor. Symptomatic treatment. Otherwise at this time, continue with empiric antibiotics. We will cut down the dose of antihypertensive medications and continue to monitor. Guarded prognosis. Further recommendations to follow. MMODL / IJN: [id number] /
[2020-09-27] MEDS: FENOFIBRATE 160 MG TAB PO SCH (20:43)
[2020-09-27] MEDS: ATORVASTATIN 40 MG TAB PO SCH (20:43)
[2020-09-27] MEDS ORDERED: DOCUSATE 100 MG CAP PO SCH (21:00)
[2020-09-28] MEDS: INSULIN ASPART (NovoLOG) 100 UNIT/ML VIAL SQ SCH ×4 (06:07→21:17)
[2020-09-28 06:23] LABS: Glucose,Whole Blood 91 mg/dL (75-99)
[2020-09-28] MEDS: PANTOPRAZOLE 40 MG TABLET PO SCH (06:36)
[2020-09-28] MEDS: BUDESONIDE 1 MG/2 ML NEBU INHALATION SCH ×2 (07:47→20:01)
[2020-09-28] MEDS: IPRATROPIUM-ALBUTEROL 3 ML NEB INHALATION SCH ×4 (07:47→20:02)
[2020-09-28] MEDS: CHLORTHALIDONE 25 MG TAB PO SCH (08:46)
[2020-09-28] MEDS: atenoloL 50 MG TAB PO SCH (08:46)
[2020-09-28] MEDS: CHOLECALCIFEROL 25 MCG (1000 IU) TABLET PO SCH (08:47)
[2020-09-28] MEDS: DOCUSATE 100 MG CAP PO SCH ×2 (08:48→21:17)
[2020-09-28] MEDS: FUROSEMIDE 40 MG TAB PO SCH (08:48)
[2020-09-28] MEDS: HYDROcodone/APAP 10-325MG 1 EACH TAB PO SCH ×3 (08:49→23:48)
[2020-09-28] MEDS: lisinopriL 10 MG TAB PO SCH (08:52)
[2020-09-28] MEDS: predniSONE 10 MG TAB PO SCH (08:52)
[2020-09-28] MEDS: LORATADINE 10 MG TAB PO SCH (08:52)
[2020-09-28] MEDS: PREGABALIN 100 MG CAP PO SCH ×2 (08:52→21:16)
[2020-09-28] MEDS: SERTRALINE 100 MG TAB PO SCH (08:53)
[2020-09-28] MEDS: HEPARIN SODIUM,PORCINE/PF 5,000 UNIT/0.5 ML SYRINGE SQ SCH ×2 (09:04→21:38)
[2020-09-28 10:35] LABS: Basophils % (A) 0 %; Eosinophils # (A) 0.1 k/uL (0-0.7); Eosinophils % (A) 1 %; HCT 38.1 % (34.0-46.0); HGB 12.5 gm/dL (11.4-16.0); Hypochromasia Slight; Lymphocytes # (A) 1.6 k/uL (1.0-4.8); Lymphocytes % (A) 18 %; MCH 30.2 pg (25.0-35.0); MCHC 32.9 g/dL (31.0-37.0); MCV 91.8 fL (80.0-100.0); Mean Platelet Volume 9.2; Monocytes # (A) 0.5 k/uL (0-1.0); Monocytes % (A) 6 %; Neutrophils # (A) 6.7 k/uL (1.3-7.7); Neutrophils % (A) 75 %; Platelet Count 236 k/uL (150-450); RBC 4.15 m/uL (3.80-5.40); RDW 14.4 % (11.5-15.5)
[2020-09-28 10:41] LABS: Calcium 9.1 mg/dL (8.4-10.2); Potassium 4.4 mmol/L (3.5-5.1)
[2020-09-28 11:44] LABS: Glucose,Whole Blood 123 mg/dL (75-99)
[2020-09-28] MEDS: MULTIVITAMINS, THERA 1 EACH TAB PO SCH (11:56)
[2020-09-28] MEDS: THIAMINE 100 MG TAB PO SCH (11:56)
[2020-09-28] MEDS: FOLIC ACID 1 MG TAB PO SCH (11:56)
--- NOTE | 2020-09-28 13:48 | P.PN ---
Subjective Progress Note Date: 09/28/20 HISTORY OF PRESENT ILLNESS: This is a pleasant 70-year-old [place] past medical history significant for COPD, hypertension, dyslipidemia, chronic hypoxia on home oxygen, former carmen konstantin dependence quit 05/2020 and pulmonary hypertension. She follows in the office with Dr. Sotomayor. We have been asked to see in consultation for shortness of breath. She is seen and examined sitting up on the stretcher. She was brought to the hospital by her sister for progressively worsening shortness of breath. She usually wears oxygen at home at 2L but has been turning it up to 4 lately. She describes a feeling of drowning and inability to lay flat. She denies chest pain, dizziness or palpitations. EKG reveals sinus mechanism with T-wave inversions inferiorly and ST depression with Twave inversions in the pre-cordial leads, consistent with previous EKG from 05/2020. Chest xray COPD with increased interstitial changes. Laboratory reviewed, CBC unremarkable, sodium 140, potassium 3.8, CO2 50, creatinine 0.82, troponin 0.038, NT proBNP 19,300. Current cardiac medications include amlodipine 2.5 mg daily, lasix 20 mg daily PRN, fenofibrate 145 mg daily, enalapril 10 mg daily, atorvastatin 40 mg daily and atenolol/chlorthalidone 50mg daily. Most recent echocardiogram obtained in the office 2017 revealed preserved LV systolic function with EF 55-60% with mild-moderate TR and MR and severe pulmonary hypertension with RVSP 60 mmHg. 09/26/2020 Patient examined this morning. She is sitting up in the chair. She reports some shortness of breath this morning while laying in bed but states it has resolved since getting into the chair. She denies chest pain or pressure. Patient underwent V/Q scan yesterday which revealed matching bilateral upper lobe defects consistent with airway disease. Low to intermediate probability of pulmonary embolus. Echocardiogram completed revealed ejection fraction 50-55%, mild mitral regurgitation, moderate to severe tricuspid regurgitation, moderate to severe pulmonary hypertension with RVSP of 86.6. 09/27/2020 Patient examined this morning at the bedside. She denies chest pain or pressure. Continues to report shortness of breath. She remains on IV Lasix. BUN 55. Creatinine 1.07. chest x-ray this morning reveals tiny subsegmental atelectasis left costophrenic angle. Blood pressure this morning is low with a systolic in the 80s and 90s. 09/28/2020 Patient examined this morning at the bedside. She denies chest pain or pres sure. She continues to have intermittent shortness of breath. She has been transitioned to oral Lasix. Pulmonary also transitioned patient to oral steroids. BUN 59. Creatinine 0.94. patient's lisinopril was decreased yesterday secondary to hypotension. Blood pressure today 105/70. PHYSICAL EXAM: VITAL SIGNS: Reviewed. GENERAL: Well-developed in no acute distress. NECK: Supple. No JVD or thyromegaly LUNGS: Respirations even and unlabored. Lungs diminished bilaterally HEART: Regular rate and rhythm. S1 and S2 heard. EXTREMITIES: Normal range of motion. No clubbing or cyanosis. Peripheral pulses intact. No lower extremity edema ASSESSMENT: Acute diastolic heart failure Acute exacerbation of COPD Type II NH secondary to oxygen supply and demand mismatch Acute on chronic hypoxic respiratory failure, on home O2 Hypertension Hyperlipidemia Severe pulmonary hypertension PLAN: Pulmonary following. Continue steroids per pulmonary Continue oral lasix Monitor kidney function Accurate I&O Daily weights Monitor blood pressure Continue decreased dose of lisinopril. Continue to hold Norvasc. Further recommendations pending patient course Nurse practitioner note has been reviewed by physician. Signing provider agrees with the documented findings, assessment, and plan of care. Objective - Vital Signs Vital signs: Vital Signs Temp 98.0 F 09/28/20 12:00 Pulse 82 09/28/20 12:00 Resp 18 09/28/20 12:00 BP 105/70 09/28/20 12:00 Pulse Ox 94 L 09/28/20 12:00 Intake & Output 09/27/20 09/28/20 09/28/20 18:59 06:59 18:59 Intake Total 720 360 240 Output Total 5906 111 8097 Balance -280 -440 -1110 Weight 52.5 kg Intake: Oral 720 360 240 Output: Urine 1221 972 3578 Other: Voiding Method Indwelling Catheter Indwelling Catheter Indwelling Catheter - Labs CBC & Chem 7: 09/28/20 09:37 09/28/20 09:37 Labs: Abnormal Lab Results - Last 24 Hours (Table) 09/27/20 09/27/20 09/28/20 Range/Units 16:39 20:22 09:37 Sodium 133 L (137-145) mmol/L Chloride 78 L (98-107) mmol/L Carbon Dioxide 46 H* (22-30) mmol/L BUN 59 H (7-17) mg/dL Glucose 107 H (74-99) mg/dL POC Glucose (mg/dL) 150 H 139 H (75-99) mg/dL 09/28/20 Range/Units 11:29 Sodium (137-145) mmol/L Chloride (98-107) mmol/L Carbon Dioxide (22-30) mmol/L BUN (7-17) mg/dL Glucose (74-99) mg/dL POC Glucose (mg/dL) 123 H (75-99) mg/dL Microbiology - Last 24 Hours (Table) 09/25/20 09:21 Blood Culture - Preliminary Blood No Growth after 72 hours 09/25/20 09:21 Blood Culture - Preliminary Blood No Growth after 72 hours 09/26/20 11:37 Urine Culture - Preliminary Urine,Clean Catch Gram Neg Bacilli
--- NOTE | 2020-09-28 16:08 | P.PN ---
Subjective Progress Note Date: 09/28/20 Principal diagnosis: Acute on chronic hypoxic respiratory failure secondary to COPD and acute diastolic congestive heart failure This is a 70-year-old female with known history of COPD, chronic hypoxic respiratory failure, maintained on oxygen at home. Patient is normally on 3-4 L via nasal cannula at home. Patient presented to the ER with 1 week history of increased shortness of breath. Occasional cough, cough is productive with brownish phlegm, she had no fever, no chills. Patient also described a feeling of drowning when she lays flat. Since May, patient had been mostly bedbound, she has profound weakness, and inability to ambulate on her own, and she has chronic shortness of breath related to her underlying COPD as well as possible component of congestive heart failure. Chest x-ray showed COPD and interstitial edema. EKG showed T-wave inversion inferiorly and in the precordial leads not much changed from previous EKG in May. Patient received Lasix since admission, and she is now on 2 L nasal cannula with O2 saturation of 99%. Last echocardiogram in 2017 showed good LV function however she had mild to moderate mitral regurgitation and severe pulmonary hypertension with a right-sided pressures in the 60s. Labs on admission showed relatively normal CBC. D-dimer was 1.18. Left lites were normal. However she had elevated bicarb of 50 BUN of 41 and creatinine 0.84. BNP level was over 19,000s and troponin was 0.035. Patient tested negative for coronar virus. She did receive 1 dose of Lasix, diuresed, and felt much better after diuresis. Patient was reevaluated today on 09/26/2020, patient is now on 4 L nasal cannula, she is feeling better, her echocardiogram showed mostly severe pulmonary hypertension. Clinically the patient is feeling better after she was given a course of diuretics and she is also on bronchodilators for underlying COPD. Remains on Lasix at 40 mg IV push every 12 hours. She is on multiple cardiac meds and she is also on bronchodilators. Patient is also on methylprednisolone which I have And she is on 40 mg IV push every 8 hours clinically again the patient is feeling better breathing a lot easier. Patient was reevaluated today on 09/27/2020, she is now on 3 L nasal cannula, feeling much better, breathing a lot easier, and her O2 saturation is 98% on 3 L. Follow-up chest x-ray this morning showed evidence of improvement in her interstitial edema, and clinically the patient is feeling better and breathing easier. EBCT today is relatively normal her electrolytes are normal however her bicarb is 47 BUN is 55 creatinine of 1.07, patient seems to have a picture of mild contraction alkalosis. Lasix is now at 40 mg by mouth daily. Remains on bronchodilators for her underlying COPD and she is on methylprednisolone 40 mg IV push every 8 hours, and I will change this to oral prednisone 30 mg daily. Patient was reevaluated today on 09/28/2020, doing better, remains on 3 L nasal cannula O2 sats is 94%. Labs were reviewed she had a relatively normal CBC and normal electrolytes except for bicarb of 46. BUN is 59 and creatinine 0.94. Remains on diuretics. Is on bronchodilators and on prednisone Objective - Vital Signs Vital signs: Vital Signs Temp 98.0 F 09/28/20 12:00 Pulse 82 09/28/20 12:00 Resp 18 09/28/20 12:00 BP 105/70 09/28/20 12:00 Pulse Ox 94 L 09/28/20 12:00 Intake & Output 09/27/20 09/28/20 09/28/20 18:59 06:59 18:59 Intake Total 720 360 480 Output Total 3824 909 5194 Balance -280 -440 -870 Weight 52.5 kg Intake: Oral 720 360 480 Output: Urine 8022 404 8661 Other: Voiding Method Indwelling Catheter Indwelling Catheter Indwelling Catheter - Exam GENERAL EXAM: Alert, very pleasant, 70-year-old white female, on 3 L nasal cannula, O2 saturation is 94% HEAD: Normocephalic/atraumatic. EYES: Normal reaction of pupils, equal size. Conjunctiva pink, sclera white. NOSE: Clear with pink turbinates. THROAT: No erythema or exudates. NECK: No masses, no JVD, no thyroid enlargement, no adenopathy. CHEST: No chest wall deformity. Symmetrical expansion. LUNGS: Clear and diminished breath sounds at the bases. CVS: Regular rate and rhythm, normal S1 and S2, no gallops, 2/6 systolic murmur thought the precordium. ABDOMEN: Soft, nontender. No hepatosplenomegaly, normal bowel sounds, no guarding or rigidity. EXTREMITIES: No clubbing, a central bipedal edema.. MUSCULOSKELETAL: Muscle strength and tone normal. SKIN: No rashes CENTRAL NERVOUS SYSTEM: Alert and oriented 3 focal deficit PSYCHIATRIC: Normal mood, affect and normal mental status examination. - Labs CBC & Chem 7: 09/28/20 09:37 09/28/20 09:37 Labs: Abnormal Lab Results - Last 24 Hours (Table) 09/27/20 09/27/20 09/28/20 Range/Units 16:39 20:22 09:37 Sodium 133 L (137-145) mmol/L Chloride 78 L (98-107) mmol/L Carbon Dioxide 46 H* (22-30) mmol/L BUN 59 H (7-17) mg/dL Glucose 107 H (74-99) mg/dL POC Glucose (mg/dL) 150 H 139 H (75-99) mg/dL 09/28/20 Range/Units 11:29 Sodium (137-145) mmol/L Chloride (98-107) mmol/L Carbon Dioxide (22-30) mmol/L BUN (7-17) mg/dL Glucose (74-99) mg/dL POC Glucose (mg/dL) 123 H (75-99) mg/dL Microbiology - Last 24 Hours (Table) 09/25/20 09:21 Blood Culture - Preliminary Blood No Growth after 72 hours 09/25/20 09:21 Blood Culture - Preliminary Blood No Growth after 72 hours 09/26/20 11:37 Urine Culture - Preliminary Urine,Clean Catch Gram Neg Bacilli Assessment and Plan Assessment: Impression: Acute on chronic hypoxic respiratory failure secondary to underlying COPD and suspect some component of acute diastolic congestive heart failure. Acute exacerbation of COPD Benign essential hypertension Valvular heart disease and pulmonary hypertension Acute diastolic congestive heart failure, patient demonstrated significant improvement post-diuresis Chronic medical debility History of spinal stenosis Benign essential tremors History of depression recommendation: Recommendation: Continue present course of bronchodilators. Continue prednisone Continue Lasix at 40 mg by mouth daily, Continue updrafts. Consider discharge planning once cleared by cardiology. We will follow the patient on when necessary basis. We'll continue to follow. Time with Patient: Less than 30
[2020-09-28 17:15] LABS: Glucose,Whole Blood 127 mg/dL (75-99)
--- NOTE | 2020-09-28 19:59 | PN ---
PROGRESS NOTE DATE OF SERVICE: 09/28/2020 This 61-year-old woman is admitted with shortness of breath, which is multifactorial is being closely monitored. The patient still has shortness of breath. The patient also had gait dysfunction. PT/OT is also evaluating for possible ECF rehab potential. No chest pain. No palpitation. PHYSICAL EXAMINATION: Alert and oriented. Pulse 94, blood pressure 95/60, respiration 20, temp 98 degrees, pulse ox 94% on 3 L. HEENT: Conjunctivae normal. NECK: No JVD. CARDIOVASCULAR: S1, S2 muffled. Eyes Respiration: Breath sounds diminished in the bases. A few scattered rhonchi and crackles. ABDOMEN: Soft, nontender. LEGS are no edema. No swelling. LABS: CBC within normal limits. Sodium 133. ASSESSMENT: 1. Shortness of breath possibly multifactorial with chronic obstructive pulmonary disease, acute exacerbation, acute hypoxic respiratory failure with acute purulent tracheobronchitis. 2. Congestive heart failure, acute exacerbation with acute on chronic diastolic dysfunction, ejection fraction 50-55 percent. 3. Acute urinary tract infection. 4. Elevated D-dimer without any evidence of pulmonary embolism. 5. Elevated serum procalcitonin. 6. Elevated random glucose. 7. Gait dysfunction. 8. Moderate protein calorie malnutrition with body mass index 19.5. 9. History of hypertension. 10.History of spinal stenosis. 11.History of depression. 12.History of cholecystectomy. 13.Remote history of nicotine dependence. RECOMMENDATIONS AND DISCUSSION: This 70-year-old woman who presented with multiple complex medical issues, we will monitor the patient closely, continue the current medications. Continue steroids. Continue the bronchodilators. PT/OT evaluation. Otherwise urine culture showed gram- negative bacilli. Final report is pending at this time. Otherwise we will continue to monitor. Closely follow with multiple consultants. Follow closely with Case Management and social security benefits interviewer regarding PT/OT and further recommendations to follow. Discussed with the patient. Discussed with family. MMWALESKAL / MARIELN: [id number] /
[2020-09-28 20:45] LABS: Glucose,Whole Blood 153 mg/dL (75-99)
[2020-09-28] MEDS: FENOFIBRATE 160 MG TAB PO SCH (21:15)
[2020-09-28] MEDS: ATORVASTATIN 40 MG TAB PO SCH (21:16)
[2020-09-28] MEDS: ACETAMINOPHEN TAB 325 MG TAB PO PRN (21:26)
[2020-09-29] MEDS: IPRATROPIUM-ALBUTEROL 3 ML NEB INHALATION PRN ×2 (00:20→04:34)
[2020-09-29] MEDS: ACETAMINOPHEN TAB 325 MG TAB PO PRN ×2 (06:07→20:49)
[2020-09-29] MEDS: INSULIN ASPART (NovoLOG) 100 UNIT/ML VIAL SQ SCH ×4 (06:09→20:47)
[2020-09-29 06:10] LABS: Glucose,Whole Blood 93 mg/dL (75-99)
[2020-09-29] MEDS: PANTOPRAZOLE 40 MG TABLET PO SCH (06:34)
[2020-09-29] MEDS: BUDESONIDE 1 MG/2 ML NEBU INHALATION SCH ×2 (09:29→20:16)
[2020-09-29] MEDS: IPRATROPIUM-ALBUTEROL 3 ML NEB INHALATION SCH ×4 (09:29→20:16)
[2020-09-29] MEDS: FUROSEMIDE 40 MG TAB PO SCH (09:34)
[2020-09-29] MEDS: CHOLECALCIFEROL 25 MCG (1000 IU) TABLET PO SCH (09:34)
[2020-09-29] MEDS: HEPARIN SODIUM,PORCINE/PF 5,000 UNIT/0.5 ML SYRINGE SQ SCH ×2 (09:35→20:51)
[2020-09-29] MEDS: DOCUSATE 100 MG CAP PO SCH ×2 (09:35→20:51)
[2020-09-29] MEDS: SERTRALINE 100 MG TAB PO SCH (09:35)
[2020-09-29] MEDS: predniSONE 10 MG TAB PO SCH (09:35)
[2020-09-29] MEDS: lisinopriL 10 MG TAB PO SCH (09:36)
[2020-09-29] MEDS: PREGABALIN 100 MG CAP PO SCH ×2 (09:36→20:51)
[2020-09-29] MEDS: HYDROcodone/APAP 10-325MG 1 EACH TAB PO SCH ×2 (09:36→17:01)
[2020-09-29] MEDS: atenoloL 50 MG TAB PO SCH (09:38)
[2020-09-29] MEDS: CHLORTHALIDONE 25 MG TAB PO SCH (09:38)
[2020-09-29] MEDS: LORATADINE 10 MG TAB PO SCH (09:41)
[2020-09-29 11:45] LABS: Glucose,Whole Blood 128 mg/dL (75-99)
[2020-09-29] MEDS: THIAMINE 100 MG TAB PO SCH (12:32)
[2020-09-29] MEDS: FOLIC ACID 1 MG TAB PO SCH (12:32)
[2020-09-29] MEDS: MULTIVITAMINS, THERA 1 EACH TAB PO SCH (12:32)
--- NOTE | 2020-09-29 12:45 | P.PN ---
Subjective Progress Note Date: 09/29/20 HISTORY OF PRESENT ILLNESS: This is a pleasant 70-year-old [place] past medical history significant for COPD, hypertension, dyslipidemia, chronic hypoxia on home oxygen, former carmen konstantin dependence quit 05/2020 and pulmonary hypertension. She follows in the office with Dr. Sotomayor. We have been asked to see in consultation for shortness of breath. She is seen and examined sitting up on the stretcher. She was brought to the hospital by her sister for progressively worsening shortness of breath. She usually wears oxygen at home at 2L but has been turning it up to 4 lately. She describes a feeling of drowning and inability to lay flat. She denies chest pain, dizziness or palpitations. EKG reveals sinus mechanism with T-wave inversions inferiorly and ST depression with Twave inversions in the pre-cordial leads, consistent with previous EKG from 05/2020. Chest xray COPD with increased interstitial changes. Laboratory reviewed, CBC unremarkable, sodium 140, potassium 3.8, CO2 50, creatinine 0.82, troponin 0.038, NT proBNP 19,300. Current cardiac medications include amlodipine 2.5 mg daily, lasix 20 mg daily PRN, fenofibrate 145 mg daily, enalapril 10 mg daily, atorvastatin 40 mg daily and atenolol/chlorthalidone 50mg daily. Most recent echocardiogram obtained in the office 2017 revealed preserved LV systolic function with EF 55-60% with mild-moderate TR and MR and severe pulmonary hypertension with RVSP 60 mmHg. 09/26/2020 Patient examined this morning. She is sitting up in the chair. She reports some shortness of breath this morning while laying in bed but states it has resolved since getting into the chair. She denies chest pain or pressure. Patient underwent V/Q scan yesterday which revealed matching bilateral upper lobe defects consistent with airway disease. Low to intermediate probability of pulmonary embolus. Echocardiogram completed revealed ejection fraction 50-55%, mild mitral regurgitation, moderate to severe tricuspid regurgitation, moderate to severe pulmonary hypertension with RVSP of 86.6. 09/27/2020 Patient examined this morning at the bedside. She denies chest pain or pressure. Continues to report shortness of breath. She remains on IV Lasix. BUN 55. Creatinine 1.07. chest x-ray this morning reveals tiny subsegmental atelectasis left costophrenic angle. Blood pressure this morning is low with a systolic in the 80s and 90s. 09/28/2020 Patient examined this morning at the bedside. She denies chest pain or pres sure. She continues to have intermittent shortness of breath. She has been transitioned to oral Lasix. Pulmonary also transitioned patient to oral steroids. BUN 59. Creatinine 0.94. patient's lisinopril was decreased yesterday secondary to hypotension. Blood pressure today 105/70. 09/29/2020 Patient examined this morning at the bedside. She denies chest pain or pressure. She currently denies shortness of breath. She remains on oral Lasix. Blood pressure 96/61. Heart rate in the 80s. She is afebrile. PHYSICAL EXAM: VITAL SIGNS: Reviewed. GENERAL: Well-developed in no acute distress. NECK: Supple. No JVD or thyromegaly LUNGS: Respirations even and unlabored. Lungs diminished bilaterally with mild expiratory wheezing. HEART: Regular rate and rhythm. S1 and S2 heard. EXTREMITIES: Normal range of motion. No clubbing or cyanosis. Peripheral pulses intact. No lower extremity edema ASSESSMENT: Acute diastolic heart failure Acute exacerbation of COPD Type II VT secondary to oxygen supply and demand mismatch Acute on chronic hypoxic respiratory failure, on home O2 Hypertension Hyperlipidemia Severe pulmonary hypertension PLAN: Pulmonary following. Continue steroids per pulmonary Continue oral lasix Monitor kidney function Accurate I&O Daily weights Monitor blood pressure Continue decreased dose of lisinopril. Continue to hold Norvasc. Patient is stable from a cardiac standpoint. We will sign off. She is to follow up outpatient with Dr. Sotomayor Nurse practitioner note has been reviewed by physician. Signing provider agrees with the documented findings, assessment, and plan of care. Objective - Vital Signs Vital signs: Vital Signs Temp 98.4 F 09/29/20 07:40 Pulse 92 09/29/20 12:25 Resp 20 09/29/20 07:40 BP 96/61 09/29/20 07:40 Pulse Ox 93 L 09/29/20 07:40 Intake & Output 09/28/20 09/29/20 09/29/20 18:59 06:59 18:59 Intake Total 605 361 Output Total 3350 1525 Balance -2745 -1525 361 Weight 52.9 kg Intake: Oral 605 361 Output: Urine 3350 1525 Other: Voiding Method Indwelling Catheter Indwelling Catheter Indwelling Catheter - Labs CBC & Chem 7: 09/28/20 09:37 09/28/20 09:37 Labs: Abnormal Lab Results - Last 24 Hours (Table) 09/28/20 09/28/20 09/29/20 Range/Units 17:05 20:43 11:34 POC Glucose (mg/dL) 127 H 153 H 128 H (75-99) mg/dL Microbiology - Last 24 Hours (Table) 09/25/20 09:21 Blood Culture - Preliminary Blood No Growth after 96 hours 09/25/20 09:21 Blood Culture - Preliminary Blood No Growth after 96 hours 09/26/20 11:37 Urine Culture - Final Urine,Clean Catch Pseudomonas aeruginosa
--- NOTE | 2020-09-29 15:20 | PN ---
PROGRESS NOTE DATE OF SERVICE: 09/29/2020 This 70-year-old woman who was admitted with shortness of breath which was multifactorial had CHF also. The patient is still short of breath. PT/OT is evaluating the patient and family is working towards obtaining possible rehab at this time. No chest pain. No palpitations. No fever. PHYSICAL EXAMINATION: Alert and oriented x3. Pulse 78, blood pressure 105/65, respiration 22, temperature 98.2, pulse ox 94% on 3 L. HEENT: Conjunctivae normal. NECK: No jugular venous distention. CARDIOVASCULAR SYSTEM: S1, S2 muffled. RESPIRATORY SYSTEM: Breath sounds diminished at the bases. A few scattered rhonchi and crackles. ABDOMEN: Soft, non-tender. NERVOUS SYSTEM: No focal deficit. LABS: Sodium 133. CO2 is 46. ASSESSMENT: 1. Shortness of breath, possibly multifactorial, with COPD, acute exacerbation, with acute hypoxic respiratory failure with acute purulent tracheobronchitis. 2. Congestive heart failure, acute exacerbation, with acute on chronic diastolic dysfunction, ejection fraction 50% to 55%. 3. Acute urinary tract infection. 4. Elevated D-dimer without any evidence of pulmonary embolism. 5. Elevated serum procalcitonin. 6. Elevated random glucose. 7. Gait dysfunction. 8. Moderate protein-calorie malnutrition with body mass index of 19.5. 9. History of hypertension. 10.History of spinal stenosis. 11.History of depression. 12.History of cholecystectomy. 13.Remote history of nicotine dependence. 14.Urinary tract infection with Pseudomonas aeruginosa. RECOMMENDATIONS AND DISCUSSION: I recommend to continue current medications, continue with the monitoring, symptomatic treatment. Continue with the bronchodilators. Continue steroids. Continue with empiric antibiotics. The urine culture showed Pseudomonas aeruginosa. I will change the antibiotics to Levaquin. MMODL / IJN: [id number] /
[2020-09-29 17:00] LABS: Glucose,Whole Blood 210 mg/dL (75-99)
[2020-09-29] MEDS: LEVOFLOXACIN 500MG-D5W PMX 500 MG in DEXTROSE/WATER 1 100ML.BAG IVPB SCH (17:00)
--- NOTE | 2020-09-29 17:02 | P.PN ---
Subjective Progress Note Date: 09/29/20 Principal diagnosis: Acute on chronic hypoxic respiratory failure secondary to COPD and acute diastolic congestive heart failure This is a 70-year-old female with known history of COPD, chronic hypoxic respiratory failure, maintained on oxygen at home. Patient is normally on 3-4 L via nasal cannula at home. Patient presented to the ER with 1 week history of increased shortness of breath. Occasional cough, cough is productive with brownish phlegm, she had no fever, no chills. Patient also described a feeling of drowning when she lays flat. Since May, patient had been mostly bedbound, she has profound weakness, and inability to ambulate on her own, and she has chronic shortness of breath related to her underlying COPD as well as possible component of congestive heart failure. Chest x-ray showed COPD and interstitial edema. EKG showed T-wave inversion inferiorly and in the precordial leads not much changed from previous EKG in May. Patient received Lasix since admission, and she is now on 2 L nasal cannula with O2 saturation of 99%. Last echocardiogram in 2017 showed good LV function however she had mild to moderate mitral regurgitation and severe pulmonary hypertension with a right-sided pressures in the 60s. Labs on admission showed relatively normal CBC. D-dimer was 1.18. Left lites were normal. However she had elevated bicarb of 50 BUN of 41 and creatinine 0.84. BNP level was over 19,000s and troponin was 0.035. Patient tested negative for coronar virus. She did receive 1 dose of Lasix, diuresed, and felt much better after diuresis. Patient was reevaluated today on 09/26/2020, patient is now on 4 L nasal cannula, she is feeling better, her echocardiogram showed mostly severe pulmonary hypertension. Clinically the patient is feeling better after she was given a course of diuretics and she is also on bronchodilators for underlying COPD. Remains on Lasix at 40 mg IV push every 12 hours. She is on multiple cardiac meds and she is also on bronchodilators. Patient is also on methylprednisolone which I have And she is on 40 mg IV push every 8 hours clinically again the patient is feeling better breathing a lot easier. Patient was reevaluated today on 09/27/2020, she is now on 3 L nasal cannula, feeling much better, breathing a lot easier, and her O2 saturation is 98% on 3 L. Follow-up chest x-ray this morning showed evidence of improvement in her interstitial edema, and clinically the patient is feeling better and breathing easier. EBCT today is relatively normal her electrolytes are normal however her bicarb is 47 BUN is 55 creatinine of 1.07, patient seems to have a picture of mild contraction alkalosis. Lasix is now at 40 mg by mouth daily. Remains on bronchodilators for her underlying COPD and she is on methylprednisolone 40 mg IV push every 8 hours, and I will change this to oral prednisone 30 mg daily. Patient was reevaluated today on 09/28/2020, doing better, remains on 3 L nasal cannula O2 sats is 94%. Labs were reviewed she had a relatively normal CBC and normal electrolytes except for bicarb of 46. BUN is 59 and creatinine 0.94. Remains on diuretics. Is on bronchodilators and on prednisone Reevaluated today on 09/29/2020, patient is doing great, not in any distress, her pulmonary status is significantly improved. Remains on bronchodilators, diuretics, and on prednisone. Patient was told by the admitting physician that she would be discharged possibly to a rehab facility on Friday. From my perspective, patient was cleared for discharge, and I will see the patient on when necessary basis. Objective - Vital Signs Vital signs: Vital Signs Temp 98.3 F 09/29/20 13:05 Pulse 86 09/29/20 16:34 Resp 22 09/29/20 13:05 BP 105/65 09/29/20 13:05 Pulse Ox 95 09/29/20 13:05 Intake & Output 09/28/20 09/29/20 09/29/20 18:59 06:59 18:59 Intake Total 605 481 Output Total 3350 1525 650 Balance -2745 -1525 -169 Weight 52.9 kg Intake: Oral 605 481 Output: Urine 3350 1525 650 Other: Voiding Method Indwelling Catheter Indwelling Catheter Indwelling Catheter - Exam GENERAL EXAM: Alert, very pleasant, 70-year-old white female, on 3 L nasal cannula, O2 saturation is 95% HEENT: PERRLA, EOMI, anicteric, no neck masses, no JVD, no stridor. CHEST: No chest wall deformity. Symmetrical expansion. LUNGS: Clear and diminished breath sounds at the bases. CVS: Regular rate and rhythm, normal S1 and S2, no gallops, 2/6 systolic murmur thought the precordium. ABDOMEN: Soft, nontender. No hepatosplenomegaly, normal bowel sounds, no guarding or rigidity. EXTREMITIES: No clubbing, a central bipedal edema.. MUSCULOSKELETAL: Muscle strength and tone normal. SKIN: No rashes CENTRAL NERVOUS SYSTEM: Alert and oriented 3 focal deficit PSYCHIATRIC: Normal mood, affect and normal mental status examination. - Labs CBC & Chem 7: 09/28/20 09:37 09/28/20 09:37 Labs: Abnormal Lab Results - Last 24 Hours (Table) 09/28/20 09/28/20 09/29/20 Range/Units 17:05 20:43 11:34 POC Glucose (mg/dL) 127 H 153 H 128 H (75-99) mg/dL Microbiology - Last 24 Hours (Table) 09/25/20 09:21 Blood Culture - Preliminary Blood No Growth after 96 hours 09/25/20 09:21 Blood Culture - Preliminary Blood No Growth after 96 hours 09/26/20 11:37 Urine Culture - Final Urine,Clean Catch Pseudomonas aeruginosa Assessment and Plan Assessment: Impression: Acute on chronic hypoxic respiratory failure secondary to underlying COPD and suspect some component of acute diastolic congestive heart failure. Acute exacerbation of COPD Benign essential hypertension Valvular heart disease and pulmonary hypertension Acute diastolic congestive heart failure, patient demonstrated significant improvement post-diuresis Chronic medical debility History of spinal stenosis Benign essential tremors History of depression recommendation: Recommendation: Continue present course of bronchodilators. Continue prednisone, taper the 30 mg daily over the next 3 weeks Continue Lasix at 40 mg by mouth daily, Continue updrafts. Cleared for discharge from my perspective We'll sign off for now Time with Patient: Less than 30
[2020-09-29 19:57] LABS: Glucose,Whole Blood 106 mg/dL (75-99)
[2020-09-29] MEDS: ATORVASTATIN 40 MG TAB PO SCH (20:51)
[2020-09-29] MEDS: FENOFIBRATE 160 MG TAB PO SCH (20:51)
[2020-09-29] MEDS ORDERED: SIMETHICONE 80 MG CHEWABLE PO PRN (22:20)
[2020-09-30] MEDS: HYDROcodone/APAP 10-325MG 1 EACH TAB PO SCH ×4 (00:28→22:42)
[2020-09-30] MEDS ORDERED: MORPHINE SULFATE 2 MG/ML SYRINGE IVP PRN (00:40)
[2020-09-30] MEDS: ONDANSETRON 4 MG/2 ML VIAL IVP PRN ×2 (00:47→09:58)
--- NOTE | 2020-09-30 01:09 | XR ---
ADDENDUM - Added by Giancarlo Martin MD on 09/30/2020 1:15 AM (-07:00) This is a correction to the original report above. The report should read as follows: EXAM: XR Abdomen, 1 View CLINICAL HISTORY: Nausea. Abdominal pain. TECHNIQUE: Frontal supine view of the abdomen/pelvis. COMPARISON: 01/07/2020. FINDINGS: Gastrointestinal tract: Large quantity of stool is noted throughout the colon. Nonspecific bowel gas pattern. Bones/joints: Advanced degenerative disc disease of the lumbar spine and levoscoliosis. Other findings: No free air is detected. IMPRESSION: 1. Large quantity of stool throughout the colon. 2. Nonspecific bowel gas pattern. 3. No free air. EXAM: XR Abdomen, 1 View CLINICAL HISTORY: Nausea. Abdominal pain. TECHNIQUE: Frontal supine view of the abdomen/pelvis. COMPARISON: 01/07/2020. FINDINGS: Gastrointestinal tract: Large quantity of stool is noted throughout the colon. Nonspecific bowel gas pattern. Bones/joints: Advanced degenerative disc disease of the lumbar spine and levoscoliosis. Other findings: We are is detected.
[2020-09-30] MEDS: IPRATROPIUM-ALBUTEROL 3 ML NEB INHALATION PRN (03:27)
[2020-09-30] MEDS: PANTOPRAZOLE 40 MG TABLET PO SCH (06:11)
[2020-09-30 06:12] LABS: Glucose,Whole Blood 88 mg/dL (75-99)
[2020-09-30] MEDS: INSULIN ASPART (NovoLOG) 100 UNIT/ML VIAL SQ SCH ×4 (06:14→19:44)
[2020-09-30] MEDS ORDERED: LACTULOSE 20 GM/30 ML CUP PO PRN (07:00)
[2020-09-30] MEDS: BUDESONIDE 1 MG/2 ML NEBU INHALATION SCH ×2 (07:48→19:37)
[2020-09-30] MEDS: IPRATROPIUM-ALBUTEROL 3 ML NEB INHALATION SCH ×4 (07:48→19:37)
[2020-09-30] MEDS: HEPARIN SODIUM,PORCINE/PF 5,000 UNIT/0.5 ML SYRINGE SQ SCH ×2 (09:58→19:43)
[2020-09-30] MEDS: atenoloL 50 MG TAB PO SCH (09:59)
[2020-09-30] MEDS: PREGABALIN 100 MG CAP PO SCH ×2 (09:59→19:43)
[2020-09-30] MEDS: FUROSEMIDE 40 MG TAB PO SCH (09:59)
[2020-09-30] MEDS: DOCUSATE 100 MG CAP PO SCH ×2 (10:00→19:43)
[2020-09-30 10:17] LABS: Basophils % (A) 0 %; Eosinophils # (A) 0.2 k/uL (0-0.7); Eosinophils % (A) 2 %; HCT 38.6 % (34.0-46.0); HGB 12.4 gm/dL (11.4-16.0); Lymphocytes # (A) 1.2 k/uL (1.0-4.8); Lymphocytes % (A) 12 %; MCH 29.3 pg (25.0-35.0); MCV 91.6 fL (80.0-100.0); Mean Platelet Volume 8.7; Monocytes # (A) 0.6 k/uL (0-1.0); Monocytes % (A) 6 %; Neutrophils % (A) 79 %; Platelet Count 207 k/uL (150-450); RBC 4.21 m/uL (3.80-5.40); RDW 14.4 % (11.5-15.5); WBC 10.2 k/uL (3.8-10.6)
[2020-09-30 10:26] LABS: Potassium 3.9 mmol/L (3.5-5.1)
[2020-09-30 11:26] LABS: Glucose,Whole Blood 120 mg/dL (75-99)
[2020-09-30] MEDS: predniSONE 10 MG TAB PO SCH (12:12)
[2020-09-30] MEDS: CHLORTHALIDONE 25 MG TAB PO SCH (12:12)
[2020-09-30] MEDS: SERTRALINE 100 MG TAB PO SCH (12:12)
[2020-09-30] MEDS: LORATADINE 10 MG TAB PO SCH (12:12)
[2020-09-30] MEDS: CHOLECALCIFEROL 25 MCG (1000 IU) TABLET PO SCH (12:12)
[2020-09-30] MEDS: lisinopriL 10 MG TAB PO SCH (12:12)
--- NOTE | 2020-09-30 14:32 | PN ---
PROGRESS NOTE DATE OF SERVICE: 09/30/2020 This 70-year-old woman was admitted with shortness of breath, had COPD acute exacerbation. The patient has some nausea at this time. Patient is also hypercarbic. Patient monitored closely. Rehab is also being considered. No chest pain. No palpitations. No fever. PHYSICAL EXAMINATION: Alert and oriented. Pulse is 100, blood pressure 115/60, respiration 20, temperature 98.2, pulse ox 98% on 3 L. HEENT: Conjunctivae normal. Oral mucosa moist. NECK: No jugular venous distention. No lymph node enlargement. CARDIOVASCULAR: S1, S2, muffled. No S3, no S4, RESPIRATORY: Diminished breath sounds at the bases. A few scattered rhonchi and crackles. ABDOMEN: Soft, nontender. LEGS: No edema, no swelling. NERVOUS SYSTEM: No focal deficits. LABS: Sodium 134, CO2 is 53. ASSESSMENT: 1. Shortness of breath, possibly multifactorial, chronic obstructive pulmonary disease exacerbation with acute hypoxic respiratory failure with acute ventricular bronchitis. 2. Congestive heart failure acute exacerbation, acute on chronic diastolic dysfunction, ejection fraction 50-55%. 3. Acute urinary tract infection. 4. Elevated D-dimer without any evidence of pulmonary embolism. 5. Nausea, possible acute gastritis. 6. Elevated serum procalcitonin. 7. Elevated random glucose. 8. Gait dysfunction. 9. Moderate protein calorie malnutrition with body mass index 19.5. 10.History of hypertension. 11.History of spinal stenosis. 12.History of depression. 13.History of cholecystectomy. 14.Remote history of nicotine dependence. 15.Urinary tract infection with Pseudomonas aeruginosa. RECOMMENDATIONS AND DISCUSSION: I recommend to continue current medications, symptomatic treatment. Otherwise, continue the antibiotics. Other than that, I would also recommend Protonix. Otherwise, continue with PT/OT. Guarded prognosis because of multiple complex medical conditions: Add Ensure to the current regimen. MMODL / IJN: [id number] /
[2020-09-30] MEDS: FOLIC ACID 1 MG TAB PO SCH (15:47)
[2020-09-30] MEDS: THIAMINE 100 MG TAB PO SCH (15:47)
[2020-09-30] MEDS: MULTIVITAMINS, THERA 1 EACH TAB PO SCH (15:47)
[2020-09-30] MEDS: LEVOFLOXACIN 500MG-D5W PMX 500 MG in DEXTROSE/WATER 1 100ML.BAG IVPB SCH (15:49)
[2020-09-30 16:44] LABS: Glucose,Whole Blood 215 mg/dL (75-99)
[2020-09-30 19:33] LABS: Glucose,Whole Blood 193 mg/dL (75-99)
[2020-09-30] MEDS: ATORVASTATIN 40 MG TAB PO SCH (19:43)
[2020-09-30] MEDS: PANTOPRAZOLE 40 MG/10 ML VIAL IVP SCH (19:43)
[2020-09-30] MEDS: FENOFIBRATE 160 MG TAB PO SCH (19:43)
[2020-10-01] MEDS: INSULIN ASPART (NovoLOG) 100 UNIT/ML VIAL SQ SCH ×4 (06:14→20:13)
[2020-10-01 06:17] LABS: Glucose,Whole Blood 112 mg/dL (75-99)
[2020-10-01] MEDS: BUDESONIDE 1 MG/2 ML NEBU INHALATION SCH ×2 (07:56→19:29)
[2020-10-01] MEDS: IPRATROPIUM-ALBUTEROL 3 ML NEB INHALATION SCH ×4 (07:56→19:29)
[2020-10-01] MEDS ORDERED: lisinopriL 5 MG TAB PO SCH (09:00)
[2020-10-01] MEDS ORDERED: SODIUM CHLORIDE 0.9% 500 ML 500 ML IV ONE (10:04)
[2020-10-01] MEDS: HYDROcodone/APAP 10-325MG 1 EACH TAB PO SCH ×3 (10:05→22:42)
[2020-10-01] MEDS: DOCUSATE 100 MG CAP PO SCH ×2 (10:05→20:18)
[2020-10-01] MEDS: SERTRALINE 100 MG TAB PO SCH (10:06)
[2020-10-01] MEDS: LORATADINE 10 MG TAB PO SCH (10:06)
[2020-10-01] MEDS: predniSONE 10 MG TAB PO SCH (10:06)
[2020-10-01] MEDS: CHOLECALCIFEROL 25 MCG (1000 IU) TABLET PO SCH ×2 (10:06→10:10)
[2020-10-01] MEDS: PREGABALIN 100 MG CAP PO SCH ×2 (10:06→20:18)
[2020-10-01] MEDS: FUROSEMIDE 40 MG TAB PO SCH (10:07)
[2020-10-01] MEDS: HEPARIN SODIUM,PORCINE/PF 5,000 UNIT/0.5 ML SYRINGE SQ SCH ×2 (10:07→20:18)
[2020-10-01] MEDS: PANTOPRAZOLE 40 MG/10 ML VIAL IVP SCH ×2 (10:07→20:18)
[2020-10-01 11:28] LABS: Glucose,Whole Blood 122 mg/dL (75-99)
[2020-10-01] MEDS: FOLIC ACID 1 MG TAB PO SCH (13:26)
[2020-10-01] MEDS: THIAMINE 100 MG TAB PO SCH (13:26)
[2020-10-01] MEDS: MULTIVITAMINS, THERA 1 EACH TAB PO SCH (13:26)
--- NOTE | 2020-10-01 15:44 | PN ---
PROGRESS NOTE DATE OF SERVICE: 10/01/2020 This 70-year-old woman who was admitted with shortness of breath, possibly multifactorial, also had significant hypotension, possibly hypovolemic at this time. has been stopped and patient is on bolus fluid at this time. The most recent chest x-ray reviewed personally showed significant improvement. The KUB x-ray showed a large amount of stool, nonspecific bowel gas pattern. PAST MEDICAL HISTORY: Reviewed. REVIEW OF SYSTEMS: CARDIOVASCULAR SYSTEM: No angina. RESPIRATION: As mentioned earlier. GI as mentioned earlier. as mentioned earlier. NERVOUS SYSTEM: No numbness or weakness. CURRENT MEDICATIONS: Reviewed and include: Tylenol, [place], DuoNeb, Xanax, Lipitor, Pulmicort. The rest of the medication doses are reviewed. PHYSICAL EXAMINATION: Alert and oriented times three. Pulse 90, blood pressure 89/50, respirations 16, temperature normal, pulse ox 98% on 3 L. HEENT: Conjunctivae normal. NECK: No JVD. CARDIOVASCULAR: S1, S2 muffled. RESPIRATORY: Breath sounds diminished in the bases. A few scattered rhonchi. ABDOMEN: Soft, nontender. NERVOUS SYSTEM: No focal deficits. LABS: At this time shows, glucose 122. CBC within normal limits. Sodium 134, potassium 3.9. Other labs not available. ASSESSMENT: 1. Shortness of breath possibly multifactorial, chronic obstructive pulmonary disease acute exacerbation as well as acute hypoxic respiratory failure with acute purulent tracheobronchitis. 2. Congestive heart failure acute exacerbation with acute on chronic diastolic dysfunction, ejection fraction 50-55 percent. 3. Hypotension, possibly hypovolemic. 4. Acute urinary tract infection. 5. No evidence of any cardiogenic shock. 6. Elevated D-dimer without any evidence of pulmonary embolism. 7. Nausea, possible acute gastritis. 8. Elevated serum procalcitonin. 9. Elevated random glucose. 10.Gait dysfunction. 11.Moderate protein calorie malnutrition with body mass index of 19.5. 12.Hypertension. 13.History of spinal stenosis. 14.History of depression. 15.History of cholecystectomy. 16.Remote history of nicotine dependence. 17.Urinary tract infection with Pseudomonas aeruginosa. RECOMMENDATIONS AND DISCUSSION: Recommend to continue current medications, monitoring, symptomatic treatment. Otherwise, at this time, I recommend repeat labs today and IV fluids. Hold the antihypertensive medications, Lasix and continue with antibiotics. Guarded prognosis because of multiple complex medical issues. Further recommendations to follow. I would repeat a set of cultures also. MMODL / IJN: [id number] / HAN
[2020-10-01] MEDS: LEVOFLOXACIN 500MG-D5W PMX 500 MG in DEXTROSE/WATER 1 100ML.BAG IVPB SCH (16:05)
[2020-10-01 16:19] LABS: Glucose,Whole Blood 183 mg/dL (75-99)
[2020-10-01 17:15] LABS: Appearance,Urine Clear (Clear); Bacteria,Urine Occasional /hpf; Bilirubin,Urine Negative (Negative); Blood,Urine Negative (Negative); Color,Urine Yellow; Glucose,Urine (UA) Negative (Negative); Ketones,Urine Negative (Negative); Leukocyte Esterase,Urine Moderate (Negative); Mucus,Urine Rare /hpf; Nitrite,Urine Negative (Negative); Protein,Urine Negative (Negative); RBC,Urine 1 /hpf (0-5); Specific Gravity,Urine 1.018 (1.001-1.035); Squamous Epithelial Cell,Urine <1 /hpf (0-4); Urobilinogen,Urine <2.0 mg/dL (<2.0); WBC,Urine 26 /hpf (0-5)
[2020-10-01 19:59] LABS: Glucose,Whole Blood 106 mg/dL (75-99)
[2020-10-01] MEDS: ATORVASTATIN 40 MG TAB PO SCH (20:18)
[2020-10-01] MEDS: FENOFIBRATE 160 MG TAB PO SCH (20:18)
[2020-10-02] MEDS: INSULIN ASPART (NovoLOG) 100 UNIT/ML VIAL SQ SCH ×4 (06:22→20:40)
[2020-10-02 06:24] LABS: Glucose,Whole Blood 102 mg/dL (75-99)
[2020-10-02] MEDS: HEPARIN SODIUM,PORCINE/PF 5,000 UNIT/0.5 ML SYRINGE SQ SCH ×2 (08:34→20:37)
[2020-10-02] MEDS: PANTOPRAZOLE 40 MG/10 ML VIAL IVP SCH ×2 (08:34→20:36)
[2020-10-02] MEDS: CHOLECALCIFEROL 25 MCG (1000 IU) TABLET PO SCH (08:34)
[2020-10-02] MEDS: FOLIC ACID 1 MG TAB PO SCH (08:35)
[2020-10-02] MEDS: SERTRALINE 100 MG TAB PO SCH (08:35)
[2020-10-02] MEDS: DOCUSATE 100 MG CAP PO SCH ×2 (08:35→20:37)
[2020-10-02] MEDS: HYDROcodone/APAP 10-325MG 1 EACH TAB PO SCH ×3 (08:35→20:37)
[2020-10-02] MEDS: MULTIVITAMINS, THERA 1 EACH TAB PO SCH (08:36)
[2020-10-02] MEDS: PREGABALIN 100 MG CAP PO SCH ×2 (08:36→20:37)
[2020-10-02] MEDS: THIAMINE 100 MG TAB PO SCH (08:36)
[2020-10-02] MEDS: LORATADINE 10 MG TAB PO SCH (08:36)
[2020-10-02] MEDS: predniSONE 10 MG TAB PO SCH (08:36)
[2020-10-02] MEDS: BUDESONIDE 1 MG/2 ML NEBU INHALATION SCH ×2 (09:27→19:47)
[2020-10-02] MEDS: IPRATROPIUM-ALBUTEROL 3 ML NEB INHALATION SCH ×4 (09:27→19:47)
[2020-10-02] MEDS ORDERED: IOPAMIDOL CONTRAST (ORAL USE) VIAL PO PRN (11:10)
[2020-10-02 11:40] LABS: Glucose,Whole Blood 284 mg/dL (75-99)
[2020-10-02] MEDS: BARIUM SULFATE 450 ML ORAL.SUSP BOTTLE PO PRN ×2 (12:25→15:33)
--- NOTE | 2020-10-02 14:46 | P.PN ---
Subjective Progress Note Date: 10/02/20 This is a 70-year-old female who was recently admitted with shortness of breath, possibly multifactorial also found to have significant hypotension is possibly due to hypovolemia and is being closely monitored. Patient is maintained on breathing inhalational treatments and will continue at this time. CT of the abdomen ordered and currently pending at this time. Original urine culture finalized showing Pseudomonas aeruginosa and patient was maintained on Levaquin with repeat urinalysis pending at this time. Will continue with Levaquin patient is also on prednisone oral and will continue. Patient continues to be dyspneic and maintained on 3 L. PT/OT evaluating the patient recommending subacute rehab as patient continues to be weak requiring assistance. Social work is following and working on placement at [facility]. Family present at the bedside and agreeable to the treatment plan. Review of systems: Constitutional: No reports of fatigue, fever, or chills Cardiovascular: No reports of chest pain or palpitations Respiratory: Reports continued shortness of breath and cough GI: No reports of nausea, vomiting, or diarrhea : No reports of dysuria or retention Neurovascular: Reports generalized weakness All medications have been reviewed Active Medications Acetaminophen (Acetaminophen Tab 325 Mg Tab) 650 mg PO Q6HR PRN PRN Reason: Mild Pain or Fever > 100.5 Last Admin: 09/29/20 20:49 Dose: 650 mg Documented by: Hydrocodone Bitart/Acetaminophen (Hydrocodone/Apap 10-325mg 1 Each Tab) 1 each PO TID [facility] Last Admin: 10/02/20 08:35 Dose: 1 each Documented by: Albuterol/Ipratropium (Ipratropium-Albuterol 3 Ml Neb) 3 ml INHALATION RT-Q4H PRN PRN Reason: Shortness Of Breath Or Wheezing Last Admin: 09/30/20 03:27 Dose: 3 ml Documented by: Albuterol/Ipratropium (Ipratropium-Albuterol 3 Ml Neb) 3 ml INHALATION RT-QID [facility] Last Admin: 10/02/20 13:25 Dose: 3 ml Documented by: Alprazolam (Alprazolam 0.5 Mg Tab) 0.5 mg PO DAILY PRN PRN Reason: Anxiety Last Admin: 09/27/20 12:20 Dose: 0.5 mg Documented by: Atorvastatin Calcium (Atorvastatin 40 Mg Tab) 40 mg PO HS [facility] Last Admin: 10/01/20 20:18 Dose: 40 mg Documented by: Barium Sulfate (Barium Sulfate 450 Ml Oral.Susp Bottle) 450 ml PO Q3HR PRN PRN Reason: CT Scan Stop: 10/03/20 12:01 Last Admin: 10/02/20 12:25 Dose: 450 ml Documented by: Budesonide (Budesonide 1 Mg/2 Ml Nebu) 1 mg INHALATION RT-BID [facility] Last Admin: 10/02/20 09:27 Dose: 1 mg Documented by: Cholecalciferol (Cholecalciferol 25 Mcg (1000 Iu) Tablet) 250 mcg PO DAILY [facility] Last Admin: 10/02/20 08:34 Dose: 250 mcg Documented by: Docusate Sodium (Docusate 100 Mg Cap) 100 mg PO BID [facility] Last Admin: 10/02/20 08:35 Dose: 100 mg Documented by: Fenofibrate (Fenofibrate 160 Mg Tab) 160 mg PO [facility] Last Admin: 10/01/20 20:18 Dose: 160 mg Documented by: Folic Acid (Folic Acid 1 Mg Tab) 1 mg PO DAILY@1200 [facility] Last Admin: 10/02/20 08:35 Dose: 1 mg Documented by: Heparin Sodium (Porcine) (Heparin Sodium,Porcine/Pf 5,000 Unit/0.5 Ml Syringe) 5,000 unit SQ Q12HR [facility] Last Admin: 10/02/20 08:34 Dose: 5,000 unit Documented by: Insulin Aspart (Insulin Aspart (Novolog) 100 Unit/Ml Vial) 0 unit SQ ACHS [facility]; Protocol Last Admin: 10/02/20 12:37 Dose: 8 unit Documented by: Lactulose (Lactulose 20 Gm/30 Ml Cup) 30 gm PO DAILY PRN PRN Reason: Constipation Levofloxacin (Levofloxacin 250 Mg Tab) 250 mg PO Q24H [facility] Loratadine (Loratadine 10 Mg Tab) 10 mg PO DAILY [facility] Last Admin: 10/02/20 08:36 Dose: 10 mg Documented by: Miscellaneous Information (Magnesium Replacement Protocol 1 Each Misc) 1 each MISCELLANE DAILY PRN; Protocol PRN Reason: Per Protocol Multivitamins (Multivitamins, Thera 1 Each Tab) 1 each PO DAILY@1200 [facility] Last Admin: 10/02/20 08:36 Dose: 1 each Documented by: Ondansetron HCl (Ondansetron 4 Mg/2 Ml Vial) 4 mg IVP Q6HR PRN PRN Reason: Nausea And Vomiting Last Admin: 09/30/20 09:58 Dose: 4 mg Documented by: Pantoprazole Sodium (Pantoprazole 40 Mg/10 Ml Vial) 40 mg IVP BID [facility] Last Admin: 10/02/20 08:34 Dose: 40 mg Documented by: Prednisone (Prednisone 10 Mg Tab) 30 mg PO DAILY [facility] Last Admin: 10/02/20 08:36 Dose: 30 mg Documented by: Pregabalin (Pregabalin 100 Mg Cap) 100 mg PO BID [facility] Last Admin: 10/02/20 08:36 Dose: 100 mg Documented by: Senna (Sennosides 8.6 Mg Tab) 8.6 mg PO DAILY PRN PRN Reason: Constipation Last Admin: 09/29/20 09:36 Dose: 8.6 mg Documented by: Sertraline HCl (Sertraline 100 Mg Tab) 100 mg PO DAILY [facility] Last Admin: 10/02/20 08:35 Dose: 100 mg Documented by: Simethicone (Simethicone 80 Mg Chewable) 80 mg PO QID PRN PRN Reason: GI Upset Last Admin: 09/29/20 23:19 Dose: 80 mg Documented by: Thiamine HCl (Thiamine 100 Mg Tab) 100 mg PO DAILY@1200 [facility] Last Admin: 10/02/20 08:36 Dose: 100 mg Documented by: Objective - Vital Signs Vital signs: Vital Signs Temp 97.9 F 10/02/20 08:00 Pulse 82 10/02/20 13:32 Resp 16 10/02/20 08:00 BP 103/54 10/02/20 08:00 Pulse Ox 99 10/02/20 08:00 Intake & Output 10/01/20 10/02/20 10/02/20 18:59 06:59 18:59 Intake Total 975 780 Output Total 450 500 725 Balance 525 -500 55 Weight 52.2 kg Intake: Intake, IV Titration 600 Amount Levofloxacin 500Mg-D5w 100 Pmx 500 mg In Dextrose/ Water 1 100ml.bag @ 100 mls/hr IVPB Q24H [facility] Rx#: [id number] Sodium Chloride 0.9% 500 500 ml 500 ml @ 250 mls/hr IV .Q2H ONE Rx#:[id number] Oral 375 780 Output: Urine 450 500 725 Other: Voiding Method Indwelling Catheter Indwelling Catheter Indwelling Catheter # Voids 1 - Exam Gen: This is a 70-year-old female awake, alert and oriented 3, thin built. Temp is 97.9F, pulse is 98, respirations are 16, blood pressure is 103/54, oxygen saturation is 99% on 3 L via nasal cannula. HEENT: Head is atraumatic, normocephalic. Pupils equal, round. Sclerae is anicteric. NECK: Supple. No JVD. No lymphadenopathy. No thyromegaly. LUNGS: Breath sounds diminished bilaterally in the bases with a few scattered rhonchi noted area No intercostal retractions. HEART: S1, S2 are muffled ABDOMEN: Soft. Bowel sounds are present. No masses. No tenderness. EXTREMITIES: No pedal edema. No calf tenderness. NEUROLOGICAL: Patient is awake, alert and oriented x3. No focal deficits. Diffusely weak - Labs CBC & Chem 7: 09/30/20 09:38 09/30/20 09:38 Labs: Abnormal Lab Results - Last 24 Hours (Table) 10/01/20 10/01/20 10/01/20 Range/Units 16:17 16:40 19:58 POC Glucose (mg/dL) 183 H 106 H (75-99) mg/dL Ur Leukocyte Esterase Moderate H (Negative) Urine WBC 26 H (0-5) /hpf Urine WBC Clumps Occasional H (None) /hpf Urine Bacteria Occasional H (None) /hpf Urine Mucus Rare H (None) /hpf 10/02/20 10/02/20 Range/Units 06:22 11:38 POC Glucose (mg/dL) 102 H 284 H (75-99) mg/dL Ur Leukocyte Esterase (Negative) Urine WBC (0-5) /hpf Urine WBC Clumps (None) /hpf Urine Bacteria (None) /hpf Urine Mucus (None) /hpf Microbiology - Last 24 Hours (Table) 10/01/20 16:40 Urine Culture - Preliminary Urine,Voided 09/25/20 09:21 Blood Culture - Final Blood No Growth after 144 hours 09/25/20 09:21 Blood Culture - Final Blood No Growth after 144 hours Assessment and Plan Assessment: Shortness of breath possibly multifactorial, chronic obstructive pulmonary disease, acute exacerbation as well as acute hypoxic respiratory failure with acute purulent tracheobronchitis Congestive heart failure acute exacerbation with acute on chronic diastolic dysfunction, ejection fraction 50-55% Hypotension, possibly hypovolemic Acute urinary tract infection No evidence of any cardiogenic shock Elevated d-dimer without any evidence of pulmonary embolism Nausea, possible acute gastritis Elevated serum calcitonin Elevated random glucose Gait dysfunction Moderate protein calorie malnutrition with a BMI of 19.5 Hypertension history of spinal stenosis History of depression history of cholecystectomy Remote history of nicotine dependence Urinary tract infection with Pseudomonas aeruginosa Recommendations and discussion: Recommend to continue with current medications, management, and symptomatic treatment. Patient is scheduled to undergo CT abdomen and is currently pending. A is maintained on antibiotics and will continue at this time. Repeat u rinalysis preliminary has been received although pending at this time. PT/OT evaluating and following the patient. Case management and social work also following and working on accepting facility if possible [place] which family is agreeable to. Due to multiple complex medical issues, prognosis is guarded. Further recommendations to follow. Possible discharge in 24-48 hours.
[2020-10-02 14:56] VITALS: BMI 20.3
[2020-10-02] MEDS ORDERED: LEVOFLOXACIN 250 MG TAB PO SCH (16:00)
[2020-10-02 17:02] LABS: Glucose,Whole Blood 113 mg/dL (75-99)
--- NOTE | 2020-10-02 18:42 | CT ---
EXAMINATION TYPE: CT abdomen pelvis wo con DATE OF EXAM: 10/02/2020 COMPARISON: 01/07/2020 HISTORY: Generalized pain and weightloss CT DLP: 424.8 mGycm Automated exposure control for dose reduction was used. TECHNIQUE: Helical acquisition of images was performed from the lung bases through the pelvis. FINDINGS: LUNG BASES: Moderate to marked emphysema without acute abnormality. LIVER/GB: No significant abnormality is appreciated. PANCREAS: No significant abnormality is seen. SPLEEN: No significant abnormality is seen. ADRENALS: Mild thickening of the left gland. Otherwise no acute abnormality. KIDNEYS: No significant abnormality is seen. FREE AIR: No free air is visualized RETROPERITONEAL ADENOPATHY: None visualized REPRODUCTIVE ORGANS: No significant abnormality is seen URINARY BLADDER: Decompressed by Patterson catheter, limiting evaluation. PELVIC ADENOPATHY: None visualized. OSSEOUS STRUCTURES: No acute abnormality is seen. Moderate to severe lumbar spondylosis with moderat e levoconvex scoliosis centered at L2-L3. BOWEL: Large stool burden throughout the colon. No bowel obstruction, free air or fluid. Anasarca is seen. OTHER: Advanced atherosclerotic disease. IMPRESSION: NO ACUTE ABNORMALITY OF THE ABDOMEN/PELVIS. LARGE STOOL BURDEN. ANASARCA, CORRELATE FOR THIRD SPACING. LUMBAR SPONDYLOSIS WITH SCOLIOSIS.
[2020-10-02 20:07] LABS: Glucose,Whole Blood 167 mg/dL (75-99)
[2020-10-02] MEDS: ATORVASTATIN 40 MG TAB PO SCH (20:37)
[2020-10-02] MEDS: FENOFIBRATE 160 MG TAB PO SCH (20:37)
[2020-10-03 06:24] LABS: Glucose,Whole Blood 82 mg/dL (75-99)
[2020-10-03] MEDS: INSULIN ASPART (NovoLOG) 100 UNIT/ML VIAL SQ SCH ×2 (06:26→12:41)
--- NOTE | 2020-10-03 07:02 | CONS ---
CONSULTATION DATE OF SERVICE: 10/02/2020 REASON FOR CONSULTATION: Urinary tract infection. 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 The patient's current Patterson catheter, at the time of presentation to the hospital, was not changed for about 1 month. The patient presented to the ER at [facility] on September 25 for evaluation of increasing shortness of breath. The patient's symptoms have been getting worse for the last 2 days before presentation to hospital. Patient was noted to be hypoxic with O2 sats of 82% on room air. The patient denies having any fever. The patient denies any chest pain. She did have minimal cough but no sputum production. No vomiting. No abdominal pain. No diarrhea. Denies any suprapubic or flank pain. This patient did not have any fever during this hospital stay and did not have any elevated white count. The patient did have a positive UA on admission of September 26, which did show large leukocyte esterase with many WBC and some yeast. These cultures are finalized with Pseudomonas aeruginosa on the . The patient was treated with Rocephin followed by Levaquin. The patient's Patterson catheter was subsequently changed and repeat UA was obtained on the , which was not significantly positive and culture negative so far. Infectious Disease was consulted for further management of antibiotic and her UTI. REVIEW OF SYSTEMS: Positive points have been mentioned in HPI. Rest of systems are negative. PAST MEDICAL HISTORY: COPD, spinal stenosis, depression. PAST SURGICAL HISTORY: Hysterectomy. SOCIAL HISTORY: Remote history of smoking. No drinking or drug use. FAMILY HISTORY: Father with a history of memory impairment. ALLERGIES TO: IODINATED CONTRAST DYE AND LATEX. MEDICATIONS: The patient is currently on Tylenol, [place], DuoNeb, Xanax, Lipitor, Pulmicort, vitamin D3, Colace, , folic acid, NovoLog, lactulose, Levaquin, Claritin, Zofran, Protonix, prednisone, Lyrica, Zoloft. PHYSICAL EXAMINATION: VITAL SIGNS: Blood pressure 100/50 with a pulse of 90, temperature 97.5, she is 94% on 3 L nasal cannula. GENERAL DESCRIPTION: Patient is an elderly female lying in bed in no distress. No tachypnea or accessory muscles of respiration use. HEENT: Examination shows no pallor or scleral icterus. Oral mucous membrane is dry. NECK: Trachea central, no thyromegaly. LUNGS: Unlabored breathing, decreased intensity of breath sounds, no wheeze. HEART: S1-S2, regular rate and rhythm. ABDOMEN: Soft, no tenderness. No guarding or rigidity. EXTREMITIES: No edema of the feet. SKIN: No rash or mass palpable. NEUROLOGICAL: Patient is awake, alert, oriented times three. Mood and affect normal. LABS: Hemoglobin is 12.4, white count 10.2, BUN of 15, creatinine 0.98. Repeat urine not significantly positive. Lopez PCR has been negative. Initial urine with Pseudomonas. Repeat is negative so far. A CT of abdomen and pelvis completed this evening with no acute abnormality. Abdomen and pelvis with large stool burden. DIAGNOSTIC IMPRESSION: Patient with a positive urine culture with Pseudomonas more likely representing a Patterson colonization, as the patient does not have significant symptoms. No fever or elevated white count. Repeat UA is negative after changing her Patterson catheter. PLAN: 1. No need for systemic chemotherapy. 2. The patient has been advised about her Patterson catheter care and it should be changed every 2 weeks to prevent any risk of recurrent urinary tract infection .. 3. We will follow on clinical condition and further adjust medication if needed. Thank you for this consultation. Will follow this patient along with you. ROSENDOL / MARIELN: [id number] /
[2020-10-03] MEDS: BUDESONIDE 1 MG/2 ML NEBU INHALATION SCH (07:47)
[2020-10-03] MEDS: IPRATROPIUM-ALBUTEROL 3 ML NEB INHALATION SCH ×2 (07:47→11:22)
[2020-10-03 07:57] VITALS: RESP 14
[2020-10-03] MEDS: DOCUSATE 100 MG CAP PO SCH (09:00)
[2020-10-03] MEDS: HYDROcodone/APAP 10-325MG 1 EACH TAB PO SCH (09:01)
[2020-10-03] MEDS: LORATADINE 10 MG TAB PO SCH (09:02)
[2020-10-03] MEDS: PREGABALIN 100 MG CAP PO SCH (09:04)
[2020-10-03] MEDS: SERTRALINE 100 MG TAB PO SCH (09:05)
[2020-10-03] MEDS: PANTOPRAZOLE 40 MG/10 ML VIAL IVP SCH (09:15)
[2020-10-03] MEDS: HEPARIN SODIUM,PORCINE/PF 5,000 UNIT/0.5 ML SYRINGE SQ SCH (09:15)
[2020-10-03] MEDS: CHOLECALCIFEROL 25 MCG (1000 IU) TABLET PO SCH (09:17)
[2020-10-03] MEDS: predniSONE 10 MG TAB PO SCH (09:17)
[2020-10-03 11:49] LABS: Glucose,Whole Blood 106 mg/dL (75-99)
[2020-10-03 12:31] VITALS: BP 108/58; PULSE 107; TEMP 98.5
[2020-10-03] MEDS: THIAMINE 100 MG TAB PO SCH (12:45)
[2020-10-03] MEDS: MULTIVITAMINS, THERA 1 EACH TAB PO SCH (12:45)
[2020-10-03] MEDS: FOLIC ACID 1 MG TAB PO SCH (12:45)
--- NOTE | 2020-10-03 13:44 | P.DS ---
Providers Date of admission: 09/25/20 11:24 Expected date of discharge: 10/03/20 Attending physician: Anat Hagen Consults: 09/25/20 11:24 Consult Physician Routine Consulting Provider: Jimy Pringle Consult Reason/Comments: COPD Do you want consulting provider notified?: Yes 10/02/20 11:10 Consult Physician Routine Consulting Provider: Lyane Watson Consult Reason/Comments: uti Do you want consulting provider notified?: Yes Primary care physician: VISH [place] Hospital Course: Diagnosis Shortness of breath possibly multifactorial, chronic obstructive pulmonary disease, acute exacerbation as well as acute hypoxic respiratory failure with acute purulent tracheobronchitis Congestive heart failure acute exacerbation with acute on chronic diastolic dysfunction, ejection fraction 50-55% Hypotension, possibly hypovolemic Acute urinary tract infection No evidence of any cardiogenic shock Elevated d-dimer without any evidence of pulmonary embolism Nausea, possible acute gastritis Elevated serum calcitonin Elevated random glucose Gait dysfunction Moderate protein calorie malnutrition with a BMI of 19.5 Hypertension history of spinal stenosis History of depression history of cholecystectomy Remote history of nicotine dependence Urinary tract infection with Pseudomonas aeruginosa Discharge disposition Patient is being discharged in a stable condition with guarded prognosis to [facility] for continued PT/OT therapy. Patient will follow-up with Dr. Mccrary and Dr. Gle[facility]. Patient will be following up with nurse practitioner Red in the outpatient setting upon discharge from [facility]. Total time taken is greater than 35 minutes. Hospital course This is a 70-year-old female who was recently admitted with shortness of breath, possibly multifactorial also found to have significant hypotension possibly due to hypovolemia and was being closely monitored. Multiple medical consultations following. She continued to be weak and was evaluated by physical therapy recommending subacute rehab for strength and mobility. Family are agreeable to [facility] and will be discharged today. Patient was treated with IV antibiotic therapy for urinary tract infection with repeat urinalysis negative and was evaluated by infectious disease. Recommending strict indwelling Patterson catheter care and changing of the Patterson every 2 weeks to minimize risk for urinary tract infection as she is known for recurrent UTIs. A also to continue with DuoNeb breathing inhalational treatments and bowel regimen as her most recent CAT scan of the abdomen shows stool burden. She will also continue on prednisone taper upon discharge. Recommend repeat labs in 2-3 days to monitor CBC and kidney functions along with electrolytes closely. Currently no reports of chest pain, worsening shortness of breath, or palpitations. Patient is afebrile. No reports of nausea or vomiting and patient is tolerating diet. Patient will be going to [facility] today. Guarded prognosis. On exam vital signs are stable. Cardio S1, S2 are muffled. Respiratory system shows diminished breath sounds at the bases with no wheezing or rhonchi noted. Abdomen is soft and nontender. Nervous system shows diffuse weakness. Please refer to medication reconciliation sheet for a list of medications. Patient Condition at Discharge: Stable Plan - Discharge Summary Discharge Rx Participant: No New Discharge Prescriptions: New Lactulose [Cephulac] 30 gm PO DAILY PRN ml PRN Reason: Constipation Ipratropium-Albuterol Nebulize [Duoneb 0.5 mg-3 mg/3 ml Soln] 3 ml INHALATION RT-QID ml Simethicone Chew [Mylicon Chew] 80 mg PO QID PRN chew PRN Reason: Gi Upset INSULIN ASPART (NovoLOG) [NovoLOG (formulary)] 0 unit SQ ACHS vial predniSONE 10 mg PO DIRECTED #30 tab Sennosides [Senokot] 8.6 mg PO DAILY PRN tab PRN Reason: Constipation Acetaminophen Tab [Tylenol] 650 mg PO Q6HR PRN tab PRN Reason: Mild Pain Or Fever > 100.5 Furosemide [Lasix] 40 mg PO DAILY 30 Days #30 tablet Metoprolol Tartrate [Lopressor] 12.5 mg PO DAILY #30 tab Docusate [Colace] 100 mg PO BID cap Ipratropium-Albuterol Nebulize [Duoneb 0.5 mg-3 mg/3 ml Soln] 3 ml INHALATION RT-Q4H PRN ml PRN Reason: Shortness Of Breath Or Wheezing Folic Acid 1 mg PO DAILY@1200 tab Multivitamins, Thera [Multivitamin (formulary)] 1 each PO DAILY@1200 tab HYDROcodone/APAP 10-325MG [Pelican 10-325] 1 each PO TID #10 tab Budesonide [Pulmicort] 1 mg INHALATION RT-BID ml Thiamine [Vitamin B-1] 100 mg PO DAILY@1200 tab Continue Sertraline HCl [Zoloft] 100 mg PO DAILY Cetirizine HCl [Zyrtec] 10 mg PO DAILY Biotin 10,000 mcg PO DAILY Fenofibrate Nanocrystallized [Tricor] 145 mg PO HS Atorvastatin Calcium [Lipitor] 40 mg PO HS Ipratropium Nebulized [Atrovent Nebulized 0.2 MG/ML] 0.5 mg INHALATION RT-QID PRN PRN Reason: Shortness Of Breath Cholecalciferol (Vitamin D3) [Vitamin D3 (5000 Iu)] 250 mcg PO DAILY Pregabalin [Lyrica] 100 mg PO BID #6 cap Albuterol Inhaler [Ventolin Hfa Inhaler] 2 puff INHALATION RT-QID PRN PRN Reason: Shortness Of Breath Albuterol Nebulized [Ventolin Nebulized] 2.5 mg INHALATION RT-QID PRN PRN Reason: Shortness Of Breath ALPRAZolam [Xanax] 0.5 mg PO DAILY PRN #4 tab PRN Reason: Anxiety Discontinued Hydrocodone/Acetaminophen [Pelican 10-325] 1 tab PO TID Furosemide [Lasix] 20 mg PO DAILY PRN PRN Reason: Edema Enalapril [Vasotec] 10 mg PO DAILY Atenolol/Chlorthalidone [Tenoretic 50 Tablet] 1 tab PO DAILY amLODIPine [Norvasc] 2.5 mg PO DAILY Discharge Medication List Atorvastatin Calcium [Lipitor] 40 mg PO HS 06/18/20 [History] Biotin 10,000 mcg PO DAILY 06/18/20 [History] Cetirizine HCl [Zyrtec] 10 mg PO DAILY 06/18/20 [History] Fenofibrate Nanocrystallized [Tricor] 145 mg PO HS 06/18/20 [History] Sertraline HCl [Zoloft] 100 mg PO DAILY 06/18/20 [History] Albuterol Inhaler [Ventolin Hfa Inhaler] 2 puff INHALATION RT-QID PRN 09/25/20 [History] Albuterol Nebulized [Ventolin Nebulized] 2.5 mg INHALATION RT-QID PRN 09/25/20 [History] Cholecalciferol (Vitamin D3) [Vitamin D3 (5000 Iu)] 250 mcg PO DAILY 09/25/20 [History] Ipratropium Nebulized [Atrovent Nebulized 0.2 MG/ML] 0.5 mg INHALATION RT-QID PRN 09/25/20 [History] ALPRAZolam [Xanax] 0.5 mg PO DAILY PRN #4 tab 10/03/20 [Rx] Acetaminophen Tab [Tylenol] 650 mg PO Q6HR PRN tab 10/03/20 [Rx] Budesonide [Pulmicort] 1 mg INHALATION RT-BID ml 10/03/20 [Rx] Docusate [Colace] 100 mg PO BID cap 10/03/20 [Rx] Folic Acid 1 mg PO DAILY@1200 tab 10/03/20 [Rx] Furosemide [Lasix] 40 mg PO DAILY 30 Days #30 tablet 10/03/20 [Rx] HYDROcodone/APAP 10-325MG [Pelican 10-325] 1 each PO TID #10 tab 10/03/20 [Rx] INSULIN ASPART (NovoLOG) [NovoLOG (formulary)] 0 unit SQ ACHS vial 10/03/20 [Rx] Ipratropium-Albuterol Nebulize [Duoneb 0.5 mg-3 mg/3 ml Soln] 3 ml INHALATION RT-Q4H PRN ml 10/03/20 [Rx] Ipratropium-Albuterol Nebulize [Duoneb 0.5 mg-3 mg/3 ml Soln] 3 ml INHALATION RT-QID ml 10/03/20 [Rx] Lactulose [Cephulac] 30 gm PO DAILY PRN ml 10/03/20 [Rx] Metoprolol Tartrate [Lopressor] 12.5 mg PO DAILY #30 tab 10/03/20 [Rx] Multivitamins, Thera [Multivitamin (formulary)] 1 each PO DAILY@1200 tab 10/03/20 [Rx] Pregabalin [Lyrica] 100 mg PO BID #6 cap 10/03/20 [Rx] Sennosides [Senokot] 8.6 mg PO DAILY PRN tab 10/03/20 [Rx] Simethicone Chew [Mylicon Chew] 80 mg PO QID PRN chew 10/03/20 [Rx] Thiamine [Vitamin B-1] 100 mg PO DAILY@1200 tab 10/03/20 [Rx] predniSONE 10 mg PO DIRECTED #30 tab 10/03/20 [Rx] Follow up Appointment(s)/Referral(s): Earl Sotomayor MD [STAFF PHYSICIAN] - 2 Weeks Hilda Ocampo, VISH [Primary Care Provider] - 1-2 days Ambulatory/Diagnostic Orders: Complete Blood Count w/diff [LAB.AMB] Time Frame: 3 Days, Location: None Selected Activity/Diet/Wound Care/Special Instructions: [facility] is going [facility] as tolerated Follow-up with primary care provider upon discharge Dr. Ocampo continue with prednisone taper Continue with bowel regimen continue with breathing treatments Continue to monitor blood sugar before meals and at bedtime and treat accordingly with sliding scale Continue heart healthy diet with 1500 mL per day fluid restriction NovoLog sliding scale 0-150 equals 0 units 151-200 equals 2 units 201-250 equals 4 units 251-300 equals 6 units 301-350 equals 8 units 351-400 equals 10 units Please notify provider if blood sugar is 400 or above Repeat CMP and CBC in 2-3 days Hold blood pressure medications for systolic less than 100 Continue with indwelling Patterson catheter and it should be changed every 2 weeks to prevent risks of recurrent UTIs She has received antibiotic therapy Continue with Lasix daily Discharge Disposition: TRANSFER TO SNF/ECF
== END 2020-10-03 14:56 | DRG 280 ==
LOC: EC 08:50 → 3SCARD 11:24
PROVIDERS: ADMIT Hospitalist; ATTEND Hospitalist
DX: I11.0 Hypertensive heart disease with heart failure (principal); J96.21 Acute and chronic respiratory failure with hypoxia; I21.A1 Myocardial infarction type 2; J96.22 Acute and chronic respiratory failure with hypercapnia; J44.1 Chronic obstructive pulmonary disease with (acute) exacerbation; E44.0 Moderate protein-calorie malnutrition; E87.1 Hypo-osmolality and hyponatremia; N39.0 Urinary tract infection, site not specified; E87.4 Mixed disorder of acid-base balance; Z68.1 Body mass index [BMI] 19.9 or less, adult; J44.0 Chronic obstructive pulmonary disease with (acute) lower respiratory infection; Z20.822 Contact with and (suspected) exposure to COVID-19; J20.9 Acute bronchitis, unspecified; I50.33 Acute on chronic diastolic (congestive) heart failure; Z79.4 Long term (current) use of insulin; Z87.891 Personal history of nicotine dependence; Z99.81 Dependence on supplemental oxygen; I27.20 Pulmonary hypertension, unspecified; E78.5 Hyperlipidemia, unspecified; Z90.710 Acquired absence of both cervix and uterus; R26.9 Unspecified abnormalities of gait and mobility; D63.8 Anemia in other chronic diseases classified elsewhere; G25.0 Essential tremor; I34.0 Nonrheumatic mitral (valve) insufficiency; I95.9 Hypotension, unspecified; Z90.49 Acquired absence of other specified parts of digestive tract; B96.5 Pseudomonas (aeruginosa) (mallei) (pseudomallei) as the cause of diseases classified elsewhere; F32.9 Major depressive disorder, single episode, unspecified
CPT/HCPCS: 36415; 71045; 71046; 71250; 74018; 74176; 78582; 80048; 80053; 81001; 82533; 83605; 83735; 83880; 84145; 84484; 85025; 85379; 85610; 85730; 87040; 87077; 87086; 87186; 87635; 93005; 93306; 94640; 94760; 96374; 99285

== ENCOUNTER 2020-10-19 15:05 | Inpatient (IN) | payer MEDICARE, BC ==
[2020-10-19] MEDS ORDERED: DEXAMETHASONE SOD PHOSPHATE 10 MG/ML 1 ML VIAL IV STA (15:14)
[2020-10-19] MEDS ORDERED: IPRATROPIUM-ALBUTEROL 3 ML NEB INHALATION STA (15:14)
--- NOTE | 2020-10-19 15:18 | ED ---
General Adult HPI - General Stated complaint: BAHMAN Source: patient, EMS Mode of arrival: EMS Limitations: physical limitation - History of Present Illness Initial comments: Dictation was produced using [employer] dictation software. please excuse any grammatical, word or spelling errors. This patient was cared for during a federal and state declared state of emergency secondary to Covid 19 Chief Complaint: 70-year-old feel past medical history of COPD, home oxygen presents to the emergency department for acute onset of dyspnea. History of Present Illness: 70-year-old female she presents to the emergency department for acute dyspnea. Symptoms began approximately 3 hours prior to arr ival. 5 days ago patient began having symptoms of dyspnea. She wears 2-3 L of oxygen nasal cannula at home. She began having cough and shortness of breath. She was seen by primary care physician diagnosed her with pneumonia. She was placed on Levaquin. She is completed 3 days of Levaquin. She is scheduled dose at night. She got her second series of coronavirus vaccine today. She states that vaccine was administered her at approximately 11 AM. She began having symptoms at approximately 12:30 PM. Prior to the vaccination she felt relatively okay.. Patient is a current resident at [facility]. She was sent here for tachycardia and concerns of respiratory failure. EMS reports that she was tachycardic. EMS also reports that patient appeared anxious. Patient currently has back pain in the midthoracic area that she reports is baseline for her. She is not a pain complaints. The ROS documented in this emergency department record has been reviewed and confirmed by me. Those systems with pertinent positive or negative responses have been documented in the HPI. All other systems are other negative and/or noncontributory. PHYSICAL EXAM: General Impression: Alert and oriented x3, dyspneic HEENT: Normocephalic atraumatic, extra-ocular movements intact, pupils equal and reactive to light bilaterally, mucous membranes moist. Cardiovascular: Tachycardic Chest: There word sentences, dyspneic breathing through pursed lips, auscultation of lungs reveals diminished lung sounds to the right compared to the left Abdomen: abdomen soft, non-tender, non-distended, no organomegaly Musculoskeletal: Pulses present and equal in all extremities, no peripheral edema Motor: no focal deficits noted Neurological: CN II-XII grossly intact, no focal motor or sensory deficits noted Skin: Intact with no visualized rashes Psych: Mildly anxious ED course: 70-year-old feel presents emergency department for concerns of respiratory failure. Vital signs upon arrival shows heart rate of 120, rest of vital signs within acceptable limits. She is satting well on her usual home oxygen. Laboratory evaluation obtained. CBC is unremarkable. Metabolic panel shows b icarb of 41 which is around her baseline. She says BUN of 40 with a creatinine of 0.79 concerning for dehydration. Haja is negative. Brain natruretic peptide is 2230. Carotid viruses not detected. Chest x-ray shows infiltrate in the right lower lung boyle. Patient currently being treated for pneumonia with Levaquin. While in the emergency department patient had some hypotensive readings. Concern of dehydration. Patient given bolus of fluids with improvement of blood pressure and tachycardia. Patient's hypotension is likely secondary to dehydration given elevated BUN to creatinine ratio. Given patient's degree of symptoms we'll have patient admitted to observation. Case discussed Dr. Archuleta was went except patient's care. Patient reevaluated at bedside at 6:20 PM in stable medical condition. EKG interpretation: Ventricular rate 117, sinus tachycardia, MI interval 150, QRS 80, QTc 465. No MI prolongation, no QTC prolongation, no ST or T-wave changes noted. EKG compared to 09/25/2020 showing no changes. Overall, this EKG is unremarkable - Related Data Home Medications Medication Instructions Recorded Confirmed Atorvastatin Calcium [Lipitor] 40 mg PO HS 06/18/20 10/19/20 Biotin 10,000 mcg PO DAILY@0800 06/18/20 10/19/20 Cetirizine HCl [Zyrtec] 10 mg PO DAILY@0806/18/20 10/19/20 Fenofibrate Nanocrystallized 145 mg PO HS 06/18/20 10/19/20 [Tricor] Sertraline HCl [Zoloft] 100 mg PO DAILY@0800 06/18/20 10/19/20 Albuterol Inhaler [Ventolin Hfa 2 puff INHALATION RT-QID PRN 09/25/20 10/19/20 Inhaler] Albuterol Nebulized [Ventolin 2.5 mg INHALATION RT-QID PRN 09/25/20 10/19/20 Nebulized] Cholecalciferol (Vitamin D3) 250 mcg PO DAILY@0800 09/25/20 10/19/20 [Vitamin D3 (5000 Iu)] Ipratropium Nebulized [Atrovent 0.5 mg INHALATION RT-QID PRN 09/25/20 10/19/20 Nebulized 0.2 MG/ML] Acetaminophen Tab [Tylenol] 650 mg PO Q6H PRN 10/19/20 10/19/20 Budesonide [Pulmicort] 1 mg INHALATION RT-BID@0800,1700 10/19/20 10/19/20 Docusate [Colace] 100 mg PO BID@0800,1700 10/19/20 10/19/20 Folic Acid 1 mg PO DAILY@1100 10/19/20 10/19/20 Furosemide [Lasix] 40 mg PO DAILY@0800 10/19/20 10/19/20 HYDROcodone/APAP 10-325MG [[place] 1 tab PO Q8H 10/19/20 10/19/20 10-325] INSULIN ASPART (NovoLOG) [NovoLOG See Protocol SQ ACHS 10/19/20 10/19/20 (formulary)] Lactose-Reduced Food [Ensure Plus] 120 ml PO BID@0600,1100 10/19/20 10/19/20 Lactulose [Cephulac] 20 gm PO BID@0800,1700 10/19/20 10/19/20 Levofloxacin [Levaquin] 500 mg PO HS 10/19/20 10/19/20 Magnesium Hydroxide [Milk of 7,200 mg PO Q48H PRN 10/19/20 10/19/20 Magnesia Concentrate] Metoprolol Tartrate [Lopressor] 12.5 mg PO DAILY@0800 10/19/20 10/19/20 Multivitamins, Thera [Multivitamin 1 tab PO DAILY@1100 10/19/20 10/19/20 (formulary)] Na Phos,M-B/Na Phos,Di-Ba [Fleet 133 ml RECTAL DAILY PRN 10/19/20 10/19/20 Adult] Pregabalin [Lyrica] 100 mg PO BID@0800,2100 10/19/20 10/19/20 Simethicone Chew [Mylicon Chew] 80 mg PO QID PRN 10/19/20 10/19/20 Thiamine [Vitamin B-1] 100 mg PO DAILY@1100 10/19/20 10/19/20 bisacodyL [Bisacodyl] 10 mg RECTAL DAILY PRN 10/19/20 10/19/20 Previous Rx's Medication Instructions Recorded Ipratropium-Albuterol Nebulize 3 ml INHALATION RT-Q4H PRN ml 10/03/20 [Duoneb 0.5 mg-3 mg/3 ml Soln] Ipratropium-Albuterol Nebulize 3 ml INHALATION RT-QID ml 10/03/20 [Duoneb 0.5 mg-3 mg/3 ml Soln] Sennosides [Senokot] 8.6 mg PO DAILY PRN tab 10/03/20 Allergies Allergy/AdvReac Type Severity Reaction Status Date / Time adhesive tape Allergy Itching Verified 10/19/20 15:40 almond Allergy Unknown Verified 10/19/20 15:40 Iodinated Contrast Media Allergy Unknown Verified 10/19/20 15:40 latex Allergy Itching Verified 10/19/20 15:40 Review of Systems ROS Statement: Those systems with pertinent positive or pertinent negative responses have been documented in the HPI. ROS Other: All systems not noted in ROS Statement are negative. Past Medical History Past Medical History: COPD, Hypertension, Pneumonia Additional Past Medical History / Comment(s): spinal stenosis, depression History of Any Multi-Drug Resistant Organisms: None Reported Past Surgical History: Hysterectomy Additional Past Surgical History / Comment(s): foot bunion Past Anesthesia/Blood Transfusion Reactions: No Reported Reaction Past Psychological History: Depression Smoking Status: Former smoker Past Alcohol Use History: None Reported Past Drug Use History: None Reported - Past Family History Father Family Medical History: Memory Impairment Additional Family Medical History / Comment(s): SPINAL DISEASE Mother History Unknown: Yes Additional Family Medical History / Comment(s): CKD, RENAL FAILURE General Exam Limitations: physical limitation Course Vital Signs 10/19/20 10/19/20 10/19/20 15:09 15:10 15:48 Temperature 98 F Pulse Rate 120 H 112 H Respiratory 24 24 Rate Blood Pressure 126/74 O2 Sat by Pulse 95 Oximetry 10/19/20 10/19/20 10/19/20 15:59 16:30 17:27 Temperature Pulse Rate 111 H 109 H 105 H Respiratory 24 24 Rate Blood Pressure 90/64 104/66 O2 Sat by Pulse 94 L 92 L Oximetry 10/19/20 18:17 Temperature Pulse Rate 108 H Respiratory 24 Rate Blood Pressure 114/75 O2 Sat by Pulse 94 L Oximetry Medical Decision Making - Lab Data Result diagrams: 10/19/20 15:26 10/19/20 15:26 Lab Results 10/19/20 10/19/20 10/19/20 Range/Units 15:26 15:26 15:26 WBC 7.5 (3.8-10.6) k/uL RBC 4.24 (3.80-5.40) m/uL Hgb 12.6 (11.4-16.0) gm/dL Hct 38.6 (34.0-46.0) % MCV 90.9 (80.0-100.0) fL MCH 29.7 (25.0-35.0) pg MCHC 32.6 (31.0-37.0) g/dL RDW 14.8 (11.5-15.5) % Plt Count 145 L (150-450) k/uL MPV 8.7 Neutrophils % 77 % Lymphocytes % 8 % Monocytes % 5 % Eosinophils % 8 % Basophils % 1 % Neutrophils # 5.8 (1.3-7.7) k/uL Lymphocytes # 0.6 L (1.0-4.8) k/uL Monocytes # 0.4 (0-1.0) k/uL Eosinophils # 0.6 (0-0.7) k/uL Basophils # 0.1 (0-0.2) k/uL Sodium 135 L (137-145) mmol/L Potassium 4.4 (3.5-5.1) mmol/L Chloride 87 L (98-107) mmol/L Carbon Dioxide 41 H* (22-30) mmol/L Anion Gap 7 mmol/L BUN 40 H (7-17) mg/dL Creatinine 0.79 (0.52-1.04) mg/dL Est GFR (CKD-EPI)AfAm 89 (>60 ml/min/1.73 sqM) Est GFR (CKD-EPI)NonAf 77 (>60 ml/min/1.73 sqM) Glucose 138 H (74-99) mg/dL Calcium 10.1 (8.4-10.2) mg/dL Troponin I <0.012 (0.000-0.034) ng/mL NT-Pro-B Natriuret Pep pg/mL Coronavirus (PCR) (Not Detectd) 10/19/20 10/19/20 Range/Units 15:26 15:26 WBC (3.8-10.6) k/uL RBC (3.80-5.40) m/uL Hgb (11.4-16.0) gm/dL Hct (34.0-46.0) % MCV (80.0-100.0) fL MCH (25.0-35.0) pg MCHC (31.0-37.0) g/dL RDW (11.5-15.5) % Plt Count (150-450) k/uL MPV Neutrophils % % Lymphocytes % % Monocytes % % Eosinophils % % Basophils % % Neutrophils # (1.3-7.7) k/uL Lymphocytes # (1.0-4.8) k/uL Monocytes # (0-1.0) k/uL Eosinophils # (0-0.7) k/uL Basophils # (0-0.2) k/uL Sodium (137-145) mmol/L Potassium (3.5-5.1) mmol/L Chloride (98-107) mmol/L Carbon Dioxide (22-30) mmol/L Anion Gap mmol/L BUN (7-17) mg/dL Creatinine (0.52-1.04) mg/dL Est GFR (CKD-EPI)AfAm (>60 ml/min/1.73 sqM) Est GFR (CKD-EPI)NonAf (>60 ml/min/1.73 sqM) Glucose (74-99) mg/dL Calcium (8.4-10.2) mg/dL Troponin I (0.000-0.034) ng/mL NT-Pro-B Natriuret Pep 2230 pg/mL Coronavirus (PCR) Not Detected (Not Detectd) Disposition Clinical Impression: Dehydration, COPD exacerbation Disposition: ADMITTED IP TO THIS HOSP Condition: Fair Referrals: Adan Mejía MD [Primary Care Provider] - 1-2 days Decision Time: 18:26
--- NOTE | 2020-10-19 15:51 | XR ---
EXAMINATION TYPE: XR chest 1V portable DATE OF EXAM: 10/19/2020 COMPARISON: Chest CT September 25, 2020. Chest x-ray September 27, 2020 HISTORY: BAHMAN , history of COPD TECHNIQUE: Single frontal view of the chest is obtained. FINDINGS: There is background chronic emphysematous and pulmonary fibrotic change without suspicious new focal air space opacity, pleural effusion, or pneumothorax seen. Some increased interstitial ma rkings in the lower lungs noted from most recent x-ray. The cardiac silhouette size remains within no rmal limits with atherosclerotic change aortic knob. Underlying scoliosis redemonstrated. IMPRESSION: Possible new bilateral lower lung reticular edema and/or infiltrates on background chron ic emphysematous and pulmonary fibrotic changes, correlate clinically.
[2020-10-19 16:16] LABS: Basophils # (A) 0.1 k/uL (0-0.2); Basophils % (A) 1 %; Eosinophils # (A) 0.6 k/uL (0-0.7); Eosinophils % (A) 8 %; HCT 38.6 % (34.0-46.0); HGB 12.6 gm/dL (11.4-16.0); Lymphocytes # (A) 0.6 k/uL (1.0-4.8); Lymphocytes % (A) 8 %; MCH 29.7 pg (25.0-35.0); MCHC 32.6 g/dL (31.0-37.0); MCV 90.9 fL (80.0-100.0); Mean Platelet Volume 8.7; Monocytes # (A) 0.4 k/uL (0-1.0); Monocytes % (A) 5 %; Neutrophils # (A) 5.8 k/uL (1.3-7.7); Neutrophils % (A) 77 %; Platelet Count 145 k/uL (150-450); RBC 4.24 m/uL (3.80-5.40); RDW 14.8 % (11.5-15.5); WBC 7.5 k/uL (3.8-10.6)
[2020-10-19 16:25] LABS: Calcium 10.1 mg/dL (8.4-10.2); Potassium 4.4 mmol/L (3.5-5.1)
[2020-10-19] MEDS ORDERED: SODIUM CHLORIDE 0.9% 1,000 ML IV STA ×2 (16:56→17:49)
[2020-10-19] MEDS ORDERED: ACETAMINOPHEN TAB 325 MG TAB PO STA (17:23)
[2020-10-19] MEDS: IPRATROPIUM-ALBUTEROL 3 ML NEB INHALATION SCH (20:31)
[2020-10-19] MEDS: LEVOFLOXACIN 500 MG TAB PO SCH (22:42)
[2020-10-20] MEDS: predniSONE 20 MG TAB PO SCH (07:27)
[2020-10-20] MEDS: IPRATROPIUM-ALBUTEROL 3 ML NEB INHALATION SCH ×4 (08:02→19:38)
[2020-10-20] MEDS ORDERED: IPRATROPIUM-ALBUTEROL 3 ML NEB INHALATION PRN (08:12)
[2020-10-20] MEDS ORDERED: SIMETHICONE 80 MG CHEWABLE PO PRN (08:13)
[2020-10-20] MEDS ORDERED: SENNOSIDES 8.6 MG TAB PO PRN (08:13)
[2020-10-20] MEDS ORDERED: ACETAMINOPHEN TAB 325 MG TAB PO PRN (08:13)
[2020-10-20] MEDS: HYDROcodone/APAP 10-325MG 1 EACH TAB PO SCH ×3 (08:49→23:36)
[2020-10-20] MEDS ORDERED: PANTOPRAZOLE 40 MG/10 ML VIAL IVP SCH (09:00)
[2020-10-20] MEDS ORDERED: NON FORMULARY DRUG (Lactose-Reduced Food [Ensure Plus] 237 ML Liquid) PO SCH (11:00)
[2020-10-20 11:30] LABS: Glucose,Whole Blood 106 mg/dL (75-99)
[2020-10-20] MEDS: INSULIN ASPART (NovoLOG) 100 UNIT/ML VIAL SQ SCH ×3 (11:31→20:43)
[2020-10-20] MEDS: FOLIC ACID 1 MG TAB PO SCH (11:34)
[2020-10-20] MEDS: THIAMINE 100 MG TAB PO SCH (11:34)
[2020-10-20] MEDS: DOCUSATE 100 MG CAP PO SCH (16:26)
[2020-10-20] MEDS: LACTULOSE 20 GM/30 ML CUP PO SCH (16:26)
[2020-10-20 17:10] LABS: Glucose,Whole Blood 131 mg/dL (75-99)
[2020-10-20] MEDS: BUDESONIDE 1 MG/2 ML NEBU INHALATION SCH (19:38)
[2020-10-20] MEDS ORDERED: MAGNESIUM HYDROXIDE 2,400 MG/10 ML CUP PO PRN (20:26)
[2020-10-20] MEDS ORDERED: NA PHOS,M-B/NA PHOS,DI-BA 133 ML ENEMA RECTAL PRN (20:26)
[2020-10-20] MEDS ORDERED: VANCOMYCIN 750 MG in SODIUM CHLORIDE 0.9% 250 ML IVPB ONE (20:29)
[2020-10-20] MEDS ORDERED: VANCOMYCIN IV PER PHARMACY 1 EACH MISC MISCELLANE PRN (20:29)
[2020-10-20 20:41] LABS: Glucose,Whole Blood 125 mg/dL (75-99)
[2020-10-20 21:31] LABS: ALT 23 U/L (4-34); AST 48 U/L (14-36); African American GFR (CKD) >90 (>60 ml/min/1.73 sqM); Albumin 3.5 g/dL (3.5-5.0); Alkaline Phosphatase 96 U/L (38-126); Anion Gap 7 mmol/L; Blood Urea Nitrogen 27 mg/dL (7-17); C Reactive Protein 7.3 mg/dL (<1.0); Calcium 9.4 mg/dL (8.4-10.2); Carbon Dioxide 36 mmol/L (22-30); Chloride 94 mmol/L (98-107); Glucose 127 mg/dL (74-99); Non-African American GFR(CKD) >90 (>60 ml/min/1.73 sqM); Potassium 3.9 mmol/L (3.5-5.1); Sodium 137 mmol/L (137-145); Total Bilirubin 0.5 mg/dL (0.2-1.3); Total Protein 6.3 g/dL (6.3-8.2)
[2020-10-20] MEDS: PIPERACILLIN-TAZOBACTAM 3.375 GM in SODIUM CHLORIDE 0.9% 100 ML IVPB SCH (22:04)
[2020-10-20] MEDS: FUROSEMIDE 10 MG/ML 4 ML VIAL IV SCH (22:09)
[2020-10-20] MEDS: PREGABALIN 100 MG CAP PO SCH (22:13)
[2020-10-20] MEDS: HEPARIN SODIUM,PORCINE/PF 5,000 UNIT/0.5 ML SYRINGE SQ SCH (22:13)
[2020-10-20] MEDS: LEVOFLOXACIN 500 MG TAB PO SCH (22:13)
[2020-10-20] MEDS: ATORVASTATIN 40 MG TAB PO SCH (22:13)
[2020-10-20] MEDS: FENOFIBRATE 160 MG TAB PO SCH (22:16)
--- NOTE | 2020-10-20 22:56 | HP ---
HISTORY AND PHYSICAL DATE OF SERVICE: 10/20/2020 CHIEF COMPLAINT: Shortness of breath. HISTORY OF PRESENT ILLNESS: This 70-year-old woman with a past medical history of multiple medical problems was recently admitted to [facility]. Patient was discharged to [facility]. The patient had shortness which was multifactorial, including COPD and CHF, acute exacerbation. Patient improved significantly, but in [facility] apparently the patient reports that her intake was restricted to 1500 mL and the patient had shortness of breath about 5 days ago. The patient apparently 2-3 L oxygen by nasal cannula. The patient also had some cough. The patient apparently had pneumonia. Patient was given Levaquin and the patient had 3 days of Levaquin. The patient also had a second dose of valdes vaccination. The patient received vaccine about 11 a.m. and then at 12:30 the patient had recurrence of symptoms. The patient was taken to [facility] for further evaluation and treatment. There is no history any rigors or chills at this time. The most recent chest x-ray, which was reviewed personally by me, showed possible infiltrate in the right lower lobe suggestive of pneumonia. Patient was admitted for further evaluation and treatment. There is no history of any fever, rigor or chills. No history of headache, loss of consciousness, seizures at this time. The patient also had UTI with pseudomonas during the previous admission. PAST MEDICAL HISTORY: History of COPD, hypertension, pneumonia, history of spinal stenosis, depression. HOME MEDICATIONS: Bisacodyl, vitamin B1, Zoloft, Senokot, Lyrica, Fleets enema, multivitamins, Lopressor, Milk of Magnesia, Levaquin, Cephulac, DuoNeb, [place]rington, TriCor, vitamin D3, Zyrtec, Pulmicort, Lipitor, Ventolin and Tylenol. ALLERGIES: ADHESIVE TAPES, ALMONDS and IODINATED CONTRAST, LATEX. FAMILY HISTORY: History of memory impairment and spinal disease. SOCIAL HISTORY: No history of smoking. No history of alcohol. REVIEW OF SYSTEMS: ENT: Diminished hearing. Diminished vision. CARDIOVASCULAR SYSTEM: As mentioned earlier. RESPIRATORY SYSTEM: As mentioned earlier. GI: No nausea, vomiting. : No dysuria or retention. NERVOUS SYSTEM: Mild diffuse weakness. ALLERGY/IMMUNOLOGY: No asthma, hayfever. MUSCULOSKELETAL: As mentioned earlier. HEMATOLOGY/ONCOLOGY: No history of anemia. ENDOCRINE: No history of diabetes, hypothyroidism. CONSTITUTIONAL: As mentioned earlier. DERMATOLOGY: Negative. RHEUMATOLOGY: Negative. PSYCHIATRY: As mentioned earlier. PHYSICAL EXAMINATION: Patient alert and oriented x3. Pulse is 109, blood pressure 122/58, respiration 16, temperature 97.3, pulse ox 91% on 3 L. HEENT: Conjunctivae normal. Oral mucosa moist. NECK: No jugular venous distention. No carotid bruit. No lymph node enlargement. CARDIOVASCULAR SYSTEM: S1, S2 muffled. No S3. No S4. RESPIRATORY SYSTEM: Breath sounds diminished at the bases. A few scattered rhonchi and crackles. ABDOMEN: Soft, non-tender. No mass palpable. LEGS: No edema. No swelling. NERVOUS SYSTEM: Higher functions as mentioned earlier. Moves all 4 limbs. No focal motor or sensory deficit. LYMPHATICS: No lymph node palpable in neck, axillae or groin. SKIN: No ulcer, rash, bleeding. JOINTS: No active deforming arthropathy. LABS: At this time platelets are 145, sodium 135. CO2 is 41. ASSESSMENT: 1. Shortness of breath for evaluation. Possible COPD, acute exacerbation, with right lower lobe pneumonia Gram-negative or healthcare-associated pneumonia. 2. Recently completed second dose of COVID-19 shot. 3. History of congestive heart failure with chronic diastolic dysfunction, ejection fraction 50% to 55%. 4. Hyponatremia. 5. Elevated random glucose. 6. Hypertension. 7. History of pneumonia. 8. History of spinal stenosis. 9. History of depression. 10.Remote history of nicotine dependence. 11.Mild protein-calorie malnutrition. BMI of 19.5. RECOMMENDATIONS AND DISCUSSION: In this 70-year-old woman who presented with multiple complex medical issues, we will monitor the patient closely, continue the current medications, continue symptomatic treatment. Will initiate broad-spectrum IV antibiotics. I would also recommend consultation with Pulmonary. Resume the home medications. Continue with steroids. Prognosis guarded because of multiple complex medical issues. Further recommendations to follow. We will continue the PT/OT. Once the patient is improved, we will send the patient back to [facility]. MMWALESKAL / MARIELN: [id number] / MTDOctavio
[2020-10-20] MEDS: ALPRAZolam 0.25 MG TAB PO PRN (23:36)
[2020-10-21 00:35] LABS: Appearance,Urine Clear (Clear); Bilirubin,Urine Negative (Negative); Blood,Urine Negative (Negative); Color,Urine Colorless; Glucose,Urine (UA) Negative (Negative); Ketones,Urine Negative (Negative); Leukocyte Esterase,Urine Negative (Negative); Nitrite,Urine Negative (Negative); PH, Urine 7.5 (5.0-8.0); Protein,Urine Negative (Negative); Specific Gravity,Urine 1.005 (1.001-1.035); Urobilinogen,Urine <2.0 mg/dL (<2.0)
[2020-10-21] MEDS: PIPERACILLIN-TAZOBACTAM 3.375 GM in SODIUM CHLORIDE 0.9% 100 ML IVPB SCH ×2 (05:05→15:43)
[2020-10-21 07:25] LABS: Glucose,Whole Blood 85 mg/dL (75-99)
[2020-10-21] MEDS: INSULIN ASPART (NovoLOG) 100 UNIT/ML VIAL SQ SCH ×4 (07:29→22:12)
[2020-10-21] MEDS: BUDESONIDE 1 MG/2 ML NEBU INHALATION SCH ×2 (07:47→21:26)
[2020-10-21] MEDS: IPRATROPIUM-ALBUTEROL 3 ML NEB INHALATION SCH ×4 (07:48→21:26)
[2020-10-21] MEDS: PANTOPRAZOLE 40 MG TABLET PO SCH (08:56)
[2020-10-21] MEDS: CHOLECALCIFEROL 25 MCG (1000 IU) TABLET PO SCH (08:56)
[2020-10-21] MEDS: HYDROcodone/APAP 10-325MG 1 EACH TAB PO SCH ×2 (08:57→15:45)
[2020-10-21] MEDS: METOPROLOL TARTRATE 12.5 MG TAB PO SCH (08:57)
[2020-10-21] MEDS: DOCUSATE 100 MG CAP PO SCH ×2 (08:57→17:47)
[2020-10-21] MEDS: predniSONE 20 MG TAB PO SCH (08:57)
[2020-10-21] MEDS: PREGABALIN 100 MG CAP PO SCH ×2 (08:57→22:13)
[2020-10-21] MEDS: HEPARIN SODIUM,PORCINE/PF 5,000 UNIT/0.5 ML SYRINGE SQ SCH ×2 (08:58→22:43)
[2020-10-21] MEDS: LACTULOSE 20 GM/30 ML CUP PO SCH ×2 (08:58→17:47)
[2020-10-21] MEDS: FUROSEMIDE 10 MG/ML 4 ML VIAL IV SCH (08:58)
[2020-10-21] MEDS: SERTRALINE 100 MG TAB PO SCH (08:58)
[2020-10-21 10:10] LABS: Basophils % (A) 0 %; Eosinophils # (A) 0.3 k/uL (0-0.7); Eosinophils % (A) 3 %; HCT 38.4 % (34.0-46.0); HGB 12.1 gm/dL (11.4-16.0); Hypochromasia Slight; Lymphocytes # (A) 0.9 k/uL (1.0-4.8); Lymphocytes % (A) 11 %; MCHC 31.6 g/dL (31.0-37.0); MCV 91.9 fL (80.0-100.0); Mean Platelet Volume 9.3; Monocytes # (A) 0.4 k/uL (0-1.0); Monocytes % (A) 5 %; Neutrophils # (A) 6.5 k/uL (1.3-7.7); Neutrophils % (A) 80 %; Platelet Count 149 k/uL (150-450); RBC 4.18 m/uL (3.80-5.40); RDW 15.1 % (11.5-15.5); WBC 8.1 k/uL (3.8-10.6)
[2020-10-21] MEDS: ALPRAZolam 0.25 MG TAB PO PRN (10:13)
[2020-10-21] MEDS: MULTIVITAMINS, THERA 1 EACH TAB PO SCH (11:10)
[2020-10-21] MEDS: THIAMINE 100 MG TAB PO SCH (11:10)
[2020-10-21] MEDS: FOLIC ACID 1 MG TAB PO SCH (11:10)
[2020-10-21] MEDS ORDERED: methylPREDNISolone SOD SUCCI 125 MG/2 ML VIAL IV ONE (11:39)
[2020-10-21] MEDS: FAMOTIDINE 20 MG/2 ML VIAL IV ONE ×2 (13:05→13:57)
[2020-10-21] MEDS: diphenhydrAMINE 50 MG/ML 1 ML VIAL IVP ONE ×2 (13:05→13:57)
[2020-10-21] MEDS: VANCOMYCIN 1,000 MG in SODIUM CHLORIDE 0.9% 250 ML IVPB SCH (13:06)
[2020-10-21] MEDS ORDERED: VANCOMYCIN 1,000 MG in SODIUM CHLORIDE 0.9% 250 ML IVPB SCH (15:00)
[2020-10-21 16:13] LABS: Glucose,Whole Blood 275 mg/dL (75-99)
--- NOTE | 2020-10-21 16:50 | PN ---
PROGRESS NOTE DATE OF SERVICE: 10/21/2020 INTERVAL HISTORY: This 70-year-old woman who was admitted shortness of breath as well as COPD acute exacerbation, right lower pneumonia is being closely monitored. COVID-19 is negative. Hospital acquired pneumonia is suspected. Multiple consultants are following the patient closely. Today the patient's nausea is slightly improved. The D-dimer is elevated 1.37. ALLERGIES: CONTRAST. PAST MEDICAL HISTORY: Reviewed. REVIEW OF SYSTEMS: CARDIOVASCULAR: No angina. RESPIRATORY: As mentioned earlier. GI: As mentioned earlier. : No dysuria. NERVOUS SYSTEM: No numbness or weakness. CURRENT MEDICATIONS: Reviewed and include Tylenol, Dixon, DuoNeb, Xanax, Lipitor, Pulmicort, Colace, Pepcid, Lofibra, folic acid, Lasix. Doses reviewed. PHYSICAL EXAMINATION: GENERAL: Patient is alert and oriented times three. VITAL SIGNS: Pulse 106, blood pressure 140/61, respirations 24, temperature 98.2, pulse ox 94% on 3 liters. HEENT: Conjunctivae normal. Oral mucosa moist. NECK: No jugular venous distention. No carotid bruits. No lymph node enlargement. RESPIRATORY: Breath sounds diminished at the bases. Bilateral scattered rhonchi and crackles. HEART: S1 and S2, muffled. ABDOMEN: Soft, no tenderness. EXTREMITIES: No edema, no swelling. NERVOUS: No focal deficits. LAB: D-dimer is 1.6. Other labs are noted. ASSESSMENT: 1. Shortness of breath, possible chronic obstructive pulmonary disease exacerbation with right lower lobe pneumonia, possibly gram-negative, healthcare associated pneumonia. 2. Recently completed a 2nd dose of COVID-19 shot. 3. History of congestive heart failure with chronic diastolic dysfunction, ejection fraction 50-55%. 4. Hyponatremia. 5. Elevated random glucose. 6. Hypertension. 7. History of pneumonia. 8. History of spinal stenosis. 9. Elevated D-dimer. 10.History of depression. 11.History of nicotine dependence. 12.Mild protein calorie malnutrition, BMI of 19.5. RECOMMENDATIONS AND DISCUSSION: Recommend to continue current management and continue symptomatic treatment. Otherwise, continue the antibiotics and bronchodilators. Follow closely with Pulmonary. Otherwise I would also recommend follow the cultures which are negative so far. Continue the rest of the medications and I would also recommend a CT angio of the chest. The patient has allergy to medications. I would recommend desensitization per protocol. Guarded prognosis. Further recommendations to follow. MMODL / IJN: [id number] /
[2020-10-21] MEDS ORDERED: diphenhydrAMINE 50 MG/ML 1 ML VIAL IVP ONE (18:30)
[2020-10-21] MEDS ORDERED: FAMOTIDINE 20 MG/2 ML VIAL IV ONE (18:30)
--- NOTE | 2020-10-21 19:05 | CT ---
EXAMINATION TYPE: CT angio chest DATE OF EXAM: 10/21/2020 COMPARISON: 06/20/2020 HISTORY: SOB, COPD, elevated d-dimer CT DLP: 223.9 mGycm Automated exposure control for dose reduction was used. CONTRAST: Performed with IV Contrast, patient injected with 64cc mL of Isovue 370. There are 3-D post processed images. There is diffuse pulmonary emphysema with some coarse interstitial density suggestive of pulmonary fi brosis. There is some coalescent density right and left posterior lung bases. Heart size is normal. T here is no pericardial effusion. Thoracic aorta is intact. There is no aneurysm or dissection. There is 2 x 1 cm mediastinal lymph nod e. There are no hilar masses. There is normal contrast opacification of the pulmonary arteries. There are no filling defects. The bony thorax is intact. There is no significant compression fracture. IMPRESSION: No evidence of pulmonary embolism. Bilateral lower lobe pulmonary infiltrates and atelectasis. There is clearing of the pleural effusion s compared to old exam. Right lower lobe infiltrate improved compared to old exam. Pulmonary emphysema and pulmonary fibrosis.
[2020-10-21] MEDS ORDERED: SODIUM CHLORIDE 0.9% 1,000 ML IV SCH (20:00)
[2020-10-21 21:11] LABS: Glucose,Whole Blood 104 mg/dL (75-99)
[2020-10-21] MEDS: ATORVASTATIN 40 MG TAB PO SCH (22:43)
--- NOTE | 2020-10-21 23:14 | XR ---
EXAMINATION TYPE: XR chest 1V portable DATE OF EXAM: 10/21/2020 COMPARISON: 10/19/2020 HISTORY: Short of breath TECHNIQUE: FINDINGS: Heart size is fairly normal. There is no obvious heart failure. There is coarse interstitia l infiltrate in the mid and lower lung boyle. There is no pleural effusion. There are no hilar vincenzo s. IMPRESSION: Interstitial lower lobe pulmonary infiltrates appear slightly worse than recent exam. Nor mal heart.
[2020-10-22] MEDS: FENOFIBRATE 160 MG TAB PO SCH ×2 (00:44→21:11)
[2020-10-22] MEDS: PIPERACILLIN-TAZOBACTAM 3.375 GM in SODIUM CHLORIDE 0.9% 100 ML IVPB SCH ×3 (00:44→15:26)
[2020-10-22] MEDS: LEVOFLOXACIN 500 MG TAB PO SCH ×2 (00:44→21:11)
[2020-10-22] MEDS: VANCOMYCIN 1,000 MG in SODIUM CHLORIDE 0.9% 250 ML IVPB SCH ×2 (00:45→12:46)
[2020-10-22] MEDS: HYDROcodone/APAP 10-325MG 1 EACH TAB PO SCH (04:02)
[2020-10-22] MEDS: HYDROcodone/APAP 10-325MG 1 EACH TAB PO PRN ×3 (04:58→21:11)
[2020-10-22 06:56] LABS: African American GFR (CKD) >90 (>60 ml/min/1.73 sqM); Non-African American GFR(CKD) 89 (>60 ml/min/1.73 sqM)
[2020-10-22] MEDS: INSULIN ASPART (NovoLOG) 100 UNIT/ML VIAL SQ SCH ×4 (07:32→21:11)
[2020-10-22 07:33] LABS: Glucose,Whole Blood 86 mg/dL (75-99)
[2020-10-22] MEDS: IPRATROPIUM-ALBUTEROL 3 ML NEB INHALATION SCH ×4 (07:47→20:08)
[2020-10-22] MEDS: BUDESONIDE 1 MG/2 ML NEBU INHALATION SCH ×2 (07:47→20:08)
[2020-10-22] MEDS: PANTOPRAZOLE 40 MG TABLET PO SCH (08:33)
[2020-10-22] MEDS: LACTULOSE 20 GM/30 ML CUP PO SCH ×2 (08:33→17:33)
[2020-10-22] MEDS: predniSONE 20 MG TAB PO SCH (08:33)
[2020-10-22] MEDS: DOCUSATE 100 MG CAP PO SCH ×2 (08:33→17:33)
[2020-10-22] MEDS: FUROSEMIDE 10 MG/ML 4 ML VIAL IV SCH (08:34)
[2020-10-22] MEDS: SERTRALINE 100 MG TAB PO SCH (09:52)
[2020-10-22] MEDS: CHOLECALCIFEROL 25 MCG (1000 IU) TABLET PO SCH (09:52)
[2020-10-22] MEDS: HEPARIN SODIUM,PORCINE/PF 5,000 UNIT/0.5 ML SYRINGE SQ SCH ×2 (09:53→21:11)
[2020-10-22] MEDS: PREGABALIN 100 MG CAP PO SCH ×2 (09:53→21:11)
[2020-10-22] MEDS: MULTIVITAMINS, THERA 1 EACH TAB PO SCH (11:17)
[2020-10-22] MEDS: ALPRAZolam 0.25 MG TAB PO PRN (11:17)
[2020-10-22] MEDS: THIAMINE 100 MG TAB PO SCH (11:17)
[2020-10-22] MEDS: FOLIC ACID 1 MG TAB PO SCH (11:17)
[2020-10-22 11:44] LABS: Glucose,Whole Blood 108 mg/dL (75-99)
--- NOTE | 2020-10-22 12:04 | P.CNPUL ---
History of Present Illness Consult date: 10/22/20 Requesting physician: Anat Hagen Reason for consult: dyspnea, COPD Chief complaint: Shortness of breath History of present illness: This a very pleasant 70-year-old female patient with a known history of chronic hypoxic respiratory failure maintained on home oxygen secondary to chronic obstructive pulmonary disease. Usually on 3-4 L via nasal cannula at home. She also has a history of hypertension, spinal stenosis, depression. Previous smoker. He is maintained on DuoNeb inhalations, Pulmicort inhalations in the outpatient setting. She presented to the emergency room yesterday with the rather sudden onset of shortness of breath. While she was taking a breathing treatment. She had been out earlier for her second dose of Moderna COVID-19 vaccination. No fever, chills or night sweats. No productive cough. No chest tightness or wheezing. CT angiogram ruled out pulmonary embolism. There is noted bilateral lower lobe pulmonary infiltrate/atelectasis. Pulmonary emphysema, pulmonary fibrosis. She is seen today in consultation on the regular medical floor. She is currently sitting up in bed. Awake and alert in no acute distress. Breathing a bit easier today compared to yesterday. O2 saturation 97% on 3 L. Afebrile. Blood culture reveals no growth. Sputum culture pending. Urine culture reveals no growth. White count 8.1 from 12.1. Platelets 149. Height 0.9. Sodium 137. Potassium 3.9. Creatinine 0.63. Lopez virus not detected. Pro-calcitonin 0.16. She is currently on Zosyn and Levaquin. IV diuretics. Bronchodilators. Review of Systems REVIEW OF SYSTEMS: CONSTITUTIONAL: Denies any recent significant weight loss or weight gain. EYES: Denies change in vision. EARS, NOSE, MOUTH, THROAT: Denies headaches, denies sore throat. CARDIOVASCULAR: Denies chest pain, palpitations or syncopal episodes. RESPIRATORY: Positive for shortness of breath, cough, congestion no hemoptysis. GASTROINTESTINAL: Denies change in appetite, denies abdominal pain GENITOURINARY: Denies hematuria, denies infections. MUSKULOSKELETAL: Denies pain, denies swelling. INTEGUMENTARY: Denies rash, denies eczema. NEUROLOGICAL: Denies recent memory loss, no recent seizure activity. PSYCHIATRIC: Denies anxiety, denies depression. HEMATOLOGIC/LYMPHATIC: Denies anemia, denies enlarged lymph nodes. Past Medical History Past Medical History: COPD, Hypertension, Pneumonia Additional Past Medical History / Comment(s): spinal stenosis, depression History of Any Multi-Drug Resistant Organisms: None Reported Past Surgical History: Hysterectomy Additional Past Surgical History / Comment(s): foot bunion Past Anesthesia/Blood Transfusion Reactions: No Reported Reaction Past Psychological History: Depression Smoking Status: Former smoker Past Alcohol Use History: None Reported Past Drug Use History: None Reported - Past Family History Father Family Medical History: Memory Impairment Additional Family Medical History / Comment(s): SPINAL DISEASE Mother History Unknown: Yes Additional Family Medical History / Comment(s): CKD, RENAL FAILURE Medications and Allergies Home Medications Medication Instructions Recorded Confirmed Type Atorvastatin Calcium [Lipitor] 40 mg PO HS 06/18/20 10/19/20 History Biotin 10,000 mcg PO DAILY@0800 06/18/20 10/19/20 History Cetirizine HCl [Zyrtec] 10 mg PO DAILY@0800 06/18/20 10/19/20 History Fenofibrate Nanocrystallized 145 mg PO HS 06/18/20 10/19/20 History [Tricor] Sertraline HCl [Zoloft] 100 mg PO DAILY@0800 06/18/20 10/19/20 History Albuterol Inhaler [Ventolin Hfa 2 puff INHALATION RT-QID PRN 09/25/20 10/19/20 History Inhaler] Albuterol Nebulized [Ventolin 2.5 mg INHALATION RT-QID PRN 09/25/20 10/19/20 History Nebulized] Cholecalciferol (Vitamin D3) 250 mcg PO DAILY@0800 09/25/20 10/19/20 History [Vitamin D3 (5000 Iu)] Ipratropium Nebulized [Atrovent 0.5 mg INHALATION RT-QID PRN 09/25/20 10/19/20 History Nebulized 0.2 MG/ML] Ipratropium-Albuterol Nebulize 3 ml INHALATION RT-Q4H PRN ml 10/03/20 10/19/20 Rx [Duoneb 0.5 mg-3 mg/3 ml Soln] Ipratropium-Albuterol Nebulize 3 ml INHALATION RT-QID ml 10/03/20 10/19/20 Rx [Duoneb 0.5 mg-3 mg/3 ml Soln] Sennosides [Senokot] 8.6 mg PO DAILY PRN tab 10/03/20 10/19/20 Rx Acetaminophen Tab [Tylenol] 650 mg PO Q6H PRN 10/19/20 10/19/20 History Budesonide [Pulmicort] 1 mg INHALATION RT-BID@0800,1700 10/19/20 10/19/20 History Docusate [Colace] 100 mg PO BID@0800,1700 10/19/20 10/19/20 History Folic Acid 1 mg PO DAILY@1100 10/19/20 10/19/20 History Furosemide [Lasix] 40 mg PO DAILY@0800 10/19/20 10/19/20 History HYDROcodone/APAP 10-325MG [[place] 1 tab PO Q8H 10/19/20 10/19/20 History 10-325] INSULIN ASPART (NovoLOG) [NovoLOG See Protocol SQ ACHS 10/19/20 10/19/20 History (formulary)] Lactose-Reduced Food [Ensure Plus] 120 ml PO BID@0600,1100 10/19/20 10/19/20 History Lactulose [Cephulac] 20 gm PO BID@0800,1700 10/19/20 10/19/20 History Levofloxacin [Levaquin] 500 mg PO HS 10/19/20 10/19/20 History Magnesium Hydroxide [Milk of 7,200 mg PO Q48H PRN 10/19/20 10/19/20 History Magnesia Concentrate] Metoprolol Tartrate [Lopressor] 12.5 mg PO DAILY@0800 10/19/20 10/19/20 History Multivitamins, Thera [Multivitamin 1 tab PO DAILY@1100 10/19/20 10/19/20 History (formulary)] Na Phos,M-B/Na Phos,Di-Ba [Fleet 133 ml RECTAL DAILY PRN 10/19/20 10/19/20 History Adult] Pregabalin [Lyrica] 100 mg PO BID@0800,2100 10/19/20 10/19/20 History Simethicone Chew [Mylicon Chew] 80 mg PO QID PRN 10/19/20 10/19/20 History Thiamine [Vitamin B-1] 100 mg PO DAILY@1100 10/19/20 10/19/20 History bisacodyL [Bisacodyl] 10 mg RECTAL DAILY PRN 10/19/20 10/19/20 History Allergies Allergy/AdvReac Type Severity Reaction Status Date / Time adhesive tape Allergy Itching Verified 10/19/20 15:40 almond Allergy Unknown Verified 10/19/20 15:40 Iodinated Contrast Media Allergy Unknown Verified 10/19/20 15:40 latex Allergy Itching Verified 10/19/20 15:40 Physical Exam Vitals: Vital Signs Temp Pulse Pulse Resp BP Pulse Ox 10/22/20 11:33 90 18 10/22/20 09:51 105 H 105/70 10/22/20 08:30 117 H 103/68 97 10/22/20 04:15 98.3 F 83 16 134/83 96 10/22/20 02:05 86 15 103/56 97 10/21/20 21:45 82 98/64 97 10/21/20 21:40 92 10/21/20 21:27 90 10/21/20 20:45 78 90/59 94 L 10/21/20 20:15 84 93/61 96 10/21/20 19:45 92 98/55 94 L 10/21/20 19:40 86 19 87/45 97 10/21/20 19:30 93 92/60 95 10/21/20 19:15 88 90/57 97 10/21/20 19:05 19 10/21/20 19:00 97.7 F 95 16 96/60 93 L 10/21/20 17:12 94 10/21/20 16:59 90 10/21/20 14:46 106 H 18 10/21/20 14:22 97.5 F L 104 H 14 106/69 96 Intake and Output 10/21/20 10/22/20 10/22/20 22:59 06:59 14:59 Intake Total 1100 950 Output Total 650 Balance 450 950 Intake: IV 500 0.9 ns 500 Intake, IV Titration 600 750 Amount Piperacillin-Tazobactam 3 100 100 .375 gm In Sodium Chloride 0.9% 100 ml @ 25 mls/hr IVPB Q8HR [facility] Rx# :[id number] Sodium Chloride 0.9% 1, 250 400 000 ml @ 50 mls/hr IV . Q20H [facility] Rx#:[id number] Vancomycin 1,000 mg In 250 250 Sodium Chloride 0.9% 250 ml @ 125 mls/hr IVPB Q12H [facility] Rx#:[id number] Oral 200 Output: Urine 650 Other: Voiding Method Indwelling Catheter Indwelling Catheter GENERAL EXAM: Alert, pleasant 70-year-old female patient, on 3 L nasal cannula,, comfortable in no apparent distress. HEAD: Normocephalic. EYES: Normal reaction of pupils, equal size. NOSE: Clear with pink turbinates. THROAT: No erythema or exudates. NECK: No masses, no JVD. CHEST: No chest wall deformity. LUNGS: Equal air entry with crackles in posterior bases. CVS: S1 and S2 normal with no audible murmur, regular rhythm. ABDOMEN: No hepatosplenomegaly, normal bowel sounds, no guarding or rigidity. SPINE: No scoliosis or deformity SKIN: No rashes CENTRAL NERVOUS SYSTEM: No focal deficits, tone is normal in all 4 extremities. EXTREMITIES: There is no peripheral edema. No clubbing, no cyanosis. Peripheral pulses are intact. Results - Laboratory Findings CBC and BMP: 10/21/20 09:14 10/22/20 06:14 PT/INR, D-dimer D-Dimer 1.37 mg/L FEU (<0.60) H 10/20/20 20:36 Abnormal lab findings: Abnormal Labs 10/19/20 10/19/20 10/20/20 15:26 15:26 11:28 Plt Count 145 L Lymphocytes # 0.6 L ESR D-Dimer Sodium 135 L Chloride 87 L Carbon Dioxide 41 H* BUN 40 H Glucose 138 H POC Glucose (mg/dL) 106 H AST C-Reactive Protein Procalcitonin 10/20/20 10/20/20 10/20/20 17:04 20:36 20:36 Plt Count Lymphocytes # ESR 29 H D-Dimer Sodium Chloride 94 L Carbon Dioxide 36 H BUN 27 H Glucose 127 H POC Glucose (mg/dL) 131 H AST 48 H C-Reactive Protein 7.3 H Procalcitonin 10/20/20 10/20/20 10/21/20 20:36 20:39 09:14 Plt Count 149 L Lymphocytes # 0.9 L ESR D-Dimer 1.37 H Sodium Chloride Carbon Dioxide BUN Glucose POC Glucose (mg/dL) 125 H AST C-Reactive Protein Procalcitonin 10/21/20 10/21/20 10/21/20 09:14 16:11 21:10 Plt Count Lymphocytes # ESR D-Dimer Sodium Chloride Carbon Dioxide BUN Glucose POC Glucose (mg/dL) 275 H 104 H AST C-Reactive Protein Procalcitonin 0.16 H 10/22/20 11:39 Plt Count Lymphocytes # ESR D-Dimer Sodium Chloride Carbon Dioxide BUN Glucose POC Glucose (mg/dL) 108 H AST C-Reactive Protein Procalcitonin - Diagnostic Findings Chest x-ray: image reviewed CT scan - chest: image reviewed Assessment and Plan Assessment: 1 Acute on chronic hypoxemic respiratory failure secondary to an acute exacerb ation of chronic obstructive pulmonary disease, cannot rule out early pneumonia, COVID-19 negative 2 Chronic hypoxemic respiratory failure, on home O2, 3-4 L/m per nasal cannula 3 Chronic obstructive pulmonary disease 4 History of chronic tobacco dependence 5 Hypertension 6 History of depression 7 Hyperlipidemia Plan: The patient was seen and evaluated by Dr. Pringle Chest x-ray, CAT scans and labs reviewed Continue bronchodilators, prednisone, diuretics, antibiotics Titrate the FiO2 as tolerated Heparin for DVT prophylaxis We will continue to follow and make further recommendations based on her clinical status I, the cosigning physician, performed a history & physical examination of the patient. Lungs sounds crackles in the bilateral posterior bases Maintaining good O2 saturations in the 90s on 3 L/m per nasal cannula. I discussed the assessment and plan of care with my nurse practitioner, Belem Gayle. I attest to the above consultation as dictated by her. Time with Patient: Greater than 30
[2020-10-22] MEDS: METOPROLOL TARTRATE 12.5 MG TAB PO SCH (12:47)
--- NOTE | 2020-10-22 13:17 | P.CRDCN ---
History of Present Illness History of present illness: HISTORY OF PRESENTING ILLNESS Patient is a pleasant 70-year-old female with history of home O2 dependent COPD hypertension, hyperlipidemia, former tobacco abuse, pulmonary hypertension with diastolic heart failure, predominantly right-sided who presents secondary to increased shortness breath. Patient was recently seen 1 month ago for shortness breath and at that time was having more right-sided heart failure symptoms with increased lower extremity edema. Her proBNP was markedly elevated at 19,300 with troponins mildly elevated at 0.038. She had a repeat echo performed which showed ejection fraction 50-55%, right ventricle severely enlarged, RV septal wall flattening in diastole and systole, moderate to severe tricuspid regurgitation, pulmonary hypertension with RVSP of 86. She was diuresed with improvement in her lower extremity swelling and discharge home. Apparently she had been feeling fairly well at rehab however then acutely became short of breath and came back to the hospital. She has been treated for COPD exacerbation however went for CT chest with contrast and received a prep with Benadryl and then became mildly hypotensive with systolics in the 80s over 50s. Therefore cardiology was consulted for hypotension. She has been receiving Lasix 40 mg IV daily however was also placed on IV fluids at 50 mL an hour after her hypotensive episode. Her blood pressures have improved to the 110s to 120s systolics and denies any lightheadedness. Her proBNP is markedly better to 2230 currently. She states overall her shortness breath is mildly improving. REVIEW OF SYSTEMS At the time of my exam: CONSTITUTIONAL: Denies fever or chills. CARDIOVASCULAR: Denies chest pain,+shortness of breath, denies orthopnea, PND or palpitations. RESPIRATORY: Denies cough. GASTROINTESTINAL: Denies abdominal pain, diarrhea, constipation, nausea or vomiting. MUSCULOSKELETAL: Denies myalgias. NEUROLOGIC: Denies numbness, tingling or weakness. ENDOCRINE: Denies fatigue, weight change, polydipsia or polyurina. GENITOURINARY: Denies burning, hematuria or urgency with micturation. HEMATOLOGIC: Denies history of anemia or bleeding. PHYSICAL EXAMINATION Vital signs reviewed. CONSTITUTIONAL: No apparent distress, frail on o2 HEENT: Head is normocephalic. Pupils are equal, round. Sclerae anicteric. Mucous membranes of the mouth are moist. No JVD. No carotid bruit. CHEST EXAMINATION: Decreased air movement bilaterally, mild expiratory wheeze. HEART EXAMINATION: Regular rate and rhythm. S1, S2 heard. No murmurs, gallops or rub. ABDOMEN: Soft, nontender. Positive bowel sounds. EXTREMITIES: 2+ peripheral pulses, no lower extremity edema and no calf tenderness. NEUROLOGIC EXAMINATION: Patient is awake, alert and oriented x3. ASSESSMENT 1. Chronic diastolic heart failure 2. Pulmonary hypertension with RVSP 87 likely group 3+ or minus other 3. Essential hypertension 4. Sinus tachycardia reactive to hypoxia 5. Acute exacerbation of COPD 6. Hypotensive episode, appeared relatively asymptomatic with blood pressure 80s over 50s. This occurred in reaction to prep for IV contrast with Benadryl and suspect mainly some vagal episode with some mild dehydration. 7. Right ventricular dilation related to pulmonary hypertension 8. Moderate to severe tricuspid regurgitation PLAN Majority of patient's complaints appear related to her pulmonary status. She does have diastolic heart failure with previous admission with much more elevated BNP at 19,000, currently improved to 1999's. She does not have any JVD and no lower extremity edema. The majority of her heart failure appears right- sided from her pulmonary hypertension and RV failure. Therefore a she appears euvolemic we will decrease the Lasix from IV to by mouth. Additionally she has been receiving IV fluids for her hypotensive episode however appears improved in that regard and we will stop IV fluids. Continue supportive care. Continue to titrate Lasix as needed. Past Medical History Past Medical History: COPD, Hypertension, Pneumonia Additional Past Medical History / Comment(s): spinal stenosis, depression History of Any Multi-Drug Resistant Organisms: None Reported Past Surgical History: Hysterectomy Additional Past Surgical History / Comment(s): foot bunion Past Anesthesia/Blood Transfusion Reactions: No Reported Reaction Past Psychological History: Depression Smoking Status: Former smoker Past Alcohol Use History: None Reported Past Drug Use History: None Reported - Past Family History Father Family Medical History: Memory Impairment Additional Family Medical History / Comment(s): SPINAL DISEASE Mother History Unknown: Yes Additional Family Medical History / Comment(s): CKD, RENAL FAILURE Medications and Allergies Home Medications Medication Instructions Recorded Confirmed Type Atorvastatin Calcium [Lipitor] 40 mg PO HS 06/18/20 10/19/20 History Biotin 10,000 mcg PO DAILY@0800 06/18/20 10/19/20 History Cetirizine HCl [Zyrtec] 10 mg PO DAILY@0800 06/18/20 10/19/20 History Fenofibrate Nanocrystallized 145 mg PO HS 06/18/20 10/19/20 History [Tricor] Sertraline HCl [Zoloft] 100 mg PO DAILY@0800 06/18/20 10/19/20 History Albuterol Inhaler [Ventolin Hfa 2 puff INHALATION RT-QID PRN 09/25/20 10/19/20 History Inhaler] Albuterol Nebulized [Ventolin 2.5 mg INHALATION RT-QID PRN 09/25/20 10/19/20 History Nebulized] Cholecalciferol (Vitamin D3) 250 mcg PO DAILY@0800 09/25/20 10/19/20 History [Vitamin D3 (5000 Iu)] Ipratropium Nebulized [Atrovent 0.5 mg INHALATION RT-QID PRN 09/25/20 10/19/20 History Nebulized 0.2 MG/ML] Ipratropium-Albuterol Nebulize 3 ml INHALATION RT-Q4H PRN ml 10/03/20 10/19/20 Rx [Duoneb 0.5 mg-3 mg/3 ml Soln] Ipratropium-Albuterol Nebulize 3 ml INHALATION RT-QID ml 10/03/20 10/19/20 Rx [Duoneb 0.5 mg-3 mg/3 ml Soln] Sennosides [Senokot] 8.6 mg PO DAILY PRN tab 10/03/20 10/19/20 Rx Acetaminophen Tab [Tylenol] 650 mg PO Q6H PRN 10/19/20 10/19/20 History Budesonide [Pulmicort] 1 mg INHALATION RT-BID@0800,1700 10/19/20 10/19/20 History Docusate [Colace] 100 mg PO BID@0800,1700 10/19/20 10/19/20 History Folic Acid 1 mg PO DAILY@1100 10/19/20 10/19/20 History Furosemide [Lasix] 40 mg PO DAILY@0800 10/19/20 10/19/20 History HYDROcodone/APAP 10-325MG [[place] 1 tab PO Q8H 10/19/20 10/19/20 History 10-325] INSULIN ASPART (NovoLOG) [NovoLOG See Protocol SQ ACHS 10/19/20 10/19/20 History (formulary)] Lactose-Reduced Food [Ensure Plus] 120 ml PO BID@0600,1100 10/19/20 10/19/20 History Lactulose [Cephulac] 20 gm PO BID@0800,1700 10/19/20 10/19/20 History Levofloxacin [Levaquin] 500 mg PO HS 10/19/20 10/19/20 History Magnesium Hydroxide [Milk of 7,200 mg PO Q48H PRN 10/19/20 10/19/20 History Magnesia Concentrate] Metoprolol Tartrate [Lopressor] 12.5 mg PO DAILY@0800 10/19/20 10/19/20 History Multivitamins, Thera [Multivitamin 1 tab PO DAILY@1100 10/19/20 10/19/20 History (formulary)] Na Phos,M-B/Na Phos,Di-Ba [Fleet 133 ml RECTAL DAILY PRN 10/19/20 10/19/20 History Adult] Pregabalin [Lyrica] 100 mg PO BID@0800,2100 10/19/20 10/19/20 History Simethicone Chew [Mylicon Chew] 80 mg PO QID PRN 10/19/20 10/19/20 History Thiamine [Vitamin B-1] 100 mg PO DAILY@1100 10/19/20 10/19/20 History bisacodyL [Bisacodyl] 10 mg RECTAL DAILY PRN 10/19/20 10/19/20 History Allergies Allergy/AdvReac Type Severity Reaction Status Date / Time adhesive tape Allergy Itching Verified 10/19/20 15:40 almond Allergy Unknown Verified 10/19/20 15:40 Iodinated Contrast Media Allergy Unknown Verified 10/19/20 15:40 latex Allergy Itching Verified 10/19/20 15:40 Physical Exam Vitals: Vital Signs Temp Pulse Pulse Resp BP Pulse Ox 10/22/20 11:49 97.7 F 110 H 20 123/75 97 10/22/20 11:33 90 18 10/22/20 09:51 105 H 105/70 10/22/20 08:30 117 H 103/68 97 10/22/20 04:15 98.3 F 83 16 134/83 96 10/22/20 02:05 86 15 103/56 97 10/21/20 21:45 82 98/64 97 10/21/20 21:40 92 10/21/20 21:27 90 10/21/20 20:45 78 90/59 94 L 10/21/20 20:15 84 93/61 96 10/21/20 19:45 92 98/55 94 L 10/21/20 19:40 86 19 87/45 97 10/21/20 19:30 93 92/60 95 10/21/20 19:15 88 90/57 97 10/21/20 19:05 19 10/21/20 19:00 97.7 F 95 16 96/60 93 L 10/21/20 17:12 94 10/21/20 16:59 90 10/21/20 14:46 106 H 18 10/21/20 14:22 97.5 F L 104 H 14 106/69 96 Intake and Output 10/21/20 10/22/20 10/22/20 22:59 06:59 14:59 Intake Total 1100 950 Output Total 650 Balance 450 950 Intake: IV 500 0.9 ns 500 Intake, IV Titration 600 750 Amount Piperacillin-Tazobactam 3 100 100 .375 gm In Sodium Chloride 0.9% 100 ml @ 25 mls/hr IVPB Q8HR [facility] Rx# :[id number] Sodium Chloride 0.9% 1, 250 400 000 ml @ 50 mls/hr IV . Q20H [facility] Rx#:[id number] Vancomycin 1,000 mg In 250 250 Sodium Chloride 0.9% 250 ml @ 125 mls/hr IVPB Q12H [facility] Rx#:[id number] Oral 200 Output: Urine 650 Other: Voiding Method Indwelling Catheter Indwelling Catheter Results 10/21/20 09:14 10/22/20 06:14 Comprehensive Metabolic Panel 10/22/20 Range/Units 06:14 Creatinine 0.70 (0.52-1.04) mg/dL Current Medications Generic Name Dose Route Start Last Admin Trade Name Freq PRN Reason Stop Dose Admin Acetaminophen 650 mg 10/20/20 08:13 Acetaminophen Tab 325 Mg Tab PO Q6H PRN Fever and/ or Pain Hydrocodone Bitart/Acetaminophen 1 each 10/22/20 04:37 10/22/20 04:58 Hydrocodone/Apap 10-325mg 1 Each Tab PO 1 each Q8HR PRN Administration Pain Albuterol/Ipratropium 3 ml 10/19/20 20:00 10/22/20 11:33 Ipratropium-Albuterol 3 Ml Neb INHALATION 3 ml RT-QID [facility] Administration Albuterol/Ipratropium 3 ml 10/20/20 08:12 Ipratropium-Albuterol 3 Ml Neb INHALATION RT-Q2H PRN Shortness Of Breath Or Wheezing Alprazolam 0.25 mg 10/20/20 20:29 10/22/20 11:17 Alprazolam 0.25 Mg Tab PO 0.25 mg TID PRN Administration Anxiety Atorvastatin Calcium 40 mg 10/20/20 21:00 10/21/20 22:43 Atorvastatin 40 Mg Tab PO 40 mg HS [facility] Administration Budesonide 1 mg 10/20/20 17:00 10/22/20 07:47 Budesonide 1 Mg/2 Ml Nebu INHALATION Not Given RT-BID@0800,1700 [facility] Cholecalciferol 250 mcg 10/21/20 08:00 10/22/20 09:52 Cholecalciferol 25 Mcg (1000 Iu) Tablet PO 250 mcg DAILY@0800 [facility] Administration Docusate Sodium 100 mg 10/20/20 17:00 10/22/20 08:33 Docusate 100 Mg Cap PO 100 mg BID@0800,1700 [facility] Administration Fenofibrate 160 mg 10/20/20 21:00 10/22/20 00:44 Fenofibrate 160 Mg Tab PO 160 mg HS [facility] Administration Folic Acid 1 mg 10/20/20 11:00 10/22/20 11:17 Folic Acid 1 Mg Tab PO 1 mg DAILY@1100 [facility] Administration Furosemide 40 mg 10/23/20 09:00 Furosemide 40 Mg Tab PO DAILY [facility] Heparin Sodium (Porcine) 5,000 unit 10/20/20 21:00 10/22/20 09:53 Heparin Sodium,Porcine/Pf 5,000 Unit/0.5 Ml Syringe SQ 5,000 unit Q12HR [facility] Administration Vancomycin HCl 1,000 mg/ 250 mls @ 125 mls/hr 10/21/20 12:00 10/22/20 12:46 Sodium Chloride IVPB 125 mls/hr Q12H [facility] Administration Piperacillin Sod/Tazobactam 100 mls @ 25 mls/hr 10/21/20 16:00 10/22/20 08:34 Sod 3.375 gm/ Sodium Chloride IVPB 25 mls/hr Q8HR [facility] Administration Insulin Aspart 0 unit 10/20/20 12:30 10/22/20 11:49 Insulin Aspart (Novolog) 100 Unit/Ml Vial SQ Not Given ACHS [facility] Protocol Lactulose 20 gm 10/20/20 17:00 10/22/20 08:33 Lactulose 20 Gm/30 Ml Cup PO 20 gm BID@0800,1700 [facility] Administration Levofloxacin 500 mg 10/19/20 21:00 10/22/20 00:44 Levofloxacin 500 Mg Tab PO 500 mg HS [facility] Administration Magnesium Hydroxide 7,200 mg 10/20/20 20:26 Magnesium Hydroxide 2,400 Mg/10 Ml Cup PO Q48H PRN Constipation Metoprolol Tartrate 12.5 mg 10/21/20 08:00 10/22/20 12:47 Metoprolol Tartrate 12.5 Mg Tab PO Not Given DAILY@0800 [facility] Miscellaneous Information 0 each 10/22/20 23:00 Vancomycin Trough Due 1 Each Misc MISCELLANE 10/22/20 23:01 DIRECTED ONE Multivitamins 1 each 10/21/20 11:00 10/22/20 11:17 Multivitamins, Thera 1 Each Tab PO 1 each DAILY@1100 [facility] Administration Pantoprazole Sodium 40 mg 10/21/20 07:30 10/22/20 08:33 Pantoprazole 40 Mg Tablet PO 40 mg [id number] [facility] Administration Prednisone 40 mg 10/20/20 09:00 10/22/20 08:33 Prednisone 20 Mg Tab PO 40 mg DAILY [facility] Administration Pregabalin 100 mg 10/20/20 21:00 10/22/20 09:53 Pregabalin 100 Mg Cap PO 100 mg BID@0800,2100 [facility] Administration Senna 8.6 mg 10/20/20 08:13 Sennosides 8.6 Mg Tab PO DAILY PRN Constipation Sertraline HCl 100 mg 10/21/20 08:00 10/22/20 09:52 Sertraline 100 Mg Tab PO 100 mg DAILY@0800 [facility] Administration Simethicone 80 mg 10/20/20 08:13 Simethicone 80 Mg Chewable PO QID PRN Indigestion Sodium Biphosphate/Sodium Phosphate 133 ml 04/23/21 20:26 Na Phos,M-B/Na Phos,Di-Ba 133 Ml Enema RECTAL DAILY PRN Constipation Thiamine HCl 100 mg 10/20/20 11:00 10/22/20 11:17 Thiamine 100 Mg Tab PO 100 mg DAILY@1100 [facility] Administration Intake and Output 10/21/20 10/22/20 10/22/20 22:59 06:59 14:59 Intake Total 1100 950 Output Total 650 Balance 450 950 Intake: IV 500 0.9 ns 500 Intake, IV Titration 600 750 Amount Piperacillin-Tazobactam 3 100 100 .375 gm In Sodium Chloride 0.9% 100 ml @ 25 mls/hr IVPB Q8HR [facility] Rx# :[id number] Sodium Chloride 0.9% 1, 250 400 000 ml @ 50 mls/hr IV . Q20H [facility] Rx#:[id number] Vancomycin 1,000 mg In 250 250 Sodium Chloride 0.9% 250 ml @ 125 mls/hr IVPB Q12H [facility] Rx#:[id number] Oral 200 Output: Urine 650 Other: Voiding Method Indwelling Catheter Indwelling Catheter 10/21/20 09:14 10/22/20 06:14
[2020-10-22 16:59] LABS: Glucose,Whole Blood 185 mg/dL (75-99)
--- NOTE | 2020-10-22 17:29 | PN ---
PROGRESS NOTE DATE OF SERVICE: 10/22/2020 INTERVAL HISTORY: This is a 70-year-old woman who was admitted with shortness of breath, chronic obstructive pulmonary disease exacerbation also had some CHF also. The patient is being closely monitored. Patient is slightly more alert at this time. Chest x-ray noted. Cardiology and Pulmonology following the patient closely. PHYSICAL EXAMINATION: GENERAL: Patient is alert and oriented times three. VITAL SIGNS: Pulse 112, blood pressure 127/54, respirations 28, temperature 97.7, pulse ox 97% on 3 liters. HEENT: Conjunctivae normal. NECK: No jugular venous distention. No carotid bruits. RESPIRATORY: Breath sounds diminished at the bases. A few scattered rhonchi and crackles. HEART: S1 and S2, muffled. ABDOMEN: Soft, no tenderness. EXTREMITIES: No edema, no swelling. NERVOUS: No focal deficits. LABS: WBC 8.2, hemoglobin 12.1. ASSESSMENT: 1. Shortness of breath, possible chronic obstructive pulmonary disease acute exacerbation as well as right lower pneumonia possibly gram-negative with healthcare associated pneumonia. 2. History of recently completed 2nd dose of COVID-19 shot. 3. History of congestive heart failure with chronic diastolic dysfunction ejection fraction 50-55%. 4. Hyponatremia. 5. Elevated random glucose. 6. Hypertension. 7. History of pneumonia. 8. History of spinal stenosis. 9. Elevated D-dimer. 10.History of depression. 11.History of nicotine dependence. 12.Mild protein calorie malnutrition BMI of 19.5. RECOMMENDATIONS AND DISCUSSION: I recommend to continue current management and continue symptomatic treatment. Continue the antibiotics and bronchodilators. Continue steroids. Closely follow with Cardiology and Pulmonology. Guarded prognosis because of multiple complex medical issues. Further recommendations to follow. The patient is on oral diuretics at this time. The patient is on oral steroids as well. MMODL / IJN: [id number] /
[2020-10-22] MEDS: methylPREDNISolone SOD SUCCI 125 MG/2 ML VIAL IV SCH (17:34)
[2020-10-22 21:07] LABS: Glucose,Whole Blood 213 mg/dL (75-99)
[2020-10-22] MEDS: ATORVASTATIN 40 MG TAB PO SCH (21:11)
[2020-10-22] MEDS ORDERED: VANCOMYCIN TROUGH DUE 1 EACH MISC MISCELLANE ONE (23:00)
[2020-10-23] MEDS: methylPREDNISolone SOD SUCCI 125 MG/2 ML VIAL IV SCH ×3 (00:17→12:20)
[2020-10-23] MEDS: ALPRAZolam 0.25 MG TAB PO PRN ×2 (00:17→21:38)
[2020-10-23] MEDS: VANCOMYCIN 1,000 MG in SODIUM CHLORIDE 0.9% 250 ML IVPB SCH ×2 (00:18→12:21)
[2020-10-23] MEDS: PIPERACILLIN-TAZOBACTAM 3.375 GM in SODIUM CHLORIDE 0.9% 100 ML IVPB SCH ×2 (00:18→08:10)
[2020-10-23] MEDS: HYDROcodone/APAP 10-325MG 1 EACH TAB PO PRN ×2 (06:18→15:25)
[2020-10-23 07:16] LABS: Basophils % (A) 0 %; Eosinophils % (A) 1 %; HCT 33.2 % (34.0-46.0); HGB 10.6 gm/dL (11.4-16.0); Hypochromasia Slight; Lymphocytes # (A) 0.5 k/uL (1.0-4.8); Lymphocytes % (A) 10 %; MCH 29.1 pg (25.0-35.0); MCHC 31.9 g/dL (31.0-37.0); MCV 91.1 fL (80.0-100.0); Mean Platelet Volume 9.2; Monocytes # (A) 0.1 k/uL (0-1.0); Monocytes % (A) 2 %; Neutrophils # (A) 4.3 k/uL (1.3-7.7); Neutrophils % (A) 86 %; Platelet Count 134 k/uL (150-450); RBC 3.65 m/uL (3.80-5.40); RDW 15.1 % (11.5-15.5); WBC 4.9 k/uL (3.8-10.6)
[2020-10-23] MEDS: BUDESONIDE 1 MG/2 ML NEBU INHALATION SCH ×2 (07:25→19:55)
[2020-10-23] MEDS: IPRATROPIUM-ALBUTEROL 3 ML NEB INHALATION SCH ×4 (07:25→19:55)
[2020-10-23 07:31] LABS: African American GFR (CKD) >90 (>60 ml/min/1.73 sqM); Anion Gap 4 mmol/L; Blood Urea Nitrogen 33 mg/dL (7-17); Calcium 9.4 mg/dL (8.4-10.2); Chloride 93 mmol/L (98-107); Glucose 120 mg/dL (74-99); Non-African American GFR(CKD) >90 (>60 ml/min/1.73 sqM); Potassium 4.2 mmol/L (3.5-5.1); Sodium 137 mmol/L (137-145)
[2020-10-23 07:46] LABS: Glucose,Whole Blood 114 mg/dL (75-99)
[2020-10-23] MEDS: INSULIN ASPART (NovoLOG) 100 UNIT/ML VIAL SQ SCH ×4 (07:48→21:33)
[2020-10-23 07:53] LABS: Carbon Dioxide 40 mmol/L (22-30)
[2020-10-23] MEDS: METOPROLOL TARTRATE 12.5 MG TAB PO SCH (08:09)
[2020-10-23] MEDS: PANTOPRAZOLE 40 MG TABLET PO SCH (08:09)
[2020-10-23] MEDS: DOCUSATE 100 MG CAP PO SCH ×2 (08:09→16:15)
[2020-10-23] MEDS: LACTULOSE 20 GM/30 ML CUP PO SCH ×2 (08:09→16:15)
[2020-10-23] MEDS: CHOLECALCIFEROL 25 MCG (1000 IU) TABLET PO SCH (08:09)
[2020-10-23] MEDS: SERTRALINE 100 MG TAB PO SCH (08:10)
[2020-10-23] MEDS: HEPARIN SODIUM,PORCINE/PF 5,000 UNIT/0.5 ML SYRINGE SQ SCH ×2 (08:10→21:33)
[2020-10-23] MEDS: FUROSEMIDE 40 MG TAB PO SCH (08:10)
[2020-10-23] MEDS: PREGABALIN 100 MG CAP PO SCH ×2 (08:10→21:33)
[2020-10-23 11:23] LABS: Glucose,Whole Blood 201 mg/dL (75-99)
[2020-10-23] MEDS: FOLIC ACID 1 MG TAB PO SCH (12:20)
[2020-10-23] MEDS: MULTIVITAMINS, THERA 1 EACH TAB PO SCH (12:20)
[2020-10-23] MEDS: THIAMINE 100 MG TAB PO SCH (12:20)
--- NOTE | 2020-10-23 13:00 | P.PN ---
Subjective Patient is a pleasant 70-year-old female with history of home O2 dependent COPD hypertension, hyperlipidemia, former tobacco abuse, pulmonary hypertension with diastolic heart failure, predominantly right-sided who presents secondary to increased shortness breath. We were consulted for hypotension. She was feeling fairly well at rehab however then acutely became short of breath and came back to the hospital. She has been treated for COPD exacerbation however went for CT chest with contrast and received a prep with Benadryl and then became mildly hypotensive with systolics in the 80s/50s. Therefore cardiology was consulted for hypotension. She has been receiving Lasix 40 mg IV daily however was also placed on IV fluids at 50 mL an hour after her hypotensive episode. Her blood pressures have improved to the 110s to 120s systolics. Her proBNP is markedly better to 2230 currently. She states overall her shortness breath is mildly improving. Patient was recently seen 1 month ago for shortness breath and at that time was having more right-sided heart failure symptoms with increased lower extremity edema. Her proBNP was markedly elevated at 19,300 with troponins mildly elevated at 0.038. She had a repeat echo on 09/25/20 performed which showed ejection fraction 50-55%, right ventricle severely enlarged, RV septal wall flattening in diastole and systole, moderate to severe tricuspid regurgitation, pulmonary hypertension with RVSP of 86. She was diuresed with improvement in her lower extremity swelling and discharge home. Current home medications include metoprolol tartrate 12.5 mg daily, furosemide 40 mg daily, atorvastatin 40 mg nightly. 10/23/20: Patient seen and examined at bedside. She has no complaints. States her nebulizer breathing treatments have helped her breathing. She currently denies chest pain, shortness of breath. Vital signs are stable. Currently being maintained on atorvastatin 40 mg nightly, Lasix 40 mg daily, metoprolol tartrate 12.5 mg daily. Laboratory data reviewed BNP 2000s, sodium 137, potassium 4.2, serum creatinine 0.59, WBC 4.9, hemoglobin 10.6, platelets 134 PHYSICAL EXAMINATION BP 130/79 HR 96, afebrile, Oxygen saturations 94% on 3L nasal cannula CONSTITUTIONAL: No apparent distress, frail HEENT: Head is normocephalic. No JVD. No carotid bruit. CHEST EXAMINATION: Decreased air movement bilaterally, Diminished bilateral bases HEART EXAMINATION: Regular rate and rhythm. S1, S2 heard. No murmurs, gallops or rub. ABDOMEN: Soft, nontender. Positive bowel sounds. EXTREMITIES: 2+ peripheral pulses, no lower extremity edema and no calf tenderness. NEUROLOGIC EXAMINATION: Patient is awake, alert and oriented x3. ASSESSMENT Acute exacerbation of COPD Hypotensive episode, appeared relatively asymptomatic with blood pressure 80s over 50s. This occurred in reaction to prep for IV contrast with Benadryl and suspect mainly some vagal episode with some mild dehydration. Patient's BP currently stable Chronic diastolic heart failure Pulmonary hypertension with RVSP 87 Essential hypertension Sinus tachycardia reactive to hypoxia Right ventricular dilation related to pulmonary hypertension Moderate to severe tricuspid regurgitation PLAN Majority of patient's complaints appear related to her COPD, shortness of breath is improving with nebulizers. She appears euvolemic on exam. No further medication changes or cardiac workup at this time We will sign off at this time. Please reach out for any further questions or concerns. Thank you kindly for this consultation. Objective - Vital Signs Vital signs: Vital Signs Temp 97.8 F 10/23/20 05:00 Pulse 96 10/23/20 10:46 Resp 20 10/23/20 05:00 BP 130/79 10/23/20 08:06 Pulse Ox 94 L 10/23/20 08:06 Intake & Output 10/22/20 10/23/20 10/23/20 18:59 06:59 18:59 Intake Total 250 2540 Output Total 2000 800 Balance -1750 1740 Weight 57 kg Intake: IV 40 0.9 ns 40 Intake, IV Titration 250 Amount Vancomycin 1,000 mg In 250 Sodium Chloride 0.9% 250 ml @ 125 mls/hr IVPB Q12H [facility] Rx#:[id number] Oral 2500 Output: Urine 2000 800 Other: Voiding Method Indwelling Catheter Indwelling Catheter # Bowel Movements 1 - Labs CBC & Chem 7: 10/23/20 06:42 10/23/20 06:42 Labs: Abnormal Lab Results - Last 24 Hours (Table) 10/22/20 10/22/20 10/22/20 Range/Units 11:39 16:56 20:54 RBC (3.80-5.40) m/uL Hgb (11.4-16.0) gm/dL Hct (34.0-46.0) % Plt Count (150-450) k/uL Lymphocytes # (1.0-4.8) k/uL Chloride (98-107) mmol/L Carbon Dioxide (22-30) mmol/L BUN (7-17) mg/dL Glucose (74-99) mg/dL POC Glucose (mg/dL) 108 H 185 H 213 H (75-99) mg/dL 10/23/20 10/23/20 10/23/20 Range/Units 06:42 06:42 07:43 RBC 3.65 L (3.80-5.40) m/uL Hgb 10.6 L (11.4-16.0) gm/dL Hct 33.2 L (34.0-46.0) % Plt Count 134 L (150-450) k/uL Lymphocytes # 0.5 L (1.0-4.8) k/uL Chloride 93 L (98-107) mmol/L Carbon Dioxide 40 H (22-30) mmol/L BUN 33 H (7-17) mg/dL Glucose 120 H (74-99) mg/dL POC Glucose (mg/dL) 114 H (75-99) mg/dL Microbiology - Last 24 Hours (Table) 10/21/20 11:13 Gram Stain - Final Sputum Sputum Culture - Final 10/20/20 20:36 Blood Culture - Preliminary Blood No Growth after 48 hours 10/20/20 00:05 Urine Culture - Final Urine,Catheterized
--- NOTE | 2020-10-23 15:37 | P.PN ---
Subjective Progress Note Date: 10/23/20 Principal diagnosis: Shortness of breath This a very pleasant 70-year-old female patient with a known history of chronic hypoxic respiratory failure maintained on home oxygen secondary to chronic obstructive pulmonary disease. Usually on 3-4 L via nasal cannula at home. She also has a history of hypertension, spinal stenosis, depression. Previous smoker. He is maintained on DuoNeb inhalations, Pulmicort inhalations in the outpatient setting. She presented to the emergency room yesterday with the rather sudden onset of shortness of breath. While she was taking a breathing treatment. She had been out earlier for her second dose of Moderna COVID-19 vaccination. No fever, chills or night sweats. No productive cough. No chest tightness or wheezing. CT angiogram ruled out pulmonary embolism. There is noted bilateral lower lobe pulmonary infiltrate/atelectasis. Pulmonary emphysema, pulmonary fibrosis. She is seen today in consultation on the regular medical floor. She is currently sitting up in bed. Awake and alert in no acute distress. Breathing a bit easier today compared to yesterday. O2 saturation 97% on 3 L. Afebrile. Blood culture reveals no growth. Sputum culture pending. Urine culture reveals no growth. White count 8.1 from 12.1. Plat elets 149. Height 0.9. Sodium 137. Potassium 3.9. Creatinine 0.63. Lopez virus not detected. Pro-calcitonin 0.16. She is currently on Zosyn and Levaquin. IV diuretics. Bronchodilators. On 10/23/2020 patient seen in follow-up on the surgical floor, she is resting quite comfortably in bed, she is currently on 3 L of oxygen her pulse ox is 94%, she is afebrile, hemodynamically she stable, she is feeling better, breathing easier, her chest x-ray from the day before yesterday showed interstitial lower lobe pulmonary infiltrates. No cough, no chest congestion, no hemoptysis, no chest discomfort. Patient remains on Zosyn, Levaquin and vancomycin for possibility of pneumonia, she is oral Lasix once daily. Patient is on IV steroids with Solu-Medrol 60 mg every 6 hours, she tested negative for COVID 19. She is being treated for acute exacerbation of COPD, and possibility of pneumonia, her labs today show normal white count of 4.9, hemoglobin is 10.6, serum sodium is 137, potassium is 4.2, chloride was 93, CO2 was 40, B1 is 33, and creatinine was 0.59. Her pro-calcitonin level was -0.16 make possibly bacterial pneumonia less likely. Blood and sputum cultures and urine culture were all negative Objective - Vital Signs Vital signs: Vital Signs Temp 97.5 F L 10/23/20 12:11 Pulse 96 10/23/20 15:09 Resp 19 10/23/20 12:11 BP 128/76 10/23/20 12:11 Pulse Ox 94 L 10/23/20 12:11 Intake & Output 10/22/20 10/23/20 10/23/20 18:59 06:59 18:59 Intake Total 250 2540 Output Total 2000 800 1200 Balance -1750 1740 -1200 Weight 57 kg Intake: IV 40 0.9 ns 40 Intake, IV Titration 250 Amount Vancomycin 1,000 mg In 250 Sodium Chloride 0.9% 250 ml @ 125 mls/hr IVPB Q12H [facility] Rx#:[id number] Oral 2500 Output: Urine 2000 800 1200 Other: Voiding Method Indwelling Catheter Indwelling Catheter Indwelling Catheter # Bowel Movements 2 - Exam GENERAL EXAM: Alert, very pleasant, 70-year-old white female, on 3 L of oxygen the pulse ox of 94%, comfortable in no apparent distress. HEAD: Normocephalic/atraumatic. EYES: Normal reaction of pupils, equal size. Conjunctiva pink, sclera white. NOSE: Clear with pink turbinates. THROAT: No erythema or exudates. NECK: No masses, no JVD, no thyroid enlargement, no adenopathy. CHEST: No chest wall deformity. Symmetrical expansion. LUNGS: Equal air entry with a few wheezes, and rhonchi CVS: Regular rate and rhythm, normal S1 and S2, no gallops, no murmurs, no rubs ABDOMEN: Soft, nontender. No hepatosplenomegaly, normal bowel sounds, no guarding or rigidity. EXTREMITIES: No clubbing, no edema, no cyanosis, 2+ pulses and upper and lower extremities. MUSCULOSKELETAL: Muscle strength and tone normal. SPINE: No scoliosis or deformity SKIN: No rashes CENTRAL NERVOUS SYSTEM: Alert and oriented -3. No focal deficits, tone is normal in all 4 extremities. PSYCHIATRIC: Alert and oriented -3. Appropriate affect. Intact judgment and insight. - Labs CBC & Chem 7: 10/23/20 06:42 10/23/20 06:42 Labs: Abnormal Lab Results - Last 24 Hours (Table) 10/22/20 10/22/20 10/23/20 Range/Units 16:56 20:54 06:42 RBC (3.80-5.40) m/uL Hgb (11.4-16.0) gm/dL Hct (34.0-46.0) % Plt Count (150-450) k/uL Lymphocytes # (1.0-4.8) k/uL Chloride 93 L (98-107) mmol/L Carbon Dioxide 40 H (22-30) mmol/L BUN 33 H (7-17) mg/dL Glucose 120 H (74-99) mg/dL POC Glucose (mg/dL) 185 H 213 H (75-99) mg/dL 10/23/20 10/23/20 10/23/20 Range/Units 06:42 07:43 11:11 RBC 3.65 L (3.80-5.40) m/uL Hgb 10.6 L (11.4-16.0) gm/dL Hct 33.2 L (34.0-46.0) % Plt Count 134 L (150-450) k/uL Lymphocytes # 0.5 L (1.0-4.8) k/uL Chloride (98-107) mmol/L Carbon Dioxide (22-30) mmol/L BUN (7-17) mg/dL Glucose (74-99) mg/dL POC Glucose (mg/dL) 114 H 201 H (75-99) mg/dL Microbiology - Last 24 Hours (Table) 10/21/20 11:13 Gram Stain - Final Sputum Sputum Culture - Final 10/20/20 20:36 Blood Culture - Preliminary Blood No Growth after 48 hours 10/20/20 00:05 Urine Culture - Final Urine,Catheterized Assessment and Plan Plan: Assessment: 1 Acute on chronic hypoxemic respiratory failure secondary to an acute exacerbation of chronic obstructive pulmonary disease, COVID-19 was negative, pro-calcitonin level was negative at 0.16, CTA chest showed area of bilateral lower lobe infiltrates, evidence of pulmonary embolism 2 Chronic hypoxemic respiratory failure, on home O2, 3-4 L/m per nasal cannula 3 Chronic obstructive pulmonary disease 4 History of chronic tobacco dependence 5 Hypertension 6 History of depression 7 Hyperlipidemia Plan: Patient is breathing easier, doing better Fever or chills, vitals are stable Discontinue IV antibiotics, pro-calcitonin level was negative We'll start the patient on oral Augmentin Decrease Solu-Medrol to 40 mg every 8 hours We'll continue oral Lasix Continue inhalers Continue to follow I performed a history & physical examination of the patient and discussed their management with my nurse practitioner, Xena Cooper. I reviewed the nurse practitioner's note and agree with the documented findings and plan of care. Lung sounds are positive for diminished breath sounds, with a few rhonchi The findings and the impression was discussed with the patient. I attest to the doc umentation by the nurse practitioner. Time with Patient: Less than 30
[2020-10-23] MEDS: methylPREDNISolone SOD SUCCI 40 MG/ML 1 ML VIAL IV SCH ×2 (16:35→23:52)
[2020-10-23 17:19] LABS: Glucose,Whole Blood 258 mg/dL (75-99)
--- NOTE | 2020-10-23 17:28 | PN ---
PROGRESS NOTE DATE OF SERVICE: 10/23/2020 This 70-year-old woman who was admitted with shortness of breath and possible COPD, acute exacerbation, also has a history of CHF. No chest pain. No palpitations. No fever. Patient on IV steroids, which are being tapered. PHYSICAL EXAMINATION: Alert and oriented x3. Pulse 99, blood pressure 128/76, respiration 19, temperature 97.4, pulse ox 94% on 3 L. HEENT: Conjunctivae normal. NECK: No jugular venous distention. CARDIOVASCULAR SYSTEM: S1, S2 muffled. RESPIRATORY SYSTEM: Breath sounds diminished at the bases. A few scattered rhonchi. Expiratory wheezing. ABDOMEN: Soft, non-tender. NERVOUS SYSTEM: No focal deficit. LABS: WBC 6.2, hemoglobin 10.6. Other labs are noted. ASSESSMENT: 1. Shortness of breath, possible chronic obstructive pulmonary disease, acute exacerbation, as well as right lower pneumonia, Gram-negative, with possible healthcare-associated pneumonia. 2. History of recently completed second dose of COVID-19 shot. 3. History of congestive heart failure with chronic diastolic dysfunction, ejection fraction 50% to 55%. 4. Hyponatremia. 5. Elevated random glucose. 6. Hypertension. 7. History of pneumonia. 8. History of spinal stenosis. 9. Elevated D-dimer. 10.History of depression. 11.History of nicotine dependence. 12.Mild protein-calorie malnutrition. BMI of 19.5. RECOMMENDATIONS AND DISCUSSION: I recommend to continue current medications, continue with the monitoring, symptomatic treatment. Continue with tapering dose of steroids. Continue the antibiotics. Closely follow with Pulmonary and Cardiology. Guarded prognosis. Further recommendations to follow. MMODL / IJN: [id number] /
[2020-10-23 20:15] LABS: Glucose,Whole Blood 212 mg/dL (75-99)
[2020-10-23] MEDS: ATORVASTATIN 40 MG TAB PO SCH (21:33)
[2020-10-23] MEDS: AMOXIC-POT CLAV 875-125MG 1 EACH TAB PO SCH (21:33)
[2020-10-23] MEDS: FENOFIBRATE 160 MG TAB PO SCH (21:34)
[2020-10-24] MEDS: HYDROcodone/APAP 10-325MG 1 EACH TAB PO PRN ×3 (06:01→23:35)
[2020-10-24] MEDS: IPRATROPIUM-ALBUTEROL 3 ML NEB INHALATION SCH ×4 (07:21→20:58)
[2020-10-24] MEDS: BUDESONIDE 1 MG/2 ML NEBU INHALATION SCH ×2 (07:21→20:58)
[2020-10-24 07:30] LABS: African American GFR (CKD) >90 (>60 ml/min/1.73 sqM); Non-African American GFR(CKD) 87 (>60 ml/min/1.73 sqM)
[2020-10-24 08:19] LABS: Glucose,Whole Blood 112 mg/dL (75-99)
[2020-10-24] MEDS: INSULIN ASPART (NovoLOG) 100 UNIT/ML VIAL SQ SCH ×4 (08:50→21:56)
[2020-10-24] MEDS: PANTOPRAZOLE 40 MG TABLET PO SCH (09:55)
[2020-10-24] MEDS: CHOLECALCIFEROL 25 MCG (1000 IU) TABLET PO SCH (09:55)
[2020-10-24] MEDS: FUROSEMIDE 40 MG TAB PO SCH (09:55)
[2020-10-24] MEDS: MULTIVITAMINS, THERA 1 EACH TAB PO SCH (09:55)
[2020-10-24] MEDS: METOPROLOL TARTRATE 12.5 MG TAB PO SCH (09:55)
[2020-10-24] MEDS: THIAMINE 100 MG TAB PO SCH (09:55)
[2020-10-24] MEDS: LACTULOSE 20 GM/30 ML CUP PO SCH ×2 (09:56→15:54)
[2020-10-24] MEDS: FOLIC ACID 1 MG TAB PO SCH (09:56)
[2020-10-24] MEDS: methylPREDNISolone SOD SUCCI 40 MG/ML 1 ML VIAL IV SCH ×3 (09:56→23:35)
[2020-10-24] MEDS: DOCUSATE 100 MG CAP PO SCH ×2 (09:56→15:59)
[2020-10-24] MEDS: PREGABALIN 100 MG CAP PO SCH ×2 (09:56→21:54)
[2020-10-24] MEDS: SERTRALINE 100 MG TAB PO SCH (09:56)
[2020-10-24] MEDS: AMOXIC-POT CLAV 875-125MG 1 EACH TAB PO SCH ×2 (09:57→21:55)
[2020-10-24] MEDS: HEPARIN SODIUM,PORCINE/PF 5,000 UNIT/0.5 ML SYRINGE SQ SCH ×2 (10:00→21:56)
--- NOTE | 2020-10-24 11:38 | P.PN ---
Subjective Progress Note Date: 10/24/20 Principal diagnosis: Shortness of breath. This a very pleasant 70-year-old female patient with a known history of chronic hypoxic respiratory failure maintained on home oxygen secondary to chronic obstructive pulmonary disease. Usually on 3-4 L via nasal cannula at home. She also has a history of hypertension, spinal stenosis, depression. Previous smoker. He is maintained on DuoNeb inhalations, Pulmicort inhalations in the outpatient setting. She presented to the emergency room yesterday with the rather sudden onset of shortness of breath. While she was taking a breathing treatment. She had been out earlier for her second dose of Moderna COVID-19 vaccination. No fever, chills or night sweats. No productive cough. No chest tightness or wheezing. CT angiogram ruled out pulmonary embolism. There is noted bilateral lower lobe pulmonary infiltrate/atelectasis. Pulmonary emphysema, pulmonary fibrosis. She is seen today in consultation on the regular medical floor. She is currently sitting up in bed. Awake and alert in no acute distress. Breathing a bit easier today compared to yesterday. O2 saturation 97% on 3 L. Afebrile. Blood culture reveals no growth. Sputum culture pending. Urine culture reveals no growth. White count 8.1 from 12.1. Derek telets 149. Height 0.9. Sodium 137. Potassium 3.9. Creatinine 0.63. Lopez virus not detected. Pro-calcitonin 0.16. She is currently on Zosyn and Levaquin. IV diuretics. Bronchodilators. On 10/23/2020 patient seen in follow-up on the surgical floor, she is resting quite comfortably in bed, she is currently on 3 L of oxygen her pulse ox is 94%, she is afebrile, hemodynamically she stable, she is feeling better, breathing easier, her chest x-ray from the day before yesterday showed interstitial lower lobe pulmonary infiltrates. No cough, no chest congestion, no hemoptysis, no chest discomfort. Patient remains on Zosyn, Levaquin and vancomycin for possibility of pneumonia, she is oral Lasix once daily. Patient is on IV steroids with Solu-Medrol 60 mg every 6 hours, she tested negative for COVID 19. She is being treated for acute exacerbation of COPD, and possibility of pneumon ia, her labs today show normal white count of 4.9, hemoglobin is 10.6, serum sodium is 137, potassium is 4.2, chloride was 93, CO2 was 40, B1 is 33, and creatinine was 0.59. Her pro-calcitonin level was -0.16 make possibly bacterial pneumonia less likely. Blood and sputum cultures and urine culture were all negative Progress note dated 10/24/2020. The patient seemed be doing relatively well. She is on a couple liters of O2. She states that her breathing is improved. She appears not to have any distress. Currently she is on 3 L. Saturations are in the mid 90s. The rest of her vital signs are stable. No new labs today. The patient does have a history of hypertension, spinal stenosis, and depression. She quit smoking recently, but before that, smoked for over 50 + years. Objective - Vital Signs Vital signs: Vital Signs Temp 97.9 F 10/24/20 05:00 Pulse 88 10/24/20 11:14 Resp 20 10/24/20 05:00 BP 161/90 10/24/20 05:00 Pulse Ox 98 10/24/20 05:00 Intake & Output 10/23/20 10/24/20 10/24/20 18:59 06:59 18:59 Intake Total 1800 Output Total 1200 2500 Balance -1200 -700 Weight 56 kg Intake: Oral 1800 Output: Urine 1200 2500 Other: Voiding Method Indwelling Catheter Indwelling Catheter Indwelling Catheter # Bowel Movements 2 - Exam No acute distress, oriented 3. Currently on 3 L nasal cannula. Saturation is 98%. HEENT examination is grossly unremarkable. Mucous membranes are moist. No oral lesions. Neck supple. Full range of motion. No adenopathy thyromegaly or neck vein distention. Cardiovascular examination reveals regular rhythm rate. S1-S2 normal. No S3 or S4. No discernible murmur noted. Heart rate 88 bpm. Heart sounds are distant. Lungs reveal diminished breath sounds bilaterally. Expiratory wheezes and rhonchi are noted. There is slight prolongation on forced maneuver. No crackles. Breath sounds are equal bilaterally. Abdomen soft bowel sounds are heard. No masses or tenderness. Extremities are intact. No cyanosis clubbing or edema. Skin is without rash or lesion. Neurologic examination is brief but nonfocal. - Labs CBC & Chem 7: 10/23/20 06:42 10/24/20 06:31 Labs: Abnormal Lab Results - Last 24 Hours (Table) 10/23/20 10/23/20 10/24/20 Range/Units 17:11 20:14 07:10 POC Glucose (mg/dL) 258 H 212 H 112 H (75-99) mg/dL Microbiology - Last 24 Hours (Table) 10/20/20 20:36 Blood Culture - Preliminary Blood No Growth after 72 hours 10/21/20 11:13 Gram Stain - Final Sputum Sputum Culture - Final Assessment and Plan Assessment: Acute on chronic hypoxemic respiratory failure, secondary to COPD exacerbation. History of chronic hypoxemic respiratory failure, on home O2, and 3-4 L/m. Suspect severe COPD. History of chronic tobacco dependence. His give hypertension. History of depression. History of hyperlipidemia. Plan: Plan dated 10/24/2020. From the pulmonary standpoint, the patient is on Augmentin 875 mg twice a day, Pulmicort 1 mg, and formoterol, 20 g, twice a day, and albuterol sulfate and ipratropium bromide updrafts, 4 times a day and when necessary. In addition, she remains on Solu-Medrol 40 mg every 8 hours. Additional recommendations and suggestions are forthcoming. Prognosis is guarded. She will need to get into the office or a complete pulmonary function test. We will continue to follow make recommendations were appropriate. Time with Patient: Less than 30
[2020-10-24 11:52] LABS: Glucose,Whole Blood 108 mg/dL (75-99)
--- NOTE | 2020-10-24 16:08 | P.PN ---
Subjective Progress Note Date: 10/24/20 This is a 70-year-old female who was recently admitted with shortness of breath and possible COPD acute exacerbation also history of congestive heart failure. Multiple medical consultations including pulmonary and cardiology following. Patient is maintained on breathing inhalational treatments along with IV steroids and will continue at this time. IV Lasix has been transitioned oral and will continue. No reports of chest pains or palpitations noted. Patient is afebrile. Patient tolerating diet with no reports of nausea or vomiting. Review of systems: Constitutional: Reports fatigue, no reports of fever, or chills Cardiovascular: No reports of chest pain or palpitations Respiratory: reports of shortness of breath and cough phlegm production GI: No reports of nausea, vomiting, or diarrhea : No reports of dysuria or retention Neurovascular: No reports of weakness or numbness All medications have been reviewed Active Medications Acetaminophen (Acetaminophen Tab 325 Mg Tab) 650 mg PO Q6H PRN PRN Reason: Fever and/ or Pain Hydrocodone Bitart/Acetaminophen (Hydrocodone/Apap 10-325mg 1 Each Tab) 1 each PO Q8HR PRN PRN Reason: Pain Last Admin: 10/24/20 15:53 Dose: 1 each Documented by: Albuterol/Ipratropium (Ipratropium-Albuterol 3 Ml Neb) 3 ml INHALATION RT-QID [facility] Last Admin: 10/24/20 15:40 Dose: 3 ml Documented by: Albuterol/Ipratropium (Ipratropium-Albuterol 3 Ml Neb) 3 ml INHALATION RT-Q2H PRN PRN Reason: Shortness Of Breath Or Wheezing Alprazolam (Alprazolam 0.25 Mg Tab) 0.25 mg PO TID PRN PRN Reason: Anxiety Last Admin: 10/23/20 21:38 Dose: 0.25 mg Documented by: Amoxicillin/Clavulanate Potassium (Amoxic-Pot Clav 875-125mg 1 Each Tab) 1 each PO Q12HR [facility] Last Admin: 10/24/20 09:57 Dose: 1 each Documented by: Atorvastatin Calcium (Atorvastatin 40 Mg Tab) 40 mg PO HS [facility] Last Admin: 10/23/20 21:33 Dose: 40 mg Documented by: Budesonide (Budesonide 1 Mg/2 Ml Nebu) 1 mg INHALATION RT-BID@0800,1700 [facility] Last Admin: 10/24/20 07:21 Dose: 1 mg Documented by: Cholecalciferol (Cholecalciferol 25 Mcg (1000 Iu) Tablet) 250 mcg PO DAILY@0800 [facility] Last Admin: 10/24/20 09:55 Dose: 250 mcg Documented by: Docusate Sodium (Docusate 100 Mg Cap) 100 mg PO BID@0800,1700 [facility] Last Admin: 10/24/20 15:59 Dose: 100 mg Documented by: Fenofibrate (Fenofibrate 160 Mg Tab) 160 mg PO HS [facility] Last Admin: 10/23/20 21:34 Dose: 160 mg Documented by: Folic Acid (Folic Acid 1 Mg Tab) 1 mg PO DAILY@1100 [facility] Last Admin: 10/24/20 09:56 Dose: 1 mg Documented by: Formoterol Fumarate (Formoterol Fumarate 20 Mcg/2 Ml Nebu) 20 mcg INHALATION RT-BID [facility] Furosemide (Furosemide 40 Mg Tab) 40 mg PO DAILY [facility] Last Admin: 10/24/20 09:55 Dose: 40 mg Documented by: Heparin Sodium (Porcine) (Heparin Sodium,Porcine/Pf 5,000 Unit/0.5 Ml Syringe) 5,000 unit SQ Q12HR [facility] Last Admin: 10/24/20 10:00 Dose: 5,000 unit Documented by: Insulin Aspart (Insulin Aspart (Novolog) 100 Unit/Ml Vial) 0 unit SQ [facility]; Protocol Last Admin: 10/24/20 11:55 Dose: Not Given Documented by: Lactulose (Lactulose 20 Gm/30 Ml Cup) 20 gm PO BID@0800,1700 [facility] Last Admin: 10/24/20 15:54 Dose: Not Given Documented by: Magnesium Hydroxide (Magnesium Hydroxide 2,400 Mg/10 Ml Cup) 7,200 mg PO Q48H PRN PRN Reason: Constipation Methylprednisolone Sodium Succinate (Methylprednisolone Sod Succi 40 Mg/Ml 1 Ml Vial) 40 mg IV Q8HR [facility] Last Admin: 10/24/20 15:53 Dose: 40 mg Documented by: Metoprolol Tartrate (Metoprolol Tartrate 12.5 Mg Tab) 12.5 mg PO DAILY@0800 [facility] Last Admin: 10/24/20 09:55 Dose: 12.5 mg Documented by: Multivitamins (Multivitamins, Thera 1 Each Tab) 1 each PO DAILY@1100 [facility] Last Admin: 10/24/20 09:55 Dose: 1 each Documented by: Pantoprazole Sodium (Pantoprazole 40 Mg Tablet) 40 mg PO AC-BRKFST [facility] Last Admin: 10/24/20 09:55 Dose: 40 mg Documented by: Pregabalin (Pregabalin 100 Mg Cap) 100 mg PO BID@0800,2100 [facility] Last Admin: 10/24/20 09:56 Dose: 100 mg Documented by: Senna (Sennosides 8.6 Mg Tab) 8.6 mg PO DAILY PRN PRN Reason: Constipation Sertraline HCl (Sertraline 100 Mg Tab) 100 mg PO DAILY@0800 [facility] Last Admin: 10/24/20 09:56 Dose: 100 mg Documented by: Simethicone (Simethicone 80 Mg Chewable) 80 mg PO QID PRN PRN Reason: Indigestion Sodium Biphosphate/Sodium Phosphate (Na Phos,M-B/Na Phos,Di-Ba 133 Ml Enema) 133 ml RECTAL DAILY PRN PRN Reason: Constipation Thiamine HCl (Thiamine 100 Mg Tab) 100 mg PO DAILY@1100 [facility] Last Admin: 10/24/20 09:55 Dose: 100 mg Documented by: Objective - Vital Signs Vital signs: Vital Signs Temp 97.7 F 10/24/20 12:01 Pulse 92 10/24/20 15:54 Resp 16 10/24/20 12:01 BP 117/72 10/24/20 12:01 Pulse Ox 97 10/24/20 12:01 Intake & Output 10/23/20 10/24/20 10/24/20 18:59 06:59 18:59 Intake Total 1800 Output Total 1200 2500 Balance -1200 -700 Weight 56 kg Intake: Oral 1800 Output: Urine 1200 2500 Other: Voiding Method Indwelling Catheter Indwelling Catheter Indwelling Catheter # Bowel Movements 2 - Exam Gen: This is a 70-year-old female awake, alert and oriented 3, well-developed, well-nourished. Temp is 97.7F, pulse is 89, respirations are 16, blood pressure is 117/72, oxygen saturation is 97% on 3 L via nasal cannula. HEENT: Head is atraumatic, normocephalic. Pupils equal, round. Sclerae is anicteric. NECK: Supple. No JVD. No lymphadenopathy. No thyromegaly. LUNGS: Breath sounds diminished at the bases with a few scattered rhonchi noted with some mild expiratory wheezing as well. No intercostal retractions. HEART: S1, S2 are muffled ABDOMEN: Soft. Bowel sounds are present. No masses. No tenderness. EXTREMITIES: No pedal edema. No calf tenderness. NEUROLOGICAL: Patient is awake, alert and oriented x3. Diffusely weak - Labs CBC & Chem 7: 10/23/20 06:42 10/24/20 06:31 Labs: Abnormal Lab Results - Last 24 Hours (Table) 10/23/20 10/23/20 10/24/20 Range/Units 17:11 20:14 07:10 POC Glucose (mg/dL) 258 H 212 H 112 H (75-99) mg/dL 10/24/20 Range/Units 11:50 POC Glucose (mg/dL) 108 H (75-99) mg/dL Microbiology - Last 24 Hours (Table) 10/20/20 20:36 Blood Culture - Preliminary Blood No Growth after 72 hours Assessment and Plan Assessment: Shortness of breath, possible chronic obstructive pulmonary disease, acute exacerbation as well as right lower pneumonia, gram-negative, with possible healthcare associated pneumonia History of recently completed second dose of COVID-19 immunization History of congestive heart failure with chronic diastolic dysfunction, ejection fraction 50-55% Hyponatremia Elevated random glucose Hypertension History of pneumonia history of spinal stenosis Elevated d-dimer history of depression History of nicotine dependence Mild protein calorie malnutrition with a BMI of 19.5 Recommendations and discussion: Recommend to continue with current medications and management. Patient is maintained on breathing inhalational treatments along with oral antibiotics and steroids and will continue. Pulmonary and cardiology following. Case management and social work following as patient will be going to [facility] once stabilized and discharged. Continue with current medication regimen and will continue to monitor closely. Possible discharge in 24 hours.
[2020-10-24 17:39] LABS: Glucose,Whole Blood 145 mg/dL (75-99)
[2020-10-24 19:51] LABS: Glucose,Whole Blood 279 mg/dL (75-99)
[2020-10-24] MEDS: FORMOTEROL FUMARATE 20 MCG/2 ML NEBU INHALATION SCH (20:58)
[2020-10-24] MEDS: ATORVASTATIN 40 MG TAB PO SCH (21:54)
[2020-10-24] MEDS: FENOFIBRATE 160 MG TAB PO SCH (21:55)
[2020-10-25] MEDS: ALPRAZolam 0.25 MG TAB PO PRN (00:55)
[2020-10-25 07:02] LABS: Glucose,Whole Blood 122 mg/dL (75-99)
[2020-10-25] MEDS: INSULIN ASPART (NovoLOG) 100 UNIT/ML VIAL SQ SCH ×2 (07:12→13:34)
[2020-10-25] MEDS: IPRATROPIUM-ALBUTEROL 3 ML NEB INHALATION SCH ×2 (08:02→11:42)
[2020-10-25] MEDS: BUDESONIDE 1 MG/2 ML NEBU INHALATION SCH (08:02)
[2020-10-25] MEDS: FORMOTEROL FUMARATE 20 MCG/2 ML NEBU INHALATION SCH (08:02)
[2020-10-25] MEDS: HYDROcodone/APAP 10-325MG 1 EACH TAB PO PRN (10:02)
[2020-10-25] MEDS: HEPARIN SODIUM,PORCINE/PF 5,000 UNIT/0.5 ML SYRINGE SQ SCH (10:03)
[2020-10-25] MEDS: PANTOPRAZOLE 40 MG TABLET PO SCH (10:03)
[2020-10-25] MEDS: FOLIC ACID 1 MG TAB PO SCH (10:03)
[2020-10-25] MEDS: PREGABALIN 100 MG CAP PO SCH (10:03)
[2020-10-25] MEDS: CHOLECALCIFEROL 25 MCG (1000 IU) TABLET PO SCH (10:03)
[2020-10-25] MEDS: METOPROLOL TARTRATE 12.5 MG TAB PO SCH (10:03)
[2020-10-25] MEDS: DOCUSATE 100 MG CAP PO SCH (10:04)
[2020-10-25] MEDS: FUROSEMIDE 40 MG TAB PO SCH (10:04)
[2020-10-25] MEDS: SERTRALINE 100 MG TAB PO SCH (10:04)
[2020-10-25] MEDS: THIAMINE 100 MG TAB PO SCH (10:04)
[2020-10-25] MEDS: AMOXIC-POT CLAV 875-125MG 1 EACH TAB PO SCH (10:04)
[2020-10-25] MEDS: LACTULOSE 20 GM/30 ML CUP PO SCH (10:04)
[2020-10-25] MEDS: methylPREDNISolone SOD SUCCI 40 MG/ML 1 ML VIAL IV SCH (10:04)
[2020-10-25] MEDS: MULTIVITAMINS, THERA 1 EACH TAB PO SCH (10:05)
[2020-10-25 11:39] LABS: Glucose,Whole Blood 189 mg/dL (75-99)
--- NOTE | 2020-10-25 11:56 | P.PN ---
Subjective Progress Note Date: 10/25/20 This a very pleasant 70-year-old female patient with a known history of chronic hypoxic respiratory failure maintained on home oxygen secondary to chronic obstructive pulmonary disease. Usually on 3-4 L via nasal cannula at home. She also has a history of hypertension, spinal stenosis, depression. Previous smoker. He is maintained on DuoNeb inhalations, Pulmicort inhalations in the outpatient setting. She presented to the emergency room yesterday with the rather sudden onset of shortness of breath. While she was taking a breathing treatment. She had been out earlier for her second dose of Moderna COVID-19 vaccination. No fever, chills or night sweats. No productive cough. No chest tightness or wheezing. CT angiogram ruled out pulmonary embolism. There is noted bilateral lower lobe pulmonary infiltrate/atelectasis. Pulmonary emphysema, pulmonary fibrosis. She is seen today in consultation on the regular medical floor. She is currently sitting up in bed. Awake and alert in no acute distress. Breathing a bit easier today compared to yesterday. O2 saturation 97% on 3 L. Afebrile. Blood culture reveals no growth. Sputum culture pending. Urine culture reveals no growth. White count 8.1 from 12.1. Platelets 149. Height 0.9. Sodium 137. Potassium 3.9. Creatinine 0.63. Lopez virus not detected. Pro-calcitonin 0.16. She is currently on Zosyn and Levaquin. IV diuretics. Bronchodilators. On 10/23/2020 patient seen in follow-up on the surgical floor, she is resting quite comfortably in bed, she is currently on 3 L of oxygen her pulse ox is 94%, she is afebrile, hemodynamically she stable, she is feeling better, breathing easier, her chest x-ray from the day before yesterday showed interstitial lower lobe pulmonary infiltrates. No cough, no chest congestion, no hemoptysis, no chest discomfort. Patient remains on Zosyn, Levaquin and vancomycin for poss ibility of pneumonia, she is oral Lasix once daily. Patient is on IV steroids with Solu-Medrol 60 mg every 6 hours, she tested negative for COVID 19. She is being treated for acute exacerbation of COPD, and possibility of pneumonia, her labs today show normal white count of 4.9, hemoglobin is 10.6, serum sodium is 137, potassium is 4.2, chloride was 93, CO2 was 40, B1 is 33, and creatinine was 0.59. Her pro-calcitonin level was -0.16 make possibly bacterial pneumonia less likely. Blood and sputum cultures and urine culture were all negative Progress note dated 10/24/2020. The patient seemed be doing relatively well. She is on a couple liters of O2. She states that her breathing is improved. She appears not to have any distress. Currently she is on 3 L. Saturations are in the mid 90s. The rest of her vital signs are stable. No new labs today. The patient does have a history of hypertension, spinal stenosis, and depression. She quit smoking recently, but before that, smoked for over 50 + years. The patient is seen today 10/25/2020 in follow-up in the regular medical floor. She is currently sitting up in a chair at the bedside. Awake and alert in no acute distress. No worsening shortness of breath, cough or congestion. Maintaining O2 saturations up to 97% on 3 L/m per nasal cannula. Blood culture reveals no growth. Urine culture reveals no growth. Sputum culture reveals no growth. Blood glucose 189. She is continued on DuoNeb inhalations, Pulmicort inhalations, IV Solu-Medrol, antibiotics in the form of Augmentin. Objective - Vital Signs Vital signs: Vital Signs Temp 97.5 F L 10/25/20 05:00 Pulse 88 10/25/20 11:43 Resp 18 10/25/20 11:43 BP 136/79 10/25/20 05:00 Pulse Ox 97 10/25/20 08:02 Intake & Output 10/24/20 10/25/20 10/25/20 18:59 06:59 18:59 Intake Total 590 Output Total 700 1200 Balance -700 -610 Weight 121.5 kg Intake: Oral 590 Output: Urine 700 1200 Other: Voiding Method Indwelling Catheter Indwelling Catheter Indwelling Catheter # Bowel Movements 1 - Exam GENERAL EXAM: Alert, pleasant 70-year-old female patient, up in a chair at the bedside, on 3 L nasal cannula,, comfortable in no apparent distress. HEAD: Normocephalic. EYES: Normal reaction of pupils, equal size. NOSE: Clear with pink turbinates. THROAT: No erythema or exudates. NECK: No masses, no JVD. CHEST: No chest wall deformity. LUNGS: Equal air entry with crackles in posterior bases. CVS: S1 and S2 normal with no audible murmur, regular rhythm. ABDOMEN: No hepatosplenomegaly, normal bowel sounds, no guarding or rigidity. SPINE: No scoliosis or deformity SKIN: No rashes CENTRAL NERVOUS SYSTEM: No focal deficits, tone is normal in all 4 extremities. EXTREMITIES: There is no peripheral edema. No clubbing, no cyanosis. Peripheral pulses are intact. - Labs CBC & Chem 7: 10/23/20 06:42 10/24/20 06:31 Labs: Abnormal Lab Results - Last 24 Hours (Table) 10/24/20 10/24/20 10/24/20 Range/Units 11:50 17:36 19:43 POC Glucose (mg/dL) 108 H 145 H 279 H (75-99) mg/dL 10/25/20 10/25/20 Range/Units 06:57 11:25 POC Glucose (mg/dL) 122 H 189 H (75-99) mg/dL Microbiology - Last 24 Hours (Table) 10/20/20 20:36 Blood Culture - Preliminary Blood No Growth after 96 hours Assessment and Plan Assessment: 1 Acute on chronic hypoxemic respiratory failure secondary to an acute exacerbation of chronic obstructive pulmonary disease, cannot rule out early pneumonia, COVID-19 negative 2 Chronic hypoxemic respiratory failure, on home O2, 3-4 L/m per nasal cannula 3 Chronic obstructive pulmonary disease 4 History of chronic tobacco dependence 5 Hypertension 6 History of depression 7 Hyperlipidemia Plan: The patient was seen and evaluated by Dr. Silva She is cleared for discharge from the pulmonary standpoint Continue bronchodilators, prednisone taper starting at 40 mg daily for 4 days Complete a course of antibiotics Follow-up in the office in 1-2 weeks' time I, the cosigning physician, performed a history & physical examination of the patient. Lungs sounds crackles in the bilateral posterior bases. Maintaining good O2 saturations in the 90s on 3 L/m per nasal cannula. I discussed the assessment and plan of care with my nurse practitioner, Belem Gayle. I attest to the above note as dictated by her.
[2020-10-25 12:15] VITALS: BP 118/76; PULSE 107; RESP 17; TEMP 98.2
[2020-10-25 12:19] VITALS: BMI 21.3
--- NOTE | 2020-10-25 12:26 | P.DS ---
Providers Date of admission: 10/21/20 11:43 Expected date of discharge: 10/25/20 Attending physician: Anat Hagen Consults: 10/20/20 13:22 Consult Physician Routine Consulting Provider: Esa Silva Consult Reason/Comments: COPD Do you want consulting provider notified?: Yes 10/22/20 07:28 Consult Physician Routine Consulting Provider: Paolo Boles Consult Reason/Comments: Low BP Do you want consulting provider notified?: Already Contacted Primary care physician: Paramjit Gleason Hospital Course: Final diagnosis Shortness of breath, possible chronic obstructive pulmonary disease, acute exacerbation as well as right lower pneumonia, gram-negative, with possible healthcare associated pneumonia History of recently completed second dose of COVID-19 immunization History of congestive heart failure with chronic diastolic dysfunction, ejection fraction 50-55% Hyponatremia Elevated random glucose Hypertension History of pneumonia history of spinal stenosis Elevated d-dimer history of depression History of nicotine dependence Mild protein calorie malnutrition with a BMI of 19.5 Discharge disposition Patient is being discharged in a stable condition with guarded prognosis to [facility]. Patient to follow with Dr. Gleason at the [facility]. Patient will follow-up with Dr. Mejía upon discharge. Patient will continue with a short course of oral antibiotics in the form of Augmentin for the next 5 days along with prednisone taper in the outpatient setting. Total time taken is greater than 35 minutes. Hospital course This is a 70-year-old female who was recently admitted with shortness of breath and possible COPD acute exacerbation also history of congestive heart failure. Multiple medical consultations including pulmonary and cardiology following. Patient is maintained on breathing inhalational treatments along with IV steroids and will continue at this time. IV Lasix has been transitioned oral and will continue. No reports of chest pains or palpitations noted. Patient is afebrile. Patient tolerating diet with no reports of nausea or vomiting. 10/25/2020 Patient is seen and evaluated in follow-up this morning with no acute overnight issues. Currently maintained on 3 L of oxygen at her baseline and to continue with breathing inhalational treatments along with oral steroid taper and will also continue with oral Augmentin twice daily for the next 5 days and then may discontinue. Sputum and blood cultures have remained negative. Repeat COVID-19 testing has been negative. Patient will also need to follow-up with Dr. Silva's office in the outpatient setting in 2 weeks. Patient will be going to [facility] for continued PT/OT therapy for strengthening mobility. Currently no reports of chest pain, worsening shortness of breath, or palpitations. Patient is afebrile. No reports of nausea or vomiting and patient is tolerating diet. Patient will be discharged to [facility] today. Guarded prognosis. On exam vital signs are stable. Cardio S1, S2 are muffled. Respiratory shows diminished breath sounds at the bases with a few scattered rhonchi noted. Some mild expiratory wheezing noted. Abdomen is soft and nontender. Nervous system shows mild diffuse weakness. Please refer to medication reconciliation sheet for a list of medications. Patient Condition at Discharge: Fair Plan - Discharge Summary Discharge Rx Participant: No New Discharge Prescriptions: New Amoxic-Pot Clav 875-125Mg [Augmentin 875-125] 1 each PO Q12HR 5 Days #10 tab Pantoprazole [Protonix] 40 mg PO AC-BRKFST tablet. ALPRAZolam [Xanax] 0.25 mg PO TID PRN #6 tab PRN Reason: Anxiety predniSONE 10 mg PO DIRECTED #30 tab Budesonide-Formot 160-4.5 Mcg [Symbicort 160-4.5 Mcg Inhaler] 2 puff INHALATION BID 30 Days #1 inhaler Continue Sertraline HCl [Zoloft] 100 mg PO DAILY@0800 Cetirizine HCl [Zyrtec] 10 mg PO DAILY@0800 Biotin 10,000 mcg PO DAILY@0800 Fenofibrate Nanocrystallized [Tricor] 145 mg PO HS Atorvastatin Calcium [Lipitor] 40 mg PO HS Cholecalciferol (Vitamin D3) [Vitamin D3 (5000 Iu)] 250 mcg PO DAILY@0800 Ipratropium-Albuterol Nebulize [Duoneb 0.5 mg-3 mg/3 ml Soln] 3 ml INHALATION RT-QID ml Sennosides [Senokot] 8.6 mg PO DAILY PRN tab PRN Reason: Constipation Na Phos,M-B/Na Phos,Di-Ba [Fleet Adult] 133 ml RECTAL DAILY PRN PRN Reason: Constipation INSULIN ASPART (NovoLOG) [NovoLOG (formulary)] See Protocol SQ ACHS Furosemide [Lasix] 40 mg PO DAILY@0800 Magnesium Hydroxide [Milk of Magnesia Concentrate] 7,200 mg PO Q48H PRN PRN Reason: Constipation Simethicone Chew [Mylicon Chew] 80 mg PO QID PRN PRN Reason: Indigestion Albuterol Inhaler [Ventolin Hfa Inhaler] 2 puff INHALATION RT-QID PRN PRN Reason: Shortness Of Breath Ipratropium-Albuterol Nebulize [Duoneb 0.5 mg-3 mg/3 ml Soln] 3 ml INHALATION RT-Q4H PRN ml PRN Reason: Shortness Of Breath Or Wheezing bisacodyL [Bisacodyl] 10 mg RECTAL DAILY PRN PRN Reason: Constipation Acetaminophen Tab [Tylenol] 650 mg PO Q6H PRN PRN Reason: Fever And/ Or Pain Budesonide [Pulmicort] 1 mg INHALATION RT-BID@0800,1700 Lactulose [Cephulac] 20 gm PO BID@0800,1700 Lactose-Reduced Food [Ensure Plus] 120 ml PO BID@0600,1100 Docusate [Colace] 100 mg PO BID@0800,1700 Thiamine [Vitamin B-1] 100 mg PO DAILY@1100 Multivitamins, Thera [Multivitamin (formulary)] 1 tab PO DAILY@1100 Metoprolol Tartrate [Lopressor] 12.5 mg PO DAILY@0800 Folic Acid 1 mg PO DAILY@1100 Changed Pregabalin [Lyrica] 100 mg PO BID@0800,2100 #6 cap HYDROcodone/APAP 10-325MG [[place] 10-325] 1 tab PO Q8H #6 tab Discontinued Ipratropium Nebulized [Atrovent Nebulized 0.2 MG/ML] 0.5 mg INHALATION RT-QID PRN PRN Reason: Shortness Of Breath Albuterol Nebulized [Ventolin Nebulized] 2.5 mg INHALATION RT-QID PRN PRN Reason: Shortness Of Breath Levofloxacin [Levaquin] 500 mg PO HS Discharge Medication List Atorvastatin Calcium [Lipitor] 40 mg PO HS 06/18/20 [History] Biotin 10,000 mcg PO DAILY@0800 06/18/20 [History] Cetirizine HCl [Zyrtec] 10 mg PO DAILY@0800 06/18/20 [History] Fenofibrate Nanocrystallized [Tricor] 145 mg PO HS 06/18/20 [History] Sertraline HCl [Zoloft] 100 mg PO DAILY@0800 06/18/20 [History] Albuterol Inhaler [Ventolin Hfa Inhaler] 2 puff INHALATION RT-QID PRN 09/25/20 [History] Cholecalciferol (Vitamin D3) [Vitamin D3 (5000 Iu)] 250 mcg PO DAILY@0800 09/25/20 [History] Ipratropium-Albuterol Nebulize [Duoneb 0.5 mg-3 mg/3 ml Soln] 3 ml INHALATION RT-Q4H PRN ml 10/03/20 [Rx] Ipratropium-Albuterol Nebulize [Duoneb 0.5 mg-3 mg/3 ml Soln] 3 ml INHALATION RT-QID ml 10/03/20 [Rx] Sennosides [Senokot] 8.6 mg PO DAILY PRN tab 10/03/20 [Rx] Acetaminophen Tab [Tylenol] 650 mg PO Q6H PRN 10/19/20 [History] Budesonide [Pulmicort] 1 mg INHALATION RT-BID@0800,1700 10/19/20 [History] Docusate [Colace] 100 mg PO BID@0800,1700 10/19/20 [History] Folic Acid 1 mg PO DAILY@1100 10/19/20 [History] Furosemide [Lasix] 40 mg PO DAILY@0800 10/19/20 [History] INSULIN ASPART (NovoLOG) [NovoLOG (formulary)] See Protocol SQ ACHS 10/19/20 [History] Lactose-Reduced Food [Ensure Plus] 120 ml PO BID@0600,1100 10/19/20 [History] Lactulose [Cephulac] 20 gm PO BID@0800,1700 10/19/20 [History] Magnesium Hydroxide [Milk of Magnesia Concentrate] 7,200 mg PO Q48H PRN 10/19/20 [History] Metoprolol Tartrate [Lopressor] 12.5 mg PO DAILY@0800 10/19/20 [History] Multivitamins, Thera [Multivitamin (formulary)] 1 tab PO DAILY@1100 10/19/20 [History] Na Phos,M-B/Na Phos,Di-Ba [Fleet Adult] 133 ml RECTAL DAILY PRN 10/19/20 [History] Simethicone Chew [Mylicon Chew] 80 mg PO QID PRN 10/19/20 [History] Thiamine [Vitamin B-1] 100 mg PO DAILY@1100 10/19/20 [History] bisacodyL [Bisacodyl] 10 mg RECTAL DAILY PRN 10/19/20 [History] ALPRAZolam [Xanax] 0.25 mg PO TID PRN #6 tab 10/25/20 [Rx] Amoxic-Pot Clav 875-125Mg [Augmentin 875-125] 1 each PO Q12HR 5 Days #10 tab 10/25/20 [Rx] Budesonide-Formot 160-4.5 Mcg [Symbicort 160-4.5 Mcg Inhaler] 2 puff INHALATION BID 30 Days #1 inhaler 10/25/20 [Rx] HYDROcodone/APAP 10-325MG [[place] 10-325] 1 tab PO Q8H #6 tab 10/25/20 [Rx] Pantoprazole [Protonix] 40 mg PO AC-BRKFST tablet. 10/25/20 [Rx] Pregabalin [Lyrica] 100 mg PO BID@0800,2100 #6 cap 10/25/20 [Rx] predniSONE 10 mg PO DIRECTED #30 tab 10/25/20 [Rx] Follow up Appointment(s)/Referral(s): Jimy Pringle MD [STAFF PHYSICIAN] - 11/24/20 9:45 am Adan Mejía MD [STAFF PHYSICIAN] - 1-2 days Activity/Diet/Wound Care/Special Instructions: Patient is going to [facility] Activity as tolerated Continue with prednisone taper Continue with antibiotics for 5 days and then may discontinue Continue heart healthy diet Continue to monitor blood sugars before meals and at bedtime and treat accordingly sliding scale NovoLog sliding scale 0-150 equals 0 units 151-200 equals 2 units 201-250 equals 4 units 251-300 equals 6 units 301-350 equals 8 units 351-400 equals 10 units Please notify provider if blood sugar is 400 or above Follow-up with pulmonary in the outpatient setting Follow-up with primary care provider upon discharge Discharge Disposition: TRANSFER TO SNF/F
[2020-10-26] MEDS ORDERED: predniSONE 20 MG TAB PO SCH (09:00)
== END 2020-10-25 15:30 | DRG 177 ==
LOC: EC 15:05 → 1SOBS 18:22 → OBSVTOIN 10-21 11:43 → 5NMEDONC 10-21 11:44
PROVIDERS: ADMIT Hospitalist; ATTEND Hospitalist
DX: J15.6 Pneumonia due to other Gram-negative bacteria (principal); J96.21 Acute and chronic respiratory failure with hypoxia; I50.32 Chronic diastolic (congestive) heart failure; J98.11 Atelectasis; E87.1 Hypo-osmolality and hyponatremia; E44.1 Mild protein-calorie malnutrition; Z68.1 Body mass index [BMI] 19.9 or less, adult; I27.29 Other secondary pulmonary hypertension; I11.0 Hypertensive heart disease with heart failure; J84.10 Pulmonary fibrosis, unspecified; I95.9 Hypotension, unspecified; J43.9 Emphysema, unspecified; Z79.4 Long term (current) use of insulin; Z20.822 Contact with and (suspected) exposure to COVID-19; Y95 Nosocomial condition; E86.0 Dehydration; E78.5 Hyperlipidemia, unspecified; I07.1 Rheumatic tricuspid insufficiency; F32.9 Major depressive disorder, single episode, unspecified; M54.6 Pain in thoracic spine; M48.00 Spinal stenosis, site unspecified; R73.9 Hyperglycemia, unspecified; H91.90 Unspecified hearing loss, unspecified ear; H54.7 Unspecified visual loss; Z99.81 Dependence on supplemental oxygen; Z79.51 Long term (current) use of inhaled steroids; Z79.891 Long term (current) use of opiate analgesic; Z79.899 Other long term (current) drug therapy; Z87.891 Personal history of nicotine dependence; Z90.710 Acquired absence of both cervix and uterus; Z87.42 Personal history of other diseases of the female genital tract; Z87.39 Personal history of other diseases of the musculoskeletal system and connective tissue; Z87.440 Personal history of urinary (tract) infections; Z87.01 Personal history of pneumonia (recurrent); Z98.890 Other specified postprocedural states; Z71.3 Dietary counseling and surveillance; Z91.041 Radiographic dye allergy status; Z91.040 Latex allergy status; Z91.018 Allergy to other foods; Z91.048 Other nonmedicinal substance allergy status; Z82.69 Family history of other diseases of the musculoskeletal system and connective tissue; Z84.1 Family history of disorders of kidney and ureter
CPT/HCPCS: 36415; 71045; 71275; 80048; 80053; 80202; 81003; 82565; 83880; 84145; 84484; 85025; 85379; 85652; 86140; 87040; 87070; 87086; 87205; 87635; 93005; 94640; 94760; 96361; 96374; 99285

== ENCOUNTER 2020-11-23 11:29 | Inpatient (IN) | payer MEDICARE, BC ==
[2020-11-23] MEDS ORDERED: IPRATROPIUM-ALBUTEROL 3 ML NEB INHALATION STA (12:11)
--- NOTE | 2020-11-23 12:11 | ED ---
General Adult HPI - General Chief complaint: Arrhythmia/Palpitations Stated complaint: tachycardia Time Seen by Provider: 11/23/20 11:43 Source: patient, EMS, RN notes reviewed Mode of arrival: EMS Limitations: no limitations - History of Present Illness Initial comments: Patient is a pleasant 70-year-old female presenting to the emergency Department with reported tachycardia. Patient reportedly was doing rehab and her heart rate went up to 1:30. Patient states she felt fine during this episode. Patient also feels fine at this time. Patient has been somewhat fatigued recently. Patient was in the hospital and discharged to rehab center secondary to pneumonia. No leg pain or leg swelling. No fever. - Related Data Home Medications Medication Instructions Recorded Confirmed Atorvastatin Calcium [Lipitor] 40 mg PO HS 06/18/20 11/23/20 Biotin 10,000 mcg PO DAILY@0800 06/18/20 11/23/20 Cetirizine HCl [Zyrtec] 10 mg PO DAILY@0800 06/18/20 11/23/20 Fenofibrate Nanocrystallized 145 mg PO HS 06/18/20 11/23/20 [Tricor] Sertraline HCl [Zoloft] 100 mg PO DAILY@0800 06/18/20 11/23/20 Albuterol Inhaler [Ventolin Hfa 2 puff INHALATION RT-QID PRN 09/25/20 11/23/20 Inhaler] Cholecalciferol (Vitamin D3) 250 mcg PO DAILY@0800 09/25/20 11/23/20 [Vitamin D3 (5000 Iu)] Acetaminophen Tab [Tylenol] 650 mg PO Q6H PRN 10/19/20 11/23/20 Budesonide [Pulmicort] 1 mg INHALATION RT-BID@0800,1700 10/19/20 11/23/20 Docusate [Colace] 100 mg PO BID@0800,1700 10/19/20 11/23/20 Folic Acid 1 mg PO DAILY@1100 10/19/20 11/23/20 Furosemide [Lasix] 40 mg PO DAILY@0800 10/19/20 11/23/20 Lactose-Reduced Food [Ensure Plus] 120 ml PO BID@1000,1500 10/19/20 11/23/20 Magnesium Hydroxide [Milk of 7,200 mg PO Q48H PRN 10/19/20 11/23/20 Magnesia Concentrate] Metoprolol Tartrate [Lopressor] 12.5 mg PO DAILY@0800 10/19/20 11/23/20 Multivitamins, Thera [Multivitamin 1 tab PO DAILY@1100 10/19/20 11/23/20 (formulary)] Na Phos,M-B/Na Phos,Di-Ba [Fleet 133 ml RECTAL DAILY PRN 10/19/20 11/23/20 Adult] Simethicone Chew [Mylicon Chew] 80 mg PO QID PRN 10/19/20 11/23/20 Thiamine [Vitamin B-1] 100 mg PO DAILY@1100 10/19/20 11/23/20 bisacodyL [Bisacodyl] 10 mg RECTAL DAILY PRN 10/19/20 11/23/20 Budesonide-Formot 160-4.5 Mcg 2 puff INHALATION RT-BID@1000,1400 11/23/20 [Symbicort 160-4.5 Mcg Inhaler] Cefuroxime Axetil [Ceftin] 500 mg PO BID@0800,1700 11/23/20 11/23/20 HYDROcodone/APAP 10-325MG [[place] 1 tab PO TID@0600,1400,2200 11/23/20 11/23/20 10-325] Hydrophilic Cream [Triad Cream] 1 applic TOPICAL BID 11/23/20 11/23/20 Pantoprazole [Protonix] 40 mg PO DAILY@0600 11/23/20 11/23/20 Sennosides/Docusate Sodium 1 tab PO DAILY PRN 11/23/20 11/23/20 [Senna-S 8.6-50 mg Tablet] Previous Rx's Medication Instructions Recorded Ipratropium-Albuterol Nebulize 3 ml INHALATION RT-Q4H PRN ml 10/03/20 [Duoneb 0.5 mg-3 mg/3 ml Soln] Ipratropium-Albuterol Nebulize 3 ml INHALATION RT-QID ml 10/03/20 [Duoneb 0.5 mg-3 mg/3 ml Soln] ALPRAZolam [Xanax] 0.25 mg PO TID PRN #6 tab 10/25/20 Pregabalin [Lyrica] 100 mg PO BID@0800,2100 #6 cap 10/25/20 Allergies Allergy/AdvReac Type Severity Reaction Status Date / Time adhesive tape Allergy Itching Verified 11/23/20 12:08 almond Allergy Unknown Verified 11/23/20 12:08 Iodinated Contrast Media Allergy Unknown Verified 11/23/20 12:08 latex Allergy Itching Verified 11/23/20 12:08 Review of Systems ROS Statement: Those systems with pertinent positive or pertinent negative responses have been documented in the HPI. ROS Other: All systems not noted in ROS Statement are negative. Constitutional: Denies: fever Eyes: Denies: eye pain ENT: Denies: ear pain Respiratory: Denies: cough, dyspnea Cardiovascular: Denies: chest pain Endocrine: Reports: fatigue Gastrointestinal: Denies: abdominal pain Genitourinary: Denies: urgency Musculoskeletal: Denies: back pain Skin: Denies: rash Neurological: Denies: weakness Past Medical History Past Medical History: COPD, Hypertension, Pneumonia Additional Past Medical History / Comment(s): spinal stenosis, depression History of Any Multi-Drug Resistant Organisms: None Reported Past Surgical History: Hysterectomy Additional Past Surgical History / Comment(s): foot bunion Past Anesthesia/Blood Transfusion Reactions: No Reported Reaction Past Psychological History: Depression Smoking Status: Former smoker Past Alcohol Use History: None Reported Past Drug Use History: None Reported - Past Family History Father Family Medical History: Memory Impairment Additional Family Medical History / Comment(s): SPINAL DISEASE Mother History Unknown: Yes Additional Family Medical History / Comment(s): CKD, RENAL FAILURE General Exam Limitations: no limitations General appearance: alert, in no apparent distress Head exam: Present: normocephalic Eye exam: Present: normal appearance Neck exam: Present: normal inspection Respiratory exam: Present: decreased breath sounds Cardiovascular Exam: Present: regular rate, normal rhythm GI/Abdominal exam: Present: soft. Absent: tenderness Extremities exam: Present: normal inspection. Absent: pedal edema, calf tenderness Neurological exam: Present: alert Psychiatric exam: Present: normal affect, normal mood Skin exam: Present: normal color Course Vital Signs 11/23/20 11/23/20 11/23/20 11:31 12:38 12:49 Temperature 98.3 F Pulse Rate 100 84 88 Respiratory 16 Rate Blood Pressure 127/84 O2 Sat by Pulse 100 Oximetry 11/23/20 13:17 Temperature Pulse Rate 91 Respiratory 18 Rate Blood Pressure 106/78 O2 Sat by Pulse 95 Oximetry EKG Findings - EKG Comments: EKG Findings:: Normal sinus rhythm with a room of 86. CO 152. QRS 96. QT 36. QTc 461. Right axis. Normal QRS. No acute ST change. Inferior T wave inversion. Medical Decision Making - Medical Decision Making Patient reevaluated. Patient and family updated. Case discussed with Dr. Clements, covering for Dr. Gleason, who will admit. VQ scan will be ordered. Magnesium placed. IV antibiotics started for UTI. - Lab Data Result diagrams: 11/23/20 12:27 11/23/20 12: Lab Results 11/23/20 11/23/20 11/23/20 Range/Units 12: 12: 12:27 WBC 7.6 (3.8-10.6) k/uL RBC 3.84 (3.80-5.40) m/uL Hgb 11.0 L (11.4-16.0) gm/dL Hct 34.7 (34.0-46.0) % MCV 90.4 (80.0-100.0) fL MCH 28.7 (25.0-35.0) pg MCHC 31.7 (31.0-37.0) g/dL RDW 16.5 H (11.5-15.5) % Plt Count 193 (150-450) k/uL MPV 8.7 Neutrophils % 76 % Lymphocytes % 13 % Monocytes % 6 % Eosinophils % 3 % Basophils % 0 % Neutrophils # 5.8 (1.3-7.7) k/uL Lymphocytes # 1.0 (1.0-4.8) k/uL Monocytes # 0.5 (0-1.0) k/uL Eosinophils # 0.2 (0-0.7) k/uL Basophils # 0.0 (0-0.2) k/uL Anisocytosis Slight PT 10.1 (9.0-12.0) sec INR 0.9 (<1.2) APTT 26.0 (22.0-30.0) sec D-Dimer 1.42 H (<0.60) mg/L FEU Sodium 135 L (137-145) mmol/L Potassium 4.1 (3.5-5.1) mmol/L Chloride 87 L (98-107) mmol/L Carbon Dioxide 41 H* (22-30) mmol/L Anion Gap 7 mmol/L BUN 25 H (7-17) mg/dL Creatinine 0.47 L (0.52-1.04) mg/dL Est GFR (CKD-EPI)AfAm >90 (>60 ml/min/1.73 sqM) Est GFR (CKD-EPI)NonAf >90 (>60 ml/min/1.73 sqM) Glucose 97 (74-99) mg/dL Calcium 9.8 (8.4-10.2) mg/dL Magnesium 1.2 L (1.6-2.3) mg/dL Total Bilirubin 0.4 (0.2-1.3) mg/dL AST 42 H (14-36) U/L ALT 19 (4-34) U/L Alkaline Phosphatase 106 (38-126) U/L Troponin I (0.000-0.034) ng/mL Total Protein 6.4 (6.3-8.2) g/dL Albumin 3.8 (3.5-5.0) g/dL TSH 0.112 L (0.465-4.680) mIU/L Free T4 1.01 (0.78-2.19) ng/dL Free T3 pg/mL 4.0 (2.8-5.3) pg/ml Urine Color Urine Appearance (Clear) Urine pH (5.0-8.0) Ur Specific [place] (1.001-1.035) Urine Protein (Negative) Urine Glucose (UA) (Negative) Urine Ketones (Negative) Urine Blood (Negative) Urine Nitrite (Negative) Urine Bilirubin (Negative) Urine Urobilinogen (<2.0) mg/dL Ur Leukocyte Esterase (Negative) Urine RBC (0-5) /hpf Urine WBC (0-5) /hpf Ur Squamous Epith Cells (0-4) /hpf Amorphous Sediment (None) /hpf Urine Bacteria (None) /hpf Hyaline Casts (0-2) /lpf Urine Mucus (None) /hpf 11/23/20 11/23/20 Range/Units 12:27 12:34 WBC (3.8-10.6) k/uL RBC (3.80-5.40) m/uL Hgb (11.4-16.0) gm/dL Hct (34.0-46.0) % MCV (80.0-100.0) fL MCH (25.0-35.0) pg MCHC (31.0-37.0) g/dL RDW (11.5-15.5) % Plt Count (150-450) k/uL MPV Neutrophils % % Lymphocytes % % Monocytes % % Eosinophils % % Basophils % % Neutrophils # (1.3-7.7) k/uL Lymphocytes # (1.0-4.8) k/uL Monocytes # (0-1.0) k/uL Eosinophils # (0-0.7) k/uL Basophils # (0-0.2) k/uL Anisocytosis PT (9.0-12.0) sec INR (<1.2) APTT (22.0-30.0) sec D-Dimer (<0.60) mg/L FEU Sodium (137-145) mmol/L Potassium (3.5-5.1) mmol/L Chloride (98-107) mmol/L Carbon Dioxide (22-30) mmol/L Anion Gap mmol/L BUN (7-17) mg/dL Creatinine (0.52-1.04) mg/dL Est GFR (CKD-EPI)AfAm (>60 ml/min/1.73 sqM) Est GFR (CKD-EPI)NonAf (>60 ml/min/1.73 sqM) Glucose (74-99) mg/dL Calcium (8.4-10.2) mg/dL Magnesium (1.6-2.3) mg/dL Total Bilirubin (0.2-1.3) mg/dL AST (14-36) U/L ALT (4-34) U/L Alkaline Phosphatase (38-126) U/L Troponin I <0.012 (0.000-0.034) ng/mL Total Protein (6.3-8.2) g/dL Albumin (3.5-5.0) g/dL TSH (0.465-4.680) mIU/L Free T4 (0.78-2.19) ng/dL Free T3 pg/mL (2.8-5.3) pg/ml Urine Color Light Yellow Urine Appearance Clear (Clear) Urine pH 6.0 (5.0-8.0) Ur Specific [place] 1.011 (1.001-1.035) Urine Protein Negative (Negative) Urine Glucose (UA) Negative (Negative) Urine Ketones Negative (Negative) Urine Blood Negative (Negative) Urine Nitrite Negative (Negative) Urine Bilirubin Negative (Negative) Urine Urobilinogen <2.0 (<2.0) mg/dL Ur Leukocyte Esterase Large H (Negative) Urine RBC 5 (0-5) /hpf Urine WBC 28 H (0-5) /hpf Ur Squamous Epith Cells <1 (0-4) /hpf Amorphous Sediment Rare H (None) /hpf Urine Bacteria Rare H (None) /hpf Hyaline Casts 6 H (0-2) /lpf Urine Mucus Rare H (None) /hpf - Radiology Data Radiology results: image reviewed (Chest x-ray shows chronic interstitial changes.) Disposition Clinical Impression: Tachycardia, Urinary tract infection, Hypomagnesemia, COPD (chronic obstructive pulmonary disease) Disposition: ADMITTED IP TO THIS HOSP Is patient prescribed a controlled substance at d/c from ED?: No Referrals: Paramjit Gleason MD [Primary Care Provider] - 1-2 days Decision Time: 14:28
[2020-11-23 12:41] LABS: Anisocytosis Slight; Basophils % (A) 0 %; Eosinophils # (A) 0.2 k/uL (0-0.7); Eosinophils % (A) 3 %; HCT 34.7 % (34.0-46.0); Lymphocytes % (A) 13 %; MCH 28.7 pg (25.0-35.0); MCHC 31.7 g/dL (31.0-37.0); MCV 90.4 fL (80.0-100.0); Mean Platelet Volume 8.7; Monocytes # (A) 0.5 k/uL (0-1.0); Monocytes % (A) 6 %; Neutrophils # (A) 5.8 k/uL (1.3-7.7); Neutrophils % (A) 76 %; Platelet Count 193 k/uL (150-450); RBC 3.84 m/uL (3.80-5.40); RDW 16.5 % (11.5-15.5); WBC 7.6 k/uL (3.8-10.6)
[2020-11-23 13:16] LABS: ALT 19 U/L (4-34); AST 42 U/L (14-36); African American GFR (CKD) >90 (>60 ml/min/1.73 sqM); Albumin 3.8 g/dL (3.5-5.0); Alkaline Phosphatase 106 U/L (38-126); Blood Urea Nitrogen 25 mg/dL (7-17); Calcium 9.8 mg/dL (8.4-10.2); Chloride 87 mmol/L (98-107); Glucose 97 mg/dL (74-99); INR 0.9 (<1.2); Magnesium 1.2 mg/dL (1.6-2.3); Non-African American GFR(CKD) >90 (>60 ml/min/1.73 sqM); Potassium 4.1 mmol/L (3.5-5.1); Prothrombin Time 10.1 sec (9.0-12.0); Sodium 135 mmol/L (137-145); Total Bilirubin 0.4 mg/dL (0.2-1.3); Total Protein 6.4 g/dL (6.3-8.2)
--- NOTE | 2020-11-23 13:17 | XR ---
EXAMINATION TYPE: XR chest 2V DATE OF EXAM: 11/23/2020 COMPARISON: 10/21/2020 HISTORY: Dysrhythmia. 70-year-old female with weakness TECHNIQUE: Frontal and lateral views of the chest are obtained. FINDINGS: Heart size is borderline enlarged. Atherosclerotic aorta. Coarse interstitial markings are chronic. No focal consolidation, pneumothorax or pleural effusion. Hyperaeration of lungs and flatte manoj of the diaphragms suggestive of COPD osteopenia and degenerative changes of the thoracic spine. IMPRESSION: 1. Borderline cardiomegaly. 2. Coarse interstitial markings are chronic.
[2020-11-23 13:20] LABS: D-Dimer 1.42 mg/L FEU (<0.60)
[2020-11-23 13:30] LABS: T4, Free (Free Thyroxine) 1.01 ng/dL (0.78-2.19)
[2020-11-23 13:31] LABS: Amorphous Sediment,Urine Rare /hpf; Appearance,Urine Clear (Clear); Bacteria,Urine Rare /hpf; Bilirubin,Urine Negative (Negative); Blood,Urine Negative (Negative); Color,Urine Light Yellow; Glucose,Urine (UA) Negative (Negative); Hyaline Casts,Urine 6 /lpf (0-2); Ketones,Urine Negative (Negative); Leukocyte Esterase,Urine Large (Negative); Mucus,Urine Rare /hpf; Nitrite,Urine Negative (Negative); Protein,Urine Negative (Negative); RBC,Urine 5 /hpf (0-5); Specific Gravity,Urine 1.011 (1.001-1.035); Squamous Epithelial Cell,Urine <1 /hpf (0-4); Urobilinogen,Urine <2.0 mg/dL (<2.0); WBC,Urine 28 /hpf (0-5)
[2020-11-23 13:42] LABS: Anion Gap 7 mmol/L
[2020-11-23 13:56] LABS: Carbon Dioxide 41 mmol/L (22-30)
[2020-11-23] MEDS ORDERED: MAGNESIUM OXIDE 400 MG TAB PO STA (14:12)
[2020-11-23] MEDS ORDERED: MAGNESIUM SULFATE-D5W PMX 1 GM in DEXTROSE/WATER 1 100ML.BAG IVPB ONE (14:12)
[2020-11-23] MEDS ORDERED: HYDROcodone/APAP 5-325MG 1 EACH TAB PO STA (14:17)
[2020-11-23] MEDS ORDERED: NALOXONE 0.4 MG/ML 1 ML VIAL IV PRN (14:28)
[2020-11-23] MEDS ORDERED: IPRATROPIUM-ALBUTEROL 3 ML NEB INHALATION PRN ×2 (14:34→20:47)
--- NOTE | 2020-11-23 16:20 | NM ---
EXAMINATION TYPE: NM pul vent and perfuse DATE OF EXAM: 11/23/2020 COMPARISON: CTA chest October 21, 2020. Chest x-ray earlier today. Prior V/Q study September 25, 2020 HISTORY: Dyspnea. TECHNIQUE: Utilizing inhalation of 66.8 mCi Tc 99m DTPA aerosol and intravenous injection of 4.6 mCi of Tc 99m MAA, ventilation and perfusion images are acquired post injection in multiple projections. FINDINGS: Improved radiotracer distribution with less central clumping on ventilation images. Stable small matc ainsley defects in the upper lungs. There is no evidence of mismatched defects. IMPRESSION: Low scintigraphic evidence for acute pulmonary embolism on this study.
[2020-11-23 17:01] LABS: Glucose,Whole Blood 146 mg/dL (75-99)
[2020-11-23] MEDS: IPRATROPIUM-ALBUTEROL 3 ML NEB INHALATION SCH ×2 (17:03→21:19)
[2020-11-23] MEDS: methylPREDNISolone SOD SUCCI 125 MG/2 ML VIAL IV SCH (17:04)
[2020-11-23] MEDS: INSULIN ASPART (NovoLOG) 100 UNIT/ML VIAL SQ SCH ×2 (17:49→22:10)
[2020-11-23] MEDS ORDERED: Magnesium Replacement Protocol 1 EACH MISC MISCELLANE PRN (20:46)
[2020-11-23] MEDS ORDERED: Potassium Replacement Protocol 1 EACH MISC MISCELLANE PRN (20:46)
[2020-11-23] MEDS ORDERED: SIMETHICONE 80 MG CHEWABLE PO PRN (20:47)
[2020-11-23] MEDS ORDERED: ALBUTEROL HFA INHALER INHALATION PRN (20:47)
[2020-11-23] MEDS ORDERED: SENNOSIDES-DOCUSATE SODIUM 1 EACH TAB PO PRN (20:47)
[2020-11-23] MEDS ORDERED: NA PHOS,M-B/NA PHOS,DI-BA 133 ML ENEMA RECTAL PRN (20:47)
[2020-11-23] MEDS ORDERED: bisacodyL 10 MG SUPP RECTAL PRN (20:47)
[2020-11-23] MEDS ORDERED: MAGNESIUM HYDROXIDE 2,400 MG/10 ML CUP PO PRN (20:47)
[2020-11-23 21:49] LABS: Glucose,Whole Blood 151 mg/dL (75-99)
--- NOTE | 2020-11-23 21:57 | HP ---
HISTORY AND PHYSICAL DATE OF SERVICE: 11/23/2020 CHIEF COMPLAINTS: Weakness, tachycardia, hypoglycemia. HISTORY OF PRESENT ILLNESS: This 70-year-old woman with a past medical history of multiple medical problems was recently admitted with COPD, acute exacerbation, as well as right lower pneumonia. The patient also had a recently completed second dose of COVID-19 infection. The patient was found to have diabetes mellitus recently. The patient improved recently and the patient was discharged to [facility] under the care of Dr. Gleason. In the longterm yesterday her sugar apparently fell down to 20 because the patient was not eating well. This was corrected, but today the patient was complaining of tachycardia as well as weakness, and the patient was taken to [facility] and was admitted for further evaluation and treatment. Patient's ejection fraction was found to be 50% to 55% on a recent 2D echo. At the time of admission, CO2 was found to be 41 and magnesium was found to be 1.2. Sugars were 97. A V/Q scan was done which showed low probability of pulmonary embolism. An EKG showed normal sinus rhythm and rightward axis. There is no history of any fever, rigors or chills at this time. PAST MEDICAL HISTORY: History of CHF with chronic diastolic dysfunction, EF 50% to 55%, COPD, fibromyalgia, hypertension, hyperlipidemia, history of pneumonia. HOME MEDICATIONS: Triad, Mylicon, Xanax, bisacodyl, Senna, Milk of Magnesia, DuoNeb, Ventolin, Tylenol, [place], Symbicort, Lyrica, Ensure, Colace, vitamin B1, vitamin D3. Doses are reviewed. PHYSICAL EXAMINATION: Patient is alert, oriented x3. Pulse is 91, blood pressure 120/71, respiration 18, temperature 97.2, pulse ox 97% on 3 L. HEENT: Conjunctivae normal. NECK: No jugular venous distention. CARDIOVASCULAR SYSTEM: S1, S2 muffled. RESPIRATORY SYSTEM: Breath sounds diminished at the bases. A few scattered rhonchi and crackles. ABDOMEN: Soft, non-tender. No mass palpable. LEGS: No edema. No swelling. NERVOUS SYSTEM: Higher functions as mentioned earlier. Moves all 4 limbs. No focal motor or sensory deficit. LYMPHATICS: No lymph node palpable in neck, axillae or groin. SKIN: No ulcer, rash, bleeding. JOINTS: No active deforming arthropathy. LABS: CBC within normal limits. D-dimer is 1.42. Sodium 135 and creatinine is 0.47. Magnesium 1.2. ASSESSMENT: 1. Weakness and hypoglycemia. 2. Hypomagnesemia. 3. Elevated D-dimer without any evidence of pulmonary embolism. 4. Chronic obstructive pulmonary disease. 5. Hypercarbia. 6. History of congestive heart failure with chronic diastolic dysfunction, ejection fraction 50% to 55%. 7. History of fibromyalgia. 8. Hyperlipidemia. 9. Hypertension. 10.History of pneumonia. 11.Mild protein-calorie malnutrition. 12.Gait dysfunction and falls. 13.Anxiety, depression. RECOMMENDATION AND DISCUSSION: Will recommend to continue current medications, continue symptomatic treatment. Otherwise at this time I would monitor blood sugars closely and supplement magnesium. Repeat labs. Continue the bronchodilators. The prognosis is guarded because of multiple complex medical issues. Further recommendations to follow. V/Q scan was negative, as mentioned earlier. Chest x-ray was reviewed personally by me and showed borderline cardiomegaly and coarse interstitial changes which are probably chronic. Prognosis guarded. Further recommendations to follow. A copy of this dictation is being forwarded to Dr. Gleason, who is following the patient in the ECF. MMODL / IJN: [id number] /
[2020-11-23] MEDS: PREGABALIN 100 MG CAP PO SCH (22:09)
[2020-11-23] MEDS: HYDROPHILIC CREAM 180 GM TUBE TOPICAL SCH (22:09)
[2020-11-23] MEDS: FENOFIBRATE 160 MG TAB PO SCH (22:09)
[2020-11-23] MEDS: HYDROcodone/APAP 10-325MG 1 EACH TAB PO SCH (22:10)
[2020-11-23] MEDS: ATORVASTATIN 40 MG TAB PO SCH (22:11)
[2020-11-24] MEDS: methylPREDNISolone SOD SUCCI 125 MG/2 ML VIAL IV SCH ×5 (00:02→23:30)
[2020-11-24] MEDS: ALPRAZolam 0.25 MG TAB PO PRN ×2 (02:11→23:35)
[2020-11-24] MEDS: HYDROcodone/APAP 10-325MG 1 EACH TAB PO SCH ×3 (05:37→22:08)
[2020-11-24] MEDS: PANTOPRAZOLE 40 MG TABLET PO SCH (05:37)
[2020-11-24 06:56] LABS: Glucose,Whole Blood 138 mg/dL (75-99)
[2020-11-24] MEDS: FOLIC ACID 1 MG TAB PO SCH (07:43)
[2020-11-24] MEDS: THIAMINE 100 MG TAB PO SCH (07:43)
[2020-11-24] MEDS: PREGABALIN 100 MG CAP PO SCH ×2 (07:43→22:16)
[2020-11-24] MEDS: DOCUSATE 100 MG CAP PO SCH ×2 (07:43→16:32)
[2020-11-24] MEDS: LORATADINE 10 MG TAB PO SCH (07:43)
[2020-11-24] MEDS: METOPROLOL TARTRATE 12.5 MG TAB PO SCH (07:44)
[2020-11-24] MEDS: INSULIN ASPART (NovoLOG) 100 UNIT/ML VIAL SQ SCH ×4 (07:44→22:17)
[2020-11-24] MEDS: CHOLECALCIFEROL 25 MCG (1000 IU) TABLET PO SCH (07:44)
[2020-11-24] MEDS: SERTRALINE 100 MG TAB PO SCH (07:44)
[2020-11-24] MEDS: FUROSEMIDE 40 MG TAB PO SCH (07:44)
[2020-11-24] MEDS: MULTIVITAMINS, THERA 1 EACH TAB PO SCH (07:44)
[2020-11-24] MEDS: IPRATROPIUM-ALBUTEROL 3 ML NEB INHALATION SCH ×4 (07:59→19:17)
[2020-11-24] MEDS ORDERED: BUDESONIDE 1 MG/2 ML NEBU INHALATION SCH (08:00)
[2020-11-24] MEDS: HYDROPHILIC CREAM 180 GM TUBE TOPICAL SCH ×2 (08:00→23:41)
[2020-11-24] MEDS ORDERED: NON FORMULARY DRUG (Biotin [Biotin] 10,000 MCG Capsule) PO SCH (08:00)
[2020-11-24] MEDS: SYMBICORT 160-4.5 MCG INHALER INHALATION SCH ×2 (08:34→11:48)
[2020-11-24 09:58] LABS: Basophils # (A) 0 X 10*3/uL (0.00-0.10); Basophils % (A) 0 %; Eosinophils # (A) 0 X 10*3/uL (0.04-0.35); Eosinophils % (A) 0 %; HCT 33.6 % (37.2-46.3); HGB 10.3 g/dL (12.0-15.0); Lymphocytes # (A) 0.44 X 10*3/uL (0.90-5.00); Lymphocytes % (A) 8.8 %; MCH 28.5 pg (27.0-32.0); MCHC 30.7 g/dL (32.0-37.0); MCV 93.1 fL (80.0-97.0); Mean Platelet Volume 11.3 fL (9.5-12.2); Monocytes # (A) 0.06 X 10*3/uL (0.20-1.00); Monocytes % (A) 1.2 %; Neutrophils # (A) 4.48 X 10*3/uL (1.80-7.70); Neutrophils % (A) 89.2 %; Platelet Count 191 X 10*3/uL (140-440); RBC 3.61 X 10*6/uL (4.10-5.20); RDW 16.3 % (11.5-14.5); WBC 5.02 X 10*3/uL (4.50-10.00)
[2020-11-24] MEDS ORDERED: NON FORMULARY DRUG (Lactose-Reduced Food [Ensure Plus] 237 ML Liquid) PO SCH (10:00)
[2020-11-24 11:48] LABS: Magnesium 1.5 mg/dL (1.5-2.4)
[2020-11-24 11:49] LABS: African American GFR (CKD) 114.5 (60.0-200.0); Non-African American GFR(CKD) 98.8 (60.0-200.0); Potassium 4.7 mmol/L (3.5-5.5)
[2020-11-24 11:58] LABS: Glucose,Whole Blood 162 mg/dL (75-99)
[2020-11-24 13:44] LABS: C Reactive Protein 1.1 mg/dL (0.0-0.8)
[2020-11-24 13:55] LABS: Erythrocyte Sedimentation Rate 37 mm/Hr (0-30)
[2020-11-24 14:15] VITALS: BMI 21.4
[2020-11-24] MEDS ORDERED: Magnesium Replacement Protocol 1 EACH MISC MISCELLANE PRN (14:40)
--- NOTE | 2020-11-24 15:01 | P.PN ---
Subjective Progress Note Date: 11/24/20 This is a 70-year-old female who was recently admitted with some weakness along with tachycardia and some shortness of breath and was being closely monitored. Patient was newly diagnosed with diabetes mellitus and has been having some low blood sugar readings and is being closely monitored. Recommend to continue with Accu-Cheks before meals and at bedtime and as needed if showing signs of hypoglycemia. Patient denies any chest pain or worsening shortness of breath today. Patient is afebrile. No reports of nausea or vomiting and patient is tolerating oral intake. Patient does not eat very much and needs encouragement with meals. We'll continue with Accu-Cheks before meals and at bedtime along with sliding scale. Patient will also continue with breathing inhalational treatments as she normally uses in the outpatient setting. Magnesium has been replaced and was found to be 1.5 and will replace per protocol and repeat a.m. labs. Patient continues to be weak and will have PT/OT reevaluate the patient. Review of systems: Constitutional: Reports of fatigue, no reports of fever or chills Cardiovascular: No reports of chest pain or palpitations Respiratory: Reports continued shortness of breath with occasional cough. GI: No reports of nausea, vomiting, or diarrhea, reports poor oral intake : No reports of dysuria or retention Neurovascular: Reports generalized weakness All medications have been reviewed Active Medications Acetaminophen (Acetaminophen Tab 325 Mg Tab) 650 mg PO Q6H PRN PRN Reason: Fever and/ or Pain Hydrocodone Bitart/Acetaminophen (Hydrocodone/Apap 10-325mg 1 Each Tab) 1 each PO TID@0600,1400,2200 [facility] Last Admin: 11/24/20 13:33 Dose: 1 each Documented by: Albuterol Sulfate (Albuterol Hfa Inhaler) 2 puff INHALATION RT-QID PRN PRN Reason: Shortness Of Breath Albuterol/Ipratropium (Ipratropium-Albuterol 3 Ml Neb) 3 ml INHALATION RT-QID [facility] Last Admin: 11/24/20 11:32 Dose: 3 ml Documented by: Albuterol/Ipratropium (Ipratropium-Albuterol 3 Ml Neb) 3 ml INHALATION RT-Q4H PRN PRN Reason: Shortness Of Breath Or Wheezing Alprazolam (Alprazolam 0.25 Mg Tab) 0.25 mg PO TID PRN PRN Reason: Anxiety Last Admin: 11/24/20 02:11 Dose: 0.25 mg Documented by: Atorvastatin Calcium (Atorvastatin 40 Mg Tab) 40 mg PO [facility] Last Admin: 11/23/20 22:11 Dose: 40 mg Documented by: Bisacodyl (Bisacodyl 10 Mg Supp) 10 mg RECTAL DAILY PRN PRN Reason: Constipation Budesonide/Formoterol Fumarate (Symbicort 160-4.5 Mcg Inhaler) 2 puff INHALATION RT-BID@1000,1400 [facility] Last Admin: 11/24/20 11:48 Dose: 2 puff Documented by: Cholecalciferol (Cholecalciferol 25 Mcg (1000 Iu) Tablet) 250 mcg PO DAILY@0800 [facility] Last Admin: 11/24/20 07:44 Dose: 250 mcg Documented by: Docusate Sodium (Docusate 100 Mg Cap) 100 mg PO BID@0800,1700 [facility] Last Admin: 11/24/20 07:43 Dose: 100 mg Documented by: Fenofibrate (Fenofibrate 160 Mg Tab) 160 mg PO [facility] Last Admin: 11/23/20 22:09 Dose: 160 mg Documented by: Folic Acid (Folic Acid 1 Mg Tab) 1 mg PO DAILY@1100 [facility] Last Admin: 11/24/20 07:43 Dose: 1 mg Documented by: Furosemide (Furosemide 40 Mg Tab) 40 mg PO DAILY@0800 [facility] Last Admin: 11/24/20 07:44 Dose: 40 mg Documented by: Ceftriaxone Sodium 1 gm/ (Sodium Chloride) 50 mls @ 100 mls/hr IVPB Q24HR [facility] Last Admin: 11/24/20 07:43 Dose: 100 mls/hr Documented by: Magnesium Sulfate/Dextrose 1 (gm/ IV Solution) 100 mls @ 100 mls/hr IVPB Q1H [facility] Stop: 11/24/20 17:29 Insulin Aspart (Insulin Aspart (Novolog) 100 Unit/Ml Vial) 0 unit SQ ACHS [facility]; Protocol Last Admin: 11/24/20 12:23 Dose: 3 unit Documented by: Loratadine (Loratadine 10 Mg Tab) 10 mg PO DAILY@0800 [facility] Last Admin: 11/24/20 07:43 Dose: 10 mg Documented by: Magnesium Hydroxide (Magnesium Hydroxide 2,400 Mg/10 Ml Cup) 2,400 mg PO Q48H PRN PRN Reason: Constipation Methylprednisolone Sodium Succinate (Methylprednisolone Sod Succi 125 Mg/2 Ml Vial) 60 mg IV Q6HR [facility] Last Admin: 11/24/20 12:23 Dose: 60 mg Documented by: Metoprolol Tartrate (Metoprolol Tartrate 12.5 Mg Tab) 12.5 mg PO DAILY@0800 [facility] Last Admin: 11/24/20 07:44 Dose: 12.5 mg Documented by: Miscellaneous Information (Magnesium Replacement Protocol 1 Each Misc) 1 each MISCELLANE DAILY PRN; Protocol PRN Reason: Per Protocol Miscellaneous Information (Potassium Replacement Protocol 1 Each Misc) 1 each MISCELLANE DAILY PRN; Protocol PRN Reason: Per Protocol Miscellaneous Information (Magnesium Replacement Protocol 1 Each Misc) 1 each M ISCELLANE DAILY PRN; Protocol PRN Reason: Per Protocol Multi-Ingred Cream/Lotion/Oil/Oint (Hydrophilic Cream 180 Gm Tube) 1 applic TOPICAL BID [facility] Last Admin: 11/24/20 08:00 Dose: Not Given Documented by: Multivitamins (Multivitamins, Thera 1 Each Tab) 1 each PO DAILY@1100 [facility] Last Admin: 11/24/20 07:44 Dose: 1 each Documented by: Naloxone HCl (Naloxone 0.4 Mg/Ml 1 Ml Vial) 0.2 mg IV Q2M PRN PRN Reason: Opioid Reversal Pantoprazole Sodium (Pantoprazole 40 Mg Tablet) 40 mg PO DAILY@0600 [facility] Last Admin: 11/24/20 05:37 Dose: 40 mg Documented by: Pregabalin (Pregabalin 100 Mg Cap) 100 mg PO BID@0800,2100 [facility] Last Admin: 11/24/20 07:43 Dose: 100 mg Documented by: Senna/Docusate Sodium (Sennosides-Docusate Sodium 1 Each Tab) 1 each PO DAILY PRN PRN Reason: Constipation Sertraline HCl (Sertraline 100 Mg Tab) 100 mg PO DAILY@0800 [facility] Last Admin: 11/24/20 07:44 Dose: 100 mg Documented by: Simethicone (Simethicone 80 Mg Chewable) 80 mg PO QID PRN PRN Reason: Indigestion Sodium Biphosphate/Sodium Phosphate (Na Phos,M-B/Na Phos,Di-Ba 133 Ml Enema) 133 ml RECTAL DAILY PRN PRN Reason: Constipation Thiamine HCl (Thiamine 100 Mg Tab) 100 mg PO DAILY@1100 [facility] Last Admin: 11/24/20 07:43 Dose: 100 mg Documented by: Objective - Vital Signs Vital signs: Vital Signs Temp 97.9 F 11/24/20 07:18 Pulse 100 11/24/20 11:40 Resp 17 11/24/20 07:18 BP 128/78 11/24/20 07:18 Pulse Ox 94 L 11/24/20 07:18 Intake & Output 11/23/20 11/24/20 11/24/20 18:59 06:59 18:59 Output Total 700 600 Balance -700 -600 Weight 54.885 kg 54.885 kg Output: Urine 700 600 Other: Voiding Method Diaper Indwelling Catheter Indwelling Catheter - Exam Gen: This is a 70-year-old female lying in bed asleep although easily arousable alert and oriented 3. Temp is 97.9F, pulse is 85, respirations are 17, blood pressure is 128/78, oxygen saturation is 94% on 2 L. HEENT: Head is atraumatic, normocephalic. Pupils equal, round. Sclerae is anicteric. NECK: Supple. No JVD. No lymphadenopathy. No thyromegaly. LUNGS: Diminished breath sounds bilaterally with a few scattered rhonchi and crackles noted. No intercostal retractions. HEART: S1, S2 are muffled ABDOMEN: Soft. Bowel sounds are present. No masses. No tenderness. EXTREMITIES: No pedal edema. No calf tenderness. NEUROLOGICAL: Patient is awake, alert and oriented x3. Cranial nerves 2 through 12 are grossly intact, diffusely weak. - Labs CBC & Chem 7: 11/24/20 05:50 11/24/20 05:50 Labs: Abnormal Lab Results - Last 24 Hours (Table) 11/23/20 11/23/20 11/24/20 Range/Units 16:54 21:47 05:50 RBC 3.61 L (4.10-5.20) X 10*6/uL Hgb 10.3 L (12.0-15.0) g/dL Hct 33.6 L (37.2-46.3) % MCHC 30.7 L (32.0-37.0) g/dL RDW 16.3 H (11.5-14.5) % Lymphocytes # 0.44 L (0.90-5.00) X 10*3/uL Monocytes # 0.06 L (0.20-1.00) X 10*3/uL Eosinophils # 0 L (0.04-0.35) X 10*3/uL ESR 37 H (0-30) mm/Hr Chloride (96-109) mmol/L Carbon Dioxide (21.6-31.8) mmol/L Creatinine (0.6-1.5) mg/dL BUN/Creatinine Ratio (12.00-20.00) Ratio Glucose (70-110) mg/dL POC Glucose (mg/dL) 146 H 151 H (75-99) mg/dL C-Reactive Protein (0.0-0.8) mg/dL 11/24/20 11/24/20 11/24/20 Range/Units 05:50 06:54 11:54 RBC (4.10-5.20) X 10*6/uL Hgb (12.0-15.0) g/dL Hct (37.2-46.3) % MCHC (32.0-37.0) g/dL RDW (11.5-14.5) % Lymphocytes # (0.90-5.00) X 10*3/uL Monocytes # (0.20-1.00) X 10*3/uL Eosinophils # (0.04-0.35) X 10*3/uL ESR (0-30) mm/Hr Chloride 90 L (96-109) mmol/L Carbon Dioxide 38.0 H (21.6-31.8) mmol/L Creatinine 0.5 L (0.6-1.5) mg/dL BUN/Creatinine Ratio 42.00 H (12.00-20.00) Ratio Glucose 130 H (70-110) mg/dL POC Glucose (mg/dL) 138 H 162 H (75-99) mg/dL C-Reactive Protein 1.1 H (0.0-0.8) mg/dL Microbiology - Last 24 Hours (Table) 11/23/20 12:34 Urine Culture - Preliminary Urine,Voided Assessment and Plan Assessment: Weakness and hypoglycemia Hypomagnesemia Elevated d-dimer without any evidence of pulmonary embolism Chronic obstructive pulmonary disease Hypercarbia history of congestive heart failure with chronic diastolic dysfunction, ejection fraction 50-55% History of fibromyalgia Hyperlipidemia Hypertension history of pneumonia Mild protein calorie malnutrition Gait dysfunction and falls Anxiety, depression Recommendations and discussion: Recommend to continue with current medications, management, and symptomatic treatment. Continue breathing inhalational treatments. Continue to monitor Accu-Cheks closely before meals and at bedtime and will continue sliding scale at this time. Continue to encourage oral intake. Recommend PT/OT evaluation and continued PT/OT therapy as patient continues to be weak. Magnesium to be replaced per protocol as repeat magnesium is 1.5 today. Will repeat a.m. labs and continue to monitor closely. Further recommendations to follow. Due to multiple complex medical issues, prognosis is guarded.
[2020-11-24] MEDS: MAGNESIUM SULFATE-D5W PMX 1 GM in DEXTROSE/WATER 1 100ML.BAG IVPB SCH ×2 (16:31→17:34)
[2020-11-24 16:57] LABS: Glucose,Whole Blood 169 mg/dL (75-99)
[2020-11-24] MEDS: ACETAMINOPHEN TAB 325 MG TAB PO PRN (19:41)
[2020-11-24 20:29] LABS: Glucose,Whole Blood 220 mg/dL (75-99)
[2020-11-24] MEDS: ATORVASTATIN 40 MG TAB PO SCH (22:16)
[2020-11-24] MEDS: FENOFIBRATE 160 MG TAB PO SCH (22:16)
[2020-11-25] MEDS: HYDROcodone/APAP 10-325MG 1 EACH TAB PO SCH ×3 (05:41→22:19)
[2020-11-25 06:58] LABS: Glucose,Whole Blood 129 mg/dL (75-99)
[2020-11-25 07:00] LABS: Anisocytosis Slight; Basophils % (A) 0 %; Eosinophils % (A) 0 %; HCT 30.4 % (34.0-46.0); HGB 10.3 gm/dL (11.4-16.0); Lymphocytes # (A) 0.5 k/uL (1.0-4.8); Lymphocytes % (A) 8 %; MCH 30.2 pg (25.0-35.0); MCHC 33.9 g/dL (31.0-37.0); MCV 89.1 fL (80.0-100.0); Mean Platelet Volume 8.6; Monocytes # (A) 0.2 k/uL (0-1.0); Monocytes % (A) 3 %; Neutrophils # (A) 5.6 k/uL (1.3-7.7); Neutrophils % (A) 89 %; Platelet Count 205 k/uL (150-450); RBC 3.41 m/uL (3.80-5.40); RDW 16.2 % (11.5-15.5); WBC 6.3 k/uL (3.8-10.6)
[2020-11-25 07:20] LABS: African American GFR (CKD) >90 (>60 ml/min/1.73 sqM); Anion Gap 1 mmol/L; Blood Urea Nitrogen 29 mg/dL (7-17); Calcium 8.8 mg/dL (8.4-10.2); Carbon Dioxide 39 mmol/L (22-30); Chloride 87 mmol/L (98-107); Glucose 133 mg/dL (74-99); Non-African American GFR(CKD) >90 (>60 ml/min/1.73 sqM); Potassium 4.4 mmol/L (3.5-5.1); Sodium 127 mmol/L (137-145)
[2020-11-25] MEDS: CHOLECALCIFEROL 25 MCG (1000 IU) TABLET PO SCH (07:21)
[2020-11-25] MEDS: LORATADINE 10 MG TAB PO SCH (07:22)
[2020-11-25] MEDS: DOCUSATE 100 MG CAP PO SCH ×2 (07:22→17:19)
[2020-11-25] MEDS: METOPROLOL TARTRATE 12.5 MG TAB PO SCH (07:22)
[2020-11-25] MEDS: FUROSEMIDE 40 MG TAB PO SCH (07:22)
[2020-11-25] MEDS: PREGABALIN 100 MG CAP PO SCH ×2 (07:22→20:27)
[2020-11-25] MEDS: SERTRALINE 100 MG TAB PO SCH (07:22)
[2020-11-25] MEDS: PANTOPRAZOLE 40 MG TABLET PO SCH (07:22)
[2020-11-25] MEDS: THIAMINE 100 MG TAB PO SCH (07:22)
[2020-11-25] MEDS: FOLIC ACID 1 MG TAB PO SCH (07:22)
[2020-11-25] MEDS: MULTIVITAMINS, THERA 1 EACH TAB PO SCH (07:22)
[2020-11-25] MEDS: methylPREDNISolone SOD SUCCI 125 MG/2 ML VIAL IV SCH ×4 (07:22→23:26)
[2020-11-25] MEDS: HYDROPHILIC CREAM 180 GM TUBE TOPICAL SCH ×2 (07:23→20:28)
[2020-11-25] MEDS: SYMBICORT 160-4.5 MCG INHALER INHALATION SCH ×2 (08:19→20:04)
[2020-11-25] MEDS: IPRATROPIUM-ALBUTEROL 3 ML NEB INHALATION SCH ×4 (08:19→20:04)
[2020-11-25] MEDS: INSULIN ASPART (NovoLOG) 100 UNIT/ML VIAL SQ SCH ×4 (08:40→20:28)
[2020-11-25 11:47] LABS: Glucose,Whole Blood 155 mg/dL (75-99)
[2020-11-25 16:53] LABS: Glucose,Whole Blood 137 mg/dL (75-99)
[2020-11-25 19:50] LABS: Glucose,Whole Blood 176 mg/dL (75-99)
--- NOTE | 2020-11-25 20:06 | PN ---
PROGRESS NOTE DATE OF SERVICE: 11/25/2020 This 70-year-old woman who was admitted with generalized weakness, hypoglycemia is being closely monitored. No chest pain. No palpitations. No fever. The p.o. intake is improving at this time. PHYSICAL EXAMINATION: Alert and oriented x3. Pulse 93, blood pressure 134/74, respiration 18, temperature 98.2, pulse ox 94% on 2 L. HEENT: Conjunctivae normal. Oral mucosa moist. NECK: No jugular venous distention. No lymph node enlargement. CARDIOVASCULAR: S1, S2, muffled. No S3, no S4, RESPIRATORY: Diminished breath sounds at the bases. No rhonchi, no crackles. ABDOMEN: Soft, nontender. LEGS: No edema, no swelling. NERVOUS SYSTEM: No focal deficits. LABS: Sodium 127, other labs are noted. ASSESSMENT: 1. Weakness and hypoglycemia. 2. Hypomagnesemia. 3. Hyponatremia. 4. Elevated D-dimer without any evidence of pulmonary embolism. 5. Chronic obstructive pulmonary disease. 6. Hypercarbia. 7. History of congestive heart failure with chronic diastolic dysfunction, ejection fraction 50-55%. 8. History of fibromyalgia. 9. Hyperlipidemia. 10.Hypertension. 11.History of pneumonia. 12.History of mild protein calorie malnutrition. 13.Gait dysfunction. 14.Anxiety, depression. 15.FULL CODE. RECOMMENDATIONS: Recommend to continue current management, continue symptomatic treatment. Otherwise, repeat labs. PT/OT evaluation. Continue the rest of medications. Monitor blood sugars closely. Guarded prognosis because of multiple complex medical issues and further recommendations to follow. MMODL / IJN: [id number] /
[2020-11-25] MEDS: FENOFIBRATE 160 MG TAB PO SCH (20:27)
[2020-11-25] MEDS: ATORVASTATIN 40 MG TAB PO SCH (20:28)
[2020-11-25] MEDS: ALPRAZolam 0.25 MG TAB PO PRN (23:26)
[2020-11-26] MEDS: HYDROcodone/APAP 10-325MG 1 EACH TAB PO SCH ×3 (05:37→21:33)
[2020-11-26] MEDS: PANTOPRAZOLE 40 MG TABLET PO SCH (05:38)
[2020-11-26] MEDS: methylPREDNISolone SOD SUCCI 125 MG/2 ML VIAL IV SCH ×3 (05:38→17:47)
[2020-11-26 07:04] LABS: Glucose,Whole Blood 117 mg/dL (75-99)
[2020-11-26] MEDS: DOCUSATE 100 MG CAP PO SCH ×2 (07:57→17:47)
[2020-11-26] MEDS: CHOLECALCIFEROL 25 MCG (1000 IU) TABLET PO SCH (07:57)
[2020-11-26] MEDS: THIAMINE 100 MG TAB PO SCH (07:58)
[2020-11-26] MEDS: PREGABALIN 100 MG CAP PO SCH ×2 (07:58→21:33)
[2020-11-26] MEDS: MULTIVITAMINS, THERA 1 EACH TAB PO SCH (07:58)
[2020-11-26] MEDS: FOLIC ACID 1 MG TAB PO SCH (07:58)
[2020-11-26] MEDS: LORATADINE 10 MG TAB PO SCH (07:58)
[2020-11-26] MEDS: SERTRALINE 100 MG TAB PO SCH (07:58)
[2020-11-26] MEDS: ACETAMINOPHEN TAB 325 MG TAB PO PRN ×2 (07:58→20:00)
[2020-11-26] MEDS: METOPROLOL TARTRATE 12.5 MG TAB PO SCH (07:58)
[2020-11-26] MEDS: FUROSEMIDE 40 MG TAB PO SCH (07:58)
[2020-11-26] MEDS: INSULIN ASPART (NovoLOG) 100 UNIT/ML VIAL SQ SCH ×4 (08:05→21:33)
[2020-11-26] MEDS: IPRATROPIUM-ALBUTEROL 3 ML NEB INHALATION SCH ×4 (08:06→20:49)
[2020-11-26] MEDS: SYMBICORT 160-4.5 MCG INHALER INHALATION SCH ×2 (08:06→20:49)
[2020-11-26 09:15] LABS: Basophils # (A) 0 X 10*3/uL (0.00-0.10); Basophils % (A) 0 %; Eosinophils # (A) 0 X 10*3/uL (0.04-0.35); Eosinophils % (A) 0 %; HGB 10.7 g/dL (12.0-15.0); Lymphocytes # (A) 0.42 X 10*3/uL (0.90-5.00); Lymphocytes % (A) 5.6 %; MCH 28.8 pg (27.0-32.0); MCHC 31.5 g/dL (32.0-37.0); MCV 91.4 fL (80.0-97.0); Mean Platelet Volume 11.3 fL (9.5-12.2); Monocytes # (A) 0.16 X 10*3/uL (0.20-1.00); Monocytes % (A) 2.1 %; Neutrophils # (A) 6.92 X 10*3/uL (1.80-7.70); Neutrophils % (A) 91.6 %; Platelet Count 232 X 10*3/uL (140-440); RBC 3.72 X 10*6/uL (4.10-5.20); RDW 16.5 % (11.5-14.5); WBC 7.55 X 10*3/uL (4.50-10.00)
[2020-11-26] MEDS: HYDROPHILIC CREAM 180 GM TUBE TOPICAL SCH ×2 (09:48→21:33)
[2020-11-26 10:13] LABS: African American GFR (CKD) 107.8 (60.0-200.0); Anion Gap 8.3 mmol/L (4.00-12.00); Calcium 9.2 mg/dL (8.7-10.3); Carbon Dioxide 34.7 mmol/L (21.6-31.8); Potassium 4.7 mmol/L (3.5-5.5)
[2020-11-26 11:43] LABS: Glucose,Whole Blood 133 mg/dL (75-99)
[2020-11-26 16:38] LABS: Glucose,Whole Blood 124 mg/dL (75-99)
[2020-11-26] MEDS: DAPTOmycin 200 MG in SODIUM CHLORIDE 0.9% 50 ML IVPB SCH (19:59)
--- NOTE | 2020-11-26 20:11 | PN ---
PROGRESS NOTE DATE OF SERVICE: 11/26/2020 INTERVAL HISTORY: This is a 70-year-old woman who was admitted with weakness and hypoglycemia is being closely monitored. No chest pain. No palpitations. No fever. PHYSICAL EXAMINATION: GENERAL: Alert and oriented x3. VITAL SIGNS: Pulse 91, blood pressure 131/74, respirations 18, temperature 98.1, pulse ox 98% on 2 liters. HEENT: Conjunctivae normal. NECK: No jugular venous distention. No carotid bruits. No lymph node enlargement. RESPIRATORY: Breath sounds diminished at the bases. A few scattered rhonchi. HEART: S1 and S2, muffled. ABDOMEN: Soft. NERVOUS: No focal deficits. LABS: WBC 7.5, hemoglobin 10.7, glucose 117, 133, 124. ASSESSMENT: 1. Weakness, severe hypoglycemia. 2. Hypomagnesemia. 3. Hyponatremia. 4. Elevated D-dimer without any evidence of acute pulmonary embolism. 5. Chronic obstructive pulmonary disease. 6. Hypercarbia. 7. History of congestive heart failure with chronic diastolic dysfunction ejection fraction 50-55%. 8. History of fibromyalgia. 9. Hyperlipidemia. 10.Hypertension. 11.History of pneumonia. 12.History of mild protein calorie malnutrition. 13.Gait dysfunction. 14.Anxiety and depression. 15.FULL CODE. RECOMMENDATION AND DISCUSSION: Continue current management and continue symptomatic treatment. Otherwise at this time I would recommend repeat labs in the morning and PT/OT evaluation. Otherwise, once the patient is stable we will send the patient back to the [facility]. Further recommendations to follow. MMWALESKAL / MARIELN: [id number] /
[2020-11-26 20:39] LABS: Glucose,Whole Blood 170 mg/dL (75-99)
[2020-11-26] MEDS: FENOFIBRATE 160 MG TAB PO SCH (21:33)
[2020-11-26] MEDS: ALPRAZolam 0.25 MG TAB PO PRN (21:40)
[2020-11-27] MEDS: methylPREDNISolone SOD SUCCI 125 MG/2 ML VIAL IV SCH ×4 (00:17→17:11)
[2020-11-27 00:43] LABS: Appearance,Urine Clear (Clear); Bacteria,Urine Rare /hpf; Bilirubin,Urine Negative (Negative); Blood,Urine Negative (Negative); Color,Urine Light Yellow; Glucose,Urine (UA) Negative (Negative); Hyaline Casts,Urine 1 /lpf (0-2); Ketones,Urine Negative (Negative); Leukocyte Esterase,Urine Large (Negative); Mucus,Urine Rare /hpf; Nitrite,Urine Negative (Negative); Protein,Urine Negative (Negative); RBC,Urine 6 /hpf (0-5); Specific Gravity,Urine 1.018 (1.001-1.035); Squamous Epithelial Cell,Urine <1 /hpf (0-4); Urobilinogen,Urine <2.0 mg/dL (<2.0); WBC,Urine 9 /hpf (0-5)
[2020-11-27] MEDS: HYDROcodone/APAP 10-325MG 1 EACH TAB PO SCH ×3 (05:15→22:09)
[2020-11-27] MEDS: PANTOPRAZOLE 40 MG TABLET PO SCH (05:15)
--- NOTE | 2020-11-27 07:02 | CONS ---
CONSULTATION DATE OF SERVICE: 11/26/2020 REASON FOR CONSULTATION: VRE positive urine culture/UTI. HISTORY OF PRESENT ILLNESS: The patient is a 70-year-old female with past medical history significant for urinary retention requiring chronic indwelling Patterson catheter. Last seen about a week ago. The patient was brought into the ER at [facility] 3 days ago on the for evaluation of tachycardia. Currently, patient undergoing rehab. Heart rate went up to 130. The patient felt fine during the episode. However, the patient was brought to the ER for further evaluation. Patient complains of feeling fatigued. The patient denies having any headache. No chest pain. No shortness of breath or cough. No nausea, vomiting. No abdominal pain or diarrhea. Patient on presentation to the hospital was afebrile and no fever has been recorded. Subsequently the patient did have a normal white count. She did have a positive UA. Chest x-ray was done which shows borderline cardiomegaly, coarse interstitial markings that are chronic. The patient also had a V/Q scan, low probability for PE. The patient has been treated with Rocephin with urine finalized with VRE infection. Infectious Disease was consulted for further management. REVIEW OF SYSTEMS: Positive points have been mentioned in HPI. Rest of systems are negative. PAST MEDICAL HISTORY: COPD, hypertension, pneumonia, spinal stenosis, depression, urinary retention. PAST SURGICAL HISTORY: Hysterectomy. SOCIAL HISTORY: Remote history of smoking. No drinking or drug use. FAMILY HISTORY: No pertinent findings noticed. ALLERGIES: IODINATED CONTRAST, and LATEX. MEDICATIONS: The patient is on Rocephin 1 gram daily, vitamin B1, Zoloft, Senokot, Lyrica, Protonix, Narcan, Theragran, Triad cream, Solu-Medrol, Claritin, Lasix, fenofibrate, Colace, DuoNeb, Ventolin, [place]. PHYSICAL EXAMINATION: VITAL SIGNS: Blood pressure is 152/89, pulse of 99, temperature is 98.1. The patient is 94% on 2 L nasal cannula. GENERAL DESCRIPTION: Patient is an elderly female lying in bed in no distress. No tachypnea or accessory muscles of respiration use. HEENT: Examination shows pallor, no scleral icterus. Oral mucous membrane is dry. NECK: Trachea central, no thyromegaly. LUNGS: Unlabored breathing, clear to auscultation anteriorly. No wheeze or crackle. HEART: S1-S2, regular rate and rhythm. ABDOMEN: Soft, no tenderness. No guarding or rigidity. EXTREMITIES: No edema of the feet. SKIN: No rash or mass palpable. NEUROLOGICAL: Patient is awake, alert, oriented times three. Mood and affect normal. LABS: Hemoglobin is 10 with white count 7.5. BUN of 30, creatinine 0.6. Urine was positive and culture now with VRE with greater than 10,000 colonies. Lopez PCR was negative. Chest x-ray was negative. V/Q scan negative or low probability for PE. DIAGNOSTIC IMPRESSION: Patient admitted to the hospital with weakness. Did have some tachycardia. This patient did have positive UA positive. However this UA had been obtained from the Patterson catheter that apparently was recently changed. Patient did not have any fever or elevated white count with a positive urine culture, possible colonization of the Patterson. Clinically not behaving as symptomatic urinary tract infection. PLAN: 1. Change Patterson catheter. Obtain urine culture from new Patterson. 2. Antibiotic will be adjusted to daptomycin until repeat urine culture is finalized and discontinue Rocephin. 3. We will follow on clinical condition and further adjust medication if needed. Thank you for this consultation. Will follow this patient along with you. MMODL / IJN: [id number] /
[2020-11-27 07:20] LABS: Glucose,Whole Blood 116 mg/dL (75-99)
[2020-11-27] MEDS: INSULIN ASPART (NovoLOG) 100 UNIT/ML VIAL SQ SCH ×4 (07:22→20:44)
[2020-11-27] MEDS: IPRATROPIUM-ALBUTEROL 3 ML NEB INHALATION SCH ×4 (07:39→21:39)
[2020-11-27] MEDS: CHOLECALCIFEROL 25 MCG (1000 IU) TABLET PO SCH (08:57)
[2020-11-27] MEDS: METOPROLOL TARTRATE 12.5 MG TAB PO SCH (08:58)
[2020-11-27] MEDS: LORATADINE 10 MG TAB PO SCH (08:58)
[2020-11-27] MEDS: DOCUSATE 100 MG CAP PO SCH ×2 (08:58→17:12)
[2020-11-27] MEDS: SERTRALINE 100 MG TAB PO SCH (08:58)
[2020-11-27] MEDS: PREGABALIN 100 MG CAP PO SCH ×2 (08:58→19:42)
[2020-11-27] MEDS: FUROSEMIDE 40 MG TAB PO SCH (08:58)
[2020-11-27] MEDS: HYDROPHILIC CREAM 180 GM TUBE TOPICAL SCH ×2 (08:59→19:43)
[2020-11-27 09:24] LABS: Basophils # (A) 0 X 10*3/uL (0.00-0.10); Basophils % (A) 0 %; Eosinophils # (A) 0 X 10*3/uL (0.04-0.35); Eosinophils % (A) 0 %; HCT 35.7 % (37.2-46.3); HGB 11.3 g/dL (12.0-15.0); Lymphocytes # (A) 0.62 X 10*3/uL (0.90-5.00); Lymphocytes % (A) 8.7 %; MCH 28.8 pg (27.0-32.0); MCHC 31.7 g/dL (32.0-37.0); MCV 91.1 fL (80.0-97.0); Monocytes # (A) 0.31 X 10*3/uL (0.20-1.00); Monocytes % (A) 4.3 %; Neutrophils # (A) 6.15 X 10*3/uL (1.80-7.70); Neutrophils % (A) 86.3 %; Platelet Count 236 X 10*3/uL (140-440); RBC 3.92 X 10*6/uL (4.10-5.20); RDW 16.3 % (11.5-14.5); WBC 7.13 X 10*3/uL (4.50-10.00)
[2020-11-27 10:22] LABS: African American GFR (CKD) 114.5 (60.0-200.0); Anion Gap 6.3 mmol/L (4.00-12.00); Calcium 8.9 mg/dL (8.7-10.3); Carbon Dioxide 35.7 mmol/L (21.6-31.8); Magnesium 1.3 mg/dL (1.5-2.4); Non-African American GFR(CKD) 98.8 (60.0-200.0); Potassium 4.7 mmol/L (3.5-5.5)
[2020-11-27] MEDS: ALPRAZolam 0.25 MG TAB PO PRN ×2 (10:48→22:10)
[2020-11-27] MEDS: SYMBICORT 160-4.5 MCG INHALER INHALATION SCH ×2 (11:15→21:39)
[2020-11-27] MEDS: MULTIVITAMINS, THERA 1 EACH TAB PO SCH (11:43)
[2020-11-27] MEDS: FOLIC ACID 1 MG TAB PO SCH (11:43)
[2020-11-27] MEDS: THIAMINE 100 MG TAB PO SCH (11:43)
[2020-11-27 12:03] LABS: Glucose,Whole Blood 109 mg/dL (75-99)
[2020-11-27 16:35] LABS: Glucose,Whole Blood 167 mg/dL (75-99)
[2020-11-27] MEDS: DAPTOmycin 200 MG in SODIUM CHLORIDE 0.9% 50 ML IVPB SCH (19:42)
[2020-11-27] MEDS: ACETAMINOPHEN TAB 325 MG TAB PO PRN (19:42)
[2020-11-27] MEDS: FENOFIBRATE 160 MG TAB PO SCH (19:43)
[2020-11-27 20:33] LABS: Glucose,Whole Blood 250 mg/dL (75-99)
--- NOTE | 2020-11-27 23:55 | PN ---
PROGRESS NOTE DATE OF SERVICE: 11/27/2020 This 70-year-old woman was admitted with severe hypoglycemia, also had significant COPD. No chest pain. No palpitations. The patient periodically confused because of multifactorial reasons. PHYSICAL EXAMINATION: Alert and oriented x2. Pulse 95, blood pressure 120/77, respiration 18. Temperature 98 degrees, pulse ox 98% on 2 L. HEENT: Conjunctivae normal. NECK: No jugular venous distention. CARDIOVASCULAR SYSTEM: S1, S2 muffled. RESPIRATORY SYSTEM: Breath sounds diminished at the bases. A few scattered rhonchi. ABDOMEN: Soft. NERVOUS SYSTEM: No focal deficits. LABS: WBC 7.2, hemoglobin 11.3, sodium 130 and glucose 116. Magnesium is 1.3. UA noted. ASSESSMENT: 1. Weakness with severe hyperglycemia. 2. VRE infection. 3. Hypomagnesemia. 4. Acute urinary tract infection. 5. Hyponatremia. 6. Elevated D-dimer without any evidence of acute pulmonary embolism. 7. Chronic obstructive pulmonary disease. 8. Hypercarbia. 9. History of congestive heart failure with chronic diastolic dysfunction, ejection fraction 50-55 percent. 10.History of fibromyalgia. 11.Hyperlipidemia. 12.Hypertension. 13.History of pneumonia. 14.History of mild protein calorie malnutrition. 15.Gait dysfunction. 16.Anxiety, depression. 17.FULL CODE. RECOMMENDATIONS AND DISCUSSION: I recommend to continue current medications, management and symptomatic treatment. Otherwise, urine culture showed VRE. The patient is on daptomycin. Dr. Watson has been consulted. We will continue to monitor. Repeat labs. Prognosis guarded because of multiple complex medical issues. Further recommendations to follow. MMODL / IJN: [id number] /
[2020-11-28] MEDS: methylPREDNISolone SOD SUCCI 125 MG/2 ML VIAL IV SCH ×5 (00:10→23:46)
[2020-11-28 00:13] LABS: Glucose,Whole Blood 113 mg/dL (75-99)
--- NOTE | 2020-11-28 00:18 | PN ---
PROGRESS NOTE DATE OF SERVICE: 11/27/2020 REASON FOR FOLLOW UP: VRE urinary tract infection. INTERVAL HISTORY: The patient is currently afebrile. The patient is breathing comfortably. Denies having any chest pain or shortness of breath, cough, no abdominal pain and no diarrhea. PHYSICAL EXAMINATION: Blood pressure 128/76, pulse of 95, temperature 99.8, she is 99% on 2 L nasal cannula. General description: The patient is an elderly female lying in in no distress. Respiratory system: Unlabored breathing, clear to auscultation anteriorly. Heart S1, S2. Regular rate and rhythm. Abdomen soft, no tenderness. Extremities are no edema of the feet. LABS: Hemoglobin 11.9, white count 7.1, BUN of 28, creatinine 0.5. Repeat urine after change of Patterson is mildly positive. DIAGNOSTIC IMPRESSION AND PLAN: Patient with Enterococcus VRE catheter associated urinary tract infection. Patient is covered with daptomycin, will be continued while waiting for the repeat to finalize. Monitor clinical course closely. Continue supportive care. MMODL / IJN: [id number] /
[2020-11-28] MEDS: HYDROcodone/APAP 10-325MG 1 EACH TAB PO SCH ×3 (05:11→21:45)
[2020-11-28] MEDS: PANTOPRAZOLE 40 MG TABLET PO SCH (05:11)
[2020-11-28 06:44] LABS: Glucose,Whole Blood 126 mg/dL (75-99)
[2020-11-28] MEDS: INSULIN ASPART (NovoLOG) 100 UNIT/ML VIAL SQ SCH ×4 (07:10→21:48)
[2020-11-28] MEDS: SYMBICORT 160-4.5 MCG INHALER INHALATION SCH ×2 (08:15→21:44)
[2020-11-28] MEDS: IPRATROPIUM-ALBUTEROL 3 ML NEB INHALATION SCH ×4 (08:15→21:44)
[2020-11-28] MEDS: METOPROLOL TARTRATE 12.5 MG TAB PO SCH ×2 (09:11→21:47)
[2020-11-28] MEDS: FUROSEMIDE 40 MG TAB PO SCH (09:11)
[2020-11-28] MEDS: MULTIVITAMINS, THERA 1 EACH TAB PO SCH ×2 (09:12→09:18)
[2020-11-28] MEDS: DOCUSATE 100 MG CAP PO SCH ×2 (09:12→17:26)
[2020-11-28] MEDS: CHOLECALCIFEROL 25 MCG (1000 IU) TABLET PO SCH (09:12)
[2020-11-28] MEDS: LORATADINE 10 MG TAB PO SCH (09:12)
[2020-11-28] MEDS: PREGABALIN 100 MG CAP PO SCH ×2 (09:12→21:47)
[2020-11-28] MEDS: SERTRALINE 100 MG TAB PO SCH (09:12)
[2020-11-28] MEDS: THIAMINE 100 MG TAB PO SCH (09:12)
[2020-11-28] MEDS: HYDROPHILIC CREAM 180 GM TUBE TOPICAL SCH ×2 (09:13→23:48)
[2020-11-28] MEDS ORDERED: METOPROLOL TARTRATE 12.5 MG TAB PO STA (09:52)
[2020-11-28 10:20] LABS: Basophils # (A) 0 X 10*3/uL (0.00-0.10); Basophils % (A) 0 %; Eosinophils # (A) 0 X 10*3/uL (0.04-0.35); Eosinophils % (A) 0 %; HCT 35.9 % (37.2-46.3); HGB 11.3 g/dL (12.0-15.0); Lymphocytes % (A) 6.9 %; MCH 28.8 pg (27.0-32.0); MCHC 31.5 g/dL (32.0-37.0); MCV 91.6 fL (80.0-97.0); Mean Platelet Volume 11.2 fL (9.5-12.2); Monocytes # (A) 0.27 X 10*3/uL (0.20-1.00); Monocytes % (A) 3.7 %; Neutrophils # (A) 6.47 X 10*3/uL (1.80-7.70); Neutrophils % (A) 88.7 %; Platelet Count 256 X 10*3/uL (140-440); RBC 3.92 X 10*6/uL (4.10-5.20); RDW 16.3 % (11.5-14.5); WBC 7.29 X 10*3/uL (4.50-10.00)
[2020-11-28 11:05] LABS: African American GFR (CKD) 107.8 (60.0-200.0); Anion Gap 6.2 mmol/L (4.00-12.00); Calcium 8.7 mg/dL (8.7-10.3); Carbon Dioxide 36.8 mmol/L (21.6-31.8); Potassium 4.8 mmol/L (3.5-5.5)
[2020-11-28] MEDS: FOLIC ACID 1 MG TAB PO SCH (11:12)
[2020-11-28] MEDS: ALPRAZolam 0.25 MG TAB PO PRN ×2 (11:17→21:47)
[2020-11-28 11:34] LABS: Glucose,Whole Blood 135 mg/dL (75-99)
[2020-11-28] MEDS: HEPARIN SODIUM,PORCINE/PF 5,000 UNIT/0.5 ML SYRINGE SQ SCH ×2 (14:58→21:47)
--- NOTE | 2020-11-28 16:55 | P.PN ---
Subjective Progress Note Date: 11/28/20 This is a 70-year-old female who was recently admitted with some weakness along with tachycardia and some shortness of breath and was being closely monitored. Patient was newly diagnosed with diabetes mellitus and has been having some low blood sugar readings and is being closely monitored. Recommend to continue with Accu-Cheks before meals and at bedtime and as needed if showing signs of hypoglycemia. Patient denies any chest pain or worsening shortness of breath today. Patient is afebrile. No reports of nausea or vomiting and patient is tolerating oral intake. Patient does not eat very much and needs encouragement with meals. We'll continue with Accu-Cheks before meals and at bedtime along with sliding scale. Patient will also continue with breathing inhalational treatments as she normally uses in the outpatient setting. Magnesium has been replaced and was found to be 1.5 and will replace per protocol and repeat a.m. labs. Patient continues to be weak and will have PT/OT reevaluate the patient. 11/28/2020 Patient is seen and evaluated and follow-up has been working with physical therapy and patient continues to be closely monitored. Continue with Accu-Cheks and close monitoring patient has had episodes of hypoglycemia along with significant COPD acute exacerbation. She denies chest pain although has been having some feelings of heart racing today and will increase metoprolol and continue to monitor closely. Patient denies any nausea or vomiting and is tolerating diet. Patient is afebrile. Patient continues on breathing inhalational treatments and will continue with at this time. Will continue with IV daptomycin with infectious disease following and will discuss discharge antibiotics as patient has VRE infection with E. coli. Review of systems: Constitutional: Reports of fatigue, no reports of fever or chills Cardiovascular: No reports of chest pain, reports feelings of heart palpitating Respiratory: Reports continued shortness of breath with occasional cough. GI: No reports of nausea, vomiting, or diarrhea, reports poor oral intake : No reports of dysuria or retention Neurovascular: Reports generalized weakness All medications have been reviewed Active Medications Acetaminophen (Acetaminophen Tab 325 Mg Tab) 650 mg PO Q6H PRN PRN Reason: Fever and/ or Pain Last Admin: 11/27/20 19:42 Dose: 650 mg Documented by: Hydrocodone Bitart/Acetaminophen (Hydrocodone/Apap 10-325mg 1 Each Tab) 1 each PO TID@0600,1400,2200 [facility] Last Admin: 11/28/20 13:34 Dose: 1 each Documented by: Albuterol Sulfate (Albuterol Hfa Inhaler) 2 puff INHALATION RT-QID PRN PRN Reason: Shortness Of Breath Albuterol/Ipratropium (Ipratropium-Albuterol 3 Ml Neb) 3 ml INHALATION RT-QID [facility] Last Admin: 11/28/20 12:01 Dose: 3 ml Documented by: Albuterol/Ipratropium (Ipratropium-Albuterol 3 Ml Neb) 3 ml INHALATION RT-Q4H PRN PRN Reason: Shortness Of Breath Or Wheezing Alprazolam (Alprazolam 0.25 Mg Tab) 0.25 mg PO TID PRN PRN Reason: Anxiety Last Admin: 11/28/20 11:17 Dose: 0.25 mg Documented by: Bisacodyl (Bisacodyl 10 Mg Supp) 10 mg RECTAL DAILY PRN PRN Reason: Constipation Budesonide/Formoterol Fumarate (Symbicort 160-4.5 Mcg Inhaler) 2 puff INHALATION RT-BID@1000,1400 [facility] Last Admin: 11/28/20 08:15 Dose: 2 puff Documented by: Cholecalciferol (Cholecalciferol 25 Mcg (1000 Iu) Tablet) 250 mcg PO DAILY@0800 [facility] Last Admin: 11/28/20 09:12 Dose: 250 mcg Documented by: Docusate Sodium (Docusate 100 Mg Cap) 100 mg PO BID@0800,1700 [facility] Last Admin: 11/28/20 09:12 Dose: 100 mg Documented by: Fenofibrate (Fenofibrate 160 Mg Tab) 160 mg PO HS [facility] Last Admin: 11/27/20 19:43 Dose: 160 mg Documented by: Folic Acid (Folic Acid 1 Mg Tab) 1 mg PO DAILY@1100 [facility] Last Admin: 11/28/20 11:12 Dose: 1 mg Documented by: Furosemide (Furosemide 40 Mg Tab) 40 mg PO DAILY@0800 [facility] Last Admin: 11/28/20 09:11 Dose: 40 mg Documented by: Heparin Sodium (Porcine) (Heparin Sodium,Porcine/Pf 5,000 Unit/0.5 Ml Syringe) 5,000 unit SQ Q12HR [facility] Last Admin: 11/28/20 14:58 Dose: 5,000 unit Documented by: Daptomycin 200 mg/ Sodium (Chloride) 50 mls @ 100 mls/hr IVPB Q24H [facility]; Protocol Last Admin: 11/27/20 19:42 Dose: 100 mls/hr Documented by: Insulin Aspart (Insulin Aspart (Novolog) 100 Unit/Ml Vial) 0 unit SQ ACHS [facility]; Protocol Last Admin: 11/28/20 11:41 Dose: Not Given Documented by: Loratadine (Loratadine 10 Mg Tab) 10 mg PO DAILY@0800 [facility] Last Admin: 11/28/20 09:12 Dose: 10 mg Documented by: Magnesium Hydroxide (Magnesium Hydroxide 2,400 Mg/10 Ml Cup) 2,400 mg PO Q48H P RN PRN Reason: Constipation Methylprednisolone Sodium Succinate (Methylprednisolone Sod Succi 125 Mg/2 Ml Vial) 60 mg IV Q6HR [facility] Last Admin: 11/28/20 11:13 Dose: 60 mg Documented by: Metoprolol Tartrate (Metoprolol Tartrate 12.5 Mg Tab) 12.5 mg PO BID [facility] Miscellaneous Information (Magnesium Replacement Protocol 1 Each Misc) 1 each MISCELLANE DAILY PRN; Protocol PRN Reason: Per Protocol Miscellaneous Information (Potassium Replacement Protocol 1 Each Misc) 1 each MISCELLANE DAILY PRN; Protocol PRN Reason: Per Protocol Miscellaneous Information (Magnesium Replacement Protocol 1 Each Misc) 1 each MISCELLANE DAILY PRN; Protocol PRN Reason: Per Protocol Multi-Ingred Cream/Lotion/Oil/Oint (Hydrophilic Cream 180 Gm Tube) 1 applic TOPICAL BID [facility] Last Admin: 11/28/20 09:13 Dose: 1 applic Documented by: Multivitamins (Multivitamins, Thera 1 Each Tab) 1 each PO DAILY@1100 [facility] Last Admin: 11/28/20 09:18 Dose: 1 each Documented by: Naloxone HCl (Naloxone 0.4 Mg/Ml 1 Ml Vial) 0.2 mg IV Q2M PRN PRN Reason: Opioid Reversal Pantoprazole Sodium (Pantoprazole 40 Mg Tablet) 40 mg PO DAILY@0600 [facility] Last Admin: 11/28/20 05:11 Dose: 40 mg Documented by: Pregabalin (Pregabalin 100 Mg Cap) 100 mg PO BID@0800,2100 [facility] Last Admin: 11/28/20 09:12 Dose: 100 mg Documented by: Senna/Docusate Sodium (Sennosides-Docusate Sodium 1 Each Tab) 1 each PO DAILY PRN PRN Reason: Constipation Sertraline HCl (Sertraline 100 Mg Tab) 100 mg PO DAILY@0800 [facility] Last Admin: 11/28/20 09:12 Dose: 100 mg Documented by: Simethicone (Simethicone 80 Mg Chewable) 80 mg PO QID PRN PRN Reason: Indigestion Sodium Biphosphate/Sodium Phosphate (Na Phos,M-B/Na Phos,Di-Ba 133 Ml Enema) 133 ml RECTAL DAILY PRN PRN Reason: Constipation Thiamine HCl (Thiamine 100 Mg Tab) 100 mg PO DAILY@1100 [facility] Last Admin: 11/28/20 09:12 Dose: 100 mg Documented by: Objective - Vital Signs Vital signs: Vital Signs Temp 98.7 F 11/28/20 07:46 Pulse 92 11/28/20 12:14 Resp 18 11/28/20 12:14 BP 163/85 11/28/20 07:46 Pulse Ox 96 11/28/20 07:47 Intake & Output 11/27/20 11/28/20 11/28/20 18:59 06:59 18:59 Intake Total 500 Output Total 2400 700 Balance -1900 -700 Intake: Intake, IV Titration 50 Amount DAPTOmycin 200 mg In 50 Sodium Chloride 0.9% 50 ml @ 100 mls/hr IVPB Q24H [facility] Rx#:[id number] Oral 450 Output: Urine 2400 700 Other: Voiding Method Indwelling Catheter Indwelling Catheter Indwelling Catheter # Bowel Movements 1 - Exam Gen: This is a 70-year-old female sitting up in the chair, alert and oriented 2. Temp is 98.1F, pulse is 93, respirations are 18, blood pressure is 112/71, oxygen saturation is 97% on 3 L. HEENT: Head is atraumatic, normocephalic. Pupils equal, round. Sclerae is anicteric. NECK: Supple. No JVD. No lymphadenopathy. No thyromegaly. LUNGS: Diminished breath sounds bilaterally with a few scattered rhonchi and crackles noted. No intercostal retractions. HEART: S1, S2 are muffled ABDOMEN: Soft. Bowel sounds are present. No masses. No tenderness. EXTREMITIES: No pedal edema. No calf tenderness. NEUROLOGICAL: Patient is awake, alert and oriented x2. Cranial nerves 2 through 12 are grossly intact, diffusely weak. - Labs CBC & Chem 7: 11/28/20 06:07 11/28/20 06:07 Labs: Abnormal Lab Results - Last 24 Hours (Table) 11/27/20 11/27/20 11/28/20 Range/Units 16:32 20:31 00:12 RBC (4.10-5.20) X 10*6/uL Hgb (12.0-15.0) g/dL Hct (37.2-46.3) % MCHC (32.0-37.0) g/dL RDW (11.5-14.5) % Immature Gran # (0.00-0.04) X 10*3/uL Lymphocytes # (0.90-5.00) X 10*3/uL Eosinophils # (0.04-0.35) X 10*3/uL Sodium (135-145) mmol/L Chloride (96-109) mmol/L Carbon Dioxide (21.6-31.8) mmol/L BUN (9.0-27.0) mg/dL BUN/Creatinine Ratio (12.00-20.00) Ratio Glucose (70-110) mg/dL POC Glucose (mg/dL) 167 H 250 H 113 H (75-99) mg/dL 11/28/20 11/28/20 11/28/20 Range/Units 06:07 06:07 06:43 RBC 3.92 L (4.10-5.20) X 10*6/uL Hgb 11.3 L (12.0-15.0) g/dL Hct 35.9 L (37.2-46.3) % MCHC 31.5 L (32.0-37.0) g/dL RDW 16.3 H (11.5-14.5) % Immature Gran # 0.05 H (0.00-0.04) X 10*3/uL Lymphocytes # 0.50 L (0.90-5.00) X 10*3/uL Eosinophils # 0 L (0.04-0.35) X 10*3/uL Sodium 131 L (135-145) mmol/L Chloride 88 L (96-109) mmol/L Carbon Dioxide 36.8 H (21.6-31.8) mmol/L BUN 30.0 H (9.0-27.0) mg/dL BUN/Creatinine Ratio 50.00 H (12.00-20.00) Ratio Glucose 121 H (70-110) mg/dL POC Glucose (mg/dL) 126 H (75-99) mg/dL 11/28/20 Range/Units 11:33 RBC (4.10-5.20) X 10*6/uL Hgb (12.0-15.0) g/dL Hct (37.2-46.3) % MCHC (32.0-37.0) g/dL RDW (11.5-14.5) % Immature Gran # (0.00-0.04) X 10*3/uL Lymphocytes # (0.90-5.00) X 10*3/uL Eosinophils # (0.04-0.35) X 10*3/uL Sodium (135-145) mmol/L Chloride (96-109) mmol/L Carbon Dioxide (21.6-31.8) mmol/L BUN (9.0-27.0) mg/dL BUN/Creatinine Ratio (12.00-20.00) Ratio Glucose (70-110) mg/dL POC Glucose (mg/dL) 135 H (75-99) mg/dL Assessment and Plan Assessment: Weakness and severe hypoglycemia VRE infection Hypomagnesemia Acute urinary tract infection Hyponatremia Elevated d-dimer without any evidence of pulmonary embolism Chronic obstructive pulmonary disease Hypercarbia history of congestive heart failure with chronic diastolic dysfunction, ejection fraction 50-55% History of fibromyalgia Hyperlipidemia Hypertension history of pneumonia History of Mild protein calorie malnutrition Gait dysfunction and falls Anxiety, depression Full code Recommendations and discussion: Recommend to continue with current medications, management, and symptomatic treatment. Continue breathing inhalational treatments. Continue to monitor Accu-Cheks closely before meals and at bedtime and will continue sliding scale at this time. Continue to encourage oral intake. PT/OT following along with social work as patient will be going to [facility] once stabilized discharged. Patient was having some mild tachycardia and feelings of palpitations and will increase metoprolol and monitor closely. Patient is continued on IV antibiotics in the form of daptomycin with infectious disease following for an acute urinary tract infection and will discuss with Dr. Watson about discharge antibiotics. Continue to monitor electrolytes and replace per protocol. Will repeat a.m. labs and continue to monitor closely. Further recommendations to follow. Due to multiple complex medical issues, prognosis is guarded. Possible discharge in 24-48 hours.
[2020-11-28 16:59] LABS: Glucose,Whole Blood 158 mg/dL (75-99)
[2020-11-28] MEDS: ACETAMINOPHEN TAB 325 MG TAB PO PRN (19:46)
[2020-11-28 20:50] LABS: Glucose,Whole Blood 162 mg/dL (75-99)
[2020-11-28] MEDS: DAPTOmycin 200 MG in SODIUM CHLORIDE 0.9% 50 ML IVPB SCH (21:44)
[2020-11-28] MEDS: FENOFIBRATE 160 MG TAB PO SCH (21:45)
[2020-11-29] MEDS: HYDROcodone/APAP 10-325MG 1 EACH TAB PO SCH ×3 (05:11→21:50)
[2020-11-29] MEDS: methylPREDNISolone SOD SUCCI 125 MG/2 ML VIAL IV SCH ×4 (05:11→23:10)
[2020-11-29] MEDS: PANTOPRAZOLE 40 MG TABLET PO SCH (05:11)
--- NOTE | 2020-11-29 05:46 | PN ---
PROGRESS NOTE DATE OF SERVICE: 11/28/2020 REASON FOR FOLLOWUP: VRE urinary tract infection. INTERVAL HISTORY: The patient is afebrile. The patient is breathing comfortably. The patient denies having any chest pain or shortness of breath. No abdominal pain or diarrhea. However, has been complaining of feeling weak. PHYSICAL EXAMINATION: Blood pressure is 112/71 with a pulse of 90, temperature 98.1 she is 97% on 3 L. General description is an elderly female lying in in no distress. Respiratory system: Unlabored breathing, decreased breath sounds. No wheeze. Heart: S1, S2. Regular rate and rhythm. Abdomen soft, no tenderness. LAB: Hemoglobin 9.9, white count 7.2, BUN of 30, creatinine 0.6. Repeat urine culture unfortunately not done. DIAGNOSTIC IMPRESSION AND PLAN: Patient with a positive urine culture with VRE with question of possible Patterson colonization, less likely UTI with no fever or elevated white count. Patient is on daptomycin. Will transition to short course of oral Macrobid on discharge. Continue supportive care. MMODL / IJN: [id number] /
[2020-11-29 07:18] LABS: Glucose,Whole Blood 128 mg/dL (75-99)
[2020-11-29] MEDS: SYMBICORT 160-4.5 MCG INHALER INHALATION SCH ×2 (07:54→20:39)
[2020-11-29] MEDS: IPRATROPIUM-ALBUTEROL 3 ML NEB INHALATION SCH ×4 (07:54→20:39)
[2020-11-29] MEDS: INSULIN ASPART (NovoLOG) 100 UNIT/ML VIAL SQ SCH ×4 (08:13→21:49)
[2020-11-29] MEDS: METOPROLOL TARTRATE 12.5 MG TAB PO SCH ×2 (09:51→21:50)
[2020-11-29] MEDS: SERTRALINE 100 MG TAB PO SCH (09:51)
[2020-11-29] MEDS: LORATADINE 10 MG TAB PO SCH (09:51)
[2020-11-29] MEDS: FUROSEMIDE 40 MG TAB PO SCH (09:51)
[2020-11-29] MEDS: DOCUSATE 100 MG CAP PO SCH ×2 (09:52→17:31)
[2020-11-29] MEDS: HEPARIN SODIUM,PORCINE/PF 5,000 UNIT/0.5 ML SYRINGE SQ SCH ×2 (09:52→21:49)
[2020-11-29] MEDS: HYDROPHILIC CREAM 180 GM TUBE TOPICAL SCH ×2 (09:52→21:52)
[2020-11-29] MEDS: CHOLECALCIFEROL 25 MCG (1000 IU) TABLET PO SCH (09:52)
[2020-11-29] MEDS: PREGABALIN 100 MG CAP PO SCH ×2 (09:55→21:49)
[2020-11-29] MEDS: THIAMINE 100 MG TAB PO SCH (10:03)
[2020-11-29] MEDS: FOLIC ACID 1 MG TAB PO SCH (10:03)
[2020-11-29 11:07] LABS: Anisocytosis Slight; Basophils % (A) 0 %; Eosinophils # (A) 0.1 k/uL (0-0.7); Eosinophils % (A) 1 %; HGB 12.6 gm/dL (11.4-16.0); Lymphocytes # (A) 0.3 k/uL (1.0-4.8); Lymphocytes % (A) 5 %; MCH 29.7 pg (25.0-35.0); MCHC 33.1 g/dL (31.0-37.0); MCV 89.9 fL (80.0-100.0); Mean Platelet Volume 7.9; Monocytes # (A) 0.2 k/uL (0-1.0); Monocytes % (A) 3 %; Neutrophils # (A) 6.5 k/uL (1.3-7.7); Neutrophils % (A) 91 %; Platelet Count 291 k/uL (150-450); RBC 4.23 m/uL (3.80-5.40); RDW 16.1 % (11.5-15.5); WBC 7.2 k/uL (3.8-10.6)
[2020-11-29] MEDS: ALPRAZolam 0.25 MG TAB PO PRN ×2 (11:07→21:56)
[2020-11-29 11:16] LABS: African American GFR (CKD) >90 (>60 ml/min/1.73 sqM); Anion Gap 6 mmol/L; Blood Urea Nitrogen 29 mg/dL (7-17); Calcium 9.2 mg/dL (8.4-10.2); Carbon Dioxide 36 mmol/L (22-30); Chloride 87 mmol/L (98-107); Glucose 150 mg/dL (74-99); Non-African American GFR(CKD) >90 (>60 ml/min/1.73 sqM); Potassium 4.4 mmol/L (3.5-5.1); Sodium 129 mmol/L (137-145)
[2020-11-29 11:39] LABS: Glucose,Whole Blood 90 mg/dL (75-99)
--- NOTE | 2020-11-29 12:59 | PN ---
PROGRESS NOTE DATE OF SERVICE: 11/29/2020 REASON FOR FOLLOWUP: Urinary tract infection. INTERVAL HISTORY: Patient is currently afebrile. The patient is breathing comfortably. The patient denies any chest pain. No shortness of breath. No cough. No abdominal pain. He has been complaining of feeling weak. PHYSICAL EXAMINATION: Blood pressure 158/90 with a pulse of 81, temperature 98.9. She is 96% on 3 L nasal cannula. General description: The patient is an elderly female up in the in no distress. Respiratory system: Unlabored breathing with decreased breath sounds in the bases. No wheeze. Heart S1, S2. Regular rate and rhythm. Abdomen soft, no tenderness. LABS: Hemoglobin is 12.5, white count 7.2, BUN of 29, creatinine 0.61. DIAGNOSTIC IMPRESSION AND PLAN: Patient positive urine culture with VRE, possible Patterson colonization with mild cystitis. On daptomycin. Transition to a short course of oral Macrobid on discharge. Continue supportive care. MMODL / IJN: [id number] /
[2020-11-29 16:47] LABS: Glucose,Whole Blood 121 mg/dL (75-99)
[2020-11-29] MEDS: ACETAMINOPHEN TAB 325 MG TAB PO PRN (20:03)
[2020-11-29] MEDS: DAPTOmycin 200 MG in SODIUM CHLORIDE 0.9% 50 ML IVPB SCH (20:04)
--- NOTE | 2020-11-29 20:21 | PN ---
PROGRESS NOTE DATE OF SERVICE: 11/29/2020. This 70-year-old woman who was admitted with weakness and severe hypoglycemia also had VRE infection. The patient being closely monitored. The patient on daptomycin. Dr. Watson is following the patient closely. The patient actually came from rehab. Dr. Watson has recommended transition to short course of Macrobid on discharge. Continue supportive care. The patient is planned to move to [facility] from the hospital. No chest pain. No palpitations. No fever. EXAM: Mildly confused otherwise. Pulse is 76, blood pressure 130/70, respiration 18, temperature 98.8, pulse ox 94% on 3 L. HEENT: Conjunctivae normal. RESPIRATORY SYSTEM: Breath sounds diminished at the bases. A few scattered rhonchi. ABDOMEN: Soft. Nontender. NERVOUS SYSTEM: No focal deficits. LABORATORY DATA: CBC within normal limits. Sodium 129. ASSESSMENT: 1. Weakness and severe hypoglycemia. 2. VRE urinary tract infection. 3. Hypomagnesemia. 4. Acute urinary tract infection. 5. Hyponatremia. 6. Elevated D-dimer without any evidence of pulmonary embolism. 7. Chronic obstructive pulmonary disease. 8. Hypercarbia. 9. History of congestive heart failure with chronic diastolic dysfunction, ejection fraction 50-55 percent. 10.History of fibromyalgia. 11.Hyperlipidemia. 12.Hypertension. 13.History of pneumonia. 14.Mild protein calorie malnutrition. 15.Gait dysfunction and falls. 16.Anxiety, depression. 17.FULL CODE. RECOMMENDATION: This 70-year-old woman who presented with multiple complex medical issues, we will monitor the patient closely. Continue the current medications, management and symptomatic treatment. Repeat labs. Otherwise continue with short course of daptomycin. The prognosis guarded because of multiple complex medical issues. Further recommendations to follow. Discussed with the family at length yesterday. MMODL / IJN: [id number] / HAN
[2020-11-29 21:00] LABS: Glucose,Whole Blood 207 mg/dL (75-99)
[2020-11-29] MEDS: FENOFIBRATE 160 MG TAB PO SCH (21:49)
[2020-11-30] MEDS: methylPREDNISolone SOD SUCCI 125 MG/2 ML VIAL IV SCH ×2 (05:30→12:20)
[2020-11-30] MEDS: HYDROcodone/APAP 10-325MG 1 EACH TAB PO SCH ×2 (05:31→13:24)
[2020-11-30] MEDS: PANTOPRAZOLE 40 MG TABLET PO SCH (05:32)
[2020-11-30 07:18] LABS: Glucose,Whole Blood 123 mg/dL (75-99)
[2020-11-30] MEDS: IPRATROPIUM-ALBUTEROL 3 ML NEB INHALATION SCH ×3 (07:19→15:25)
[2020-11-30] MEDS: SYMBICORT 160-4.5 MCG INHALER INHALATION SCH ×2 (07:19→15:26)
[2020-11-30] MEDS: INSULIN ASPART (NovoLOG) 100 UNIT/ML VIAL SQ SCH ×3 (07:33→17:20)
[2020-11-30] MEDS: SERTRALINE 100 MG TAB PO SCH (07:39)
[2020-11-30] MEDS: METOPROLOL TARTRATE 12.5 MG TAB PO SCH (07:39)
[2020-11-30] MEDS: PREGABALIN 100 MG CAP PO SCH (07:39)
[2020-11-30] MEDS: FUROSEMIDE 40 MG TAB PO SCH (07:39)
[2020-11-30] MEDS: DOCUSATE 100 MG CAP PO SCH ×2 (07:39→17:20)
[2020-11-30] MEDS: LORATADINE 10 MG TAB PO SCH (07:39)
[2020-11-30] MEDS: HEPARIN SODIUM,PORCINE/PF 5,000 UNIT/0.5 ML SYRINGE SQ SCH (07:40)
[2020-11-30] MEDS: CHOLECALCIFEROL 25 MCG (1000 IU) TABLET PO SCH (07:40)
[2020-11-30] MEDS: HYDROPHILIC CREAM 180 GM TUBE TOPICAL SCH (07:46)
[2020-11-30 09:43] LABS: African American GFR (CKD) >90 (>60 ml/min/1.73 sqM); Blood Urea Nitrogen 33 mg/dL (7-17); Calcium 8.8 mg/dL (8.4-10.2); Chloride 86 mmol/L (98-107); Glucose 135 mg/dL (74-99); Non-African American GFR(CKD) >90 (>60 ml/min/1.73 sqM); Potassium 4.4 mmol/L (3.5-5.1); Sodium 128 mmol/L (137-145)
[2020-11-30 09:49] LABS: Anion Gap 3 mmol/L; Carbon Dioxide 39 mmol/L (22-30)
[2020-11-30 11:44] LABS: Glucose,Whole Blood 144 mg/dL (75-99)
[2020-11-30 12:09] LABS: Basophils # (A) 0 X 10*3/uL (0.00-0.10); Basophils % (A) 0 %; Eosinophils # (A) 0 X 10*3/uL (0.04-0.35); Eosinophils % (A) 0 %; HCT 36.4 % (37.2-46.3); HGB 11.7 g/dL (12.0-15.0); Lymphocytes # (A) 0.32 X 10*3/uL (0.90-5.00); Lymphocytes % (A) 4.9 %; MCH 29.6 pg (27.0-32.0); MCHC 32.1 g/dL (32.0-37.0); MCV 92.2 fL (80.0-97.0); Mean Platelet Volume 11.1 fL (9.5-12.2); Monocytes % (A) 3.1 %; Neutrophils # (A) 5.96 X 10*3/uL (1.80-7.70); Neutrophils % (A) 91.1 %; Platelet Count 272 X 10*3/uL (140-440); RBC 3.95 X 10*6/uL (4.10-5.20); RDW 16.5 % (11.5-14.5); WBC 6.54 X 10*3/uL (4.50-10.00)
[2020-11-30] MEDS: THIAMINE 100 MG TAB PO SCH (12:19)
[2020-11-30] MEDS: MULTIVITAMINS, THERA 1 EACH TAB PO SCH (12:19)
[2020-11-30] MEDS: FOLIC ACID 1 MG TAB PO SCH (12:19)
--- NOTE | 2020-11-30 13:58 | PN ---
PROGRESS NOTE DATE OF SERVICE: 11/30/2020 REASON FOR FOLLOWUP: A VRE urinary tract infection. INTERVAL HISTORY: Patient is afebrile. The patient is breathing comfortably. Patient denies having any chest pain. No shortness of breath. No cough. No abdominal pain or diarrhea. Complaining of feeling weak. PHYSICAL EXAMINATION: VITAL SIGNS: Blood pressure 169/97 with a pulse of 80, temperature 98.9. She is 94% on 3 L nasal cannula. GENERAL DESCRIPTION: An elderly female lying in bed in no distress. RESPIRATORY SYSTEM: Unlabored breathing, clear to auscultation anteriorly. HEART: S1, S2. Regular rate and rhythm. ABDOMEN: Soft, no tenderness. LABS: BUN of 23, creatinine 0.57. DIAGNOSTIC IMPRESSION AND PLAN: Patient with VRE urinary tract infection, possible mild cystitis adequately treated. Short course of oral Macrobid on discharge. Continue supportive care. MMODL / IJN: [id number] /
[2020-11-30 15:24] VITALS: BP 162/92; RESP 16; TEMP 98.8
[2020-11-30 15:44] VITALS: PULSE 87
[2020-11-30 16:26] LABS: Glucose,Whole Blood 145 mg/dL (75-99)
--- NOTE | 2020-12-01 06:09 | DS ---
DISCHARGE SUMMARY DATE OF SERVICE: 11/30/2020 FINAL DIAGNOSIS: 1. Weakness and severe hypoglycemia. 2. VRE urinary tract infection. 3. Hypomagnesemia. 4. Acute urinary tract infection present on admission. 5. Elevated D-dimer without any evidence of acute pulmonary embolism. 6. Chronic obstructive pulmonary disease. 7. Hypercarbia. 8. History of congestive heart failure with chronic diastolic dysfunction ejection fraction 50-55%. 9. History of fibromyalgia. 10.Hyperlipidemia. 11.Hypertension. 12.History of pneumonia. 13.Mild protein calorie malnutrition. 14.Gait dysfunction and falls. 15.Anxiety, depression. 16.FULL CODE. DISCHARGE DISPOSITION: The patient will be discharged in stable condition with guarded prognosis. Patient is being discharged to [facility] home at this time in a stable condition with a guarded prognosis. HISTORY OF PRESENT ILLNESS: This 70-year-old woman with a past medical history of multiple medical problems including COPD, history of multiple medical issues, was recently admitted and referred to the [facility]. At the [facility], apparently patient had poor intake and patient hyperglycemia, change in mental status, weakness and shortness of the breath. Patient treated symptomatically. Patient improved significantly. At this time the family and the patient would like to go to [facility] at this time, so the patient transferred to assisted living in a stable condition with a guarded prognosis for further continued monitoring at this time. PHYSICAL EXAMINATION: On exam, vitals are stable. Cardiovascular S1 and S2. Respiration with a few scattered rhonchi. ABDOMEN: Soft. NERVOUS SYSTEM: No focal deficits. DISCHARGE ADVICE: Diet is cardiac. Activity limited until followup. Follow up with Dr. Wilson in 1-2 days. Home care is also being arranged. MEDICATIONS: 1. Biotin daily. 2. Bisacodyl p.r.n. 3. Colace 100 mg p.o. b.i.d. 4. Folic acid 1 mg. 5. Lasix 40 mg p.o. daily. 6. Lipitor 40 mg q.h.s. 7. Lopressor 12.5 mg p.o. daily, hold if systolic blood pressure less than 100. 8. Magnesium oxide p.r.n. 9. Multivitamins 1 p.o. daily. 10.Simethicone 80 mg p.o. q.i.d. p.r.n. 11.Elroy 10 mg t.i.d. p.r.n. 12.Protonix 40 mg p.o. daily. 13.Pulmicort updrafts b.i.d. 14.Senna p.r.n. 15.Symbicort two puffs b.i.d. 16.Hydrophilic cream p.r.n. 17.Fenofibrate 145 mg q.h.s. 18.Tylenol p.r.n. 19.Albuterol p.r.n. 20.Vitamin B1 100 mg p.o. 21.Vitamin D3 50 mcg p.o. daily. 22.Zoloft 100 mg p.o. daily. 23.Zetia 10 mg p.o. daily. 24.Ceftin 500 mg daily for 3 days. 25.DuoNeb q.i.d. and p.r.n. 26.Lyrica 100 mg p.o. b.i.d. 27.Prednisone taper 40 mg daily for 3 days, 30 for 3 days, 20 for the 3 days, 10 for 3 days. 28.Xanax 0.5 t.i.d. Once again the patient will be discharged in stable condition with a guarded prognosis. MMODL / IJN: [id number] /
== END 2020-11-30 17:55 | disposition home or self-care (01) | DRG 699 ==
LOC: EC 11:29 → 4SSUR 14:28
PROVIDERS: ADMIT Internal Medicine; ATTEND Internal Medicine
DX: T83.518A Infection and inflammatory reaction due to other urinary catheter, initial encounter (principal); N39.0 Urinary tract infection, site not specified; I50.32 Chronic diastolic (congestive) heart failure; E44.1 Mild protein-calorie malnutrition; E87.1 Hypo-osmolality and hyponatremia; Z16.21 Resistance to vancomycin; R00.0 Tachycardia, unspecified; Z87.01 Personal history of pneumonia (recurrent); Z79.51 Long term (current) use of inhaled steroids; Z87.891 Personal history of nicotine dependence; E83.42 Hypomagnesemia; E11.649 Type 2 diabetes mellitus with hypoglycemia without coma; I11.0 Hypertensive heart disease with heart failure; M79.7 Fibromyalgia; E78.5 Hyperlipidemia, unspecified; R26.9 Unspecified abnormalities of gait and mobility; F41.9 Anxiety disorder, unspecified; B95.2 Enterococcus as the cause of diseases classified elsewhere; Z20.822 Contact with and (suspected) exposure to COVID-19; J44.9 Chronic obstructive pulmonary disease, unspecified; B96.20 Unspecified Escherichia coli [E. coli] as the cause of diseases classified elsewhere; F32.9 Major depressive disorder, single episode, unspecified; Y84.6 Urinary catheterization as the cause of abnormal reaction of the patient, or of later complication, without mention of misadventure at the time of the procedure; Z90.710 Acquired absence of both cervix and uterus
CPT/HCPCS: 36415; 71046; 78582; 80048; 80053; 81001; 82533; 83735; 84439; 84443; 84481; 84484; 85025; 85379; 85610; 85652; 85730; 86140; 87077; 87086; 87186; 87635; 93005; 94640; 94760; 99285

== ENCOUNTER 2021-12-21 12:25 | Inpatient (IN) | payer MEDICARE, BC ==
--- NOTE | 2021-12-21 12:51 | ED ---
General Adult HPI - General Chief complaint: Weakness Stated complaint: Weakness Time Seen by Provider: 12/21/21 12:27 Source: family, EMS, RN notes reviewed Mode of arrival: EMS Limitations: language barrier, altered mental status - History of Present Illness Initial comments: Patient is a 71-year-old female who was brought to the emergency room by EMS for an increase in weakness, increase in shortness of breath and positive Covid test today. She has a past medical history significant for oxygen dependent COPD typically on 3 L nasal cannula, CHF, fibromyalgia, pneumonia, mild dementia, depression and anxiety. She has also had previous VRE infections. She has had an increase in her baseline shortness of breath and baseline generalized weakness for 2 days with symptoms worsening. Today at her assisted living her caregiver tested her for Covid and she tested positive. Her mentation is at baseline. Her sister Chelsea who helps care for her was at the bedside briefly. She and her sister deny any other complaints or concerns at this time. - Related Data Home Medications Medication Instructions Recorded Confirmed Atorvastatin Calcium [Lipitor] 40 mg PO HS 06/18/20 12/21/21 Biotin 10,000 mcg PO DAILY@0800 06/18/20 12/21/21 Cetirizine HCl [Zyrtec] 10 mg PO DAILY 06/18/20 12/21/21 Fenofibrate Nanocrystallized 145 mg PO HS 06/18/20 12/21/21 [Tricor] Sertraline HCl [Zoloft] 100 mg PO DAILY 06/18/20 12/21/21 Albuterol Inhaler [Ventolin Hfa 2 puff INHALATION RT-Q4H PRN 09/25/20 12/21/21 Inhaler] Cholecalciferol (Vitamin D3) 250 mcg PO DAILY 09/25/20 12/21/21 [Vitamin D3 (5000 Iu)] Acetaminophen Tab [Tylenol] 650 mg PO Q6H PRN 10/19/20 12/21/21 Docusate [Colace] 100 mg PO BID 10/19/20 12/21/21 Folic Acid 1 mg PO DAILY 10/19/20 12/21/21 Furosemide [Lasix] 40 mg PO BID 10/19/20 12/21/21 Magnesium Hydroxide [Milk of 7,200 mg PO Q48H PRN 10/19/20 12/21/21 Magnesia Concentrate] Metoprolol Tartrate [Lopressor] 12.5 mg PO DAILY 10/19/20 12/21/21 Multivitamins, Thera [Multivitamin 2 tab PO DAILY 10/19/20 12/21/21 (formulary)] Na Phos,M-B/Na Phos,Di-Ba [Fleet 133 ml RECTAL DAILY PRN 10/19/20 12/21/21 Adult] Thiamine [Vitamin B-1] 100 mg PO DAILY 10/19/20 12/21/21 Budesonide-Formot 160-4.5 Mcg 2 puff INHALATION RT-BID 11/23/20 12/21/21 [Symbicort 160-4.5 Mcg Inhaler] HYDROcodone/APAP 10-325MG [[place] 1 tab PO TID 11/23/20 12/21/21 10-325] Pantoprazole [Protonix] 40 mg PO DAILY 11/23/20 12/21/21 Ascorbic Acid [Vitamin C] 1,000 mg PO DAILY 12/21/21 12/21/21 Azithromycin [Zithromax] 250 mg PO DIRECTED 12/21/21 12/21/21 Benzonatate [Tessalon Perle] 200 mg PO TID PRN 12/21/21 12/21/21 Biotene [place] 1 dose PO DIRECTED 12/21/21 12/21/21 Lidocaine 1 patch TOPICAL Q12H 12/21/21 12/21/21 Pregabalin [Lyrica] 100 mg PO BID 12/21/21 12/21/21 Rosuvastatin [Crestor] 10 mg PO HS 12/21/21 12/21/21 Sennosides/Docusate Sodium [Senna 1 tab PO DIRECTED 12/21/21 12/21/21 Plus 8.6-50 mg Tablet] Zinc 50 mg PO DAILY 12/21/21 12/21/21 busPIRone HCL [Buspar] 7.5 mg PO BID 12/21/21 12/21/21 polyethylene glycoL 3350 [Miralax] 17 gm PO DAILY 12/21/21 12/21/21 predniSONE 5 mg PO DAILY 12/21/21 12/21/21 rOPINIRole HCL [Requip] 0.5 mg PO HS 12/21/21 12/21/21 tiZANidine [Zanaflex] 2 mg PO Q6H PRN 12/21/21 12/21/21 Previous Rx's Medication Instructions Recorded Ipratropium-Albuterol Nebulize 3 ml INHALATION RT-QID ml 10/03/20 [Duoneb 0.5 mg-3 mg/3 ml Soln] ALPRAZolam [Xanax] 0.25 mg PO TID PRN #6 tab 10/25/20 Allergies Allergy/AdvReac Type Severity Reaction Status Date / Time adhesive tape Allergy Itching Verified 12/21/21 14:26 almond Allergy Unknown Verified 12/21/21 14:26 Iodinated Contrast Media Allergy Unknown Verified 12/21/21 14:26 latex Allergy Itching Verified 12/21/21 14:26 Review of Systems ROS Statement: Those systems with pertinent positive or pertinent negative responses have been documented in the HPI. ROS Other: All systems not noted in ROS Statement are negative. Past Medical History Past Medical History: Heart Failure, COPD, Dementia, Fibromyalgia, Hyperlipidemia, Hypertension, Pneumonia Additional Past Medical History / Comment(s): Pt recently admitted to [facility] on 10/21/20 with SOB possible exacerbation COPD as well as pneumonia, hyponatremia, elevated random blood sugar, mild protein calorie malnutrition. Other hx: Per sister, pt's health has declined since 06/18/20 when she had a fall/generalized edema/urinary retention/IDC/some confusion, chronic back pain, spinal stenosis, essential tremors, "left leg feel like rubber", constipation. sinus issues, elevated blood sugar with steroid use. History of Any Multi-Drug Resistant Organisms: VRE Date of last positivie culture/infection: 11/23/20 MDRO Source:: Urine Past Surgical History: Hysterectomy Additional Past Surgical History / Comment(s): L foot bunionectomy, back injections Past Anesthesia/Blood Transfusion Reactions: No Reported Reaction Past Psychological History: Anxiety, Depression Smoking Status: Former smoker - Past Family History Father Family Medical History: Dementia, Memory Impairment Additional Family Medical History / Comment(s): SPINAL DISEASE Mother History Unknown: Yes Family Medical History: Renal Disease Additional Family Medical History / Comment(s): CKD, RENAL FAILURE. Mother is . General Exam Limitations: language barrier, altered mental status General appearance: alert, in no apparent distress Head exam: Present: atraumatic, normocephalic, normal inspection Eye exam: Present: normal appearance, PERRL, EOMI. Absent: scleral icterus, conjunctival injection, periorbital swelling ENT exam: Present: normal exam, mucous membranes moist Respiratory exam: Present: rhonchi, decreased breath sounds, other (4 L NC intact). Absent: accessory muscle use Cardiovascular Exam: Present: regular rate, normal rhythm, normal heart sounds. Absent: systolic murmur, diastolic murmur, rubs, gallop, clicks GI/Abdominal exam: Present: soft, normal bowel sounds. Absent: distended, tenderness, guarding, rebound, rigid Extremities exam: Present: normal inspection. Absent: pedal edema, joint swelling Neurological exam: Present: alert Expanded Patient oriented to: Present: person, place Speech: Absent: fluid speech Psychiatric exam: Present: normal affect, normal mood Skin exam: Present: warm, dry, intact, normal color. Absent: rash Course Vital Signs 12/21/21 12/21/21 12/21/21 12:27 12:33 13:37 Temperature 98.7 F Pulse Rate 92 Respiratory 16 22 Rate Blood Pressure 135/43 116/64 O2 Sat by Pulse 100 98 Oximetry 12/21/21 12/21/21 14:00 15:00 Temperature Pulse Rate 96 Respiratory 18 Rate Blood Pressure 106/62 92/69 O2 Sat by Pulse 96 Oximetry - Reevaluation(s) Reevaluation #1: Blood pressure decreased slightly; asymptomatic. Admission change from MedSurg to telemetry. Time: 15:47 Medical Decision Making - Medical Decision Making Will repeat Covid test along with influenza and infectious labs including lactic acid, CBC, CMP and blood cultures. Will check chest x-ray and monitor closely. Given worsening from baseline status will likely need observation supportive care. Covid positive. Elevated CO2 44 level noted blood gases ordered. Chest x-ray shows no acute cardiopulmonary processes. [facility] Hypoxia status at baseline. No evidence of hypoxemic Covid. Will also treat while admitted with monoclonal ant ibodies given positive Covid test. Case discussed with Dr. Erwin - Lab Data Result diagrams: 12/21/21 13:43 12/21/21 13:43 Lab Results 12/21/21 12/21/21 12/21/21 Range/Units 13:43 13:43 13:43 WBC 6.1 (3.8-10.6) k/uL RBC 3.83 (3.80-5.40) m/uL Hgb 11.8 (11.4-16.0) gm/dL Hct 36.7 (34.0-46.0) % MCV 95.8 (80.0-100.0) fL MCH 30.9 (25.0-35.0) pg MCHC 32.3 (31.0-37.0) g/dL RDW 12.9 (11.5-15.5) % Plt Count 160 (150-450) k/uL MPV 9.2 Neutrophils % 84 % Lymphocytes % 5 % Monocytes % 6 % Eosinophils % 2 % Basophils % 2 % Neutrophils # 5.1 (1.3-7.7) k/uL Lymphocytes # 0.3 L (1.0-4.8) k/uL Monocytes # 0.3 (0-1.0) k/uL Eosinophils # 0.1 (0-0.7) k/uL Basophils # 0.1 (0-0.2) k/uL Sodium 139 (137-145) mmol/L Potassium 3.8 (3.5-5.1) mmol/L Chloride 87 L (98-107) mmol/L Carbon Dioxide 44 H* (22-30) mmol/L Anion Gap 8 mmol/L BUN 39 H (7-17) mg/dL Creatinine 0.77 (0.52-1.04) mg/dL Est GFR (CKD-EPI)AfAm >90 (>60 ml/min/1.73 sqM) Est GFR (CKD-EPI)NonAf 78 (>60 ml/min/1.73 sqM) Glucose 79 (74-99) mg/dL Plasma Lactic Acid Shai <0.5 L (0.7-2.0) mmol/L Calcium 9.6 (8.4-10.2) mg/dL Total Bilirubin 0.5 (0.2-1.3) mg/dL AST 66 H (14-36) U/L ALT 27 (4-34) U/L Alkaline Phosphatase 70 (38-126) U/L NT-Pro-B Natriuret Pep pg/mL Total Protein 6.6 (6.3-8.2) g/dL Albumin 4.0 (3.5-5.0) g/dL TSH <0.015 L (0.465-4.680) mIU/L Coronavirus (PCR) (Not Detectd) Influenza Type A RNA (Not Detectd) Influenza Type B (PCR) (Not Detectd) 12/21/21 12/21/21 12/21/21 Range/Units 13:43 13:43 13:43 WBC (3.8-10.6) k/uL RBC (3.80-5.40) m/uL Hgb (11.4-16.0) gm/dL Hct (34.0-46.0) % MCV (80.0-100.0) fL MCH (25.0-35.0) pg MCHC (31.0-37.0) g/dL RDW (11.5-15.5) % Plt Count (150-450) k/uL MPV Neutrophils % % Lymphocytes % % Monocytes % % Eosinophils % % Basophils % % Neutrophils # (1.3-7.7) k/uL Lymphocytes # (1.0-4.8) k/uL Monocytes # (0-1.0) k/uL Eosinophils # (0-0.7) k/uL Basophils # (0-0.2) k/uL Sodium (137-145) mmol/L Potassium (3.5-5.1) mmol/L Chloride (98-107) mmol/L Carbon Dioxide (22-30) mmol/L Anion Gap mmol/L BUN (7-17) mg/dL Creatinine (0.52-1.04) mg/dL Est GFR (CKD-EPI)AfAm (>60 ml/min/1.73 sqM) Est GFR (CKD-EPI)NonAf (>60 ml/min/1.73 sqM) Glucose (74-99) mg/dL Plasma Lactic Acid Shai (0.7-2.0) mmol/L Calcium (8.4-10.2) mg/dL Total Bilirubin (0.2-1.3) mg/dL AST (14-36) U/L ALT (4-34) U/L Alkaline Phosphatase (38-126) U/L NT-Pro-B Natriuret Pep 109 pg/mL Total Protein (6.3-8.2) g/dL Albumin (3.5-5.0) g/dL TSH (0.465-4.680) mIU/L Coronavirus (PCR) Detected A (Not Detectd) Influenza Type A RNA Not Detected (Not Detectd) Influenza Type B (PCR) Not Detected (Not Detectd) Disposition Clinical Impression: COPD exacerbation Disposition: ADMITTED IP TO THIS HOSP Condition: Stable Is patient prescribed a controlled substance at d/c from ED?: No Time of Disposition: 14:43
[2021-12-21 13:58] LABS: Basophils # (A) 0.1 k/uL (0-0.2); Basophils % (A) 2 %; Eosinophils # (A) 0.1 k/uL (0-0.7); Eosinophils % (A) 2 %; HCT 36.7 % (34.0-46.0); HGB 11.8 gm/dL (11.4-16.0); Lymphocytes # (A) 0.3 k/uL (1.0-4.8); Lymphocytes % (A) 5 %; MCH 30.9 pg (25.0-35.0); MCHC 32.3 g/dL (31.0-37.0); MCV 95.8 fL (80.0-100.0); Mean Platelet Volume 9.2; Monocytes # (A) 0.3 k/uL (0-1.0); Monocytes % (A) 6 %; Neutrophils # (A) 5.1 k/uL (1.3-7.7); Neutrophils % (A) 84 %; Platelet Count 160 k/uL (150-450); RBC 3.83 m/uL (3.80-5.40); RDW 12.9 % (11.5-15.5); WBC 6.1 k/uL (3.8-10.6)
[2021-12-21 14:08] LABS: ALT 27 U/L (4-34); AST 66 U/L (14-36); African American GFR (CKD) >90 (>60 ml/min/1.73 sqM); Alkaline Phosphatase 70 U/L (38-126); Blood Urea Nitrogen 39 mg/dL (7-17); Calcium 9.6 mg/dL (8.4-10.2); Chloride 87 mmol/L (98-107); Glucose 79 mg/dL (74-99); Non-African American GFR(CKD) 78 (>60 ml/min/1.73 sqM); Potassium 3.8 mmol/L (3.5-5.1); Sodium 139 mmol/L (137-145); Total Bilirubin 0.5 mg/dL (0.2-1.3); Total Protein 6.6 g/dL (6.3-8.2)
--- NOTE | 2021-12-21 14:08 | XR ---
EXAMINATION TYPE: XR chest 2V DATE OF EXAM: 12/21/2021 COMPARISON: 11/23/20 HISTORY: Shortness of breath TECHNIQUE: Frontal and lateral views of the chest are obtained. FINDINGS: Scattered senescent parenchymal changes noted. Hyperinflation compatible with COPD. No evidence for infiltrate. No evidence for atelectasis. Heart size is stable. Mediastinal structures are stable and grossly unremarkable. No evidence for hilar prominence. Degenerative changes dorsal spine. IMPRESSION: 1. No evidence for acute pulmonary disease.
[2021-12-21 14:16] LABS: Anion Gap 8 mmol/L
[2021-12-21 14:20] LABS: Carbon Dioxide 44 mmol/L (22-30)
[2021-12-21] MEDS ORDERED: NALOXONE 0.4 MG/ML 1 ML VIAL IV PRN (14:46)
[2021-12-21 15:28] LABS: Amorphous Sediment,Urine Rare /hpf; Appearance,Urine Cloudy (Clear); Bacteria,Urine Rare /hpf; Bilirubin,Urine Negative (Negative); Blood,Urine Negative (Negative); Color,Urine Light Yellow; Glucose,Urine (UA) Negative (Negative); Hyaline Casts,Urine 1 /lpf (0-2); Ketones,Urine Negative (Negative); Leukocyte Esterase,Urine Small (Negative); Mucus,Urine Rare /hpf; Nitrite,Urine Positive (Negative); Protein,Urine Negative (Negative); RBC,Urine 1 /hpf (0-5); Transitional Epi Cells,Urine <1 /hpf (0-1); Urobilinogen,Urine <2.0 mg/dL (<2.0); WBC,Urine 3 /hpf (0-5)
[2021-12-21] MEDS ORDERED: BEBTELOVIMAB (EUA) 175 MG/2 ML VIAL IV ONE (15:45)
[2021-12-21] MEDS ORDERED: IPRATROPIUM-ALBUTEROL 3 ML NEB INHALATION SCH (16:00)
[2021-12-21] MEDS: INSULIN ASPART (NovoLOG) 100 UNIT/ML VIAL SQ SCH ×2 (18:38→21:01)
[2021-12-21] MEDS: methylPREDNISolone SOD SUCCI 125 MG/2 ML VIAL IV SCH ×2 (18:47→23:39)
[2021-12-21] MEDS ORDERED: BENZONATATE 100 MG CAP PO PRN (19:46)
[2021-12-21] MEDS ORDERED: tiZANidine 4 MG TAB PO PRN (19:46)
[2021-12-21] MEDS ORDERED: ACETAMINOPHEN TAB 325 MG TAB PO PRN (19:46)
[2021-12-21] MEDS ORDERED: ALPRAZolam 0.25 MG TAB PO PRN (19:46)
[2021-12-21 20:49] LABS: Glucose,Whole Blood 116 mg/dL (70-110)
[2021-12-21] MEDS ORDERED: LIDOCAINE 5% PATCH TOPICAL SCH (21:00)
[2021-12-21] MEDS: ALBUTEROL HFA INHALER INHALATION SCH (21:07)
[2021-12-21] MEDS: PREGABALIN 100 MG CAP PO SCH (21:07)
[2021-12-21] MEDS: HYDROcodone/APAP 10-325MG 1 EACH TAB PO PRN (21:07)
[2021-12-21] MEDS: DOCUSATE 100 MG CAP PO SCH (21:07)
[2021-12-21] MEDS: SYMBICORT 160-4.5 MCG INHALER INHALATION SCH (21:07)
[2021-12-21] MEDS: ATORVASTATIN 40 MG TAB PO SCH (21:08)
[2021-12-21] MEDS: FENOFIBRATE 160 MG TAB PO SCH (21:08)
[2021-12-21] MEDS: busPIRone HCl 5 MG TAB PO SCH (21:08)
[2021-12-21] MEDS: FUROSEMIDE 40 MG TAB PO SCH (21:08)
[2021-12-22] MEDS ORDERED: IPRATROPIUM-ALBUTEROL 3 ML NEB INHALATION PRN (03:40)
[2021-12-22] MEDS: HYDROcodone/APAP 10-325MG 1 EACH TAB PO PRN ×3 (04:39→23:08)
[2021-12-22 05:20] LABS: T4, Free (Free Thyroxine) 1.53 ng/dL (0.78-2.19)
[2021-12-22 06:16] LABS: Glucose,Whole Blood 104 mg/dL (70-110)
[2021-12-22] MEDS: INSULIN ASPART (NovoLOG) 100 UNIT/ML VIAL SQ SCH ×4 (06:18→20:55)
[2021-12-22] MEDS: PANTOPRAZOLE 40 MG TABLET PO SCH (06:27)
[2021-12-22] MEDS: methylPREDNISolone SOD SUCCI 125 MG/2 ML VIAL IV SCH ×4 (06:27→23:08)
[2021-12-22] MEDS ORDERED: NON FORMULARY DRUG (Biotin [Biotin] 10,000 MCG Capsule) PO SCH (08:00)
[2021-12-22 08:10] LABS: Basophils % (A) 1 %; Eosinophils % (A) 0 %; HCT 34.6 % (34.0-46.0); HGB 11.2 gm/dL (11.4-16.0); Lymphocytes # (A) 0.3 k/uL (1.0-4.8); Lymphocytes % (A) 6 %; MCH 31.2 pg (25.0-35.0); MCHC 32.5 g/dL (31.0-37.0); MCV 95.9 fL (80.0-100.0); Mean Platelet Volume 9.1; Monocytes # (A) 0.2 k/uL (0-1.0); Monocytes % (A) 3 %; Neutrophils # (A) 4.5 k/uL (1.3-7.7); Neutrophils % (A) 89 %; Platelet Count 153 k/uL (150-450); RDW 12.8 % (11.5-15.5)
[2021-12-22 08:18] LABS: African American GFR (CKD) 86 (>60 ml/min/1.73 sqM); Blood Urea Nitrogen 44 mg/dL (7-17); Calcium 9.2 mg/dL (8.4-10.2); Chloride 88 mmol/L (98-107); Glucose 93 mg/dL (74-99); Non-African American GFR(CKD) 74 (>60 ml/min/1.73 sqM); Potassium 3.5 mmol/L (3.5-5.1); Sodium 139 mmol/L (137-145)
[2021-12-22 08:26] LABS: Anion Gap 8 mmol/L
[2021-12-22 08:31] LABS: Carbon Dioxide 43 mmol/L (22-30); T4, Free (Free Thyroxine) 1.49 ng/dL (0.78-2.19)
[2021-12-22] MEDS: ALBUTEROL HFA INHALER INHALATION SCH ×4 (08:42→19:48)
[2021-12-22] MEDS: TIOTROPIUM 2.5 MCG INHALER INHALATION SCH (08:42)
[2021-12-22] MEDS: SYMBICORT 160-4.5 MCG INHALER INHALATION SCH ×2 (08:42→19:48)
--- NOTE | 2021-12-22 08:54 | P.HPIM ---
History of Present Illness This is a pleasant 71 years old female with past medical history of Heart Failure, COPD, Dementia, Fibromyalgia, Hyperlipidemia, Hypertension, hyponatremia, chronic back pain and spinal stenosis, essential tremor, anxiety and depression Patient presents because she was feeling hot and short of breath, patient could not finish her token because of her dyspnea patient has some memory problems and she could not tell for how long associated with coughing and some toro phlegm as she states but denies chest pain. No vomiting or diarrhea. No dysuria. She has chronic headache for more than a year about 70/10 mg the morning. She quit smoking in 2019, no alcohol or illicit drug She could not remember who is her knotter hand But she confirms she has history of COPD, at home she is on 3 L oxygen via nasal cannula and the prednisone 5 mg Patient is afebrile. She is saturating 94% on 3 L oxygen via nasal cannula, mildly tachypneic 20 breaths per minute. Blood pressure is acceptable. CBC is unremarkable except for marked lymphopenia BMP showed normal creatinine but elevated carbon dioxide at 44. Glucose 116. Liver enzymes not elevated. TSH less than 0.015. Urine analysis showing positive nitrates but low RBCs and WBCs. Lopez virus is detected EKG showed sinus rhythm at [address]-T changes Chest x-ray: No evidence of pulmonary disease. In the emergency room patient was started on IV Solu-Medrol 60 mg, Symbicort MAPS was checked patient is on [place] 10 3 times a day, gabapentin and Xanax 0.25 Review of Systems Review of systems CONSTITUTIONAL: No fever, no malaise, no fatigue. HEENT: No recent visual problems or hearing problems. Denied any sore throat. CARDIOVASCULAR: No orthopnea, PND, no palpitations, no syncope. PULMONARY: No chest wall tenderness, no hemoptysis. GASTROINTESTINAL: No diarrhea, no nausea, no vomiting, no abdominal pain. Normoactive bowel sounds. NEUROLOGICAL: No headaches, no weakness, no numbness. HEMATOLOGICAL: Denies any bleeding or petechiae. GENITOURINARY: Denies any burning micturition, frequency, or urgency. MUSCULOSKELETAL/RHEUMATOLOGICAL: Denies any joint pain, swelling, or any muscle pain. ENDOCRINE: Denies any polyuria or polydipsia. Past Medical History Past Medical History: Heart Failure, COPD, Dementia, Fibromyalgia, Hyperlipidemia, Hypertension, Pneumonia Additional Past Medical History / Comment(s): Pt recently admitted to [facility] on 10/21/20 with SOB possible exacerbation COPD as well as pneumonia, hyponatremia, elevated random blood sugar, mild protein calorie malnutrition. Other hx: Per sister, pt's health has declined since 06/18/20 when she had a fall/generalized edema/urinary retention/IDC/some confusion, chronic back pain, spinal stenosis, essential tremors, "left leg feel like rubber", constipation. sinus issues, elevated blood sugar with steroid use. History of Any Multi-Drug Resistant Organisms: VRE Date of last positivie culture/infection: 11/23/20 MDRO Source:: Urine Past Surgical History: Hysterectomy Additional Past Surgical History / Comment(s): L foot bunionectomy, back injections Past Anesthesia/Blood Transfusion Reactions: No Reported Reaction Past Psychological History: Anxiety, Depression Additional Psychological History / Comment(s): Pt currently at [facility]. Yesi Arellano is pt's sister and DPOA. Smoking Status: Former smoker Past Alcohol Use History: None Reported Additional Past Alcohol Use History / Comment(s): Pt started smoking in 1969 and quit 06/18/20. Past Drug Use History: None Reported - Past Family History Father Family Medical History: Dementia, Memory Impairment Additional Family Medical History / Comment(s): SPINAL DISEASE Mother History Unknown: Yes Family Medical History: Renal Disease Additional Family Medical History / Comment(s): CKD, RENAL FAILURE. Mother is . Medications and Allergies Home Medications Medication Instructions Recorded Confirmed Type Atorvastatin Calcium [Lipitor] 40 mg PO HS 06/18/20 12/21/21 History Biotin 10,000 mcg PO DAILY@0800 06/18/20 12/21/21 History Cetirizine HCl [Zyrtec] 10 mg PO DAILY 06/18/20 12/21/21 History Fenofibrate Nanocrystallized 145 mg PO HS 06/18/20 12/21/21 History [Tricor] Sertraline HCl [Zoloft] 100 mg PO DAILY 06/18/20 12/21/21 History Albuterol Inhaler [Ventolin Hfa 2 puff INHALATION RT-Q4H PRN 09/25/20 12/21/21 History Inhaler] Cholecalciferol (Vitamin D3) 250 mcg PO DAILY 09/25/20 12/21/21 History [Vitamin D3 (5000 Iu)] Ipratropium-Albuterol Nebulize 3 ml INHALATION RT-QID ml 10/03/20 12/21/21 Rx [Duoneb 0.5 mg-3 mg/3 ml Soln] Acetaminophen Tab [Tylenol] 650 mg PO Q6H PRN 10/19/20 12/21/21 History Docusate [Colace] 100 mg PO BID 10/19/20 12/21/21 History Folic Acid 1 mg PO DAILY 10/19/20 12/21/21 History Furosemide [Lasix] 40 mg PO BID 10/19/20 12/21/21 History Magnesium Hydroxide [Milk of 7,200 mg PO Q48H PRN 10/19/20 12/21/21 History Magnesia Concentrate] Metoprolol Tartrate [Lopressor] 12.5 mg PO DAILY 10/19/20 12/21/21 History Multivitamins, Thera [Multivitamin 2 tab PO DAILY 10/19/20 12/21/21 History (formulary)] Na Phos,M-B/Na Phos,Di-Ba [Fleet 133 ml RECTAL DAILY PRN 10/19/20 12/21/21 History Adult] Thiamine [Vitamin B-1] 100 mg PO DAILY 10/19/20 12/21/21 History ALPRAZolam [Xanax] 0.25 mg PO TID PRN #6 tab 10/25/20 12/21/21 Rx Budesonide-Formot 160-4.5 Mcg 2 puff INHALATION RT-BID 11/23/20 12/21/21 History [Symbicort 160-4.5 Mcg Inhaler] HYDROcodone/APAP 10-325MG [[place] 1 tab PO TID 11/23/20 12/21/21 History 10-325] Pantoprazole [Protonix] 40 mg PO DAILY 11/23/20 12/21/21 History Ascorbic Acid [Vitamin C] 1,000 mg PO DAILY 12/21/21 12/21/21 History Azithromycin [Zithromax] 250 mg PO DIRECTED 12/21/21 12/21/21 History Benzonatate [Tessalon Perle] 200 mg PO TID PRN 12/21/21 12/21/21 History Biotene [place] 1 dose PO DIRECTED 12/21/21 12/21/21 History Lidocaine 1 patch TOPICAL Q12H 12/21/21 12/21/21 History Pregabalin [Lyrica] 100 mg PO BID 12/21/21 12/21/21 History Rosuvastatin [Crestor] 10 mg PO HS 12/21/21 12/21/21 History Sennosides/Docusate Sodium [Senna 1 tab PO DIRECTED 12/21/21 12/21/21 History Plus 8.6-50 mg Tablet] Zinc 50 mg PO DAILY 12/21/21 12/21/21 History busPIRone HCL [Buspar] 7.5 mg PO BID 12/21/21 12/21/21 History polyethylene glycoL 3350 [Miralax] 17 gm PO DAILY 12/21/21 12/21/21 History predniSONE 5 mg PO DAILY 12/21/21 12/21/21 History rOPINIRole HCL [Requip] 0.5 mg PO HS 12/21/21 12/21/21 History tiZANidine [Zanaflex] 2 mg PO Q6H PRN 12/21/21 12/21/21 History Allergies Allergy/AdvReac Type Severity Reaction Status Date / Time adhesive tape Allergy Itching Verified 12/21/21 14:26 almond Allergy Unknown Verified 12/21/21 14:26 Iodinated Contrast Media Allergy Unknown Verified 12/21/21 14:26 latex Allergy Itching Verified 12/21/21 14:26 Physical Exam Vitals: Vital Signs Temp Pulse Pulse Resp BP BP Pulse Ox 12/22/21 04:30 97.6 F 101 H 18 131/64 97 12/21/21 23:40 97.5 F L 96 18 135/59 94 L 12/21/21 21:05 97.6 F 102 H 20 136/73 97 12/21/21 18:50 97.4 F L 105 H 18 149/57 99 12/21/21 17:06 98.5 F 12/21/21 17:00 98 19 131/73 94 L 12/21/21 15:52 12/21/21 15:00 96 18 92/69 96 12/21/21 14:00 106/62 12/21/21 13:37 116/64 98 12/21/21 12:33 22 12/21/21 12:27 98.7 F 92 16 135/43 100 FiO2 12/22/21 04:30 12/21/21 23:40 12/21/21 21:05 12/21/21 18:50 12/21/21 17:06 12/21/21 17:00 12/21/21 15:52 30 12/21/21 15:00 12/21/21 14:00 12/21/21 13:37 12/21/21 12:33 12/21/21 12:27 Intake and Output 12/21/21 12/21/21 12/22/21 14:59 22:59 06:59 Output Total 900 Balance -900 Output: Urine 900 Other: Voiding Method Indwelling Catheter Indwelling Catheter Weight 71 kg 71 kg 70 kg GENERAL: The patient is alert and oriented x3, not in any acute distress. Well developed, well nourished. HEENT: Pupils are round and equally reacting to light. EOMI. No scleral icterus. No conjunctival pallor. Normocephalic, atraumatic. No pharyngeal erythema. No thyromegaly. CARDIOVASCULAR: S1 and S2 present. No murmurs, rubs, or gallops. -PULMONARY: Chest is clear to auscultation, no wheezing or crackles. Decreased air entry on both lungs ABDOMEN: Soft, nontender, nondistended, normoactive bowel sounds. No palpable organomegaly. MUSCULOSKELETAL: No joint swelling or deformity. EXTREMITIES: No cyanosis, clubbing, or pedal edema. NEUROLOGICAL: Gross neurological examination did not reveal any focal deficits. SKIN: No rashes. no petechiae. Results CBC & Chem 7: 12/22/21 06:34 12/22/21 06:34 Labs: Abnormal Lab Results - Last 24 Hours (Table) 12/21/21 12/21/21 12/21/21 Range/Units 13:43 13:43 13:43 Lymphocytes # 0.3 L (1.0-4.8) k/uL Chloride 87 L (98-107) mmol/L Carbon Dioxide 44 H* (22-30) mmol/L BUN 39 H (7-17) mg/dL POC Glucose (mg/dL) (70-110) mg/dL Plasma Lactic Acid Shai <0.5 L (0.7-2.0) mmol/L AST 66 H (14-36) U/L TSH <0.015 L (0.465-4.680) mIU/L Urine Appearance (Clear) Urine Nitrite (Negative) Ur Leukocyte Esterase (Negative) Amorphous Sediment (None) /hpf Urine Bacteria (None) /hpf Urine Mucus (None) /hpf Coronavirus (PCR) (Not Detectd) 12/21/21 12/21/21 12/21/21 Range/Units 13:43 15:10 20:48 Lymphocytes # (1.0-4.8) k/uL Chloride (98-107) mmol/L Carbon Dioxide (22-30) mmol/L BUN (7-17) mg/dL POC Glucose (mg/dL) 116 H (70-110) mg/dL Plasma Lactic Acid Shai (0.7-2.0) mmol/L AST (14-36) U/L TSH (0.465-4.680) mIU/L Urine Appearance Cloudy H (Clear) Urine Nitrite Positive H (Negative) Ur Leukocyte Esterase Small H (Negative) Amorphous Sediment Rare H (None) /hpf Urine Bacteria Rare H (None) /hpf Urine Mucus Rare H (None) /hpf Coronavirus (PCR) Detected A (Not Detectd) Thrombosis Risk Factor Assmnt - Choose All That Apply Any of the Below Risk Factors Present?: Yes Each Factor Represents 1 point: Abnormal pulmonary function (COPD), Obesity (BMI >25) Other Risk Factors: Yes Each Risk Factor Represents 2 Points: Age 61-74 years Thrombosis Risk Factor Assessment Total Risk Factor Score: 4 Thrombosis Risk Factor Assessment Level: Moderate Risk Assessment and Plan Assessment: Acute COPD exacerbation CHF, chronic without acute exacerbation Covid infection, without pneumonia Chronic hypoxic respiratory failure on 3 L/m oxygen Normal thyroid function test Dementia Hyperlipidemia Hypertension History of fibromyalgia History of hyponatremia Chronic back pain and spinal stenosis History of essential tremor History of anxiety and depression Plan: This is a pleasant 71 years old female who presents with COPD exacerbation, Covid infection Continue IV Solu-Medrol, bronchodilator Pulmonary consult Labs and medication were reviewed.. Continue same treatment. Continue with symptomatic treatment. Resume home medication. Monitor lytes and vitals. DVT and GI prophylaxis. Further recommendations as per clinical course of the patient DVT prophylaxis: Subcutaneous heparin GI Prophylaxis: Pepcid PT/OT: Pending Prognosis is guarded
[2021-12-22] MEDS ORDERED: FAMOTIDINE 20 MG/2 ML VIAL IV SCH (09:00)
[2021-12-22] MEDS: FUROSEMIDE 40 MG TAB PO SCH ×2 (09:21→17:44)
[2021-12-22] MEDS: CHOLECALCIFEROL 125 MCG (5000 IU) TABLET PO SCH (09:21)
[2021-12-22] MEDS: SERTRALINE 100 MG TAB PO SCH (09:21)
[2021-12-22] MEDS: FOLIC ACID 1 MG TAB PO SCH (09:22)
[2021-12-22] MEDS: polyethylene glycoL 3350 17 GM POWD.PACK PO SCH (09:22)
[2021-12-22] MEDS: LIDOCAINE 5% PATCH TOPICAL SCH ×2 (09:23→20:59)
[2021-12-22] MEDS: PREGABALIN 100 MG CAP PO SCH ×2 (09:24→19:42)
[2021-12-22] MEDS: MULTIVITAMINS, THERA 1 EACH TAB PO SCH (09:24)
[2021-12-22] MEDS: DOCUSATE 100 MG CAP PO SCH ×2 (09:24→19:42)
[2021-12-22] MEDS: ZINC SULFATE 220 MG CAP PO SCH (09:24)
[2021-12-22] MEDS: THIAMINE 100 MG TAB PO SCH (09:24)
[2021-12-22] MEDS: METOPROLOL TARTRATE 12.5 MG TAB PO SCH (09:24)
[2021-12-22] MEDS: LORATADINE 10 MG TAB PO SCH (09:24)
[2021-12-22] MEDS: HEPARIN SODIUM,PORCINE/PF 5,000 UNIT/0.5 ML SYRINGE SQ SCH ×2 (09:24→19:42)
[2021-12-22] MEDS: busPIRone HCl 5 MG TAB PO SCH ×2 (09:25→19:42)
[2021-12-22] MEDS: ASCORBIC ACID 500 MG TAB PO SCH (09:31)
[2021-12-22 11:34] LABS: Glucose,Whole Blood 135 mg/dL (70-110)
--- NOTE | 2021-12-22 12:59 | P.CNPUL ---
History of Present Illness Consult date: 12/22/21 Requesting physician: Shimon E Jozef Reason for consult: dyspnea, cough, COPD, hypoxemia, abnormal CXR/CT Chief complaint: Shortness of breath. History of present illness: Pulmonary consult dated 12/22/2021. 71-year-old female with history of underlying COPD. She seen in the emergency department on December 21, complaining of weakness, and shortness of breath. The patient hasn't been feeling well for some time. The patient states that she's been also having cough. The cough is typically nonproductive. She does use oxygen at home, 20/01, at between 2-3 L/m. In addition she has a history of CHF, fibromyalgia, pneumonia, dementia, depression, and anxiety. Currently, she sees a visiting physician as a primary doctor. Today, she is resting comfortably. She's on 3 L nasal cannula. Current labs include a white count of 5, hemoglobin 11.2, hematocrit 34.6, and platelet count of 253,000. Sodium 139, potassium 3.5, chloride 88, CO2 43, BUN 44, creatinine 0.81. Based on her bicarbonate concentration, her baseline PaCO2 is roughly 74 + or -2 mmHg. Hence, she is a CO2 retainer, and likely has severe stage III or stage IV COPD. She did smoke for 40 + years at least, more than 1 pack a day. Chest x-ray shows changes of COPD, without acute disease. Review of Systems REVIEW OF SYSTEMS: CONSTITUTIONAL: Weakness. NEUROLOGIC: [ Negative.] HEENT: [ Negative.] CARDIAC: [Negative.] PULMONARY: Shortness of breath and nonproductive cough. GI: [Negative.] : [Negative.] RHEUMATOLOGIC: [ Negative.] IMMUNOLOGIC: [ Negative.] ENDOCRINE: [Negative. ] DERMATOLOGIC: [Negative.] Past Medical History Past Medical History: Heart Failure, COPD, Dementia, Fibromyalgia, Hyperlipidemia, Hypertension, Pneumonia Additional Past Medical History / Comment(s): Pt recently admitted to [facility] on 10/21/20 with SOB possible exacerbation COPD as well as pneumonia, hyponatremia, elevated random blood sugar, mild protein calorie malnutrition. Other hx: Per sister, pt's health has declined since 06/18/20 when she had a fall/generalized edema/urinary retention/IDC/some confusion, chronic back pain, spinal stenosis, essential tremors, "left leg feel like rubber", constipation. sinus issues, elevated blood sugar with steroid use. History of Any Multi-Drug Resistant Organisms: VRE Date of last positivie culture/infection: 11/23/20 MDRO Source:: Urine Past Surgical History: Hysterectomy Additional Past Surgical History / Comment(s): L foot bunionectomy, back injections Past Anesthesia/Blood Transfusion Reactions: No Reported Reaction Past Psychological History: Anxiety, Depression Additional Psychological History / Comment(s): Pt currently at [facility]. Yesi Arellano is pt's sister and DPOA. Smoking Status: Former smoker Past Alcohol Use History: None Reported Additional Past Alcohol Use History / Comment(s): Pt started smoking in 1969 and quit 06/18/20. Past Drug Use History: None Reported - Past Family History Father Family Medical History: Dementia, Memory Impairment Additional Family Medical History / Comment(s): SPINAL DISEASE Mother History Unknown: Yes Family Medical History: Renal Disease Additional Family Medical History / Comment(s): CKD, RENAL FAILURE. Mother is . Medications and Allergies Home Medications Medication Instructions Recorded Confirmed Type Atorvastatin Calcium [Lipitor] 40 mg PO HS 06/18/20 12/21/21 History Biotin 10,000 mcg PO DAILY@0800 06/18/20 12/21/21 History Cetirizine HCl [Zyrtec] 10 mg PO DAILY 06/18/20 12/21/21 History Fenofibrate Nanocrystallized 145 mg PO HS 06/18/20 12/21/21 History [Tricor] Sertraline HCl [Zoloft] 100 mg PO DAILY 06/18/20 12/21/21 History Albuterol Inhaler [Ventolin Hfa 2 puff INHALATION RT-Q4H PRN 09/25/20 12/21/21 History Inhaler] Cholecalciferol (Vitamin D3) 250 mcg PO DAILY 09/25/20 12/21/21 History [Vitamin D3 (5000 Iu)] Ipratropium-Albuterol Nebulize 3 ml INHALATION RT-QID ml 10/03/20 12/21/21 Rx [Duoneb 0.5 mg-3 mg/3 ml Soln] Acetaminophen Tab [Tylenol] 650 mg PO Q6H PRN 10/19/20 12/21/21 History Docusate [Colace] 100 mg PO BID 10/19/20 12/21/21 History Folic Acid 1 mg PO DAILY 10/19/20 12/21/21 History Furosemide [Lasix] 40 mg PO BID 10/19/20 12/21/21 History Magnesium Hydroxide [Milk of 7,200 mg PO Q48H PRN 10/19/20 12/21/21 History Magnesia Concentrate] Metoprolol Tartrate [Lopressor] 12.5 mg PO DAILY 10/19/20 12/21/21 History Multivitamins, Thera [Multivitamin 2 tab PO DAILY 10/19/20 12/21/21 History (formulary)] Na Phos,M-B/Na Phos,Di-Ba [Fleet 133 ml RECTAL DAILY PRN 10/19/20 12/21/21 History Adult] Thiamine [Vitamin B-1] 100 mg PO DAILY 10/19/20 12/21/21 History ALPRAZolam [Xanax] 0.25 mg PO TID PRN #6 tab 10/25/20 12/21/21 Rx Budesonide-Formot 160-4.5 Mcg 2 puff INHALATION RT-BID 11/23/20 12/21/21 History [Symbicort 160-4.5 Mcg Inhaler] HYDROcodone/APAP 10-325MG [Pomaria 1 tab PO TID 11/23/20 12/21/21 History 10-325] Pantoprazole [Protonix] 40 mg PO DAILY 11/23/20 12/21/21 History Ascorbic Acid [Vitamin C] 1,000 mg PO DAILY 12/21/21 12/21/21 History Azithromycin [Zithromax] 250 mg PO DIRECTED 12/21/21 12/21/21 History Benzonatate [Tessalon Perle] 200 mg PO TID PRN 12/21/21 12/21/21 History Biotene Ronceverte 1 dose PO DIRECTED 12/21/21 12/21/21 History Lidocaine 1 patch TOPICAL Q12H 12/21/21 12/21/21 History Pregabalin [Lyrica] 100 mg PO BID 12/21/21 12/21/21 History Rosuvastatin [Crestor] 10 mg PO HS 12/21/21 12/21/21 History Sennosides/Docusate Sodium [Senna 1 tab PO DIRECTED 12/21/21 12/21/21 History Plus 8.6-50 mg Tablet] Zinc 50 mg PO DAILY 12/21/21 12/21/21 History busPIRone HCL [Buspar] 7.5 mg PO BID 12/21/21 12/21/21 History polyethylene glycoL 3350 [Miralax] 17 gm PO DAILY 12/21/21 12/21/21 History predniSONE 5 mg PO DAILY 12/21/21 12/21/21 History rOPINIRole HCL [Requip] 0.5 mg PO HS 12/21/21 12/21/21 History tiZANidine [Zanaflex] 2 mg PO Q6H PRN 12/21/21 12/21/21 History Allergies Allergy/AdvReac Type Severity Reaction Status Date / Time adhesive tape Allergy Itching Verified 12/21/21 14:26 almond Allergy Unknown Verified 12/21/21 14:26 Iodinated Contrast Media Allergy Unknown Verified 12/21/21 14:26 latex Allergy Itching Verified 12/21/21 14:26 Physical Exam Osteopathic Statement: *. No significant issues noted on an osteopathic structural exam other than those noted in the History and Physical/Consult. Vitals: Vital Signs Temp Pulse Pulse Resp BP BP Pulse Ox 12/22/21 07:51 101 H 18 12/22/21 07:46 96.8 F L 101 H 18 187/78 92 L 12/22/21 04:30 97.6 F 101 H 18 131/64 97 12/21/21 23:40 97.5 F L 96 18 135/59 94 L 12/21/21 21:05 97.6 F 102 H 20 136/73 97 12/21/21 18:50 97.4 F L 105 H 18 149/57 99 12/21/21 17:06 98.5 F 12/21/21 17:00 98 19 131/73 94 L 12/21/21 15:52 12/21/21 15:00 96 18 92/69 96 12/21/21 14:00 106/62 12/21/21 13:37 116/64 98 FiO2 12/22/21 07:51 12/22/21 07:46 12/22/21 04:30 12/21/21 23:40 12/21/21 21:05 12/21/21 18:50 12/21/21 17:06 12/21/21 17:00 12/21/21 15:52 30 12/21/21 15:00 12/21/21 14:00 12/21/21 13:37 Intake and Output 12/21/21 12/22/21 12/22/21 22:59 06:59 14:59 Output Total 900 Balance -900 Output: Urine 900 Other: Voiding Method Indwelling Catheter Indwelling Catheter Indwelling Catheter Weight 71 kg 70 kg No acute distress, oriented 3. 3 L saturation is 92%. No conversational dyspnea or use of accessory muscles. HEENT examination is grossly unremarkable. Neck supple. Full range of motion. No adenopathy thyromegaly or neck vein distention. Cardiovascular examination reveals regular rhythm rate. S1-S2 normal. No S3 or S4. No discernible murmur noted. Heart rate 100 bpm. Lungs reveal mild expiratory wheezes and rhonchi. Breath sounds equal bilaterally but diminished throughout. No crackles. Abdomen soft bowel sounds are heard. No masses or tenderness. Extremities are intact. No cyanosis clubbing or edema. Skin is without rash or lesion. Neurologic examination is brief but nonfocal. Results - Laboratory Findings CBC and BMP: 12/22/21 06:34 12/22/21 06:34 Abnormal lab findings: Abnormal Labs 12/21/21 12/21/21 12/21/21 13:43 13:43 13:43 RBC Hgb Lymphocytes # 0.3 L Chloride 87 L Carbon Dioxide 44 H* BUN 39 H POC Glucose (mg/dL) Plasma Lactic Acid Shai <0.5 L AST 66 H TSH <0.015 L Urine Appearance Urine Nitrite Ur Leukocyte Esterase Amorphous Sediment Urine Bacteria Urine Mucus Coronavirus (PCR) 12/21/21 12/21/21 12/21/21 13:43 15:10 20:48 RBC Hgb Lymphocytes # Chloride Carbon Dioxide BUN POC Glucose (mg/dL) 116 H Plasma Lactic Acid Shai AST TSH Urine Appearance Cloudy H Urine Nitrite Positive H Ur Leukocyte Esterase Small H Amorphous Sediment Rare H Urine Bacteria Rare H Urine Mucus Rare H Coronavirus (PCR) Detected A 12/22/21 12/22/21 12/22/21 06:34 06:34 11:26 RBC 3.60 L Hgb 11.2 L Lymphocytes # 0.3 L Chloride 88 L Carbon Dioxide 43 H* BUN 44 H POC Glucose (mg/dL) 135 H Plasma Lactic Acid Shai AST TSH 0.033 L Urine Appearance Urine Nitrite Ur Leukocyte Esterase Amorphous Sediment Urine Bacteria Urine Mucus Coronavirus (PCR) - Diagnostic Findings Chest x-ray: image reviewed Assessment and Plan Assessment: Acute exacerbation of COPD, not complicated by pneumonia. Probable severe stage III or stage IV COPD, with a baseline predicted PaCO2 of 74 + or -2 mmHg. Chronic hypoxemic respiratory failure, on home O2 at 2 L, 24/7. History of CHF. History of dementia. History of fibromyalgia. History of hyperlipidemia. History of hypertension. History of spinal stenosis. History of essential tremors. Plan: Plan dated 12/22/2021. The patient is currently on Symbicort 160/4.5, 2 puffs twice a day. The patient's also on Tessalon Perles for her cough. In addition, the patient's on updrafts with albuterol and ipratropium bromide, and is receiving Solu-Medrol 60 mg every 6 hours. No additional recommendations are made. Prognosis is guarded. We will continue to follow make recommendations where appropriate. Antibiotics in my opinion are not necessary in this patient at this time. Time with Patient: Greater than 30
[2021-12-22 16:58] LABS: Glucose,Whole Blood 146 mg/dL (70-110)
[2021-12-22] MEDS: ATORVASTATIN 40 MG TAB PO SCH (19:42)
[2021-12-22] MEDS: FENOFIBRATE 160 MG TAB PO SCH (19:42)
[2021-12-22] MEDS ORDERED: SYMBICORT 160-4.5 MCG INHALER INHALATION SCH (20:00)
[2021-12-22 20:26] LABS: Glucose,Whole Blood 215 mg/dL (70-110)
[2021-12-22] MEDS ORDERED: FAMOTIDINE 20 MG TAB PO SCH (21:00)
[2021-12-23] MEDS: INSULIN ASPART (NovoLOG) 100 UNIT/ML VIAL SQ SCH ×4 (06:16→20:46)
[2021-12-23 06:17] LABS: Glucose,Whole Blood 125 mg/dL (70-110)
[2021-12-23] MEDS: PANTOPRAZOLE 40 MG TABLET PO SCH (06:19)
[2021-12-23] MEDS: HYDROcodone/APAP 10-325MG 1 EACH TAB PO PRN ×2 (06:20→20:18)
[2021-12-23] MEDS: methylPREDNISolone SOD SUCCI 125 MG/2 ML VIAL IV SCH ×4 (06:20→23:25)
[2021-12-23] MEDS: HEPARIN SODIUM,PORCINE/PF 5,000 UNIT/0.5 ML SYRINGE SQ SCH ×2 (08:38→20:09)
[2021-12-23] MEDS: LIDOCAINE 5% PATCH TOPICAL SCH ×2 (08:38→20:12)
[2021-12-23] MEDS: busPIRone HCl 5 MG TAB PO SCH ×2 (08:39→20:08)
[2021-12-23] MEDS: SERTRALINE 100 MG TAB PO SCH (08:39)
[2021-12-23] MEDS: polyethylene glycoL 3350 17 GM POWD.PACK PO SCH (08:39)
[2021-12-23] MEDS: MULTIVITAMINS, THERA 1 EACH TAB PO SCH (08:39)
[2021-12-23] MEDS: FUROSEMIDE 40 MG TAB PO SCH ×2 (08:39→16:59)
[2021-12-23] MEDS: CHOLECALCIFEROL 125 MCG (5000 IU) TABLET PO SCH (08:40)
[2021-12-23] MEDS: FOLIC ACID 1 MG TAB PO SCH (08:40)
[2021-12-23] MEDS: DOCUSATE 100 MG CAP PO SCH ×2 (08:40→20:08)
[2021-12-23] MEDS: THIAMINE 100 MG TAB PO SCH (08:40)
[2021-12-23] MEDS: ASCORBIC ACID 500 MG TAB PO SCH (08:40)
[2021-12-23] MEDS: PREGABALIN 100 MG CAP PO SCH ×2 (08:40→20:08)
[2021-12-23] MEDS: LORATADINE 10 MG TAB PO SCH (08:40)
[2021-12-23] MEDS: METOPROLOL TARTRATE 12.5 MG TAB PO SCH (08:40)
[2021-12-23] MEDS: ZINC SULFATE 220 MG CAP PO SCH (08:41)
[2021-12-23] MEDS: SYMBICORT 160-4.5 MCG INHALER INHALATION SCH ×2 (10:25→20:27)
[2021-12-23] MEDS: TIOTROPIUM 2.5 MCG INHALER INHALATION SCH (10:25)
[2021-12-23] MEDS: ALBUTEROL HFA INHALER INHALATION SCH ×4 (10:25→20:27)
--- NOTE | 2021-12-23 11:11 | P.PN ---
Subjective Progress Note Date: 12/23/21 Principal diagnosis: Shortness of breath. Pulmonary consult dated 12/22/2021. 71-year-old female with history of underlying COPD. She seen in the emergency department on December 21, complaining of weakness, and shortness of breath. The patient hasn't been feeling well for some time. The patient states that she's been also having cough. The cough is typically nonproductive. She does use oxygen at home, 20/01, at between 2-3 L/m. In addition she has a history of CHF, fibromyalgia, pneumonia, dementia, depression, and anxiety. Currently, she sees a visiting physician as a primary doctor. Today, she is resting comfortably. She's on 3 L nasal cannula. Current labs include a white count of 5, hemoglobin 11.2, hematocrit 34.6, and platelet count of 253,000. Sodium 139, potassium 3.5, chloride 88, CO2 43, BUN 44, creatinine 0.81. Based on her bicarbonate concentration, her baseline PaCO2 is roughly 74 + or -2 mmHg. Hence, she is a CO2 retainer, and likely has severe stage III or stage IV COPD. She did smoke for 40 + years at least, more than 1 pack a day. Chest x-ray shows changes of COPD, without acute disease. Progress note dated 12/23/2021. 79-year-old female we saw yesterday in consultation for COPD exacerbation. The patient is a CO2 retainer, and likely has quite severe COPD. The patient is currently seeing a visiting physician. She is resting comfortably today, on oxygen therapy, at 3 L. No new laboratory data today. The patient has a his tory of CHF, fibromyalgia, pneumonia, dementia, depression, and anxiety. She was a heavy smoker for a number of years. Objective - Vital Signs Vital signs: Vital Signs Temp 98.4 F 12/23/21 08:00 Pulse 102 H 12/23/21 08:00 Resp 18 12/23/21 08:00 BP 135/67 12/23/21 08:00 Pulse Ox 93 L 12/23/21 08:00 FiO2 30 12/21/21 15:52 Intake & Output 12/22/21 12/23/21 12/23/21 18:59 06:59 18:59 Intake Total 494 Output Total 550 625 Balance -56 -625 Intake: Oral 494 Output: Urine 550 625 Other: Voiding Method Indwelling Catheter Indwelling Catheter Indwelling Catheter - Exam No acute distress, oriented 3. 3 L saturation is 93%. No conversational dyspnea or use of accessory muscles. HEENT examination is grossly unremarkable. Neck supple. Full range of motion. No adenopathy thyromegaly or neck vein dist ention. Cardiovascular examination reveals regular rhythm rate. S1-S2 normal. No S3 or S4. No discernible murmur noted. Heart rate 102 bpm. Lungs reveal mild expiratory wheezes and rhonchi. Breath sounds equal bilaterally but diminished throughout. No crackles. Abdomen soft bowel sounds are heard. No masses or tenderness. Extremities are intact. No cyanosis clubbing or edema. Skin is without rash or lesion. Neurologic examination is brief but nonfocal. - Labs CBC & Chem 7: 12/22/21 06:34 12/22/21 06:34 Labs: Abnormal Lab Results - Last 24 Hours (Table) 12/22/21 12/22/21 12/22/21 Range/Units 11:26 16:42 20:25 POC Glucose (mg/dL) 135 H 146 H 215 H (70-110) mg/dL 12/23/21 Range/Units 06:16 POC Glucose (mg/dL) 125 H (70-110) mg/dL Microbiology - Last 24 Hours (Table) 12/21/21 13:43 Blood Culture - Preliminary Blood No Growth after 24 hours 12/21/21 13:43 Blood Culture - Preliminary Blood No Growth after 24 hours Assessment and Plan Assessment: Acute exacerbation of COPD, not complicated by pneumonia. Probable severe stage III or stage IV COPD, with a baseline predicted PaCO2 of 74 + or -2 mmHg. Chronic hypoxemic respiratory failure, on home O2 at 2 L, 20/01. History of CHF. History of dementia. History of fibromyalgia. History of hyperlipidemia. History of hypertension. History of spinal stenosis. History of essential tremors. Plan: Plan dated 12/22/2021. The patient is currently on Symbicort 160/4.5, 2 puffs twice a day. The patient's also on Tessalon Perles for her cough. In addition, the patient's on updrafts with albuterol and ipratropium bromide, and is receiving Solu-Medrol 60 mg every 6 hours. No additional recommendations are made. Prognosis is guarded. We will continue to follow make recommendations where appropriate. Antibiotics in my opinion are not necessary in this patient at this time. Plan dated 12/23/2021. The patient is currently on appropriate medications including Symbicort, DuoNeb, and corticosteroids. No additional recommendations are made at this time. We will continue to follow and make recommendations where appropriate. Prognosis is guarded. Time with Patient: Less than 30
[2021-12-23 11:46] LABS: Glucose,Whole Blood 151 mg/dL (70-110)
[2021-12-23 16:50] LABS: Glucose,Whole Blood 140 mg/dL (70-110)
--- NOTE | 2021-12-23 17:53 | P.PN ---
Subjective This is a pleasant 71 years old female with past medical history of Heart Failure, COPD, Dementia, Fibromyalgia, Hyperlipidemia, Hypertension, hypo natremia, chronic back pain and spinal stenosis, essential tremor, anxiety and depression Patient presents because she was feeling hot and short of breath, patient could not finish her token because of her dyspnea patient has some memory problems and she could not tell for how long associated with coughing and some toro phlegm as she states but denies chest pain. No vomiting or diarrhea. No dysuria. She has chronic headache for more than a year about 70/10 mg the morning. 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 She is saturating 94% on 3 L oxygen via nasal cannula, mildly tachypneic 20 breaths per minute. Blood pressure is acceptable. CBC is unremarkable except for marked lymphopenia BMP showed normal creatinine but elevated carbon dioxide at 44. Glucose 116. Liver enzymes not elevated. TSH less than 0.015. Urine analysis showing positive nitrates but low RBCs and WBCs. Lopez virus is detected EKG showed sinus rhythm at [address]-T changes Chest x-ray: No evidence of pulmonary disease. In the emergency room patient was started on IV Solu-Medrol 60 mg, Symbicort MAPS was checked patient is on [place] 10 3 times a day, gabapentin and Xanax 0.25 12/23/2021 Patient feels that her breathing is improving and she denies any cough and today and no chest pain. She still needing 3 L per minute of oxygen Also she is using BiPAP during the night. She has some weak cough therefore incentive spirometry is ordered Objective - Vital Signs Vital signs: Vital Signs Temp 98.2 F 12/23/21 16:00 Pulse 81 12/23/21 16:00 Resp 20 12/23/21 16:00 BP 132/67 12/23/21 16:00 Pulse Ox 95 12/23/21 16:00 FiO2 30 12/21/21 15:52 Intake & Output 12/22/21 12/23/21 12/23/21 18:59 06:59 18:59 Intake Total 494 120 Output Total 550 625 300 Balance -56 -625 -180 Intake: Oral 494 120 Output: Urine 550 625 300 Other: Voiding Method Indwelling Catheter Indwelling Catheter Indwelling Catheter - Exam GENERAL: The patient is alert and oriented x3, not in any acute distress. Well developed, well nourished. HEENT: Pupils are round and equally reacting to light. EOMI. No scleral icterus. No conjunctival pallor. Normocephalic, atraumatic. No pharyngeal erythema. No thyromegaly. CARDIOVASCULAR: S1 and S2 present. No murmurs, rubs, or gallops. -PULMONARY: Chest is clear to auscultation, no wheezing but limited air entry although improvement ABDOMEN: Soft, nontender, nondistended, normoactive bowel sounds. No palpable o rganomegaly. MUSCULOSKELETAL: No joint swelling or deformity. EXTREMITIES: No cyanosis, clubbing, or pedal edema. NEUROLOGICAL: Gross neurological examination did not reveal any focal deficits. SKIN: No rashes. no petechiae. - Labs CBC & Chem 7: 12/22/21 06:34 12/22/21 06:34 Labs: Abnormal Lab Results - Last 24 Hours (Table) 12/22/21 12/23/21 12/23/21 Range/Units 20:25 06:16 11:44 POC Glucose (mg/dL) 215 H 125 H 151 H (70-110) mg/dL 12/23/21 Range/Units 16:45 POC Glucose (mg/dL) 140 H (70-110) mg/dL Microbiology - Last 24 Hours (Table) 12/21/21 13:43 Blood Culture - Preliminary Blood No Growth after 48 hours 12/21/21 13:43 Blood Culture - Preliminary Blood No Growth after 48 hours Assessment and Plan Assessment: Acute COPD exacerbation CHF, chronic without acute exacerbation Covid infection, without pneumonia Chronic hypoxic respiratory failure on 3 L/m oxygen Normal thyroid function test Dementia Hyperlipidemia Hypertension History of fibromyalgia History of hyponatremia Chronic back pain and spinal stenosis History of essential tremor History of anxiety and depression Plan: This is a pleasant 71 years old female who presents with COPD exacerbation, Covid infection Continue IV Solu-Medrol, bronchodilator Pulmonary consult Labs and medication were reviewed.. Continue same treatment. Continue with symptomatic treatment. Resume home medication. Monitor lytes and vitals. DVT and GI prophylaxis. Further recommendations as per clinical course of the patient DVT prophylaxis: Subcutaneous heparin GI Prophylaxis: Pepcid PT/OT: Pending Prognosis is guarded
[2021-12-23] MEDS: FENOFIBRATE 160 MG TAB PO SCH (20:08)
[2021-12-23] MEDS: ATORVASTATIN 40 MG TAB PO SCH (20:08)
[2021-12-23 20:35] LABS: Glucose,Whole Blood 190 mg/dL (70-110)
[2021-12-24 06:16] LABS: Glucose,Whole Blood 110 mg/dL (70-110)
[2021-12-24] MEDS: methylPREDNISolone SOD SUCCI 125 MG/2 ML VIAL IV SCH ×4 (06:19→23:51)
[2021-12-24] MEDS: INSULIN ASPART (NovoLOG) 100 UNIT/ML VIAL SQ SCH ×4 (06:20→20:32)
[2021-12-24] MEDS: PANTOPRAZOLE 40 MG TABLET PO SCH (06:20)
[2021-12-24] MEDS: SYMBICORT 160-4.5 MCG INHALER INHALATION SCH ×2 (07:57→20:04)
[2021-12-24] MEDS: ALBUTEROL HFA INHALER INHALATION SCH ×4 (07:57→20:04)
[2021-12-24] MEDS: TIOTROPIUM 2.5 MCG INHALER INHALATION SCH (07:58)
[2021-12-24] MEDS: HEPARIN SODIUM,PORCINE/PF 5,000 UNIT/0.5 ML SYRINGE SQ SCH ×2 (09:03→20:03)
[2021-12-24] MEDS: LIDOCAINE 5% PATCH TOPICAL SCH ×2 (09:04→20:09)
[2021-12-24] MEDS: LORATADINE 10 MG TAB PO SCH (09:05)
[2021-12-24] MEDS: ZINC SULFATE 220 MG CAP PO SCH (09:05)
[2021-12-24] MEDS: ASCORBIC ACID 500 MG TAB PO SCH (09:05)
[2021-12-24] MEDS: THIAMINE 100 MG TAB PO SCH (09:05)
[2021-12-24] MEDS: MULTIVITAMINS, THERA 1 EACH TAB PO SCH (09:05)
[2021-12-24] MEDS: SERTRALINE 100 MG TAB PO SCH (09:05)
[2021-12-24] MEDS: PREGABALIN 100 MG CAP PO SCH ×2 (09:05→20:02)
[2021-12-24] MEDS: FOLIC ACID 1 MG TAB PO SCH (09:05)
[2021-12-24] MEDS: FUROSEMIDE 40 MG TAB PO SCH ×2 (09:05→17:51)
[2021-12-24] MEDS: CHOLECALCIFEROL 125 MCG (5000 IU) TABLET PO SCH (09:06)
[2021-12-24] MEDS: busPIRone HCl 5 MG TAB PO SCH ×2 (09:06→20:02)
[2021-12-24] MEDS: METOPROLOL TARTRATE 12.5 MG TAB PO SCH (09:06)
[2021-12-24] MEDS: polyethylene glycoL 3350 17 GM POWD.PACK PO SCH (09:06)
[2021-12-24] MEDS: DOCUSATE 100 MG CAP PO SCH ×2 (09:06→20:03)
[2021-12-24 11:57] LABS: Glucose,Whole Blood 136 mg/dL (70-110)
--- NOTE | 2021-12-24 14:28 | P.PN ---
Subjective Progress Note Date: 12/24/21 71-year-old female with history of underlying COPD. She seen in the emergency department on December 21, complaining of weakness, and shortness of breath. The patient hasn't been feeling well for some time. 12/24/2021, I'm seeing this patient for a follow-up. The patient has COPD and she is a alf resident. The patient was hospitalized for increased shortness of breath. The patient also multiple comorbidities including chf, fibromyalgia, dementia and chronic anxiety. she has been maintained on oxygen at 2.5 l at home on outpatient basis. she has been also maintained on examination of symbicort and spiriva. she is doing well. no specific complaints. she is improving. less short of breath compared to yesterday. she remains on duoneb nebulized treatments around the clock. she is also on iv solu medrol 60 mg every 6 hours. much improved compared to yesterday. she is a heavy smoker for many years. she has [id number] smoking history and she smoked more than a pack of cigarettes a day. chest x-ray showed no evidence of any acute pneumonias. Objective - Vital Signs Vital signs: Vital Signs Temp 97.3 F L 12/24/21 08:50 Pulse 103 H 12/24/21 08:50 Resp 18 12/24/21 08:50 BP 161/72 12/24/21 08:50 Pulse Ox 97 12/24/21 08:50 FiO2 30 12/21/21 15:52 Intake & Output 12/23/21 12/24/21 12/24/21 18:59 06:59 18:59 Intake Total 120 180 Output Total 300 1800 Balance -180 -1800 180 Weight 70.5 kg Intake: Oral 120 180 Output: Urine 300 1800 Uretheral (Patterson) 1800 Other: Voiding Method Indwelling Catheter Indwelling Catheter Indwelling Catheter # Bowel Movements 1 - Exam No acute distress, oriented 3. 3 L saturation is 93%. No conversational dyspnea or use of accessory muscles. HEENT examination is grossly unremarkable. Neck supple. Full range of motion. No adenopathy thyromegaly or neck vein distention. Cardiovascular examination reveals regular rhythm rate. S1-S2 normal. No S3 or S4. No discernible murmur noted. Heart rate 102 bpm. Lungs reveal mild expiratory wheezes and rhonchi. Breath sounds equal bilaterally but diminished throughout. No crackles. Abdomen soft bowel sounds are heard. No masses or tenderness. Extremities are intact. No cyanosis clubbing or edema. Skin is without rash or lesion. Neurologic examination is brief but nonfocal. - Labs CBC & Chem 7: 12/22/21 06:34 12/22/21 06:34 Labs: Abnormal Lab Results - Last 24 Hours (Table) 12/23/21 12/23/21 12/23/21 Range/Units 11:44 16:45 20:34 POC Glucose (mg/dL) 151 H 140 H 190 H (70-110) mg/dL Microbiology - Last 24 Hours (Table) 12/21/21 13:43 Blood Culture - Preliminary Blood No Growth after 48 hours 12/21/21 13:43 Blood Culture - Preliminary Blood No Growth after 48 hours Assessment and Plan Plan: Acute exacerbation of COPD, not complicated by pneumonia.clinically the patient is improving and the patient is less short of breath compared to yesterday Probable severe stage III or stage IV COPD, with a baseline predicted PaCO2 of 7 4 + or -2 mmHg. Chronic hypoxemic respiratory failure, on home O2 at 2 L, 20/01. History of CHF. History of dementia. History of fibromyalgia. History of hyperlipidemia. History of hypertension. History of spinal stenosis. History of essential tremors. Plan: continue bronchodilators Continue IV Solu Medrol for another 24 hours 60 mg every 6 hours Keep the patient on Symbicortas Spiriva which is her maintenance medications Oxygen therapy All medications have been ordered resume We'll start tapering steroids as of tomorrow.
--- NOTE | 2021-12-24 15:30 | P.PN ---
Subjective This is a pleasant 71 years old female with past medical history of Heart Failure, COPD, Dementia, Fibromyalgia, Hyperlipidemia, Hypertension, hypo natremia, chronic back pain and spinal stenosis, essential tremor, anxiety and depression Patient presents because she was feeling hot and short of breath, patient could not finish her token because of her dyspnea patient has some memory problems and she could not tell for how long associated with coughing and some toro phlegm as she states but denies chest pain. No vomiting or diarrhea. No dysuria. She has chronic headache for more than a year about 70/10 mg the morning. 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 She is saturating 94% on 3 L oxygen via nasal cannula, mildly tachypneic 20 breaths per minute. Blood pressure is acceptable. CBC is unremarkable except for marked lymphopenia BMP showed normal creatinine but elevated carbon dioxide at 44. Glucose 116. Liver enzymes not elevated. TSH less than 0.015. Urine analysis showing positive nitrates but low RBCs and WBCs. Lopez virus is detected EKG showed sinus rhythm at [address]-T changes Chest x-ray: No evidence of pulmonary disease. In the emergency room patient was started on IV Solu-Medrol 60 mg, Symbicort MAPS was checked patient is on [place] 10 3 times a day, gabapentin and Xanax 0.25 12/23/2021 Patient feels that her breathing is improving and she denies any cough and today and no chest pain. She still needing 3 L per minute of oxygen Also she is using BiPAP during the night. She has some weak cough therefore incentive spirometry is ordered 12/24/2021 Patient breathing improving, getting close to normal. However patient sitting in bed most of the time she still have some weak cough but is improving with incentive spirometry which is motivated to keep doing it. No other new complaints. She reports improvement, she is currently on 3 L/m compared to home dose of 2.5 L/m. She have some low appetite because she does not like the food here. She has intermittent mild hyperthermia which could be incidental however because she is still having cough and with yellow phlegm were going to add short course of Zithromax. Patient with Covid infection with no evidence of pneumonia or hypoxia. Possible discharge in 24-48 hours if she keeps improving. OT recommended returning back [place] [facility] [place] Objective - Vital Signs Vital signs: Vital Signs Temp 97.3 F L 12/24/21 08:50 Pulse 103 H 12/24/21 08:50 Resp 18 12/24/21 08:50 BP 161/72 12/24/21 08:50 Pulse Ox 97 12/24/21 08:50 FiO2 30 12/21/21 15:52 Intake & Output 12/23/21 12/24/21 12/24/21 18:59 06:59 18:59 Intake Total 120 180 Output Total 300 1800 Balance -180 -1800 180 Weight 70.5 kg Intake: Oral 120 180 Output: Urine 300 1800 Uretheral ([place]) 1800 Other: Voiding Method Indwelling Catheter Indwelling Catheter Indwelling Catheter # Bowel Movements 1 - Exam GENERAL: The patient is alert and oriented x3, not in any acute distress. Well developed, well nourished. HEENT: Pupils are round and equally reacting to light. EOMI. No scleral icterus. No conjunctival pallor. Normocephalic, atraumatic. No pharyngeal erythema. No thyromegaly. CARDIOVASCULAR: S1 and S2 present. No murmurs, rubs, or gallops. -PULMONARY: Chest is clear to auscultation, no wheezing but limited air entry although improvement ABDOMEN: Soft, nontender, nondistended, normoactive bowel sounds. No palpable organomegaly. MUSCULOSKELETAL: No joint swelling or deformity. EXTREMITIES: No cyanosis, clubbing, or pedal edema. NEUROLOGICAL: Gross neurological examination did not reveal any focal deficits. SKIN: No rashes. no petechiae. - Labs CBC & Chem 7: 12/22/21 06:34 12/22/21 06:34 Labs: Abnormal Lab Results - Last 24 Hours (Table) 12/23/21 12/23/21 12/24/21 Range/Units 16:45 20:34 11:56 POC Glucose (mg/dL) 140 H 190 H 136 H (70-110) mg/dL Microbiology - Last 24 Hours (Table) 12/21/21 13:43 Blood Culture - Preliminary Blood No Growth after 48 hours 12/21/21 13:43 Blood Culture - Preliminary Blood No Growth after 48 hours Assessment and Plan Assessment: Acute COPD exacerbation CHF, chronic without acute exacerbation Covid infection, without pneumonia Chronic hypoxic respiratory failure on 3 L/m oxygen Normal thyroid function test Dementia Hyperlipidemia Hypertension History of fibromyalgia History of hyponatremia Chronic back pain and spinal stenosis History of essential tremor History of anxiety and depression Plan: This is a pleasant 71 years old female who presents with COPD exacerbation, Covid infection Continue IV Solu-Medrol, bronchodilator Pulmonary consult Start Zithromax 5 days Labs and medication were reviewed.. Continue same treatment. Continue with symptomatic treatment. Resume home medication. Monitor lytes and vitals. DVT and GI prophylaxis. Further recommendations as per clinical course of the patient DVT prophylaxis: Subcutaneous heparin GI Prophylaxis: Pepcid PT/OT: Pending Prognosis is guarded
[2021-12-24] MEDS ORDERED: AZITHROMYCIN 500 MG in SODIUM CHLORIDE 0.9% 250 ML IVPB SCH (16:00)
[2021-12-24 16:26] LABS: Glucose,Whole Blood 142 mg/dL (70-110)
[2021-12-24] MEDS: FENOFIBRATE 160 MG TAB PO SCH (20:02)
[2021-12-24] MEDS: ATORVASTATIN 40 MG TAB PO SCH (20:02)
[2021-12-24 20:32] LABS: Glucose,Whole Blood 137 mg/dL (70-110)
[2021-12-25] MEDS: HYDROcodone/APAP 10-325MG 1 EACH TAB PO PRN ×2 (05:02→17:30)
[2021-12-25 06:08] LABS: Glucose,Whole Blood 117 mg/dL (70-110)
[2021-12-25] MEDS: INSULIN ASPART (NovoLOG) 100 UNIT/ML VIAL SQ SCH ×4 (06:18→20:51)
[2021-12-25] MEDS: PANTOPRAZOLE 40 MG TABLET PO SCH (06:25)
[2021-12-25] MEDS: methylPREDNISolone SOD SUCCI 125 MG/2 ML VIAL IV SCH (06:25)
[2021-12-25] MEDS: TIOTROPIUM 2.5 MCG INHALER INHALATION SCH (08:33)
[2021-12-25] MEDS: SYMBICORT 160-4.5 MCG INHALER INHALATION SCH ×2 (08:33→20:04)
[2021-12-25] MEDS: ALBUTEROL HFA INHALER INHALATION SCH ×4 (08:33→20:04)
--- NOTE | 2021-12-25 09:26 | P.PN ---
Subjective Progress Note Date: 12/25/21 71-year-old female with history of underlying COPD. She seen in the emergency department on December 21, complaining of weakness, and shortness of breath. The patient hasn't been feeling well for some time. 12/24/2021, I'm seeing this patient for a follow-up. The patient has COPD and she is a care home resident. The patient was hospitalized for increased shortness of breath. The patient also multiple comorbidities including chf, fibromyalgia, dementia and chronic anxiety. she has been maintained on oxygen at 2.5 l at home on outpatient basis. she has been also maintained on examination of symbicort and spiriva. she is doing well. no specific complaints. she is improving. less short of breath compared to yesterday. she remains on duoneb nebulized treatments around the clock. she is also on iv solu medrol 60 mg every 6 hours. much improved compared to yesterday. she is a heavy smoker for many years. she has [id number] smoking history and she smoked more than a pack of cigarettes a day. chest x-ray showed no evidence of any acute pneumonias. 12/25/2021, I'm seeing the patient for a follow-up. She is quite stable for now. However, he tells that she is having liquidy diarrhea. She had at least 3 episodes yesterday. This got worse after she came into the hospital. Apparently she was having some diarrhea even before being admitted to the hospital. In any rate, the patient is not having any major respiratory difficulties. No abdominal pain. No nausea vomiting or emesis. She was on Zithromax which could potentially potentiate or exacerbate underlying diarrhea. Underlying C. diff colitis is felt to be less likely. No other significant issues otherwise. I'm going to take her off the IV Solu Medrol start on a prednisone burst taper. She is a care home resident. Objective - Vital Signs Vital signs: Vital Signs Temp 98.7 F 12/24/21 20:00 Pulse 96 12/25/21 05:05 Resp 18 12/25/21 05:05 BP 159/72 12/25/21 05:05 Pulse Ox 98 12/25/21 08:34 FiO2 30 12/21/21 15:52 Intake & Output 06/27/22 06/28/22 06/28/22 18:59 06:59 18:59 Intake Total 430 118 Output Total 800 Balance -370 118 Weight 70.5 kg Intake: Intake, IV Titration 250 Amount Azithromycin 500 mg In 250 Sodium Chloride 0.9% 250 ml @ 250 mls/hr IVPB DAILY@1600 [facility] Rx#: [id number] Oral 180 118 Output: Urine 800 Other: Voiding Method Indwelling Catheter Indwelling Catheter # Bowel Movements 2 - Exam No acute distress, oriented 3. 3 L saturation is 93%. Breathing is nonlabored. HEENT examination is grossly unremarkable. Neck supple. Full range of motion. No adenopathy thyromegaly or neck vein distention. Cardiovascular examination reveals regular rhythm rate. S1-S2 normal. No S3 or S4. No discernible murmur noted. Heart rate 102 bpm. Lungs reveal mild expiratory wheezes and rhonchi. Breath sounds equal bilaterally but diminished throughout. No crackles. Abdomen soft bowel sounds are heard. No masses or tenderness. Extremities are intact. No cyanosis clubbing or edema. Skin is without rash or lesion. Neurologic examination is brief but nonfocal. - Labs CBC & Chem 7: 12/22/21 06:34 12/22/21 06:34 Labs: Abnormal Lab Results - Last 24 Hours (Table) 12/24/21 12/24/21 12/24/21 Range/Units 11:56 16:25 20:30 POC Glucose (mg/dL) 136 H 142 H 137 H (70-110) mg/dL 12/25/21 Range/Units 06:06 POC Glucose (mg/dL) 117 H (70-110) mg/dL Microbiology - Last 24 Hours (Table) 12/21/21 13:43 Blood Culture - Preliminary Blood No Growth after 72 hours 12/21/21 13:43 Blood Culture - Preliminary Blood No Growth after 72 hours Assessment and Plan Plan: Acute exacerbation of COPD, not complicated by pneumonia.clinically the patient is improving , still on bronchodilators and steroids and Zithromax. Probable severe stage III or stage IV COPD, with a baseline predicted PaCO2 of 74 + or -2 mmHg. Chronic hypoxemic respiratory failure, on home O2 at 2 L, 20/01. Exacerbation of his diarrhea, probably related to antibiotics History of CHF. History of dementia. History of fibromyalgia. History of hyperlipidemia. History of hypertension. History of spinal stenosis. History of essential tremors. Plan: continue bronchodilators Stop the IV Solu-Medrol and start the patient prednisone burst taper Stop the Zithromax Check stool for C. diff Oxygen therapy All medications have been ordered resume
[2021-12-25] MEDS: HEPARIN SODIUM,PORCINE/PF 5,000 UNIT/0.5 ML SYRINGE SQ SCH ×2 (09:54→20:14)
[2021-12-25] MEDS: busPIRone HCl 5 MG TAB PO SCH ×2 (09:55→20:15)
[2021-12-25] MEDS: ZINC SULFATE 220 MG CAP PO SCH (09:55)
[2021-12-25] MEDS: MULTIVITAMINS, THERA 1 EACH TAB PO SCH (09:55)
[2021-12-25] MEDS: PREGABALIN 100 MG CAP PO SCH ×2 (09:55→20:15)
[2021-12-25] MEDS: LORATADINE 10 MG TAB PO SCH (09:56)
[2021-12-25] MEDS: LIDOCAINE 5% PATCH TOPICAL SCH ×2 (09:56→20:52)
[2021-12-25] MEDS: THIAMINE 100 MG TAB PO SCH (09:56)
[2021-12-25] MEDS: FOLIC ACID 1 MG TAB PO SCH (09:56)
[2021-12-25] MEDS: CHOLECALCIFEROL 125 MCG (5000 IU) TABLET PO SCH (09:56)
[2021-12-25] MEDS: FUROSEMIDE 40 MG TAB PO SCH ×2 (09:56→17:31)
[2021-12-25] MEDS: SERTRALINE 100 MG TAB PO SCH (09:56)
[2021-12-25] MEDS: ASCORBIC ACID 500 MG TAB PO SCH (09:56)
[2021-12-25] MEDS: METOPROLOL TARTRATE 12.5 MG TAB PO SCH (09:59)
[2021-12-25] MEDS: predniSONE 20 MG TAB PO SCH (09:59)
[2021-12-25] MEDS: polyethylene glycoL 3350 17 GM POWD.PACK PO SCH (09:59)
[2021-12-25] MEDS: DOCUSATE 100 MG CAP PO SCH (10:00)
--- NOTE | 2021-12-25 10:24 | CDI ---
Documentation Clarification Form Date: 12/25/2021 10:12:37 AM From: Makayla Thorpe CCS, CCDS Admit Date: 12/21/2021 02:28:00 PM Patient Name: Francoise Espinoza Visit Number: [id number] Discharge Date: ATTENTION: The Clinical Documentation Specialists (CDI) and [facility] Coding Staff appreciate your assistance in clarifying documentation. Please respond to the clarification below the line at the bottom and electronically sign. The CDI & [facility] Coding staff will review the response and follow-up if needed. Please note: Queries are made part of the Legal Health Record. If you have any questions, please contact the author of this message via ITS. Dr. Robins E. Sheet: Heart Failure without further specificity is documented in the Patient's Past Medical History in the 12/21 ED Note, the 12/22 H/P, the 12/23 Pulmonary Consult and in subsequent Progress Notes. Per the 12/24 Attending Progress Note: CHF, chronic without acute exacerbation. Additional information regarding the Type & Acuity of CHF is requested. History/Risk Factors per the 12/23 H/P: Heart Failure nos, COPD, Dementia, Fibromyalgia, Hyperlipidemia, Hypertension, Hyponatremia, Chronic Back Pain & Spinal Stenosis, Essential Tremor, Anxiety & Depression, Former smoker on home O2 3Lnc. Clinical Indicators: Presented to the ED on 12/21 via EMS with Weakness & Altered Mental Status, Increased SOB, Positive COVID test today. Admit with COPD Exacerbation. 12/21 VS: T 98.7, P 92, R 16 - 22 (non labored, sob, cough), BP 135/43, PO 100 4Lnc, MBI: 27.5 12/21 LAB: Lymph 0.3; Chl 87, CO2 44, BUN 39, Lactic Acid <0.5, AST 66, TSH <0.015 12/21 BNP: 109 12/21 CXR: No evidence of acute pulmonary disease. Most recent ECHO 09/25/2020: Left ventricular systolic function is low normal w/EF 50-55%, Right ventricle severely enlarged, Mild aortic valve sclerosis, Mild mitral annular calcification present, Mild MR, Mod-severe TR, Mod-severe pulmonary hypertension, Trace/mild pulmonic regurgitation. Treatment12/21: Blood cultures, Pulmonary consulted (COPD & COVID), O2 nc, IV Na Chl 10 mls x1, IV Eua 175 mg x1, IV Solumedrol 60 mg q6H, INH Ventolin 2 puffs QID, INH Symbicort 2 puffs BID, po Lasix 40 mg jv In your professional opinion, can you please clarify the Type of CHF if known? [ ] Chronic Systolic Heart Failure [ ] Chronic Diastolic Heart Failure [ ] Chronic Systolic & Diastolic Heart Failure [ ] Other, please specify [ ] Unable to determine (Template Last Revised: July 2020) Unable to determine MTDD
--- NOTE | 2021-12-25 10:27 | P.PN ---
Subjective This is a pleasant 71 years old female with past medical history of Heart Failure, COPD, Dementia, Fibromyalgia, Hyperlipidemia, Hypertension, hypo natremia, chronic back pain and spinal stenosis, essential tremor, anxiety and depression Patient presents because she was feeling hot and short of breath, patient could not finish her token because of her dyspnea patient has some memory problems and she could not tell for how long associated with coughing and some toro phlegm as she states but denies chest pain. No vomiting or diarrhea. No dysuria. She has chronic headache for more than a year about 70/10 mg the morning. 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 She is saturating 94% on 3 L oxygen via nasal cannula, mildly tachypneic 20 breaths per minute. Blood pressure is acceptable. CBC is unremarkable except for marked lymphopenia BMP showed normal creatinine but elevated carbon dioxide at 44. Glucose 116. Liver enzymes not elevated. TSH less than 0.015. Urine analysis showing positive nitrates but low RBCs and WBCs. Lopez virus is detected EKG showed sinus rhythm at [address]-T changes Chest x-ray: No evidence of pulmonary disease. In the emergency room patient was started on IV Solu-Medrol 60 mg, Symbicort MAPS was checked patient is on [place] 10 3 times a day, gabapentin and Xanax 0.25 12/23/2021 Patient feels that her breathing is improving and she denies any cough and today and no chest pain. She still needing 3 L per minute of oxygen Also she is using BiPAP during the night. She has some weak cough therefore incentive spirometry is ordered 12/24/2021 Patient breathing improving, getting close to normal. However patient sitting in bed most of the time she still have some weak cough but is improving with incentive spirometry which is motivated to keep doing it. No other new complaints. She reports improvement, she is currently on 3 L/m compared to home dose of 2.5 L/m. She have some low appetite because she does not like the food here. She has intermittent mild hyperthermia which could be incidental however because she is still having cough and with yellow phlegm were going to add short course of Zithromax. Patient with Covid infection with no evidence of pneumonia or hypoxia. Possible discharge in 24-48 hours if she keeps improving. OT recommended returning back to [facility] 12/25/2021 Patient breathing improved significantly and her sterile stent to prednisone today. However she is developing frequent diarrhea with no abdominal pain or vomiting. I agree with checking for C. diff. Also we will add CBC for tomorrow labs. Occupational therapist recommended back to [facility] upon discharge Objective - Vital Signs Vital signs: Vital Signs Temp 98.7 F 12/24/21 20:00 Pulse 96 12/25/21 05:05 Resp 18 12/25/21 05:05 BP 159/72 12/25/21 05:05 Pulse Ox 98 12/25/21 08:34 FiO2 30 12/21/21 15:52 Intake & Output 12/24/21 12/25/21 12/25/21 18:59 06:59 18:59 Intake Total 430 118 Output Total 800 Balance -370 118 Weight 70.5 kg Intake: Intake, IV Titration 250 Amount Azithromycin 500 mg In 250 Sodium Chloride 0.9% 250 ml @ 250 mls/hr IVPB DAILY@1600 [facility] Rx#: [id number] Oral 180 118 Output: Urine 800 Other: Voiding Method Indwelling Catheter Indwelling Catheter # Bowel Movements 2 - Exam GENERAL: The patient is alert and oriented x3, not in any acute distress. Well developed, well nourished. HEENT: Pupils are round and equally reacting to light. EOMI. No scleral icterus. No conjunctival pallor. Normocephalic, atraumatic. No pharyngeal erythema. No thyromegaly. CARDIOVASCULAR: S1 and S2 present. No murmurs, rubs, or gallops. -PULMONARY: Chest is clear to auscultation, no wheezing but limited air entry although improvement ABDOMEN: Soft, nontender, nondistended, normoactive bowel sounds. No palpable organomegaly. MUSCULOSKELETAL: No joint swelling or deformity. EXTREMITIES: No cyanosis, clubbing, or pedal edema. NEUROLOGICAL: Gross neurological examination did not reveal any focal deficits. SKIN: No rashes. no petechiae. - Labs CBC & Chem 7: 12/22/21 06:34 12/22/21 06:34 Labs: Abnormal Lab Results - Last 24 Hours (Table) 12/24/21 12/24/21 12/24/21 Range/Units 11:56 16:25 20:30 POC Glucose (mg/dL) 136 H 142 H 137 H (70-110) mg/dL 12/25/21 Range/Units 06:06 POC Glucose (mg/dL) 117 H (70-110) mg/dL Microbiology - Last 24 Hours (Table) 12/21/21 13:43 Blood Culture - Preliminary Blood No Growth after 72 hours 12/21/21 13:43 Blood Culture - Preliminary Blood No Growth after 72 hours Assessment and Plan Assessment: Acute COPD exacerbation, improving Diarrhea, could be reactive. Rule out C. diff CHF, chronic without acute exacerbation Covid infection, without pneumonia Chronic hypoxic respiratory failure on 3 L/m oxygen Normal thyroid function test Dementia Hyperlipidemia Hypertension History of fibromyalgia History of hyponatremia Chronic back pain and spinal stenosis History of essential tremor History of anxiety and depression Plan: This is a pleasant 71 years old female who presents with COPD exacerbation, Covid infection change IV Solu-Medrol into prednisone, continue with bronchodilator Pulmonary consult Zithromax discontinued Check for C. diff Labs and medication were reviewed.. Continue same treatment. Continue with symptomatic treatment. Resume home medication. Monitor lytes and vitals. DVT and GI prophylaxis. Further recommendations as per clinical course of the patient DVT prophylaxis: Subcutaneous heparin GI Prophylaxis: Pepcid PT/OT: Back to [facility] Prognosis is guarded
[2021-12-25 11:55] LABS: Glucose,Whole Blood 107 mg/dL (70-110)
[2021-12-25 13:59] VITALS: BMI 27.5
[2021-12-25 16:57] LABS: Glucose,Whole Blood 141 mg/dL (70-110)
[2021-12-25] MEDS: ATORVASTATIN 40 MG TAB PO SCH (20:14)
[2021-12-25] MEDS: FENOFIBRATE 160 MG TAB PO SCH (20:15)
[2021-12-25 20:41] LABS: Glucose,Whole Blood 73 mg/dL (70-110)
[2021-12-25 23:21] VITALS: TEMP 98.2
[2021-12-26] MEDS: HYDROcodone/APAP 10-325MG 1 EACH TAB PO PRN ×3 (01:31→16:23)
[2021-12-26 06:19] LABS: Glucose,Whole Blood 92 mg/dL (70-110)
[2021-12-26] MEDS: INSULIN ASPART (NovoLOG) 100 UNIT/ML VIAL SQ SCH ×3 (06:22→17:44)
[2021-12-26] MEDS: PANTOPRAZOLE 40 MG TABLET PO SCH (06:22)
[2021-12-26] MEDS: ALBUTEROL HFA INHALER INHALATION SCH ×3 (07:29→15:40)
[2021-12-26] MEDS: TIOTROPIUM 2.5 MCG INHALER INHALATION SCH (07:30)
[2021-12-26] MEDS: SYMBICORT 160-4.5 MCG INHALER INHALATION SCH (07:30)
[2021-12-26 09:09] LABS: Basophils % (A) 1 %; Eosinophils # (A) 0.1 k/uL (0-0.7); Eosinophils % (A) 1 %; HGB 12.3 gm/dL (11.4-16.0); Lymphocytes # (A) 1.9 k/uL (1.0-4.8); Lymphocytes % (A) 29 %; MCH 29.9 pg (25.0-35.0); MCHC 31.6 g/dL (31.0-37.0); MCV 94.5 fL (80.0-100.0); Mean Platelet Volume 9.6; Monocytes # (A) 0.4 k/uL (0-1.0); Monocytes % (A) 6 %; Neutrophils % (A) 62 %; Platelet Count 148 k/uL (150-450); RBC 4.12 m/uL (3.80-5.40); RDW 12.8 % (11.5-15.5); WBC 6.5 k/uL (3.8-10.6)
--- NOTE | 2021-12-26 09:58 | P.PN ---
Subjective Progress Note Date: 12/26/21 71-year-old female with history of underlying COPD. She seen in the emergency department on December 21, complaining of weakness, and shortness of breath. The patient hasn't been feeling well for some time. 12/24/2021, I'm seeing this patient for a follow-up. The patient has COPD and she is a detention resident. The patient was hospitalized for increased shortness of breath. The patient also multiple comorbidities including chf, fibromyalgia, dementia and chronic anxiety. she has been maintained on oxygen at 2.5 l at home on outpatient basis. she has been also maintained on examination of symbicort and spiriva. she is doing well. no specific complaints. she is improving. less short of breath compared to yesterday. she remains on duoneb nebulized treatments around the clock. she is also on iv solu medrol 60 mg every 6 hours. much improved compared to yesterday. she is a heavy smoker for many years. she has [id number] smoking history and she smoked more than a pack of cigarettes a day. chest x-ray showed no evidence of any acute pneumonias. 12/25/2021, I'm seeing the patient for a follow-up. She is quite stable for now. However, he tells that she is having liquidy diarrhea. She had at least 3 episodes yesterday. This got worse after she came into the hospital. Apparently she was having some diarrhea even before being admitted to the hospital. In any rate, the patient is not having any major respiratory difficulties. No abdominal pain. No nausea vomiting or emesis. She was on Zithromax which could potentially potentiate or exacerbate underlying diarrhea. Underlying C. diff colitis is felt to be less likely. No other significant issues otherwise. I'm going to take her off the IV Solu Medrol start on a prednisone burst taper. She is a detention resident. 12/26/2021, the patient is being seen for a follow-up. Clinically stable. Shortness of breath has improved. The diarrhea is also improved as the patient was taken off the Zithromax yesterday which could have exacerbated her diarrhea. No nausea. No vomiting. No abdominal pain. The patient is currently on oral prednisone and she was taken off the IV Solu-Medrol also. Her stool for C. diff was also negative. Objective - Vital Signs Vital signs: Vital Signs Temp 98.2 F 12/25/21 21:00 Pulse 96 12/26/21 05:00 Resp 16 12/26/21 05:00 BP 150/72 12/26/21 05:00 Pulse Ox 96 12/26/21 05:00 FiO2 30 12/21/21 15:52 Intake & Output 12/25/21 12/26/21 12/26/21 18:59 06:59 18:59 Intake Total 236 485 Output Total 900 750 Balance -664 -265 Weight 70.5 kg Intake: Oral 236 485 Output: Urine 900 750 Other: Voiding Method Indwelling Catheter Indwelling Catheter - Exam No acute distress, oriented 3. 3 L saturation is 93%. Breathing is nonlabored. HEENT examination is grossly unremarkable. Neck supple. Full range of motion. No adenopathy thyromegaly or neck vein distention. Cardiovascular examination reveals regular rhythm rate. S1-S2 normal. No S3 or S4. No discernible murmur noted. Heart rate 102 bpm. Lungs reveal mild expiratory wheezes and rhonchi. Breath sounds equal bilaterally but diminished throughout. No crackles. Abdomen soft bowel sounds are heard. No masses or tenderness. Extremities are intact. No cyanosis clubbing or edema. Skin is without rash or lesion. Neurologic examination is brief but nonfocal. - Labs CBC & Chem 7: 12/26/21 07:05 12/22/21 06:34 Labs: Abnormal Lab Results - Last 24 Hours (Table) 12/25/21 12/26/21 Range/Units 16:55 07:05 Plt Count 148 L (150-450) k/uL POC Glucose (mg/dL) 141 H (70-110) mg/dL Microbiology - Last 24 Hours (Table) 12/21/21 13:43 Blood Culture - Preliminary Blood No Growth after 96 hours 12/21/21 13:43 Blood Culture - Preliminary Blood No Growth after 96 hours Assessment and Plan Plan: Acute exacerbation of COPD, not complicated by pneumonia.clinically the patient is improving , still on bronchodilators and steroids and the patient is currently on oral prednisone. The patient was taken off today Zithromax due to some ongoing diarrhea Probable severe stage III or stage IV COPD, with a baseline predicted PaCO2 of 74 + or -2 mmHg. Chronic hypoxemic respiratory failure, on home O2 at 2 L, 20/01. Exacerbation of his diarrhea, probably related to antibiotics, improved with the discontinuation of Zithromax History of CHF. History of dementia. History of fibromyalgia. History of hyperlipidemia. History of hypertension. History of spinal stenosis. History of essential tremors. Plan: continue bronchodilators Continue prednisone burst taper C. diff is negative OExtremelyxygen therapy Discharge planning is in progress and the patient is a detention resident.
[2021-12-26] MEDS: busPIRone HCl 5 MG TAB PO SCH (10:05)
[2021-12-26] MEDS: predniSONE 20 MG TAB PO SCH (10:05)
[2021-12-26] MEDS: ASCORBIC ACID 500 MG TAB PO SCH (10:05)
[2021-12-26] MEDS: HEPARIN SODIUM,PORCINE/PF 5,000 UNIT/0.5 ML SYRINGE SQ SCH (10:05)
[2021-12-26] MEDS: FOLIC ACID 1 MG TAB PO SCH (10:06)
[2021-12-26] MEDS: FUROSEMIDE 40 MG TAB PO SCH ×2 (10:06→18:10)
[2021-12-26] MEDS: ZINC SULFATE 220 MG CAP PO SCH (10:06)
[2021-12-26] MEDS: PREGABALIN 100 MG CAP PO SCH (10:06)
[2021-12-26] MEDS: SERTRALINE 100 MG TAB PO SCH (10:06)
[2021-12-26] MEDS: LORATADINE 10 MG TAB PO SCH (10:06)
[2021-12-26] MEDS: THIAMINE 100 MG TAB PO SCH (10:06)
[2021-12-26] MEDS: CHOLECALCIFEROL 125 MCG (5000 IU) TABLET PO SCH (10:06)
[2021-12-26] MEDS: METOPROLOL TARTRATE 12.5 MG TAB PO SCH (10:06)
[2021-12-26] MEDS: MULTIVITAMINS, THERA 1 EACH TAB PO SCH (10:08)
[2021-12-26] MEDS: LIDOCAINE 5% PATCH TOPICAL SCH (10:08)
[2021-12-26] MEDS: polyethylene glycoL 3350 17 GM POWD.PACK PO SCH (10:09)
[2021-12-26 11:15] VITALS: PULSE 102; RESP 18
[2021-12-26 11:17] VITALS: BP 138/93
[2021-12-26 12:03] LABS: Glucose,Whole Blood 109 mg/dL (70-110)
[2021-12-26 16:37] LABS: Glucose,Whole Blood 155 mg/dL (70-110)
--- NOTE | 2021-12-27 02:00 | P.DS ---
Providers Date of admission: 12/21/21 14:28 Attending physician: Shimon Haskins MD Consults: 12/21/21 14:52 Consult Physician Routine Consulting Provider: Esa Silva Consult Reason/Comments: COPD exac/ COVID positive Do you want consulting provider notified?: Yes Primary care physician: Stated None Hospital Course: Date of service 12/26/2021 Diagnoses: Acute COPD exacerbation, improving Mild Covid gastroenteritis CHF, chronic without acute exacerbation Covid infection, without pneumonia Chronic hypoxic respiratory failure on 3 L/m oxygen Normal thyroid function test Dementia Hyperlipidemia Hypertension History of fibromyalgia History of hyponatremia Chronic back pain and spinal stenosis History of essential tremor History of anxiety and depression Hospital course: This is a pleasant 71 years old female with past medical history of Heart Failure, COPD, Dementia, Fibromyalgia, Hyperlipidemia, Hypertension, hyponatremia, chronic back pain and spinal stenosis, essential tremor, anxiety and depression Patient presents because she was feeling hot and short of breath, patient was found to have acute COPD exacerbation. Also with Covid infection without pneumonia. She was treated with Solu-Medrol, breathing treatment and she showed interval improvement. She's been followed closely by pulmonary service On the day of discharge patient breathing better back close to baseline. She has some mild diarrhea was C. diff negative most likely related to Covid gastroenteritis, on the last 2 days she has 1 or 2 minimal loose bowel movement. No abdominal pain or vomiting. She tolerates diet well. Also she denies chest pain. No dizziness or headache. Patient looks clinically stable. Patient was cleared for discharge by pulmonary service. Problems and management plan were discussed with the patient and he verbalized understanding and acceptance Patient was found stable and can be discharged to [facility] in regards prognosis however he needs follow-up as an outpatient. Patient was instructed to follow up with PCP within one week and patient agrees Patient was instructed to follow up with equal opportunity assistant Dr. Iqbal in one week and she agrees Physical exam Gen: patient is a AAOx3, no distress CVS: S1-S2, RRR, no murmur Lungs: B/L CTA, no wheezing Abdomen: soft, no distention, no tenderness, positive bowel sounds Extremity: no leg edema or induration Time spent more than 35 minutes patient could not finish her token because of her dyspnea patient has some memory problems and she could not tell for how long associated with coughing and some toro phlegm as she states but denies chest pain. No vomiting or diarrhea. No dysuria. She has chronic headache for more than a year about 70/10 mg the morning. She quit smoking in 2019, no alcohol or illicit drug She could not remember who is her equal opportunity assistant But she confirms she has history of COPD, at home she is on 3 L oxygen via nasal cannula and the prednisone 5 mg Patient is afebrile. She is saturating 94% on 3 L oxygen via nasal cannula, mildly tachypneic 20 breaths per minute. Blood pressure is acceptable. CBC is unremarkable except for marked lymphopenia BMP showed normal creatinine but elevated carbon dioxide at 44. Glucose 116. Liver enzymes not elevated. TSH less than 0.015. Urine analysis showing positive nitrates but low RBCs and WBCs. Lopez virus is detected EKG showed sinus rhythm at [address]-T changes Chest x-ray: No evidence of pulmonary disease. In the emergency room patient was started on IV Solu-Medrol 60 mg, Symbicort MAPS was checked patient is on Happy Jack 10 3 times a day, gabapentin and Xanax 0.25 12/23/2021 Patient feels that her breathing is improving and she denies any cough and today and no chest pain. She still needing 3 L per minute of oxygen Also she is using BiPAP during the night. She has some weak cough therefore incentive spirometry is ordered 12/24/2021 Patient breathing improving, getting close to normal. However patient sitting in bed most of the time she still have some weak cough but is improving with incentive spirometry which is motivated to keep doing it. No other new complaints. She reports improvement, she is currently on 3 L/m compared to home dose of 2.5 L/m. She have some low appetite because she does not like the food here. She has intermittent mild hyperthermia which could be incidental however because she is still having cough and with yellow phlegm were going to add short course of Zithromax. Patient with Covid infection with no evidence of pneumonia or hypoxia. Possible discharge in 24-48 hours if she keeps improving. OT recommended returning back to [facility] 12/25/2021 Patient breathing improved significantly and her sterile stent to prednisone today. However she is developing frequent diarrhea with no abdominal pain or vomiting. I agree with checking for C. diff. Also we will add CBC for tomorrow labs. Occupational therapist recommended back to [facility] upon discharge Patient Condition at Discharge: Stable Plan - Discharge Summary Discharge Rx Participant: No New Discharge Prescriptions: New predniSONE 10 mg PO DIRECTED #40 tab Continue Sertraline HCl [Zoloft] 100 mg PO DAILY Cetirizine HCl [Zyrtec] 10 mg PO DAILY Biotin 10,000 mcg PO DAILY@0800 Fenofibrate Nanocrystallized [Tricor] 145 mg PO HS Atorvastatin Calcium [Lipitor] 40 mg PO HS Cholecalciferol (Vitamin D3) [Vitamin D3 (5000 Iu)] 250 mcg PO DAILY Ipratropium-Albuterol Nebulize [Duoneb 0.5 mg-3 mg/3 ml Soln] 3 ml INHALATION RT-QID ml Na Phos,M-B/Na Phos,Di-Ba [Fleet Adult] 133 ml RECTAL DAILY PRN PRN Reason: Constipation Furosemide [Lasix] 40 mg PO BID Magnesium Hydroxide [Milk of Magnesia Concentrate] 7,200 mg PO Q48H PRN PRN Reason: Constipation ALPRAZolam [Xanax] 0.25 mg PO TID PRN #6 tab PRN Reason: Anxiety Budesonide-Formot 160-4.5 Mcg [Symbicort 160-4.5 Mcg Inhaler] 2 puff INHALATION RT-BID Pantoprazole [Protonix] 40 mg PO DAILY Rosuvastatin [Crestor] 10 mg PO HS Benzonatate [Tessalon Perle] 200 mg PO TID PRN PRN Reason: Cough polyethylene glycoL 3350 [Miralax] 17 gm PO DAILY Sennosides/Docusate Sodium [Senna Plus 8.6-50 mg Tablet] 1 tab PO DIRECTED Ascorbic Acid [Vitamin C] 1,000 mg PO DAILY rOPINIRole HCL [Requip] 0.5 mg PO HS Pregabalin [Lyrica] 100 mg PO BID Lidocaine 1 patch TOPICAL Q12H Albuterol Inhaler [Ventolin Hfa Inhaler] 2 puff INHALATION RT-Q4H PRN PRN Reason: Shortness Of Breath Acetaminophen Tab [Tylenol] 650 mg PO Q6H PRN PRN Reason: Fever And/ Or Pain Docusate [Colace] 100 mg PO BID Thiamine [Vitamin B-1] 100 mg PO DAILY Multivitamins, Thera [Multivitamin (formulary)] 2 tab PO DAILY Metoprolol Tartrate [Lopressor] 12.5 mg PO DAILY Folic Acid 1 mg PO DAILY HYDROcodone/APAP 10-325MG [Happy Jack 10-325] 1 tab PO TID busPIRone HCL [Buspar] 7.5 mg PO BID Zinc 50 mg PO DAILY predniSONE 5 mg PO DAILY Biotene Logan 1 dose PO DIRECTED Discontinued tiZANidine [Zanaflex] 2 mg PO Q6H PRN PRN Reason: Muscle Spasm Azithromycin [Zithromax] 250 mg PO DIRECTED Discharge Medication List Atorvastatin Calcium [Lipitor] 40 mg PO HS 06/18/20 [History] Biotin 10,000 mcg PO DAILY@0800 06/18/20 [History] Cetirizine HCl [Zyrtec] 10 mg PO DAILY 06/18/20 [History] Fenofibrate Nanocrystallized [Tricor] 145 mg PO HS 06/18/20 [History] Sertraline HCl [Zoloft] 100 mg PO DAILY 06/18/20 [History] Albuterol Inhaler [Ventolin Hfa Inhaler] 2 puff INHALATION RT-Q4H PRN 09/25/20 [History] Cholecalciferol (Vitamin D3) [Vitamin D3 (5000 Iu)] 250 mcg PO DAILY 09/25/20 [History] Ipratropium-Albuterol Nebulize [Duoneb 0.5 mg-3 mg/3 ml Soln] 3 ml INHALATION RT-QID ml 10/03/20 [Rx] Acetaminophen Tab [Tylenol] 650 mg PO Q6H PRN 10/19/20 [History] Docusate [Colace] 100 mg PO BID 10/19/20 [History] Folic Acid 1 mg PO DAILY 10/19/20 [History] Furosemide [Lasix] 40 mg PO BID 10/19/20 [History] Magnesium Hydroxide [Milk of Magnesia Concentrate] 7,200 mg PO Q48H PRN 10/19/20 [History] Metoprolol Tartrate [Lopressor] 12.5 mg PO DAILY 10/19/20 [History] Multivitamins, Thera [Multivitamin (formulary)] 2 tab PO DAILY 10/19/20 [History] Na Phos,M-B/Na Phos,Di-Ba [Fleet Adult] 133 ml RECTAL DAILY PRN 10/19/20 [Hi story] Thiamine [Vitamin B-1] 100 mg PO DAILY 10/19/20 [History] ALPRAZolam [Xanax] 0.25 mg PO TID PRN #6 tab 10/25/20 [Rx] Budesonide-Formot 160-4.5 Mcg [Symbicort 160-4.5 Mcg Inhaler] 2 puff INHALATION RT-BID 11/23/20 [History] HYDROcodone/APAP 10-325MG [Happy Jack 10-325] 1 tab PO TID 11/23/20 [History] Pantoprazole [Protonix] 40 mg PO DAILY 11/23/20 [History] Ascorbic Acid [Vitamin C] 1,000 mg PO DAILY 12/21/21 [History] Benzonatate [Tessalon Perle] 200 mg PO TID PRN 12/21/21 [History] Biotene Logan 1 dose PO DIRECTED 12/21/21 [History] Lidocaine 1 patch TOPICAL Q12H 12/21/21 [History] Pregabalin [Lyrica] 100 mg PO BID 12/21/21 [History] Rosuvastatin [Crestor] 10 mg PO HS 12/21/21 [History] Sennosides/Docusate Sodium [Senna Plus 8.6-50 mg Tablet] 1 tab PO DIRECTED 12/21/21 [History] Zinc 50 mg PO DAILY 12/21/21 [History] busPIRone HCL [Buspar] 7.5 mg PO BID 12/21/21 [History] polyethylene glycoL 3350 [Miralax] 17 gm PO DAILY 12/21/21 [History] predniSONE 5 mg PO DAILY 12/21/21 [History] rOPINIRole HCL [Requip] 0.5 mg PO HS 12/21/21 [History] predniSONE 10 mg PO DIRECTED #40 tab 12/26/21 [Rx] Follow up Appointment(s)/Referral(s): Esa Silva DO [Doctor of Osteopathic Medicine] - 1 Week (Please call office to set up appointment when cleared from Covid ) [facility], [NON-STAFF] - None,Stated [Primary Care Provider] - 1-2 days Patient Instructions/Handouts: COPD (Chronic Obstructive Pulmonary Disease) (DC) Activity/Diet/Wound Care/Special Instructions: heart healthy diet , low sugar diet activity is restricted till you see your doctor Discharge Disposition: HOME WITH HOME HEALTH SERVICES
== END 2021-12-26 18:47 | disposition home health service (06) | DRG 178 ==
LOC: EC 12:25 → 4SSUR 14:28 → 3SCARD 15:44
PROVIDERS: ADMIT Internal Medicine; ATTEND Internal Medicine
DX: U07.1 COVID-19 (principal); A08.39 Other viral enteritis; J44.1 Chronic obstructive pulmonary disease with (acute) exacerbation; J96.11 Chronic respiratory failure with hypoxia; D72.810 Lymphocytopenia; E78.5 Hyperlipidemia, unspecified; F03.90 Unspecified dementia, unspecified severity, without behavioral disturbance, psychotic disturbance, mood disturbance, and anxiety; F17.210 Nicotine dependence, cigarettes, uncomplicated; F32.A Depression, unspecified; F41.9 Anxiety disorder, unspecified; G25.0 Essential tremor; G89.29 Other chronic pain; I11.0 Hypertensive heart disease with heart failure; I50.9 Heart failure, unspecified; M48.00 Spinal stenosis, site unspecified; M79.7 Fibromyalgia; Z79.51 Long term (current) use of inhaled steroids; Z79.899 Other long term (current) drug therapy; Z90.710 Acquired absence of both cervix and uterus; Z99.81 Dependence on supplemental oxygen; Z71.3 Dietary counseling and surveillance; Z91.018 Allergy to other foods; Z91.041 Radiographic dye allergy status; Z87.01 Personal history of pneumonia (recurrent)
CPT/HCPCS: 36415; 71046; 80048; 80053; 81001; 83605; 83880; 84439; 84443; 84481; 85025; 87040; 87324; 87502; 87635; 93005; 94640; 94660; 94760; 99285

== ENCOUNTER 2022-01-02 19:56 | Emergency (ER) | payer MEDICARE, BC ==
[2022-01-02 20:05] VITALS: TEMP 97.4
[2022-01-02 20:59] LABS: Basophils # (A) 0.1 k/uL (0-0.2); Basophils % (A) 1 %; Eosinophils % (A) 0 %; HCT 35.2 % (34.0-46.0); Lymphocytes # (A) 0.8 k/uL (1.0-4.8); Lymphocytes % (A) 5 %; MCH 31.6 pg (25.0-35.0); MCHC 34.2 g/dL (31.0-37.0); MCV 92.5 fL (80.0-100.0); Mean Platelet Volume 9.7; Monocytes # (A) 0.5 k/uL (0-1.0); Monocytes % (A) 3 %; Neutrophils # (A) 15.7 k/uL (1.3-7.7); Neutrophils % (A) 91 %; Platelet Count 239 k/uL (150-450); RDW 13.5 % (11.5-15.5); WBC 17.3 k/uL (3.8-10.6)
--- NOTE | 2022-01-02 21:04 | XR ---
EXAMINATION TYPE: XR chest 2V DATE OF EXAM: 01/02/2022 COMPARISON: 12/21/2021 HISTORY: Short of breath TECHNIQUE: FINDINGS: There is no heart failure nor confluent pneumonic infiltrate. Costophrenic angles are clear . Bony thorax is intact. There are chest leads. Heart size is normal. Thoracic aorta shows mild ather omatous changes. There is mild thoracic dextroscoliosis. IMPRESSION: No active cardiopulmonary disease. No change.
[2022-01-02 21:10] LABS: Albumin 3.6 g/dL (3.5-5.0); Calcium 8.1 mg/dL (8.4-10.2); Potassium 3.5 mmol/L (3.5-5.1); Total Bilirubin 0.7 mg/dL (0.2-1.3)
[2022-01-02 21:11] LABS: INR 1.2 (<1.2); Prothrombin Time 12.5 sec (9.0-12.0)
[2022-01-02] MEDS ORDERED: SODIUM CHLORIDE 0.9% 1,000 ML IV STA (21:46)
--- NOTE | 2022-01-02 21:56 | ED ---
General Adult HPI - General Source: patient, EMS Mode of arrival: EMS Limitations: no limitations <Regina Michaels - Last Filed: 01/02/22 23:03> - History of Present Illness Location: chest, back Radiation: non-radiation Severity scale (1-10): 5 Consistency: constant Improves with: none Worsens with: none Associated Symptoms: confusion, cough, shortness of breath, weakness Treatments Prior to Arrival: none <Fili Sarabia - Last Filed: 01/03/22 01:32> - General Chief complaint: Shortness of Breath Stated complaint: SOB Time Seen by Provider: 01/02/22 20:16 - History of Present Illness Initial comments: Patient is a 71-year-old female with history of COPD, heart failure, hypertension, hyperlipidemia presenting with chief complaint of shortness of breath. The patient recently had his stay in our hospital with Covid and COPD, from 12/21-12/27. Patient states that ever since discharge she has had increasing shortness of breath. States that today's symptoms increased and EMS was called. Patient is on 3 L of oxygen via nasal cannula at home. She denies any chest pain, palpitations, headache, vision changes, abdominal pain, nausea, vomiting, back pain, fever, chills. (Regina Michaels) - Related Data Home Medications Medication Instructions Recorded Confirmed Biotin 10,000 mcg PO DAILY@0800 06/18/20 01/02/22 Cetirizine HCl [Zyrtec] 10 mg PO DAILY@0800 06/18/20 01/02/22 Fenofibrate Nanocrystallized 145 mg PO HS 06/18/20 01/02/22 [Tricor] Sertraline HCl [Zoloft] 100 mg PO DAILY 06/18/20 01/02/22 Albuterol Inhaler [Ventolin Hfa 2 puff INHALATION RT-Q4H PRN 09/25/20 01/02/22 Inhaler] Cholecalciferol (Vitamin D3) 250 mcg PO DAILY 09/25/20 01/02/22 [Vitamin D3 (5000 Iu)] Acetaminophen Tab [Tylenol] 325 mg PO DIRECTED PRN 10/19/20 01/02/22 Docusate [Colace] 100 mg PO BID 10/19/20 01/02/22 Folic Acid 1 mg PO DAILY@1400 10/19/20 01/02/22 Furosemide [Lasix] 40 mg PO BID@0800,1400 10/19/20 01/02/22 Magnesium Hydroxide [Milk of 1 dose PO DIRECTED 10/19/20 01/02/22 Magnesia Concentrate] Metoprolol Tartrate [Lopressor] 12.5 mg PO DAILY PRN 10/19/20 01/02/22 Na Phos,M-B/Na Phos,Di-Ba [Fleet 133 ml RECTAL DIRECTED PRN 10/19/20 01/02/22 Adult] Thiamine [Vitamin B-1] 100 mg PO DAILY 10/19/20 01/02/22 Budesonide-Formot 160-4.5 Mcg 2 puff INHALATION RT-BID 11/23/20 01/02/22 [Symbicort 160-4.5 Mcg Inhaler] HYDROcodone/APAP 10-325MG [[place] 1 tab PO TID@0600,1400,2200 11/23/20 01/02/22 10-325] Pantoprazole [Protonix] 40 mg PO DAILY 11/23/20 01/02/22 Ascorbic Acid [Vitamin C] 1,000 mg PO DAILY 12/21/21 01/02/22 Biotene [place] 1 dose PO DIRECTED 12/21/21 01/02/22 Pregabalin [Lyrica] 100 mg PO BID 12/21/21 01/02/22 Rosuvastatin [Crestor] 10 mg PO HS 12/21/21 01/02/22 Sennosides/Docusate Sodium [Senna 1 tab PO DIRECTED 12/21/21 01/02/22 Plus 8.6-50 mg Tablet] Zinc 50 mg PO DAILY 12/21/21 01/02/22 busPIRone HCL [Buspar] 7.5 mg PO BID 12/21/21 01/02/22 polyethylene glycoL 3350 [Miralax] 17 gm PO DAILY@1000 12/21/21 01/02/22 predniSONE 5 mg PO DAILY 12/21/21 01/02/22 rOPINIRole HCL [Requip] 0.5 mg PO HS 12/21/21 01/02/22 Albuterol Nebulized [Ventolin 2.5 mg INHALATION 01/02/22 01/02/22 Nebulized] RT-QID@08,12,16,20 Ipratropium Nebulized [Atrovent 0.5 mg INHALATION 01/02/22 01/02/22 Nebulized 0.2 MG/ML] RT-QID@08,,,20 Lidocaine 4% Patch 1 patch TOPICAL DAILY 01/02/22 01/02/22 Multivitamin [Multivitamins Adult 2 tab PO DAILY 01/02/22 01/02/22 Gummies] predniSONE See Taper PO DIRECTED 01/02/22 01/02/22 tiZANidine [Zanaflex] 2 mg PO Q8HR PRN 01/02/22 01/02/22 Previous Rx's Medication Instructions Recorded ALPRAZolam [Xanax] 0.25 mg PO TID PRN #6 tab 10/25/20 Allergies Allergy/AdvReac Type Severity Reaction Status Date / Time adhesive tape Allergy Itching Verified 01/02/22 22:28 almond Allergy Unknown Verified 01/02/22 22:28 Iodinated Contrast Media Allergy Unknown Verified 01/02/22 22:28 latex Allergy Itching Verified 01/02/22 22:28 Review of Systems ROS Other: All systems not noted in ROS Statement are negative. <Regina Michaels - Last Filed: 01/02/22 23:03> ROS Other: All systems not noted in ROS Statement are negative. <Fili Sarabia - Last Filed: 01/03/22 01:32> ROS Statement: Those systems with pertinent positive or pertinent negative responses have been documented in the HPI. Past Medical History Past Medical History: Heart Failure, COPD, Dementia, Fibromyalgia, Hyperlipidemia, Hypertension, Pneumonia Additional Past Medical History / Comment(s): Pt recently admitted to [facility] on 10/21/20 with SOB possible exacerbation COPD as well as pneumonia, hyponatremia, elevated random blood sugar, mild protein calorie malnutrition. Other hx: Per sister, pt's health has declined since 06/18/20 when she had a fall/generalized edema/urinary retention/IDC/some confusion, chronic back pain, spinal stenosis, essential tremors, "left leg feel like rubber", constipation. sinus issues, elevated blood sugar with steroid use. History of Any Multi-Drug Resistant Organisms: VRE Date of last positivie culture/infection: 11/23/20 MDRO Source:: Urine Past Surgical History: Hysterectomy Additional Past Surgical History / Comment(s): L foot bunionectomy, back injections Past Anesthesia/Blood Transfusion Reactions: No Reported Reaction Past Psychological History: Anxiety, Depression Smoking Status: Former smoker Past Alcohol Use History: None Reported Past Drug Use History: None Reported - Past Family History Father Family Medical History: Dementia, Memory Impairment Additional Family Medical History / Comment(s): SPINAL DISEASE Mother History Unknown: Yes Family Medical History: Renal Disease Additional Family Medical History / Comment(s): CKD, RENAL FAILURE. Mother is . <MichaelsPalma mooreearl - Last Filed: 01/02/22 23:03> General Exam Limitations: no limitations General appearance: alert, other (Appear short of breath) Head exam: Present: atraumatic, normocephalic, normal inspection Eye exam: Present: normal appearance, EOMI. Absent: scleral icterus, periorbital swelling Neck exam: Present: normal inspection Respiratory exam: Present: rales. Absent: wheezes, rhonchi, stridor, chest wall tenderness Cardiovascular Exam: Present: normal rhythm, tachycardia, normal heart sounds. Absent: systolic murmur, diastolic murmur, rubs, gallop, clicks Neurological exam: Present: alert, oriented X3, CN II-XII intact Psychiatric exam: Present: normal affect, normal mood Skin exam: Present: warm, dry, intact, normal color. Absent: rash <Palma Michaelsearl - Last Filed: 01/02/22 23:03> General appearance: alert, in no apparent distress Head exam: Present: atraumatic, normocephalic, normal inspection Eye exam: Present: normal appearance, PERRL, EOMI. Absent: scleral icterus, conjunctival injection, periorbital swelling ENT exam: Present: normal exam, mucous membranes moist Neck exam: Present: normal inspection. Absent: tenderness, meningismus, lymphadenopathy Respiratory exam: Present: normal lung sounds bilaterally. Absent: respiratory distress, wheezes, rales, rhonchi, stridor Cardiovascular Exam: Present: regular rate, normal rhythm, normal heart sounds. Absent: systolic murmur, diastolic murmur, rubs, gallop, clicks GI/Abdominal exam: Present: soft, normal bowel sounds. Absent: distended, tenderness, guarding, rebound, rigid Extremities exam: Present: normal inspection, full ROM, normal capillary refill. Absent: tenderness, pedal edema, joint swelling, calf tenderness Back exam: Present: normal inspection Neurological exam: Present: alert, oriented X3, CN II-XII intact Psychiatric exam: Present: normal affect, normal mood Skin exam: Present: warm, dry, intact, normal color. Absent: rash <Fili Sarabia - Last Filed: 01/03/22 01:32> Course <Fili Sarabia - Last Filed: 01/03/22 01:32> Vital Signs 01/02/22 01/02/22 01/02/22 19:59 20:06 23:32 Temperature 97.4 F L Pulse Rate 107 H 108 H Respiratory 24 24 Rate Blood Pressure 150/91 O2 Sat by Pulse 97 Oximetry 01/02/22 01/03/22 23:40 01:12 Temperature 97.4 F L Pulse Rate 112 H 101 H Respiratory 16 Rate Blood Pressure 117/73 O2 Sat by Pulse 96 Oximetry - Reevaluation(s) Reevaluation #1: 01/03/22 01:16 Medical records reviewed (Fili Sarabia) Reevaluation #2: 01/03/22 01:16 Patient informed of results and questions answered (Fili Sarabia) - Consultations Consultation #1: Decision made to transfer patient outside facility speaking with admitting physician (Fili Sarabia) Consultation #2: spoke With Rell Cervantes were greater except patient transfer (Fili Sarabia) EKG Findings - EKG Comments: EKG Findings:: EKG is sinus tachycardia 108 TX 190 QRS 91 QTC 410 <Fili Sarabia - Last Filed: 01/03/22 01:32> Medical Decision Making - Lab Data Result diagrams: 01/02/22 20:40 01/02/22 20:40 <Regina Michaels - Last Filed: 01/02/22 23:03> - Lab Data Result diagrams: 01/02/22 20:40 01/02/22 20:40 - Radiology Data Radiology results: report reviewed (CHesst x-ray CT abdomen and pelvis and ultrasound of gallbladder negative for acute disease), image reviewed <Fili Sarabia - Last Filed: 01/03/22 01:32> - Medical Decision Making 71 female will be transferred to [facility] for GI evaluation regards to shock liver likely hypovolemic secondary to probable underlying urinary tract infection. (Fili Sarabia) - Lab Data Lab Results 01/02/22 01/02/22 01/02/22 Range/Units 20:40 20:40 20:40 WBC 17.3 H (3.8-10.6) k/uL RBC 3.80 (3.80-5.40) m/uL Hgb 12.0 (11.4-16.0) gm/dL Hct 35.2 (34.0-46.0) % MCV 92.5 (80.0-100.0) fL MCH 31.6 (25.0-35.0) pg MCHC 34.2 (31.0-37.0) g/dL RDW 13.5 (11.5-15.5) % Plt Count 239 (150-450) k/uL MPV 9.7 Neutrophils % 91 % Lymphocytes % 5 % Monocytes % 3 % Eosinophils % 0 % Basophils % 1 % Neutrophils # 15.7 H (1.3-7.7) k/uL Lymphocytes # 0.8 L (1.0-4.8) k/uL Monocytes # 0.5 (0-1.0) k/uL Eosinophils # 0.0 (0-0.7) k/uL Basophils # 0.1 (0-0.2) k/uL PT 12.5 H (9.0-12.0) sec INR 1.2 H (<1.2) APTT 21.0 L (22.0-30.0) sec D-Dimer 1.13 H (<0.60) mg/L FEU Sodium 131 L (137-145) mmol/L Potassium 3.5 (3.5-5.1) mmol/L Chloride 87 L (98-107) mmol/L Carbon Dioxide 36 H (22-30) mmol/L Anion Gap 8 mmol/L BUN 51 H (7-17) mg/dL Creatinine 1.03 (0.52-1.04) mg/dL Est GFR (CKD-EPI)AfAm 64 (>60 ml/min/1.73 sqM) Est GFR (CKD-EPI)NonAf 55 (>60 ml/min/1.73 sqM) Glucose 155 H (74-99) mg/dL Lactic Ac Sepsis Rflx Plasma Lactic Acid Shai (0.7-2.0) mmol/L Calcium 8.1 L (8.4-10.2) mg/dL Total Bilirubin 0.7 (0.2-1.3) mg/dL AST 2478 H (14-36) U/L ALT 2103 H (4-34) U/L Alkaline Phosphatase 75 (38-126) U/L Ammonia (<30) umol/L Troponin I (0.000-0.034) ng/mL NT-Pro-B Natriuret Pep pg/mL Total Protein 6.0 L (6.3-8.2) g/dL Albumin 3.6 (3.5-5.0) g/dL Lipase (23-300) U/L Urine Color Urine Appearance (Clear) Urine pH (5.0-8.0) Ur Specific [place] (1.001-1.035) Urine Protein (Negative) Urine Glucose (UA) (Negative) Urine Ketones (Negative) Urine Blood (Negative) Urine Nitrite (Negative) Urine Bilirubin (Negative) Urine Urobilinogen (<2.0) mg/dL Ur Leukocyte Esterase (Negative) Urine RBC (0-5) /hpf Urine WBC (0-5) /hpf Ur Squamous Epith Cells (0-4) /hpf Urine Bacteria (None) /hpf Hyaline Casts (0-2) /lpf Urine Mucus (None) /hpf Salicylates mg/dL Acetaminophen ug/mL Influenza Type A RNA (Not Detectd) Influenza Type B (PCR) (Not Detectd) 01/02/22 01/02/22 01/02/22 Range/Units 20:40 20:40 20:40 WBC (3.8-10.6) k/uL RBC (3.80-5.40) m/uL Hgb (11.4-16.0) gm/dL Hct (34.0-46.0) % MCV (80.0-100.0) fL MCH (25.0-35.0) pg MCHC (31.0-37.0) g/dL RDW (11.5-15.5) % Plt Count (150-450) k/uL MPV Neutrophils % % Lymphocytes % % Monocytes % % Eosinophils % % Basophils % % Neutrophils # (1.3-7.7) k/uL Lymphocytes # (1.0-4.8) k/uL Monocytes # (0-1.0) k/uL Eosinophils # (0-0.7) k/uL Basophils # (0-0.2) k/uL PT (9.0-12.0) sec INR (<1.2) APTT (22.0-30.0) sec D-Dimer (<0.60) mg/L FEU Sodium (137-145) mmol/L Potassium (3.5-5.1) mmol/L Chloride (98-107) mmol/L Carbon Dioxide (22-30) mmol/L Anion Gap mmol/L BUN (7-17) mg/dL Creatinine (0.52-1.04) mg/dL Est GFR (CKD-EPI)AfAm (>60 ml/min/1.73 sqM) Est GFR (CKD-EPI)NonAf (>60 ml/min/1.73 sqM) Glucose (74-99) mg/dL Lactic Ac Sepsis Rflx Plasma Lactic Acid Shai 2.4 H* (0.7-2.0) mmol/L Calcium (8.4-10.2) mg/dL Total Bilirubin (0.2-1.3) mg/dL AST (14-36) U/L ALT (4-34) U/L Alkaline Phosphatase (38-126) U/L Ammonia (<30) umol/L Troponin I 0.085 H* (0.000-0.034) ng/mL NT-Pro-B Natriuret Pep 9540 pg/mL Total Protein (6.3-8.2) g/dL Albumin (3.5-5.0) g/dL Lipase (23-300) U/L Urine Color Urine Appearance (Clear) Urine pH (5.0-8.0) Ur Specific [place] (1.001-1.035) Urine Protein (Negative) Urine Glucose (UA) (Negative) Urine Ketones (Negative) Urine Blood (Negative) Urine Nitrite (Negative) Urine Bilirubin (Negative) Urine Urobilinogen (<2.0) mg/dL Ur Leukocyte Esterase (Negative) Urine RBC (0-5) /hpf Urine WBC (0-5) /hpf Ur Squamous Epith Cells (0-4) /hpf Urine Bacteria (None) /hpf Hyaline Casts (0-2) /lpf Urine Mucus (None) /hpf Salicylates mg/dL Acetaminophen ug/mL Influenza Type A RNA (Not Detectd) Influenza Type B (PCR) (Not Detectd) 01/02/22 01/02/22 01/02/22 Range/Units 20:40 21:27 23:37 WBC (3.8-10.6) k/uL RBC (3.80-5.40) m/uL Hgb (11.4-16.0) gm/dL Hct (34.0-46.0) % MCV (80.0-100.0) fL MCH (25.0-35.0) pg MCHC (31.0-37.0) g/dL RDW (11.5-15.5) % Plt Count (150-450) k/uL MPV Neutrophils % % Lymphocytes % % Monocytes % % Eosinophils % % Basophils % % Neutrophils # (1.3-7.7) k/uL Lymphocytes # (1.0-4.8) k/uL Monocytes # (0-1.0) k/uL Eosinophils # (0-0.7) k/uL Basophils # (0-0.2) k/uL PT (9.0-12.0) sec INR (<1.2) APTT (22.0-30.0) sec D-Dimer (<0.60) mg/L FEU Sodium (137-145) mmol/L Potassium (3.5-5.1) mmol/L Chloride (98-107) mmol/L Carbon Dioxide (22-30) mmol/L Anion Gap mmol/L BUN (7-17) mg/dL Creatinine (0.52-1.04) mg/dL Est GFR (CKD-EPI)AfAm (>60 ml/min/1.73 sqM) Est GFR (CKD-EPI)NonAf (>60 ml/min/1.73 sqM) Glucose (74-99) mg/dL Lactic Ac Sepsis Rflx Y Plasma Lactic Acid Shai 1.0 (0.7-2.0) mmol/L Calcium (8.4-10.2) mg/dL Total Bilirubin (0.2-1.3) mg/dL AST (14-36) U/L ALT (4-34) U/L Alkaline Phosphatase (38-126) U/L Ammonia <9 (<30) umol/L Troponin I (0.000-0.034) ng/mL NT-Pro-B Natriuret Pep pg/mL Total Protein (6.3-8.2) g/dL Albumin (3.5-5.0) g/dL Lipase 182 (23-300) U/L Urine Color Urine Appearance (Clear) Urine pH (5.0-8.0) Ur Specific [place] (1.001-1.035) Urine Protein (Negative) Urine Glucose (UA) (Negative) Urine Ketones (Negative) Urine Blood (Negative) Urine Nitrite (Negative) Urine Bilirubin (Negative) Urine Urobilinogen (<2.0) mg/dL Ur Leukocyte Esterase (Negative) Urine RBC (0-5) /hpf Urine WBC (0-5) /hpf Ur Squamous Epith Cells (0-4) /hpf Urine Bacteria (None) /hpf Hyaline Casts (0-2) /lpf Urine Mucus (None) /hpf Salicylates <1.0 mg/dL Acetaminophen <10.0 ug/mL Influenza Type A RNA (Not Detectd) Influenza Type B (PCR) (Not Detectd) 01/03/22 01/03/22 Range/Units 00:45 00:45 WBC (3.8-10.6) k/uL RBC (3.80-5.40) m/uL Hgb (11.4-16.0) gm/dL Hct (34.0-46.0) % MCV (80.0-100.0) fL MCH (25.0-35.0) pg MCHC (31.0-37.0) g/dL RDW (11.5-15.5) % Plt Count (150-450) k/uL MPV Neutrophils % % Lymphocytes % % Monocytes % % Eosinophils % % Basophils % % Neutrophils # (1.3-7.7) k/uL Lymphocytes # (1.0-4.8) k/uL Monocytes # (0-1.0) k/uL Eosinophils # (0-0.7) k/uL Basophils # (0-0.2) k/uL PT (9.0-12.0) sec INR (<1.2) APTT (22.0-30.0) sec D-Dimer (<0.60) mg/L FEU Sodium (137-145) mmol/L Potassium (3.5-5.1) mmol/L Chloride (98-107) mmol/L Carbon Dioxide (22-30) mmol/L Anion Gap mmol/L BUN (7-17) mg/dL Creatinine (0.52-1.04) mg/dL Est GFR (CKD-EPI)AfAm (>60 ml/min/1.73 sqM) Est GFR (CKD-EPI)NonAf (>60 ml/min/1.73 sqM) Glucose (74-99) mg/dL Lactic Ac Sepsis Rflx Plasma Lactic Acid Shai (0.7-2.0) mmol/L Calcium (8.4-10.2) mg/dL Total Bilirubin (0.2-1.3) mg/dL AST (14-36) U/L ALT (4-34) U/L Alkaline Phosphatase (38-126) U/L Ammonia (<30) umol/L Troponin I (0.000-0.034) ng/mL NT-Pro-B Natriuret Pep pg/mL Total Protein (6.3-8.2) g/dL Albumin (3.5-5.0) g/dL Lipase (23-300) U/L Urine Color Yellow Urine Appearance Clear (Clear) Urine pH 6.0 (5.0-8.0) Ur Specific [place] 1.009 (1.001-1.035) Urine Protein Negative (Negative) Urine Glucose (UA) Negative (Negative) Urine Ketones Negative (Negative) Urine Blood Negative (Negative) Urine Nitrite Negative (Negative) Urine Bilirubin Negative (Negative) Urine Urobilinogen <2.0 (<2.0) mg/dL Ur Leukocyte Esterase Moderate H (Negative) Urine RBC 1 (0-5) /hpf Urine WBC 9 H (0-5) /hpf Ur Squamous Epith Cells <1 (0-4) /hpf Urine Bacteria Rare H (None) /hpf Hyaline Casts 3 H (0-2) /lpf Urine Mucus Rare H (None) /hpf Salicylates mg/dL Acetaminophen ug/mL Influenza Type A RNA Not Detected (Not Detectd) Influenza Type B (PCR) Not Detected (Not Detectd) Critical Care Time Critical Care Time: Yes Total Critical Care Time: 31 <Fili Sarabia - Last Filed: 01/03/22 01:32> Disposition <Regina Michaels - Last Filed: 01/02/22 23:03> Time of Disposition: 01:20 <Fili Sarabia - Last Filed: 01/03/22 01:32> Clinical Impression: Acute renal failure, Dehydration, Urinary tract infection, Weakness, Shock liver, Coronavirus infection, unspecified Disposition: ADMITTED IP TO THIS [facility] Condition: Serious Referrals: Boone Wilson MD [Primary Care Provider] - 1-2 days
--- NOTE | 2022-01-02 23:03 | CT ---
EXAMINATION TYPE: CT abdomen pelvis wo con DATE OF EXAM: 01/02/2022 COMPARISON: 10/02/2020 HISTORY: elevated LFTs. prior on PACS CT DLP: 468.5 mGycm Automated exposure control for dose reduction was used. Images obtained from the diaphragm to the floor the pelvis with no contrast. Lung bases are clear of consolidation. There is mild subsegmental atelectasis right lung base. No ple ural effusion. No pericardial effusion. Liver spleen and stomach pancreas and gallbladder appear intact. The bile ducts are not dilated. There is no adrenal mass. Kidneys have normal size and contour. No hydronephrosis. Ureters are not di lated. There is no retroperitoneal adenopathy. Abdominal aorta is atheromatous. Appendix is posterior and appears normal. There is a Patterson catheter in the urinary bladder. Bladder distends smoothly. No inguinal hernia. No free fluid in the pelvis. No pelvic mass. There is hysterectomy. The bones are osteopenic. There is mild wedging of T11 vertebra 15%. The bony pelvis is intact. Hip joints are intact. There is moderate lumbar levoscoliotic deformity. There is no mesenteric edema. No ascites or free air. No bowel obstruction. IMPRESSION: Mild subsegmental atelectasis at the right lung base. No acute abnormality within the abdomen and pel vis. Atherosclerotic vascular disease. There is compression fracture of T11 which is a change compare d to the old exam. Fracture could be relatively acute.
[2022-01-02] MEDS ORDERED: IPRATROPIUM-ALBUTEROL 3 ML NEB INHALATION STA (23:22)
[2022-01-03] LABS: Acetaminophen <10.0 ug/mL; Lipase 182 U/L (23-300); Salicylate <1.0 mg/dL
--- NOTE | 2022-01-03 00:01 | US ---
EXAMINATION TYPE: US gallbladder DATE OF EXAM: 01/02/2022 COMPARISON: CT 01/02/22 CLINICAL HISTORY: pain. Pain EXAM MEASUREMENTS: Liver Length: 13.8 cm Gallbladder Wall: 0.18 cm CBD: 0.29 cm Right Kidney: 10.1 x 3.5 x 4.5 cm Pancreas: Limited visualization of pancreatic tail; pancreas appears echogenic Liver: Appears wnl Gallbladder: Appears wnl Evidence for sonographic Xavier's sign: no CBD: wnl Right Kidney: No hydronephrosis or masses seen Patient was unable to hold breath/take deep breath. IMPRESSION: Negative exam. No gallstones or dilated ducts. Normal right kidney.
[2022-01-03 01:15] LABS: Appearance,Urine Clear (Clear); Bacteria,Urine Rare /hpf; Bilirubin,Urine Negative (Negative); Blood,Urine Negative (Negative); Color,Urine Yellow; Glucose,Urine (UA) Negative (Negative); Hyaline Casts,Urine 3 /lpf (0-2); Ketones,Urine Negative (Negative); Leukocyte Esterase,Urine Moderate (Negative); Mucus,Urine Rare /hpf; Nitrite,Urine Negative (Negative); Protein,Urine Negative (Negative); RBC,Urine 1 /hpf (0-5); Specific Gravity,Urine 1.009 (1.001-1.035); Squamous Epithelial Cell,Urine <1 /hpf (0-4); Urobilinogen,Urine <2.0 mg/dL (<2.0); WBC,Urine 9 /hpf (0-5)
[2022-01-03] MEDS ORDERED: SODIUM CHLORIDE 0.9% 1,000 ML IV STA (02:57)
[2022-01-03] MEDS ORDERED: methylPREDNISolone SOD SUCCI 125 MG/2 ML VIAL IV STA (02:57)
[2022-01-03 03:16] VITALS: BP 162/94; PULSE 108; RESP 22
== END 2022-01-03 03:55 | disposition other institution (70) ==
LOC: EC 19:56
DX: N17.9 Acute kidney failure, unspecified (principal); E86.0 Dehydration; K72.00 Acute and subacute hepatic failure without coma; J44.9 Chronic obstructive pulmonary disease, unspecified; I11.0 Hypertensive heart disease with heart failure; Z87.891 Personal history of nicotine dependence; Z20.822 Contact with and (suspected) exposure to COVID-19; Z91.048 Other nonmedicinal substance allergy status; Z91.040 Latex allergy status; Z91.041 Radiographic dye allergy status; Z91.018 Allergy to other foods
CPT/HCPCS: 36415; 94640; 93005; 85379; 83880; 80053; 82140; 83605; 83690; 84484; 85025; 85610; 85730; 81001; 80143; 87502; 80179; 71046; 76705; 74176; 99285; 96365; 96366; 96361; 96375; J2930; J0696

== ENCOUNTER 2022-06-26 16:22 | Emergency (ER) | payer MEDICARE, BC ==
[2022-06-26 16:44] VITALS: RESP 18; TEMP 98.5
--- NOTE | 2022-06-26 17:04 | XR ---
EXAMINATION TYPE: XR ankle complete RT DATE OF EXAM: 06/26/2022 5:00 PM INDICATION: Patient age:Female; 72 years old; Reason for study: ankle injury; COMPARISON: None TECHNIQUE: The right ankle is imaged in frontal, lateral and oblique projections. FINDINGS: Diffuse osseous demineralization. There is no evidence of acute osseous pathology. The joint spaces are well-preserved without evidenc e of subluxation or dislocation. Kager's fat pad is intact. Soft tissues are within normal limits. No radiopaque foreign bodies are identified. IMPRESSION: Diffuse osseous demineralization which limits evaluation for fracture. No evidence for displaced frac ture.
[2022-06-26] MEDS ORDERED: HYDROcodone/APAP 10-325MG 1 EACH TAB PO ONE (17:23)
--- NOTE | 2022-06-26 18:16 | ED ---
Lower Extremity Injury HPI - General Chief Complaint: Extremity Injury, Lower Stated Complaint: right ankle pain Time Seen by Provider: 06/26/22 16:36 Source: patient, EMS Mode of arrival: EMS - History of Present Illness Initial Comments: This patient is a 72-year-old woman who presents to have evaluation of left ankle pain. The patient indicates that this should come on while she was doing physical therapy. She states that she was trying to take a step and her foot twisted and she felt acute onset of pain. She states that also felt like there was a popping sensation. After that she was not able to continue physical therapy. Patient denies weakness or numbness into the foot. She states the pain is worse if anyone touches the medial aspect of the ankle. MD Complaint: ankle injury -: hour(s) Injury: Ankle: Right Type of Injury: unknown Place: SNF Severity: moderate Improves With: nothing Worsens With: weight bearing, movement, palpation Context: other (Doing physical therapy) Associated Symptoms: snap/pop sensation - Related Data Home Medications Medication Instructions Recorded Confirmed Biotin 10,000 mcg PO DAILY@0800 06/18/20 01/02/22 Cetirizine HCl [Zyrtec] 10 mg PO DAILY@0800 06/18/20 01/02/22 Fenofibrate Nanocrystallized 145 mg PO HS 06/18/20 01/02/22 [Tricor] Sertraline HCl [Zoloft] 100 mg PO DAILY 06/18/20 01/02/22 Albuterol Inhaler [Ventolin Hfa 2 puff INHALATION RT-Q4H PRN 09/25/20 01/02/22 Inhaler] Cholecalciferol (Vitamin D3) 250 mcg PO DAILY 09/25/20 01/02/22 [Vitamin D3 (5000 Iu)] Acetaminophen Tab [Tylenol] 325 mg PO DIRECTED PRN 10/19/20 01/02/22 Docusate [Colace] 100 mg PO BID 10/19/20 01/02/22 Folic Acid 1 mg PO DAILY@1400 10/19/20 01/02/22 Furosemide [Lasix] 40 mg PO BID@0800,1400 10/19/20 01/02/22 Magnesium Hydroxide [Milk of 1 dose PO DIRECTED 10/19/20 01/02/22 Magnesia Concentrate] Metoprolol Tartrate [Lopressor] 12.5 mg PO DAILY PRN 10/19/20 01/02/22 Na Phos,M-B/Na Phos,Di-Ba [Fleet 133 ml RECTAL DIRECTED PRN 10/19/20 01/02/22 Adult] Thiamine [Vitamin B-1] 100 mg PO DAILY 10/19/20 01/02/22 Budesonide-Formot 160-4.5 Mcg 2 puff INHALATION RT-BID 11/23/20 01/02/22 [Symbicort 160-4.5 Mcg Inhaler] HYDROcodone/APAP 10-325MG [[place] 1 tab PO TID@0600,1400,2200 11/23/20 01/02/22 10-325] Pantoprazole [Protonix] 40 mg PO DAILY 11/23/20 01/02/22 Ascorbic Acid [Vitamin C] 1,000 mg PO DAILY 12/21/21 01/02/22 Biotene [place] 1 dose PO DIRECTED 12/21/21 01/02/22 Pregabalin [Lyrica] 100 mg PO BID 12/21/21 01/02/22 Rosuvastatin [Crestor] 10 mg PO HS 12/21/21 01/02/22 Sennosides/Docusate Sodium [Senna 1 tab PO DIRECTED 12/21/21 01/02/22 Plus 8.6-50 mg Tablet] Zinc 50 mg PO DAILY 12/21/21 01/02/22 busPIRone HCL [Buspar] 7.5 mg PO BID 12/21/21 01/02/22 polyethylene glycoL 3350 [Miralax] 17 gm PO DAILY@1000 12/21/21 01/02/22 predniSONE 5 mg PO DAILY 12/21/21 01/02/22 rOPINIRole HCL [Requip] 0.5 mg PO HS 12/21/21 01/02/22 Albuterol Nebulized [Ventolin 2.5 mg INHALATION 01/02/22 01/02/22 Nebulized] RT-QID@08,12,16,20 Ipratropium Nebulized [Atrovent 0.5 mg INHALATION 01/02/22 01/02/22 Nebulized 0.2 MG/ML] RT-QID@08,12,16,20 Lidocaine 4% Patch 1 patch TOPICAL DAILY 01/02/22 01/02/22 Multivitamin [Multivitamins Adult 2 tab PO DAILY 01/02/22 01/02/22 Gummies] predniSONE See Taper PO DIRECTED 01/02/22 01/02/22 tiZANidine [Zanaflex] 2 mg PO Q8HR PRN 01/02/22 01/02/22 Previous Rx's Medication Instructions Recorded ALPRAZolam [Xanax] 0.25 mg PO TID PRN #6 tab 10/25/20 Allergies Allergy/AdvReac Type Severity Reaction Status Date / Time adhesive tape Allergy Itching Verified 01/02/22 22:28 almond Allergy Unknown Verified 01/02/22 22:28 Iodinated Contrast Media Allergy Unknown Verified 01/02/22 22:28 latex Allergy Itching Verified 01/02/22 22:28 Review of Systems ROS Statement: Those systems with pertinent positive or pertinent negative responses have been documented in the HPI. ROS Other: All systems not noted in ROS Statement are negative. Constitutional: Denies: fever, chills, weakness Respiratory: Denies: cough, dyspnea Cardiovascular: Denies: chest pain Gastrointestinal: Denies: abdominal pain Musculoskeletal: Reports: as per HPI, arthralgia. Denies: back pain Neurological: Denies: headache, weakness Past Medical History Past Medical History: Heart Failure, COPD, Dementia, Fibromyalgia, Hyperlipidemia, Hypertension, Pneumonia Additional Past Medical History / Comment(s): Pt recently admitted to [facility] on 10/21/20 with SOB possible exacerbation COPD as well as pneumonia, hyponatremia, elevated random blood sugar, mild protein calorie malnutrition. Other hx: Per sister, pt's health has declined since 06/18/20 when she had a fall/generalized edema/urinary retention/IDC/some confusion, chronic back pain, spinal stenosis, essential tremors, "left leg feel like rubber", constipation. sinus issues, elevated blood sugar with steroid use. History of Any Multi-Drug Resistant Organisms: VRE Date of last positivie culture/infection: 11/23/20 MDRO Source:: Urine Past Surgical History: Hysterectomy Additional Past Surgical History / Comment(s): L foot bunionectomy, back injections Past Anesthesia/Blood Transfusion Reactions: No Reported Reaction Past Psychological History: Anxiety, Depression Smoking Status: Former smoker Past Alcohol Use History: None Reported Past Drug Use History: None Reported - Past Family History Father Family Medical History: Dementia, Memory Impairment Additional Family Medical History / Comment(s): SPINAL DISEASE Mother History Unknown: Yes Family Medical History: Renal Disease Additional Family Medical History / Comment(s): CKD, RENAL FAILURE. Mother is . General Exam General appearance: alert, in no apparent distress Head exam: Present: atraumatic, normocephalic Eye exam: Present: normal appearance. Absent: scleral icterus, conjunctival injection Respiratory exam: Present: normal lung sounds bilaterally, wheezes (Trace expiratory wheeze). Absent: respiratory distress, rales, rhonchi Cardiovascular Exam: Present: regular rate, normal rhythm, normal heart sounds GI/Abdominal exam: Present: soft. Absent: tenderness Extremities exam: Present: tenderness, normal capillary refill, other (Patient has tenderness to palpation posterior to the medial malleolus. There is no obvious deformity. No swelling or ecchymosis. Patient is able to point the toe without pain. No weakness or numbness throughout the foot.). Absent: full ROM Skin exam: Present: warm, dry, intact, normal color. Absent: rash Course Vital Signs 06/26/22 06/26/22 06/26/22 16:40 18:46 20:55 Temperature 98.5 F Pulse Rate 80 82 80 Respiratory 18 18 18 Rate Blood Pressure 143/94 122/74 123/70 O2 Sat by Pulse 92 L 97 97 Oximetry Medical Decision Making - Medical Decision Making Patient is 72-year-old woman with pain at the ankle following physical therapy. There is no obvious bony deformity though the x-ray is limited by decreased bone density. Splint is provided and patient will follow with orthopedics for repeat evaluation. Recommended limited weightbearing as tolerated as well as further conservative therapy until able to see with.. Disposition Clinical Impression: Right ankle sprain Disposition: HOME SELF-CARE Condition: Good Instructions (If sedation given, give patient instructions): Ankle Sprain (ED) Is patient prescribed a controlled substance at d/c from ED?: No Referrals: Boone Wilson MD [Primary Care Provider] - 1-2 days
[2022-06-26 22:05] VITALS: BP 123/70; PULSE 80
== END 2022-06-26 20:55 | disposition home or self-care (01) ==
LOC: EC 16:22
DX: S93.401A Sprain of unspecified ligament of right ankle, initial encounter (principal); I11.0 Hypertensive heart disease with heart failure; I50.9 Heart failure, unspecified; J44.9 Chronic obstructive pulmonary disease, unspecified; E78.5 Hyperlipidemia, unspecified; F41.9 Anxiety disorder, unspecified; F32.A Depression, unspecified; Z87.891 Personal history of nicotine dependence; Z91.040 Latex allergy status; Z91.048 Other nonmedicinal substance allergy status; Z91.018 Allergy to other foods; Z88.8 Allergy status to other drugs, medicaments and biological substances; Z79.899 Other long term (current) drug therapy; Z79.01 Long term (current) use of anticoagulants; Z79.51 Long term (current) use of inhaled steroids; X50.0XXA Overexertion from strenuous movement or load, initial encounter
CPT/HCPCS: 99284